=== PATIENT | female | born 1965 | race African-American/Black ===

== ENCOUNTER 2016-10-30 12:17 | Emergency (ER) | payer OTHER ==
[2016-10-30 12:34] VITALS: BP 126/81; PULSE 95; TEMP 98.5; BMI 36.6
--- NOTE | 2016-10-30 13:09 | PDOC ---
History of Present Illness - General Chief Complaint: Back Pain Stated Complaint: BACK PAIN Time Seen by Provider: 10/30/16 12:43 History Source: Patient Exam Limitations: No Limitations - History of Present Illness Initial Comments: CHIEF COMPLAINT: 51 y/o afebrile female with PMH DM, Bipolar, generalized pain , GERD BIB EMS from [facility] for back pain. HISTORY OF PRESENT ILLNESS: The patient states yesterday she was bent over a table and since that time has had lower back pain. She also admits to left eye redness and swelling, which she is being treated by the Ophthamologist at the [facility]. She denies f/c, KEARNEY, neck pain, n/v/d, CP, SOB, abd pain, fall, trauma to back, saddle anesthesia, numbness/tingling in LEs. Vital signs on arrival are notable for pulse of 95. REVIEW OF SYSTEMS: GENERAL/CONSTITUTIONAL: No fever/chills. No weakness. No weight change. HEAD, EYES, EARS, NOSE AND THROAT: No change in vision. No ear pain or discharge. No sore throat. CARDIOVASCULAR: No chest pain or shortness of breath. RESPIRATORY: No cough, wheezing, or hemoptysis. GASTROINTESTINAL: No abd pain, nausea, vomiting, diarrhea. GENITOURINARY: No dysuria, frequency, or change in urination. MUSCULOSKELETAL: No joint or muscle swelling or pain. No neck pain. +Back pain. SKIN: No rash or easy bruising. NEUROLOGIC: No headache, vertigo, loss of consciousness, or loss of sensation. PHYSICAL EXAM: GENERAL: The patient is awake, alert, and fully oriented, in no acute distress. She is well appearing and moves around in the bed with minimal pain. HEAD: Normal with no signs of trauma. ENT: Pupils equal, round and reactive to light, extraocular movements intact, sclera anicteric, conjunctiva clear. Neck supple. +left subconjunctival hemorrhage with moderate left supraorbital swelling. ABDOMEN: Soft, non-distended, non-tender even to deep palpation, no hepatomegaly or splenomegaly, no masses. BACK: No midline lumbar spine TTP or step offs. Reproducible pain to b/l lumbar paraspinal muscles. EXTREMITIES: Normal range of motion, no edema. NEUROLOGICAL: Normal speech, normal gait. CN II-XII grossly intact. No saddle anesthesia. Equal straight leg raise b/l. PSYCH: Normal mood, normal affect. SKIN: Warm, dry, normal turgor, no rashes or lesions noted. Past History - Past Medical History Allergies/Adverse Reactions: Allergies Allergy/AdvReac Type Severity Reaction Status Date / Time No Known Allergies Allergy Verified 10/30/16 12:30 Home Medications: Ambulatory Orders Divalproex [Depakote -] 500 mg PO DAILY 09/30/15 Divalproex [Depakote -] 750 mg PO HS 09/30/15 Haloperidol Liquid [Haldol Liquid -] 10 mg PO BID 09/30/15 Metformin HCl 500 mg PO BID 09/30/15 Albuterol Sulfate [Proair Respiclick] 90 mcg IH PRN PRN 10/30/16 Famotidine [Pepcid] 20 mg PO DAILY 10/30/16 Latanoprost 0.005% Eye Drops [Xalatan 0.005% Eye Drops -] 1 drop OU HS 10/30/16 Naproxen [Naprosyn -] 500 mg PO BID 10/30/16 Diabetes: Yes GI Disorders: Yes (REFLUX) Psychiatric Problems: Yes (BIPOLAR) - Psycho/Social/Smoking Cessation Hx Anxiety: Yes Suicidal Ideation: No Smoking History: Current every day smoker Have you smoked in the past 12 months: Yes Number of Cigarettes Smoked Daily: 20 Cigars Per Day: 5 Information on smoking cessation initiated: No 'Breaking Loose' booklet given: 07/22/16 Hx Alcohol Use: No Drug/Substance Use Hx: No Substance Use Type: None *Physical Exam - Vital Signs Last Vital Signs Temp Pulse Resp BP Pulse Ox 98.5 F 95 H 18 126/81 96 10/30/16 12:21 10/30/16 12:21 10/30/16 12:21 10/30/16 12:21 10/30/16 12:21 Medical Decision Making - Medical Decision Making A/P: 51 y/o afebrile with musculoskeletal low back pain. No imaging studies are necessary at this time. Plan is as follows: 1. IM toradol The patient was instructed to continue using eye drops prescribed to her by her maternal child nurse and take Motrin for back pain. Also suggested she apply heating pad to low back and stretch. Instructed her to return to the ER with any worsening or concerning symptoms. The patient verbalizes understanding of all instructions, has no further questions and is awaiting discharge. *DC/Admit/Observation/Transfer Diagnosis at time of Disposition: Low back pain Qualifiers: Chronicity: acute Back pain laterality: bilateral Sciatica presence: without sciatica Qualified Code(s): M54.5 - Low back pain - Discharge Dispostion Disposition: HALFWAY FACILITY Condition at time of disposition: Improved - Referrals Referrals: Wojciech Cummins [Staff Physician] - Call tomorrow - Patient Instructions Printed Discharge Instructions: DI for Low Back Pain Additional Instructions: Discharge Instructions: -Take Motrin with food every 6 hours for pain -Apply heating pad to low back to help with pain -Continue applying eye drops as prescribed by your eye doctor -Follow up with your eye doctor this week -Return to the ER with any worsening or concerning symptoms
[2016-10-30] MEDS ORDERED: KETOROLAC TROMETHAMINE 60 MG/2 ML VIAL IM ONE (13:10)
[2016-10-30] MEDS ORDERED: KETOROLAC TROMETHAMINE 60 MG/2 ML VIAL ONE (13:13)
--- NOTE | 2016-10-30 14:56 | PDOC ---
*Physical Exam - Vital Signs Last Vital Signs Temp Pulse Resp BP Pulse Ox 98.5 F 95 H 18 126/81 96 10/30/16 12:21 10/30/16 12:21 10/30/16 12:21 10/30/16 12:21 10/30/16 12:21 ED Treatment Course - Medications Given in the ED: ED Medications Discontinued Medications Generic Name Dose Route Start Last Admin Trade Name Chalo PRN Reason Stop Dose Admin Ketorolac Tromethamine 60 mg 10/30/16 13:10 10/30/16 13:15 Toradol Injection - IM 10/30/16 13:11 60 mg ONCE ONE Administration Medical Decision Making - Medical Decision Making 10/30/16 14:56 Patient seen and evaluated with the nurse practitioner. I agree with the overall evaluation, assessment, and management with the following summary of visit: 51-year-old female with atraumatic low back pain area no red flags on history or physical exam. Neurologically intact, improved after antacids, agrees with discharge. *DC/Admit/Observation/Transfer Diagnosis at time of Disposition: Low back pain Qualifiers: Chronicity: acute Back pain laterality: bilateral Sciatica presence: without sciatica Qualified Code(s): M54.5 - Low back pain - Discharge Dispostion Disposition: RETIREMENT FACILITY Condition at time of disposition: Improved - Referrals Referrals: Wojciech Cummins [Staff Physician] - Call tomorrow - Patient Instructions Printed Discharge Instructions: DI for Low Back Pain Additional Instructions: Discharge Instructions: -Take Motrin with food every 6 hours for pain -Apply heating pad to low back to help with pain -Continue applying eye drops as prescribed by your eye doctor -Follow up with your eye doctor this week -Return to the ER with any worsening or concerning symptoms - Post Discharge Activity
== END 2016-10-30 15:45 ==
LOC: JER 12:17
PROC: 3E0233Z Introduction of Anti-inflammatory into Muscle, Percutaneous Approach (ICD-10-PCS; principal; 2016-10-30)
DX: M54.5 Low back pain (principal); E11.9 Type 2 diabetes mellitus without complications; Z79.84 Long term (current) use of oral hypoglycemic drugs; K21.9 Gastro-esophageal reflux disease without esophagitis; F17.210 Nicotine dependence, cigarettes, uncomplicated; X50.9XXA Other and unspecified overexertion or strenuous movements or postures, initial encounter; X50.0XXA Overexertion from strenuous movement or load, initial encounter; Y93.89 Activity, other specified; Y92.128 Other place in nursing home as the place of occurrence of the external cause
CPT/HCPCS: 96372; 99282-25

== ENCOUNTER 2016-10-31 22:13 | Emergency (ER) | payer OTHER ==
[2016-10-31 22:27] VITALS: BP 109/62; PULSE 101; TEMP 98.1; BMI 40.2
--- NOTE | 2016-10-31 22:48 | PDOC ---
History of Present Illness - General Chief Complaint: Back Pain Stated Complaint: BACK PAIN Time Seen by Provider: 10/31/16 22:38 History Source: Patient Exam Limitations: No Limitations - History of Present Illness Initial Comments: 10/31/16 23:21 51yo Female patient with PmHx: Schizophrenia, Bipolar disorder, DM, GERD and chronic low back pain presents to ED via EMS from "[facility] " c/o atraumatic back pain. Patient states she was seen in ED earlier today and given Motrin which did not help her back pain. Patient denies trauma, injury, CP , Abd pain, n/v/d, rash, fever, dysuria, hematuria, rectal bleeding, or any other complaints at this time. Patient also has a subconjunctival hemorrhage noted to left eye that she reports is currently being treated by her facility staff. Past History - Travel Traveled outside of the country in the last 30 days: No Close contact w/someone who was outside of country & ill: No - Past Medical History Allergies/Adverse Reactions: Allergies Allergy/AdvReac Type Severity Reaction Status Date / Time No Known Allergies Allergy Verified 10/31/16 22:24 Home Medications: Ambulatory Orders Divalproex [Depakote -] 500 mg PO DAILY 09/30/15 Divalproex [Depakote -] 750 mg PO HS 09/30/15 Haloperidol Liquid [Haldol Liquid -] 10 mg PO BID 09/30/15 Metformin HCl 500 mg PO BID 09/30/15 Albuterol Sulfate [Proair Respiclick] 90 mcg IH PRN PRN 10/30/16 Famotidine [Pepcid] 20 mg PO DAILY 10/30/16 Latanoprost 0.005% Eye Drops [Xalatan 0.005% Eye Drops -] 1 drop OU HS 10/30/16 Naproxen [Naprosyn -] 500 mg PO BID 10/30/16 Cephalexin Monohydrate [Keflex -] 500 mg PO BID #14 capsule 11/01/16 Diabetes: Yes GI Disorders: Yes (gerd) Psychiatric Problems: Yes (bipolar, schizophrenia) - Psycho/Social/Smoking Cessation Hx Anxiety: Yes Suicidal Ideation: No Smoking History: Never smoked Have you smoked in the past 12 months: Yes Number of Cigarettes Smoked Daily: 1 Cigars Per Day: 5 'Breaking Loose' booklet given: 07/22/16 Hx Alcohol Use: No Drug/Substance Use Hx: No Substance Use Type: None Trauma Specific PMHX - Complaint Specific PMHX Arthritis: Yes Back Injury: No Neck Injury: No Hx Sacro Iliac Joint Dysfunction: No Review of Systems - Review of Systems Able to Perform ROS?: Yes Is the patient limited [place] Citizen proficient: No Constitutional: No: Chills, Fever ABD/GI: No: Constipated, Diarrhea, Nausea, Poor Appetite, Poor Fluid Intake, Rectal Bleeding, Vomiting : No: Dysuria, Flank Pain, Hematuria Musculoskeletal: Yes: Back Pain All Other Systems: Reviewed and Negative *Physical Exam - Vital Signs Last Vital Signs Temp Pulse Resp BP Pulse Ox 98.1 F 101 H 18 109/62 96 10/31/16 22:24 10/31/16 22:24 10/31/16 22:24 10/31/16 22:24 10/31/16 22:24 - Physical Exam General Appearance: Yes: Nourished, Appropriately Dressed, Mild Distress. No: Apparent Distress, Moderate Distress, Severe Distress HEENT: positive: EOMI, SHAHLA, Normal Voice, Symmetrical, TMs Normal, Pharynx Normal, Other (+ Left orbital swelling with subconjunctival hemorrhage.). negative: Pale Conjunctivae, Scleral Icterus (R), Scleral Icterus (L), Pharyngeal Erythema, Tonsillar Exudate, Tonsillar Erythema, Nasal Congestion, Rhinorrhea, TM Bulging, TM Dull, TM Erythema Neck: positive: Trachea midline, Supple. negative: Stridor, Lymphadenopathy (R) , Lymphadenopathy (L) Respiratory/Chest: positive: Lungs Clear, Normal Breath Sounds. negative: Respiratory Distress, Accessory Muscle Use, Labored Respiration, Rapid RR Cardiovascular: positive: Regular Rhythm, Regular Rate. negative: Edema, JVD, Murmur Gastrointestinal/Abdominal: positive: Normal Bowel Sounds, Soft, Distended. negative: Guarding, Rebound, Tenderness Musculoskeletal: positive: Normal Inspection, Other (General Lumbar region tenderness on examination). negative: CVA Tenderness Extremity: positive: Normal Capillary Refill, Normal Inspection, Normal Range of Motion Integumentary: positive: Normal Color, Dry, Warm Neurologic: positive: switch box installer II-XII NML intact, Fully Oriented, Alert, Normal Mood/ Affect, Normal Response, Motor Strength / ED Treatment Course - LABORATORY CBC & Chemistry Diagram: 10/31/16 23:25 10/31/16 23:25 Progress Note - Progress Note Progress Note: Patient Search Multi-Patient Search Reports Drug Listing Designation My MARGARITA Numbers Data Detail Level: Printer-Friendly View | Show Extended View Confidential Drug Utilization Report Search Terms: Lisa Musa, 1965 Search Date: 10/31/2016 10:47: 25 PM The Drug Utilization Report below displays all of the controlled substance prescriptions, if any, that your patient has filled in the last twelve months. The information displayed on this report is compiled from pharmacy submissions to the Department, and accurately reflects the information as submitted by the pharmacies. This report was requested by: Abhay Jorge | Reference #: [id number] There are no results for the search terms that you entered. 11-01-2016 1251am Patient awoke from sleep stating her back is hurting and she would like more pain medication. Labs: UA 2+ Leuko with many WBCs. Will treat for UTI and d/c back to care home facility. *DC/Admit/Observation/Transfer Diagnosis at time of Disposition: Urinary tract infection Qualifiers: Urinary tract infection type: site unspecified Hematuria presence: without hematuria Qualified Code(s): N39.0 - Urinary tract infection, site not specified - Discharge Dispostion Disposition: ASSISTED FACILITY Condition at time of disposition: Stable Admit: No - Prescriptions Prescriptions: Cephalexin Monohydrate [Keflex -] 500 mg PO BID #14 capsule - Patient Instructions Printed Discharge Instructions: Urinary Tract Infection Additional Instructions: FOLLOW UP WITH YOUR PRIMARY CARE PROVIDER. TAKE MEDICATIONS PRESCRIBED. DRINK PLENTY WATER. TRY CRANBERRY JUICE. Print Language: NIGERIEN
[2016-10-31] MEDS ORDERED: OXYCODONE/APAP 5/325MG COMBO TABLET PO ONE (22:51)
[2016-10-31] MEDS ORDERED: OXYCODONE/APAP 5/325MG COMBO TABLET ONE (22:54)
[2016-10-31 23:43] LABS: BASOPHIL 0.8 % (0-2.0); EOSINOPHIL 1.2 % (0-4.5); MCH 27.7 pg (25.7-33.7); MCHC 33.5 g/dl (32.0-36.0); MEAN CELL VOLUME 82.8 fl (80-96); MEAN PLT VOLUME 7.4 fl (7.5-11.1); NEUTROPHILS 73.2 % (42.8-82.8); PLATELET COUNT 535 K/MM3 (134-434); RDW 17.3 % (11.6-15.6); WHITE BLOOD COUNT 14.1 K/mm3 (4.0-10.0)
[2016-11-01 00:11] LABS: ALBUMIN 2.7 g/dl (3.4-5.0); ALK PHOS 94 U/L (45-117); ANION GAP 8 (8-16); BILIRUBIN,TOTAL 0.2 mg/dL (0.2-1.0); CALCIUM 9.3 mg/dL (8.5-10.1); CO2 29 mmol/L (21-32); CREATININE 0.5 mg/dL (0.55-1.02); GLUCOSE,RANDOM 91 mg/dL (74-106); SGPT/ALT 8 U/L (12-78); TOT PROT 8.3 g/dl (6.4-8.2)
[2016-11-01 00:13] LABS: SGOT/AST 4 U/L (15-37)
[2016-11-01 00:24] LABS: URINE APPEARANCE CLEAR; URINE BILIRUBIN NEGATIVE (NEGATIVE); URINE BLOOD NEGATIVE (NEGATIVE); URINE COLOR LTYELLOW; URINE GLUCOSE (UA) NEGATIVE (NEGATIVE); URINE KETONE NEGATIVE (NEGATIVE); URINE NITRITE NEGATIVE (NEGATIVE); URINE PROTEIN NEGATIVE (NEGATIVE); URINE UROBILINOGEN NEGATIVE E.U./dl (0.2-1.0)
[2016-11-01 00:31] LABS: URINE LEUK ESTERASE 2+ (NEGATIVE)
[2016-11-01 00:32] LABS: URINE BACTERIA RARE /hpf (NONE SEEN); URINE HYALINE CAST 1 /lpf; URINE MUCUS RARE; URINE WBC 182 /hpf (3-5)
[2016-11-01] MEDS ORDERED: CEPHALEXIN MONOHYDRATE 500 MG CAPSULE (UD) PO ONE (00:54)
[2016-11-01] MEDS ORDERED: CYCLOBENZAPRINE HCL 10 MG TABLET (FP) PO ONE (00:55)
[2016-11-01] MEDS ORDERED: IBUPROFEN 400 MG TABLET (FP) PO ONE ×2 (00:55→01:18)
--- NOTE | 2016-11-01 01:11 | PDOC ---
*Physical Exam - Vital Signs Last Vital Signs Temp Pulse Resp BP Pulse Ox 98.1 F 101 H 18 109/62 96 10/31/16 22:24 10/31/16 22:24 10/31/16 22:24 10/31/16 22:24 10/31/16 22:24 ED Treatment Course - LABORATORY CBC & Chemistry Diagram: 10/31/16 23:25 10/31/16 23:25 - ADDITIONAL ORDERS Additional order review: Laboratory Results 11/01/16 10/31/16 00:12 23:25 Sodium 133 L Potassium 4.2 Chloride 96 L Carbon Dioxide 29 Anion Gap 8 BUN 20 H D Creatinine 0.5 L Creat Clearance w eGFR > 60 Random Glucose 91 D Calcium 9.3 Total Bilirubin 0.2 AST 4 L D ALT 8 L Alkaline Phosphatase 94 Total Protein 8.3 H Albumin 2.7 L Urine Color Ltyellow Urine Appearance Clear Urine pH 5.0 Ur Specific [place] 1.017 Urine Protein Negative Urine Glucose (UA) Negative Urine Ketones Negative Urine Blood Negative Urine Nitrite Negative Urine Bilirubin Negative Urine Urobilinogen Negative Ur Leukocyte Esterase 2+ H D Urine RBC None Urine WBC 182 Ur Epithelial Cells Rare Urine Bacteria Rare Hyaline Casts 1 Urine Mucus Rare 10/31/16 23:25 RBC 3.58 L MCV 82.8 MCHC 33.5 RDW 17.3 H MPV 7.4 L Neutrophils % 73.2 D Lymphocytes % 18.6 D Monocytes % 6.2 Eosinophils % 1.2 Basophils % 0.8 - Medications Given in the ED: ED Medications Discontinued Medications Generic Name Dose Route Start Last Admin Trade Name Freq PRN Reason Stop Dose Admin Oxycodone/Acetaminophen 1 combo 10/31/16 22:51 10/31/16 22:57 Percocet 5/325 - PO 10/31/16 22:52 1 combo ONCE ONE Administration Medical Decision Making - Medical Decision Making 11/01/16 01:11 agree with care from AARON Jorge *DC/Admit/Observation/Transfer Diagnosis at time of Disposition: UTI (urinary tract infection) Qualifiers: Urinary tract infection type: site unspecified Hematuria presence: without hematuria Qualified Code(s): N39.0 - Urinary tract infection, site not specified - Discharge Dispostion Disposition: LONG-TERM FACILITY Condition at time of disposition: Stable - Prescriptions Prescriptions: Cephalexin Monohydrate [Keflex -] 500 mg PO BID #14 capsule - Referrals - Patient Instructions Printed Discharge Instructions: Urinary Tract Infection Additional Instructions: FOLLOW UP WITH YOUR PRIMARY CARE PROVIDER. TAKE MEDICATIONS PRESCRIBED. DRINK PLENTY WATER. TRY CRANBERRY JUICE. Print Language: PASHTO - Post Discharge Activity
[2016-11-01] MEDS ORDERED: CEPHALEXIN MONOHYDRATE 250 MG CAPSULE (FP) ONE (01:18)
[2016-11-01] MEDS ORDERED: CYCLOBENZAPRINE HCL 10 MG TABLET (FP) ONE (01:19)
== END 2016-11-01 02:18 ==
LOC: JER 22:13
DX: N39.0 Urinary tract infection, site not specified (principal); E11.9 Type 2 diabetes mellitus without complications; Z79.84 Long term (current) use of oral hypoglycemic drugs; F20.9 Schizophrenia, unspecified; F31.9 Bipolar disorder, unspecified; K21.9 Gastro-esophageal reflux disease without esophagitis
CPT/HCPCS: 36415; 80053; 81003; 81015; 85025; 99282-25

== ENCOUNTER 2016-11-19 09:42 | Inpatient (IN) | payer OTHER ==
--- NOTE | 2016-11-19 09:49 | PDOC ---
History of Present Illness <Jose Ramos - Last Filed: 11/19/16 18:12> - General History Source: Patient Exam Limitations: No Limitations - History of Present Illness Initial Comments: 11/19/16 10:18 The patient is a 51 year old female, from [facility], with a significant past medical history of Schizophrenia, Bipolar, DM, GERD, vaginitis and chronic low back pain who presents to the ED with complaints of back pain and eye pain for a week and vaginal burning for 2 weeks. The patient reports lower back pain that radiates to her flank and eye pain with associated photophobia. She reports taking motrin with no relief of symptoms.The patient reports vaginal burning and vaginal bleeding. She states she was recently seen in the ED on 11/01/16 and was diagnosed with a UTI. Patient state she does not have a normal menstrual cycle. Patient denies fevers or chills. Patient denies chest pain or shortness of breath. Patient denies abdominal pain, nausea, vomiting, or diarrhea. Patient denies dysuria or difficulty urinating. Patient denies any other symptoms. <Faheem Villar - Last Filed: 11/19/16 18:18> - General Stated Complaint: VAGINAL IRRIATION/BACK PAIN Time Seen by Provider: 11/19/16 09:48 Past History - Past Medical History Diabetes: Yes GI Disorders: Yes (gerd) Psychiatric Problems: Yes (bipolar, schizophrenia) - Psycho/Social/Smoking Cessation Hx Anxiety: Yes Suicidal Ideation: No Smoking History: Never smoked Have you smoked in the past 12 months: Yes Number of Cigarettes Smoked Daily: 1 Cigars Per Day: 5 'Breaking Loose' booklet given: 07/22/16 Hx Alcohol Use: No Drug/Substance Use Hx: No Substance Use Type: None <Jose Ramos - Last Filed: 11/19/16 18:12> <Faheem Villar - Last Filed: 11/19/16 18:18> - Past Medical History Allergies/Adverse Reactions: Allergies Allergy/AdvReac Type Severity Reaction Status Date / Time No Known Allergies Allergy Verified 11/19/16 09:45 Home Medications: Ambulatory Orders Divalproex [Depakote -] 500 mg PO DAILY 09/30/15 Divalproex [Depakote -] 750 mg PO HS 09/30/15 Haloperidol Liquid [Haldol Liquid -] 10 mg PO BID 09/30/15 Metformin HCl 500 mg PO BID 09/30/15 Albuterol Sulfate [Proair Respiclick] 90 mcg IH PRN PRN 10/30/16 Famotidine [Pepcid] 20 mg PO DAILY 10/30/16 Latanoprost 0.005% Eye Drops [Xalatan 0.005% Eye Drops -] 1 drop OU HS 10/30/16 Naproxen [Naprosyn -] 500 mg PO BID 10/30/16 Review of Systems - Review of Systems Able to Perform ROS?: Yes Comments:: 11/19/16 10:18 GENERAL/CONSTITUTIONAL: No fever or chills. No weakness. HEAD, EYES, EARS, NOSE AND THROAT: + eye pain, photophobia. No change in vision. No ear pain or discharge. No sore throat. CARDIOVASCULAR: No chest pain or shortness of breath. RESPIRATORY: No cough, wheezing, or hemoptysis. GASTROINTESTINAL: No nausea, vomiting, diarrhea or constipation. GENITOURINARY: + vaginal bleeding, vaginal burning. No dysuria, frequency, or change in urination. MUSCULOSKELETAL: + back pain. No joint or muscle swelling or pain. No neck pain SKIN: No rash NEUROLOGIC: No headache, vertigo, loss of consciousness, or change in strength/ sensation. ENDOCRINE: No increased thirst. No abnormal weight change. HEMATOLOGIC/LYMPHATIC: No anemia, easy bleeding, or history of blood clots. ALLERGIC/IMMUNOLOGIC: No hives or skin allergy. All Other Systems: Reviewed and Negative <Faheem Villar - Last Filed: 11/19/16 18:18> *Physical Exam - Vital Signs Last Vital Signs Temp Pulse Resp BP Pulse Ox 98 F 105 H 20 131/91 94 L 11/19/16 09:50 11/19/16 09:50 11/19/16 09:50 11/19/16 09:50 11/19/16 09:50 - Physical Exam Comments: 11/19/16 12:15 GENERAL: Awake, alert, and fully oriented, in no acute distress HEAD: No signs of trauma EYES: + Bilateral keratoconjunctivitis, Multiple areas of uptake of the left eye at the 9 o'clock, one small area of uptake at on the right eye 9 o'clock position. PERRLA, EOMI, sclera anicteric, conjunctiva clear ENT: Auricles normal inspection, hearing grossly normal, nares patent, oropharynx clear without exudates. Moist mucosa NECK: Normal ROM, supple, no lymphadenopathy, JVD, or masses LUNGS: Breath sounds equal, clear to auscultation bilaterally. No wheezes, and no crackles HEART: Regular rate and rhythm, normal S1 and S2, no murmurs, rubs or gallops ABDOMEN: Soft, nontender, normoactive bowel sounds. No guarding, no rebound. No masses VAGINAL: + Multiple abscess of the perineum in the vagina. Cultures were obtained, Specimen on exam was normal, no obvious lesions EXTREMITIES: Normal range of motion, no edema. No clubbing or cyanosis. No cords, erythema, or tenderness NEUROLOGICAL: Cranial nerves II through XII grossly intact. Normal speech, normal gait SKIN: Warm, Dry, normal turgor, no rashes or lesions noted. <Faheem Villar - Last Filed: 11/19/16 18:18> ED Treatment Course - LABORATORY CBC & Chemistry Diagram: 11/19/16 13:15 11/19/16 13:15 <Jose Ramos - Last Filed: 11/19/16 18:12> - LABORATORY CBC & Chemistry Diagram: 11/19/16 13:15 11/19/16 13:15 - RADIOLOGY Radiograph Interpretation: 11/19/16 17:59 EXAM: ULTRASOUND PELVIS, COMPLETE AND TRANSVAGINAL ULTRASOUND IMPRESSION: Ovaries not seen. No adnexal masses. No free fluid. Normal uterus. Endometrial stripe complex 5 mm thick. Unremarkable visualized portion of bladder. Exam limited by body habitus, bowel gas and patient's inability to fully empty bladder. Reported by: Imaging control systems engineer, Pastora Aranda M.D. 11/19/16 18:02 EXAM: CT ABDOMEN AND PELVIS WITH CONTRAST IMPRESSION: Marked stkin and subcutaneous tissue thickening prebuic soft tissues extending to vulvae and perineal soft tissues and left greater than right buttocks near gluteal cleft, possibly cellulitis and/or chronic scarring. Areas of heterogeneous enhancement in preubic and vulvar soft tissues suggest more active inflammation, with several small abscesses just deep to skin surface ranging in size from 13-18 mm. Hepatomegaly. Probable artifact lower aspect right hepatic lobe. Cholelithiasis, gallbladder sludge and dilated gallbladder. No bowel obstruction, colitis, free fluid or free air. Normal appendix. Unremarkable pancreas. Subcentimeter cortical hypodensity right kidney. Reported by: Imaging control systems engineer, Pastora Aranda M.D <Faheem Villar - Last Filed: 11/19/16 18:18> Medical Decision Making - Medical Decision Making 11/19/16 13:[address] Garay at 13:11. 11/19/16 13:44 Patient was reassessed with Dr. Macias in the room. Dr. Macias states there is nothing she can do for the patient. She thinks the patient has diabetes and cellulitis. CT will be ordered. If CT results are abnormal, call general surgery. 11/19/16 18:[address] Turner. She will admit the patient. <Faheem Villar - Last Filed: 11/19/16 18:18> *DC/Admit/Observation/Transfer - Discharge Dispostion Admit: Yes - Attestations Physician Attestion: 11/19/16 09:49 I, Dr. Jose Ramos, attest that this document has been prepared under my direction and personally reviewed by me in its entirety. I further attest, that it accurately reflects all work, treatment, procedures and medical decision -making performed by me. <Jose Ramos - Last Filed: 11/19/16 18:12> - Attestations Scribe Attestion: 11/19/16 10:18 Documentation prepared by Faheem Villar, acting as emergency medical service manager for Jose Ramos MD <Faheem Villar - Last Filed: 11/19/16 18:18> Diagnosis at time of Disposition: Abscess Cellulitis Qualifiers: Site of cellulitis: other site Qualified Code(s): L03.818 - Cellulitis of other sites - Referrals Referrals: Jeffery Tomlin [Primary Care Provider] -
[2016-11-19] MEDS ORDERED: FLUORESCEIN NA 1 EA STRIP ONE ×2 (10:16→10:45)
[2016-11-19] MEDS ORDERED: TETRACAINE 0.5% OPHTH SOLN 2 ML BOTTLE ONE (10:16)
[2016-11-19] MEDS ORDERED: FLUORESCEIN NA 1 EA STRIP OU ONE (10:17)
[2016-11-19 11:35] LABS: URINE APPEARANCE CLEAR; URINE BILIRUBIN NEGATIVE (NEGATIVE); URINE COLOR LTYELLOW; URINE GLUCOSE (UA) NEGATIVE (NEGATIVE); URINE KETONE TRACE (NEGATIVE); URINE NITRITE NEGATIVE (NEGATIVE); URINE PROTEIN NEGATIVE (NEGATIVE); URINE UROBILINOGEN NEGATIVE E.U./dl (0.2-1.0)
[2016-11-19 11:37] LABS: URINE BLOOD 1+ (NEGATIVE); URINE LEUK ESTERASE 3+ (NEGATIVE)
[2016-11-19] MEDS ORDERED: SODIUM CHLORIDE 2,000 ML IV STA (12:06)
[2016-11-19] MEDS ORDERED: VANCOMYCIN 1 GRAM (PRE-DOCKED) 1,000 MG/250 ML BAG IVPB ONE (12:09)
[2016-11-19] MEDS ORDERED: FLUCONAZOLE 100 MG TABLET (UD) PO ONE (12:09)
[2016-11-19] MEDS ORDERED: PIPERACILLIN/TAZOB 3.375 GM/50 ML PRE-DOCKED IV ONE (12:09)
[2016-11-19 12:38] LABS: URINE BACTERIA RARE /hpf (NONE SEEN); URINE MUCUS RARE; URINE RBC 2 /hpf (0-3); URINE WBC 7 /hpf (3-5)
[2016-11-19] MEDS ORDERED: VANCOMYCIN 1 GRAM (PRE-DOCKED) 250 ML IVPB ONE (13:10)
[2016-11-19] MEDS ORDERED: FLUCONAZOLE 100 MG TABLET (UD) ONE (13:10)
[2016-11-19] MEDS ORDERED: PIPERACILLIN/TAZOB 3.375 GM 50 ML IVPB ONE (13:10)
[2016-11-19 13:33] LABS: BASOPHIL 0.5 % (0-2.0); EOSINOPHIL 1.1 % (0-4.5); MCH 26.9 pg (25.7-33.7); MCHC 33.1 g/dl (32.0-36.0); MEAN CELL VOLUME 81.4 fl (80-96); NEUTROPHILS 68.4 % (42.8-82.8); PLATELET COUNT 425 K/MM3 (134-434); RDW 17.5 % (11.6-15.6); WHITE BLOOD COUNT 11.6 K/mm3 (4.0-10.0)
[2016-11-19 13:44] LABS: ALBUMIN 2.6 g/dl (3.4-5.0); ANION GAP 10 (8-16); BILIRUBIN,TOTAL 0.3 mg/dL (0.2-1.0); CALCIUM 9.3 mg/dL (8.5-10.1); CO2 27 mmol/L (21-32); CREATININE 0.5 mg/dL (0.55-1.02); GLUCOSE,RANDOM 71 mg/dL (74-106); SGOT/AST 9 U/L (15-37); SGPT/ALT < 6 U/L (12-78); TOT PROT 7.3 g/dl (6.4-8.2)
[2016-11-19 13:45] LABS: ALK PHOS 82 U/L (45-117)
[2016-11-19 13:47] LABS: INR 1.21 (0.82-1.09); PROTHROMBIN TIME (PATIENT) 13.4 SEC (9.98-11.88)
--- NOTE | 2016-11-19 19:06 | PN ---
<Yissel Trevizo - Last Filed: 11/19/16 19:05> Teaching Attending Note Name of Resident: Sravani Andrews ATTENDING PHYSICIAN STATEMENT I saw and evaluated the patient. I reviewed the resident's note and discussed the case with the resident. I agree with the resident's findings and plan as documented. SUBJECTIVE: OBJECTIVE: ASSESSMENT AND PLAN: <Rose Fernando - Last Filed: 11/19/16 20:18> Teaching Attending Note ATTENDING PHYSICIAN STATEMENT I saw and evaluated the patient. I reviewed the resident's note and discussed the case with the resident. I agree with the resident's findings and plan as documented. SUBJECTIVE: Patient is a 51 yo F presents from [place] with a PMHx of Schizophrenia, Bipolar disorder, non insulin dependent DM, GERD, vaginitis and chronic low back pain who presents with vaginal burning, vaginal bleeding and low back pain for two weeks. Patient has had vaginal spotting for two weeks and vaginal irritations. Patient has prior Hx of hydratipidus suppurativa but states it has gotten much worse since last visit. Patient reports visiting surgeon and OBGYN after her last visit at [place] and was told there was no procedure that could help her. Patient was recently diagnosed on 11/01/16 with a UTI and treated. Patient denies fevers, chills, N/V/D. OBJECTIVE: Last Vital Signs Temp Pulse Resp BP Pulse Ox 98.1 F 83 18 127/74 97 11/19/16 17:57 11/19/16 17:57 11/19/16 17:57 11/19/16 17:57 11/19/16 17:57 GENERAL: Awake, alert, and fully oriented, in no acute distress HEENT: Atraumatic. PERRLA, Injected sclera. No JVD LUNGS: No distress, speaks full sentences, clear to auscultation bilaterally HEART: Regular rate and rhythm, normal S1 and S2, no murmurs, rubs or gallops, peripheral pulses normal and equal bilaterally. ABDOMEN: Abdomen, vaginal and buttox exam have multiple areas of ulcers and abscess with surrounding erythema and edema. 10 cm abdominal lesion/mass with areas of ulceration, erythema, edema extending to her vulvar region with serosanguinous drainage also extending to bilateral bottock right greater than left. EXTREMITIES: Normal inspection, Normal range of motion, no edema. No clubbing or cyanosis. NEUROLOGICAL: Cranial nerves II through XII grossly intact. Normal speech, normal gait, no focal sensorimotor deficits SKIN: Warm, Dry, normal turgor. CBCD WBC 11.6 K/mm3 (4.0-10.0) H 11/19/16 13:15 RBC 3.40 M/mm3 (3.60-5.2) L 11/19/16 13:15 Hgb 9.1 GM/dL (10.7-15.3) L 11/19/16 13:15 Hct 27.6 % (32.4-45.2) L 11/19/16 13:15 MCV 81.4 fl (80-96) 11/19/16 13:15 MCHC 33.1 g/dl (32.0-36.0) 11/19/16 13:15 RDW 17.5 % (11.6-15.6) H 11/19/16 13:15 Plt Count 425 K/MM3 (134-434) D 11/19/16 13:15 MPV 7.0 fl (7.5-11.1) L 11/19/16 13:15 CMP Sodium 140 mmol/L (136-145) 11/19/16 13:15 Potassium 4.6 mmol/L (3.5-5.1) 11/19/16 13:15 Chloride 103 mmol/L (98-107) 11/19/16 13:15 Carbon Dioxide 27 mmol/L (21-32) 11/19/16 13:15 Anion Gap 10 (8-16) 11/19/16 13:15 BUN 12 mg/dL (7-18) D 11/19/16 13:15 Creatinine 0.5 mg/dL (0.55-1.02) L 11/19/16 13:15 Creat Clearance w eGFR > 60 (>60) 11/19/16 13:15 Calcium 9.3 mg/dL (8.5-10.1) 11/19/16 13:15 Total Bilirubin 0.3 mg/dL (0.2-1.0) D 11/19/16 13:15 AST 9 U/L (15-37) L D 11/19/16 13:15 ALT < 6 U/L (12-78) L D 11/19/16 13:15 Alkaline Phosphatase 82 U/L (45-117) 11/19/16 13:15 Total Protein 7.3 g/dl (6.4-8.2) 11/19/16 13:15 Albumin 2.6 g/dl (3.4-5.0) L 11/19/16 13:15 EXAM: ULTRASOUND PELVIS, COMPLETE AND TRANSVAGINAL ULTRASOUND IMPRESSION: Ovaries not seen. No adnexal masses. No free fluid. Normal uterus. Endometrial stripe complex 5 mm thick. Unremarkable visualized portion of bladder. Exam limited by body habitus, bowel gas and patient's inability to fully empty bladder. Reported by: Imaging audio visual production specialist, Pastora Aranda M.D. EXAM: CT ABDOMEN AND PELVIS WITH CONTRAST IMPRESSION: Marked stkin and subcutaneous tissue thickening prebuic soft tissues extending to vulvae and perineal soft tissues and left greater than right buttocks near gluteal cleft, possibly cellulitis and/or chronic scarring. Areas of heterogeneous enhancement in preubic and vulvar soft tissues suggest more active inflammation, with several small abscesses just deep to skin surface ranging in size from 13-18 mm. Hepatomegaly. Probable artifact lower aspect right hepatic lobe. Cholelithiasis, gallbladder sludge and dilated gallbladder. No bowel obstruction, colitis, free fluid or free air. Normal appendix. Unremarkable pancreas. Subcentimeter cortical hypodensity right kidney. Reported by: Imaging audio visual production specialist, Pastora Aranda M.D ASSESSMENT AND PLAN: Patient is a 51 yo F with a PMHx of Schizophrenia, Bipolar, Non insulin dependent DM, GERD, vaginitis and chronic low back pain who presents with vaginal burning, bleeding, back pain, eye pain whos found to have cellulitis secondary to hidradenitis suppurativa 1.) Cellulitis secondary to hidradenitis suppurativa -Ceftriaxone and flagyl -Continue with vanco -ID consult -Surgical consult after CT scan -Follow up cultures -Type and Screen -Wound care 2.) Non-insulin dependent DM -Fingersticks -Insulin sliding scale 3.) Schizophrenia -Continue with home meds 4.) Conjunctivitis -Azithromycin ointment DVT ppx -SCDs Documentation prepared by Rose Fernando, acting as medical support assistant for Yissel Trevizo D.O.
--- NOTE | 2016-11-19 19:40 | CON.OBG ---
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 irregular bleeding - History of Present Illness Chief Complaint: 51 yrs , Lmp not known , c/o vaginal spotting for 2 weeks .. c/o vaginal irritation . h/o mutiple abscess in Mons pubis area , for number of years History of Present Illness: pateint is known c/o Chr Hidraenitis Suppurativa for many years involving, axillas, breast folds& suprapubic area & inner thighs& vulva . she came to ER c/o vaginal irritation & spotting . she did not c/o vaginal itching to me. Although she has h/o chr vaginal candidiasis she is seen at [address] [place] [address] by different providers for it Menst h/o LMP not known . but has brownish discharge for 2 weeks Past one year she has irregular periods,she does not know when she had regular period Past mH until 2015 regular cyclex 3-4 days bleeding, mild cramps Pa Ob Hx 1 34 yrs ago 3 INd AB - History Source History Provided By: Patient, Medical Record Limitations to Obtaining History: Poor Historian - Past Medical History Cardio/Vascular: Yes: HTN (labile , sometimes, no meds ) Pulmonary: Yes: Asthma Gastrointestinal: Yes: GERD Renal/: Yes: UTI (diagnosed in ER on 11/01/16 ) Reproductive: Yes: Other (h/o vaginitis monilialal on & off . last pap 02/08/2016 NILM, HPV neg ) ...LMP: 01/13/16 ...: No ...: 4 ...Para: 1 Heme/Onc: Yes: Anemia Infectious Disease: No: HIV, STD's (gc , chlamydia cultures always neg ) Psych: Yes: Bipolar, Schizophrenia Musculoskeletal: Yes: Chronic low back pain Endocrine: Yes: Diabetes Mellitus (class 2, on Metformin ) - Past Surgical History Additional Surgical History: Breast fold skin excision due to hidradenitis suppurativa - Alcohol/Substance Use Hx Alcohol Use: No - Smoking History Smoking history: Current every day smoker Have you smoked in the past 12 months: Yes Aproximately how many cigarettes per day: 1 (pt states she smokes cigars ) - Social History Usual Living Arrangement: Assisted Living (pt from long term) Home Medications - Allergies Allergies/Adverse Reactions: Allergies Allergy/AdvReac Type Severity Reaction Status Date / Time No Known Allergies Allergy Verified 11/19/16 09:45 - Home Medications Home Medications: Ambulatory Orders Divalproex [Depakote -] 500 mg PO DAILY 09/30/15 Divalproex [Depakote -] 750 mg PO HS 09/30/15 Haloperidol Liquid [Haldol Liquid -] 10 mg PO BID 09/30/15 Metformin HCl 500 mg PO BID 09/30/15 Albuterol Sulfate [Proair Respiclick] 90 mcg IH PRN PRN 10/30/16 Famotidine [Pepcid] 20 mg PO DAILY 10/30/16 Latanoprost 0.005% Eye Drops [Xalatan 0.005% Eye Drops -] 1 drop OU HS 10/30/16 Naproxen [Naprosyn -] 500 mg PO BID 10/30/16 Review of Systems - Review of Systems Constitutional: denies: Fever Eyes: reports: Photophobia HENT: reports: No Symptoms Neck: reports: No Symptoms Cardiovascular: reports: No Symptoms Respiratory: reports: No Symptoms Gastrointestinal: reports: Other (hear burn after eating, GERD) Genitourinary: reports: Flank Pain Breasts: reports: Skin Changes (h/o hidradenitis) Integumentary: reports: Lump (in suprapubic area ,), Wound (mutiple abscess draining) 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 perineal & perianal area also is scarred .), Other (Mons pubis area appears like large LUMP,12x12 cm approx peau d' orange appearance ? cellulitis extrafafascial , possible subcutaneous tissuse involvement with multiple abscessess draining purulent discharge .skin is thick & scarred , & same lesions extend down wards on vulva, perineum & inner thighs. Unable to palpate inguinal nodes) Internal Exam Deferred: Yes Vaginal Exam: Yes: Discharge (brown discharge , suggestive of old bleeding) Cervix: Yes: Bleeding (old blood from cx) Uterus: Yes: Normal, Freely Moveable, Firm. No: Mass, Tender Adnexa: Normal: Bilateral, Not Palpable: Bilateral Breast(s): Yes: WNL (large . no h/o mamogram), Skin Changes (mutiple thick scarring in the breast folds skin & interbreast region no purulent discharge in breast area). No: Discharge from Nipple Extremities: Yes: Other (upper extrmities, both axilla , thickening & scarring of skin from past hidradenitis . no purulent discharge seen. inner thighs skin below perineum half way above knee joint also shows thickening & scarring of skin & some places purulent discharge) Integumentary: Yes: Other (skin lesions as described above) Psychiatric: Yes: WNL Labs: Laboratory Tests 11/19/16 11/19/16 11/19/16 11:23 13:15 13:15 WBC 11.6 H RBC 3.40 L Hgb 9.1 L Hct 27.6 L Plt Count 425 D Neutrophils % 68.4 Lymphocytes % 23.8 D Monocytes % 6.2 Eosinophils % 1.1 Basophils % 0.5 INR 1.21 H Sodium Potassium Chloride Carbon Dioxide BUN Creatinine Random Glucose Calcium AST ALT Alkaline Phosphatase Total Protein Albumin Urine Color Ltyellow Urine Appearance Clear Urine pH 6.0 Ur Specific [place] 1.014 Urine Protein Negative Urine Glucose (UA) Negative Urine Ketones Trace H Urine Nitrite Negative Urine Bilirubin Negative Urine Urobilinogen Negative Ur Leukocyte Esterase 3+ H Urine RBC 2 Urine WBC 7 Urine Bacteria Rare 11/19/16 13:15 WBC RBC Hgb Hct Plt Count Neutrophils % Lymphocytes % Monocytes % Eosinophils % Basophils % INR Sodium 140 Potassium 4.6 Chloride 103 Carbon Dioxide 27 BUN 12 D Creatinine 0.5 L Random Glucose 71 L D Calcium 9.3 AST 9 L D ALT < 6 L D Alkaline Phosphatase 82 Total Protein 7.3 Albumin 2.6 L Urine Color Urine Appearance Urine pH Ur Specific [place] Urine Protein Urine Glucose (UA) Urine Ketones Urine Nitrite Urine Bilirubin Urine Urobilinogen Ur Leukocyte Esterase Urine RBC Urine WBC Urine Bacteria Assessment/Plan 51 yrs , Perimenopausal, with irregular bleeding , h/o monlial vaginitis recurrent in the past , chr hydradenitis suppuritaiva, Cellulitis involving mons pubis, vulva, perineal perianal & inner thigh area pt known c/o class2 diabetes & bipolar disorder , scizophrenia on meds . plan : blood culture, uriine culture, culture from purulent discharge taken in ER report pending TVsono for em thickness ct scan report pending ct iv antibiotics, vacomycin & zosyn local hygeine, clean with diluted betadine . surgical consult to r/o Matthewicitis Refer to Wound [place] in AM Diabetes control
--- NOTE | 2016-11-19 19:57 | HP ---
CHIEF COMPLAINT: Vaginal burning/painful ulcers PCP: Dr. Tomlin dealer compliance representative (Dimple priest)-doesn't remember the name HISTORY OF PRESENT ILLNESS: Patient is a 51 year old female presented to the ED with the chief complaints of vaginal burning/ painful ulcers since 2 weeks. A/c to the patient, she has a history of hydraadenitis suppurtiva in the perivaginal and perianal area which has gotten worse since her last admission ( 07/22/16). Patient reports that she has vaginal spotting almost everyday, has serosanguinous fluid coming out from the small abscess. Had chills but no fever or rigors. Also complaints of burning sensation in both eyes, redness, tearing, crusting + since 2 weeks. Also has photophobia. Patient mentions that she went to visit plastic surgeon and general surgeon after she was discharged last July but she was told no further treatment can be done. Appetite has decreased since illness. Sleep disturbed. Patient states that its difficult to urinate and move her bowels because of the pain and ulcers. Also complaints of chronic low back pain. Denies chest pain, sob, cough, palpitation, abdominal pain, nausea or vomiting. She was last seen in the ED on 11/01/2016 and was sent home on Cephalexin for Urinary tract Infection. ER course was notable for: (1) Afebrile, tachycardic; Slight leukocytosis (11.6); H/H 9.1/27.6 (2) Transvaginal US; CT abdomen/pelvis (3) IV NS; Vancomycin, Zosyn, Fluconazole 200mg PO Recent Travel: None PAST MEDICAL HISTORY: Schizophrenia; Bipolar; NIDDM; Recurrent hydradenitis; Diabetes Melliluts; GERD; Vaginitis; chronic low back pain, Glaucoma PAST SURGICAL HISTORY: Social History: Smoking: Current smoker-cigars and Ldwxdun-6-8gamd/day since age 15 years Alcohol: Occasional Drugs: Denies Family History: Unknown Allergies No Known Allergies Allergy (Verified 11/19/16 09:45) HOME MEDICATIONS: Home Medications Medication Instructions Recorded Divalproex [Depakote -] 500 mg PO DAILY 09/30/15 Divalproex [Depakote -] 750 mg PO HS 09/30/15 Haloperidol Liquid [Haldol Liquid 10 mg PO BID 09/30/15 -] Metformin HCl 500 mg PO BID 09/30/15 Albuterol Sulfate [Proair 90 mcg IH PRN PRN 10/30/16 Respiclick] Famotidine [Pepcid] 20 mg PO DAILY 10/30/16 Latanoprost 0.005% Eye Drops 1 drop OU HS 10/30/16 [Xalatan 0.005% Eye Drops -] Naproxen [Naprosyn -] 500 mg PO BID 10/30/16 REVIEW OF SYSTEMS CONSTITUTIONAL: Present: Chills Absent: fever, diaphoresis, generalized weakness, malaise, loss of appetite, weight change HEENT: Absent: rhinorrhea, nasal congestion, throat pain, throat swelling, difficulty swallowing, mouth swelling, ear pain, eye pain, visual changes CARDIOVASCULAR: Absent: chest pain, syncope, palpitations, irregular heart rate, lightheadedness , peripheral edema RESPIRATORY: Absent: cough, shortness of breath, dyspnea with exertion, orthopnea, wheezing, stridor, hemoptysis GASTROINTESTINAL: Absent: abdominal pain, abdominal distension, nausea, vomiting, diarrhea, constipation, melena, hematochezia GENITOURINARY: Present: Vaginal spotting; burning; painful Absent: dysuria, frequency, urgency, hesitancy, hematuria, flank pain, genital pain MUSCULOSKELETAL: Absent: myalgia, arthralgia, joint swelling, back pain, neck pain SKIN: Absent: rash, itching, pallor HEMATOLOGIC/IMMUNOLOGIC: Absent: easy bleeding, easy bruising, lymphadenopathy, frequent infections ENDOCRINE: Absent: unexplained weight gain, unexplained weight loss, heat intolerance, cold intolerance NEUROLOGIC: Absent: headache, focal weakness or paresthesias, dizziness, unsteady gait, seizure, mental status changes, bladder or bowel incontinence PSYCHIATRIC: Absent: anxiety, depression, suicidal or homicidal ideation, hallucinations. Skin: Ulcers and small abscesses in the perivaginal and perianal area. PHYSICAL EXAMINATION GENERAL: Patient is lying uncomfortably in bed, Awake, alert, and fully oriented , in no acute distress. HEAD: Normal with no signs of trauma. EYES: Redness and tearing in bilateral eyes; photophobia EARS, NOSE, THROAT: Ears normal, nares patent, oropharynx clear without exudates. Moist mucous membranes. NECK: Normal range of motion, supple without lymphadenopathy, JVD, or masses. LUNGS: Breath sounds equal, clear to auscultation bilaterally. No wheezes, and no crackles. No accessory muscle use. HEART: Regular rate and rhythm, normal S1 and S2 without murmur, rub or gallop. ABDOMEN: Soft, nontender, not distended, normoactive bowel sounds, no guarding, no rebound, no masses. No hepatomegaly or splenomegaly. MUSCULOSKELETAL: Normal range of motion at all joints. No bony deformities or tenderness. No CVA tenderness. UPPER EXTREMITIES: 2+ pulses, warm, well-perfused. No cyanosis. No clubbing. No peripheral edema. LOWER EXTREMITIES: 2+ pulses, warm, well-perfused. No calf tenderness. No peripheral edema. Genitalia: Ulcers with small abscesses extending from labia majora to the perianal area, buttocks Right >Left; serosanguinous fluid +, tender to touch, soft tissue mass in the suprapubic area approximately measuring 10 x 8 cm; mobile NEUROLOGICAL: Cranial nerves II-XII intact. Normal speech. Gait not observed. PSYCHIATRIC: Cooperative. Good eye contact. Irritated due to discomfort. Appropriate mood and affect. SKIN: Warm, dry, normal turgor, no rashes or lesions noted, normal capillary refill. EXAM: ULTRASOUND PELVIS, COMPLETE AND TRANSVAGINAL ULTRASOUND IMPRESSION: Ovaries not seen. No adnexal masses. No free fluid. Normal uterus. Endometrial stripe complex 5 mm thick. Unremarkable visualized portion of bladder. Exam limited by body habitus, bowel gas and patient's inability to fully empty bladder. Reported by: Imaging software configuration specialist, Pastora Aranda M.D. EXAM: CT ABDOMEN AND PELVIS WITH CONTRAST IMPRESSION: Marked skin and subcutaneous tissue thickening pre pubic soft tissues extending to vulvae and perineal soft tissues and left greater than right buttocks near gluteal cleft, possibly cellulitis and/or chronic scarring. Areas of heterogeneous enhancement in preubic and vulvar soft tissues suggest more active inflammation, with several small abscesses just deep to skin surface ranging in size from 13-18 mm. Hepatomegaly. Probable artifact lower aspect right hepatic lobe. Cholelithiasis, gallbladder sludge and dilated gallbladder. No bowel obstruction, colitis, free fluid or free air. Normal appendix. Unremarkable pancreas. Subcentimeter cortical hypodensity right kidney. ASSESSMENT/PLAN: Patient is a 51 year old female with significant past medical history of Schizophrenia; Bipolar; NIDDM; Recurrent hydradenitis; Diabetes Melliluts; GERD ; Vaginitis; chronic low back pain presented to the ED with the chief complaints of vaginal burning/ painful ulcers since 2 weeks. # Hydradenitis Suppurtiva (HS)-Perianal and perivaginal area Worsening HS since last discharge on 07/28/2016. Plastic surgeon, General tran as outpatient said that no further treatment can be done for her condition. On arrival, Afebrile, tachycardic; Slight leukocytosis (11.6); H/H 9.1/27.6 In the ED, patient received IV NS; Vancomycin, Zosyn, Fluconazole 200mg PO As per ED report, she was seen by Supervisor Histology in the ED, suggested for local hygiene, clean with diluted betadine Admitted in Med-Surg IV Ceftriaxone 1gm Daily, Metronidazole Q8H Pain management-IV Morphine 2 mg Q6H Wound care-as per [facility] recommendations. ID consult placed Surgical Consult placed Would consider plastic surgery consult Would really consider transfering her to tertiary center for an extensive wound debridement. If not taken good care now, patient might develop Fourniers absces. # B/L conjunctivitis Erythromycin ointment OU # Diabetes Mellitus HbA1c ordered for tomorrow Finger stick glucose monitoring Insulin sliding scale Watch for hypoglycemic symptoms # Bipolar Continue Divalproex # Chronic low back pain Would consider imaging if patient doesn't get better # FEN Not on IV fluids Electrolytes to be repeated tomorrow Diabetic diet # Prophylaxis For DVT- On SCDs-not on anticoagulants just in case patient goes for surgery tomorrow. For Prophylaxis- Not indicated # Code Status: Full Code # Dispo: Admitted in Med-surg. Duration of stay unknown Illness, Investigation and Plan of care explained to the patient. She verbalized understanding. Case seen and discussed with Dr. Trevizo. Visit type - Emergency Visit Emergency Visit: Yes ED Registration Date: 11/19/16 Care time: The patient presented to the Emergency Department on the above date and was hospitalized for further evaluation of their emergent condition. - New Patient This patient is new to me today: Yes Date on this admission: 11/19/16 - Critical Care Critical Care patient: No
[2016-11-19] MEDS ORDERED: morphine CARPU-JECT 4 MG/1 ML DISP.SYRIN IVPUSH ONE (20:04)
[2016-11-19] MEDS: ERYTHROMYCIN 0.5% OPHTHALMIC OINTMENT 3.5 GM TUBE OU SCH (20:43)
[2016-11-19] MEDS: METRONIDAZOLE 500 MG PREMIXED 100 ML IVPB SCH (20:44)
[2016-11-19] MEDS ORDERED: POVIDONE-IODINE 10% SOLN 118 ML BOTTLE TP ONE (20:54)
[2016-11-19] MEDS ORDERED: RANITIDINE HCL 150 MG TABLET (FP) ONE (21:29)
[2016-11-19] MEDS ORDERED: DIVALPROEX SODIUM 500 MG TABLET E.C. ONE (21:29)
[2016-11-19] MEDS: DIVALPROEX SODIUM 500 MG TABLET E.C. PO SCH (21:37)
[2016-11-19] MEDS: RANITIDINE HCL 150 MG TABLET (FP) PO SCH (21:37)
[2016-11-19] MEDS ORDERED: HEPARIN NA (PORCINE) 5,000 UNITS/ML 1ML VIAL SQ SCH (22:00)
[2016-11-19] MEDS: INSULIN SLIDING SCALE (NOVOLOG) 1 VIAL SQ SCH (22:36)
[2016-11-19] MEDS: DIVALPROEX SODIUM 250 MG TABLET E.C. (FP) PO SCH (23:03)
[2016-11-20 01:23] VITALS: BMI 34.7
[2016-11-20] MEDS: HALOPERIDOL 5 MG TABLET (FP) PO SCH ×3 (02:03→21:56)
[2016-11-20] MEDS: morphine CARPU-JECT 2 MG/1 ML DISP.SYRIN IVPUSH PRN ×3 (02:04→17:08)
[2016-11-20] MEDS: METRONIDAZOLE 500 MG PREMIXED 100 ML IVPB SCH ×2 (02:04→13:39)
[2016-11-20] MEDS: LATANOPROST 0.005% OPHTH SOLN 2.5ML BOTTLE OU SCH ×2 (02:09→21:57)
[2016-11-20] MEDS: INSULIN SLIDING SCALE (NOVOLOG) 1 VIAL SQ SCH ×4 (06:42→22:19)
[2016-11-20 08:19] LABS: BASOPHIL 0.4 % (0-2.0); EOSINOPHIL 1.5 % (0-4.5); MCHC 32.8 g/dl (32.0-36.0); MEAN CELL VOLUME 82.2 fl (80-96); MEAN PLT VOLUME 7.1 fl (7.5-11.1); NEUTROPHILS 63.8 % (42.8-82.8); PLATELET COUNT 388 K/MM3 (134-434); RDW 17.6 % (11.6-15.6)
[2016-11-20 08:35] LABS: CALCIUM 8.6 mg/dL (8.5-10.1)
[2016-11-20 08:41] LABS: ALBUMIN 2.3 g/dl (3.4-5.0); ALK PHOS 79 U/L (45-117); ANION GAP 8 (8-16); BILIRUBIN,TOTAL 0.2 mg/dL (0.2-1.0); CO2 28 mmol/L (21-32); CREATININE 0.4 mg/dL (0.55-1.02); GLUCOSE,RANDOM 78 mg/dL (74-106); SGOT/AST 5 U/L (15-37); SGPT/ALT < 6 U/L (12-78); TOT PROT 6.8 g/dl (6.4-8.2)
[2016-11-20] MEDS ORDERED: CEFTRIAXONE 50 ML IVPB SCH (10:00)
--- NOTE | 2016-11-20 10:18 | PN ---
Progress Note, Physician Chief Complaint: ID Full note dictated - Current Medication List Current Medications: Active Medications Divalproex Sodium (Depakote -) 500 mg PO DAILY [facility] Last Admin: 11/19/16 21:37 Dose: 500 mg Divalproex Sodium (Depakote -) 750 mg PO HS [facility] Last Admin: 11/19/16 23:03 Dose: Not Given Erythromycin (Erythromycin 0.5% Eye Ointment) 1 applic OU DAILY [facility] Last Admin: 11/19/16 20:43 Dose: 1 applic Haloperidol (Haldol -) 10 mg PO BID [facility] Last Admin: 11/20/16 02:03 Dose: 10 mg Ceftriaxone Sodium (Rocephin 1gm Ivpb (Pre-Docked)) 50 mls @ 100 mls/hr IVPB DAILY [facility] Metronidazole (Flagyl 500mg Premixed Ivpb -) 100 mls @ 100 mls/hr IVPB Q8H-IV [facility] Last Admin: 11/20/16 02:04 Dose: 100 mls/hr Insulin Aspart (Novolog Vial Sliding Scale -) 1 vial SQ ACHS [facility] PRN Reason: Protocol Last Admin: 11/20/16 06:42 Dose: Not Given Latanoprost (Xalatan 0.005% Eye Drops -) 1 drop OU HS [facility] Last Admin: 11/20/16 02:09 Dose: Not Given Morphine Sulfate (Morphine Injection -) 2 mg IVPUSH Q6H PRN PRN Reason: PAIN Last Admin: 11/20/16 08:46 Dose: 2 mg Non-Formulary Medication (Albuterol Sulfate [Proair Respiclick]) 90 mcg IH PRN PRN PRN Reason: ASTHMA Ranitidine HCl (Zantac -) 300 mg PO DAILY [facility] Last Admin: 11/19/16 21:37 Dose: 300 mg - Objective Vital Signs: Vital Signs Temperature 98.4 F 11/20/16 05:48 Pulse Rate 104 H 11/20/16 05:48 Respiratory Rate 20 11/20/16 05:48 Blood Pressure 120/72 11/20/16 05:48 O2 Sat by Pulse Oximetry (%) 97 11/19/16 23:00 Labs: CBC, BMP 11/20/16 06:30 11/20/16 06:30 INR, PTT INR 1.21 (0.82-1.09) H 11/19/16 13:15 Assessment/Plan Laboratory Tests 11/20/16 11/20/16 06:30 06:30 WBC 10.0 Hgb 8.5 L Hct 25.9 L Plt Count 388 BUN 8 D Creatinine 0.4 L Assessment Chronic hydradenditis Difficult to determine how much worse this is from baseline NO abscess seen and not febrile. Incidentally has bilateral red eyes says sees a opthomologist Plan Short cource IV antibiotics Clindamycin 600mg q8H and Cefepime ESR CRP Optho evaluation consult Janet WARNER
[2016-11-20] MEDS ORDERED: PT OWN MED DRAWER 7, Y5N ONE (10:25)
[2016-11-20] MEDS: DIVALPROEX SODIUM 500 MG TABLET E.C. PO SCH (10:32)
[2016-11-20] MEDS: RANITIDINE HCL 150 MG TABLET (FP) PO SCH (10:33)
[2016-11-20] MEDS: CLINDAMYCIN 600MG PREMIX IVPB 50 ML IVPB SCH ×2 (13:06→17:44)
[2016-11-20] MEDS: CEFEPIME 2 GM in DEXTROSE 5%-WATER - 100 ML IVPB SCH ×2 (13:48→18:17)
--- NOTE | 2016-11-20 13:59 | CONS ---
DATE OF CONSULTATION: DATE OF DICTATION: 11/20/2016 This is one of several admissions for this 51-year-old female with known chronic hidradenitis suppurativa involving multiple areas including the suprapubic area, inner thighs, breasts, vulva and axilla. We had previously seen her for this reason in July 2016. She also has a history of chronic vaginal candidiasis. I am not sure who has been seeing her on an ongoing basis for treatment of her hidradenitis. She is admitted now, according to the emergency room notes, complaining of vaginal burning and pain in the area of the suprapubic hidradenitis as well as perianal and perivaginal areas. She has no fever, chills or rigors. PAST MEDICAL HISTORY: Includes schizophrenia, [id number] diabetes, chronic low back pain, glaucoma. MEDICATIONS: Depakote, metformin, albuterol inhaler, naproxen. ALLERGIES: None known. SOCIAL HISTORY: Current smoker. Occasional alcohol. Denies drug use. HIV status negative. FAMILY HISTORY/REVIEW OF SYSTEMS: Noncontributory. PHYSICAL EXAMINATION: General: Physical exam revealed an alert woman. Vital signs: Temp 98.4, pulse 104, blood pressure 120/72, respirations 20. Neck: Supple. Lungs: Clear. Heart: S1, S2, regular rhythm, no murmur. Abdomen: Soft and nontender. Gynecologic: Examination as per Dr. Garay's note revealed bilateral multiple vulvar scars and skin thickening along with the perineal and perianal areas. Mons pubis with large mass 12 x 12 with peau d'orange appearance. Multiple discrete abscesses with drainage noted extending downward toward vulva, perineum and inner thighs. Vaginal exam suggested old blood. Extremities: Revealed hidradenitis in both axilla with scarring and thickening. No purulent drainage seen. White count 11.6, hemoglobin 9.1, hematocrit 27.6. ASSESSMENT: A 51-year-old perimenopausal female, recurrent susan vaginitis with chronic hidradenitis suppurativa and complicating cellulitis and macro-abscesses of the mons pubis area. She does not appear toxic at this time. Also noted to have bilateral conjunctival erythema. Prior diagnosis of glaucoma noted. Says she is followed by Dr. Cardenas of Ophthalmology. Advised empiric therapy with clindamycin and Cefepime. Wound culture of the abscess pending. Two sets of blood cultures thus far no growth. Ophthalmology reevaluation suggested. LIZ COLLIER M.D. [id number]
--- NOTE | 2016-11-20 15:35 | PN ---
Teaching Attending Note Name of Resident: Marnie Pavon ATTENDING PHYSICIAN STATEMENT I saw and evaluated the patient. I reviewed the resident's note and discussed the case with the resident. I agree with the resident's findings and plan as documented. Denies any fever or chills. Vital Signs Temperature 98.7 F 11/20/16 14:25 Pulse Rate 101 H 11/20/16 14:25 Respiratory Rate 20 11/20/16 14:25 Blood Pressure 137/77 11/20/16 14:25 O2 Sat by Pulse Oximetry (%) 97 11/19/16 23:00 CBCD WBC 10.0 K/mm3 (4.0-10.0) 11/20/16 06:30 RBC 3.15 M/mm3 (3.60-5.2) L 11/20/16 06:30 Hgb 8.5 GM/dL (10.7-15.3) L 11/20/16 06:30 Hct 25.9 % (32.4-45.2) L 11/20/16 06:30 MCV 82.2 fl (80-96) 11/20/16 06:30 MCHC 32.8 g/dl (32.0-36.0) 11/20/16 06:30 RDW 17.6 % (11.6-15.6) H 11/20/16 06:30 Plt Count 388 K/MM3 (134-434) 11/20/16 06:30 MPV 7.1 fl (7.5-11.1) L 11/20/16 06:30 CMP Sodium 140 mmol/L (136-145) 11/20/16 06:30 Potassium 4.3 mmol/L (3.5-5.1) 11/20/16 06:30 Chloride 104 mmol/L (98-107) 11/20/16 06:30 Carbon Dioxide 28 mmol/L (21-32) 11/20/16 06:30 Anion Gap 8 (8-16) 11/20/16 06:30 BUN 8 mg/dL (7-18) D 11/20/16 06:30 Creatinine 0.4 mg/dL (0.55-1.02) L 11/20/16 06:30 Creat Clearance w eGFR > 60 (>60) 11/20/16 06:30 Random Glucose 78 mg/dL (74-106) 11/20/16 06:30 Calcium 8.6 mg/dL (8.5-10.1) 11/20/16 06:30 Total Bilirubin 0.2 mg/dL (0.2-1.0) D 11/20/16 06:30 AST 5 U/L (15-37) L D 11/20/16 06:30 ALT < 6 U/L (12-78) L 11/20/16 06:30 Alkaline Phosphatase 79 U/L (45-117) 11/20/16 06:30 Total Protein 6.8 g/dl (6.4-8.2) 11/20/16 06:30 Albumin 2.3 g/dl (3.4-5.0) L 11/20/16 06:30 Current Medications Generic Name Dose Route Start Last Admin Trade Name Freq PRN Reason Stop Dose Admin Ciprofloxacin 2 drop 11/20/16 18:00 Ciloxan 0.3% Eye Drops - OU Q4HWA ALLIE Divalproex Sodium 500 mg 11/19/16 21:15 11/20/16 10:32 Depakote - PO 500 mg DAILY ALLIE Administration Divalproex Sodium 750 mg 11/19/16 22:00 11/19/16 23:03 Depakote - PO Not Given HS ALLIE Haloperidol 10 mg 11/19/16 22:00 11/20/16 10:32 Haldol - PO 10 mg BID ALLIE Administration Clindamycin Phosphate 50 mls @ 100 mls/hr 11/20/16 10:30 11/20/16 13:06 Cleocin 600 Mg Premix Ivpb - IVPB 100 mls/hr Q8H-IV ALLIE Administration Cefepime HCl 2 gm/ Dextrose 100 mls @ 200 mls/hr 11/20/16 10:45 11/20/16 13:48 IVPB 200 mls/hr Q8H-IV ALLIE Administration Insulin Aspart 1 vial 11/19/16 22:00 11/20/16 13:06 Novolog Vial Sliding Scale - SQ Not Given ACHS ALLIE Protocol Latanoprost 1 drop 11/19/16 22:00 11/20/16 02:09 Xalatan 0.005% Eye Drops - OU Not Given HS ALLIE Morphine Sulfate 2 mg 11/19/16 20:33 11/20/16 08:46 Morphine Injection - IVPUSH 2 mg Q6H PRN Administration PAIN Non-Formulary Medication 90 mcg 11/19/16 21:13 Albuterol Sulfate [Proair Respiclick] IH PRN PRN ASTHMA Ranitidine HCl 300 mg 11/19/16 21:15 11/20/16 10:33 Zantac - PO 300 mg DAILY ALLIE Administration Home Medications Medication Instructions Recorded Divalproex [Depakote -] 500 mg PO DAILY 09/30/15 Divalproex [Depakote -] 750 mg PO HS 09/30/15 Haloperidol Liquid [Haldol Liquid 10 mg PO BID 09/30/15 -] Metformin HCl 500 mg PO BID 09/30/15 Albuterol Sulfate [Proair 90 mcg IH PRN PRN 10/30/16 Respiclick] Famotidine [Pepcid] 20 mg PO DAILY 10/30/16 Latanoprost 0.005% Eye Drops 1 drop OU HS 10/30/16 [Xalatan 0.005% Eye Drops -] Naproxen [Naprosyn -] 500 mg PO BID 10/30/16 transvaginal US: wnl ASSESSMENT AND PLAN: This is a 51 year old female with significant past medical history of Schizophrenia; Bipolar; NIDDM; Recurrent hydradenitis; Diabetes Melliluts; GERD ; Vaginitis; chronic low back pain presented to the ED with the chief complaints of vaginal burning/ painful ulcers since 2 weeks. # Chronic Hydradenitis Suppurtiva with involvement of Perianal and perivaginal area; CT consistent with possible cellulitis, no abscess Plastic surgeon, General sugeon offered no further treatment outpatient, OBGYN consult appreciated # Cellilitis of chronic hydradenitis suppurtiva ; ID Consult apprecited , patient was placed on IV Clindamycin 600mg q8H and Cefepime possible xfer to tertiary center for an extensive wound debridement. # B/L conjunctivitis on cipro eye drops b/l # Diabetes Mellitus; HbA1c 4.8; SS with coverage # Bipolar Continue Divalproex # Chronic low back pain consider CT thoracic, cervical spine DVT Px: SCDs
--- NOTE | 2016-11-20 16:02 | PN ---
Physical Exam: SUBJECTIVE: Patient seen and examined Patietn resting in bed. In moderate distress. complaining of upper back pain, vaginal pain and eye pain with photophoboa. denies sob, f/c, diarrhea, abd pain , chest pain, cough. OBJECTIVE: Vital Signs Period Temp Pulse Resp BP Sys/[place] Pulse Ox Last 24 Hr 98.4 F-98.9 F 91-104 19-20 120-139/72-95 97 GENERAL: The patient is awake, alert, and fully oriented HEAD: Normal with no signs of trauma. EYES: PERRL, extraocular movements intact, sclera anicteric, conjunctiva clear. No ptosis. EYES: b/l injected conjunctiva and tearing, photophobia EARS, NOSE, THROAT: Moist mucous membranes. NECK: supple without masses. LUNGS: diffusely restricted air movement HEART: Regular rate and rhythm, normal S1 and S2 ABDOMEN: Soft, nontender, not distended, normoactive bowel sounds MUSCULOSKELETAL: No CVA tenderness. UPPER EXTREMITIES: 2+ pulses, warm, well-perfused. No peripheral edema. LOWER EXTREMITIES: 2+ pulses, No peripheral edema. Genitalia: Ulcers with abscesses extending from labia majora to the perianal area, buttocks Right >Left; serosanguinous fluid +, tender to touch, soft tissue mass in the suprapubic area 10 x 8 cm; mobile, indurated NEUROLOGICAL: Cranial nerves II-XII grossly intact. Normal speech. Gait not observed. PSYCHIATRIC: Cooperative. Irritable SKIN: Warm, dry, lesions as above Laboratory Results - last 24 hr 11/19/16 11/20/16 11/20/16 22:34 06:30 06:30 WBC 10.0 RBC 3.15 L Hgb 8.5 L Hct 25.9 L MCV 82.2 MCHC 32.8 RDW 17.6 H Plt Count 388 MPV 7.1 L Neutrophils % 63.8 Lymphocytes % 27.7 Monocytes % 6.6 Eosinophils % 1.5 Basophils % 0.4 Sodium 140 Potassium 4.3 Chloride 104 Carbon Dioxide 28 Anion Gap 8 BUN 8 D Creatinine 0.4 L Creat Clearance w eGFR > 60 POC Glucometer 92.32420 Random Glucose 78 Hemoglobin A1c % Calcium 8.6 Total Bilirubin 0.2 D AST 5 L D ALT < 6 L Alkaline Phosphatase 79 Total Protein 6.8 Albumin 2.3 L 11/20/16 11/20/16 11/20/16 06:30 06:41 11:58 WBC RBC Hgb Hct MCV MCHC RDW Plt Count MPV Neutrophils % Lymphocytes % Monocytes % Eosinophils % Basophils % Sodium Potassium Chloride Carbon Dioxide Anion Gap BUN Creatinine Creat Clearance w eGFR POC Glucometer 98 91 Random Glucose Hemoglobin A1c % 4.8 Calcium Total Bilirubin AST ALT Alkaline Phosphatase Total Protein Albumin Active Medications Generic Name Dose Route Start Last Admin Trade Name Freq PRN Reason Stop Dose Admin Ciprofloxacin 2 drop 11/20/16 18:00 Ciloxan 0.3% Eye Drops - OU Q4HWA ALLIE Divalproex Sodium 500 mg 11/19/16 21:15 11/20/16 10:32 Depakote - PO 500 mg DAILY ALLIE Administration Divalproex Sodium 750 mg 11/19/16 22:00 11/19/16 23:03 Depakote - PO Not Given HS ALLIE Haloperidol 10 mg 11/19/16 22:00 11/20/16 10:32 Haldol - PO 10 mg BID ALLIE Administration Clindamycin Phosphate 50 mls @ 100 mls/hr 11/20/16 10:30 11/20/16 13:06 Cleocin 600 Mg Premix Ivpb - IVPB 100 mls/hr Q8H-IV ALLIE Administration Cefepime HCl 2 gm/ Dextrose 100 mls @ 200 mls/hr 11/20/16 10:45 11/20/16 13:48 IVPB 200 mls/hr Q8H-IV ALLIE Administration Insulin Aspart 1 vial 11/19/16 22:00 11/20/16 13:06 Novolog Vial Sliding Scale - SQ Not Given ACHS ALLIE Protocol Latanoprost 1 drop 11/19/16 22:00 11/20/16 02:09 Xalatan 0.005% Eye Drops - OU Not Given HS ALLIE Morphine Sulfate 2 mg 11/19/16 20:33 11/20/16 08:46 Morphine Injection - IVPUSH 2 mg Q6H PRN Administration PAIN Non-Formulary Medication 90 mcg 11/19/16 21:13 Albuterol Sulfate [Proair Respiclick] IH PRN PRN ASTHMA Ranitidine HCl 300 mg 11/19/16 21:15 11/20/16 10:33 Zantac - PO 300 mg DAILY ALLIE Administration ASSESSMENT/PLAN: This is a 51 year old female with significant past medical history of Schizophrenia; Bipolar; NIDDM; Recurrent hydradenitis; Diabetes Melliluts; GERD ; Vaginitis; chronic low back pain presented to the ED with the chief complaints of vaginal burning/ painful ulcers since 2 weeks. Chronic Hydradenitis Suppurtiva -unknown baseilne status -Perianal and perivaginal area -Worsened since 07/28/2016. Plastic surgeon, General sugeon offered no further treatment outpatient -afebrile, no leukocytosis -CT consistent with possible cellulitis, no abscess -transvaginal US wnl -ID Consult: IV Clindamycin 600mg q8H and Cefepime -ESR CRP pelvic structures -OBGYN consult appreciated -Motrim PRN pain -awaiting Surgical Consult -possible xfer to tertiary center for an extensive wound debridement. B/L conjunctivitis -cipro eye drops b/l -opthalmology consult Diabetes Mellitus -HbA1c 4.8 -BGM -Insulin sliding scale Bipolar -Continue Divalproex Chronic low back pain -consider CT thoracic, cervical spine FEN no IV fluids lytes stable Diabetic diet SCDs Dispo: Admitted in Med-surg. Visit type - Emergency Visit Emergency Visit: Yes ED Registration Date: 11/19/16 Care time: The patient presented to the Emergency Department on the above date and was hospitalized for further evaluation of their emergent condition. - New Patient This patient is new to me today: Yes Date on this admission: 11/20/16 - Critical Care Critical Care patient: No - Discharge Referral Referred to [facility] Med P.C.: No
[2016-11-20] MEDS: ERYTHROMYCIN 0.5% OPHTHALMIC OINTMENT 3.5 GM TUBE OU SCH (17:35)
[2016-11-20] MEDS ORDERED: CIPROFLOXACIN HCL 0.3% OPHTH 2.5ML BOTTLE OU SCH (18:00)
[2016-11-20] MEDS ORDERED: CIPROFLOXACIN HCL 0.3% OPHTH 2.5ML BOTTLE OS SCH (18:00)
[2016-11-20] MEDS ORDERED: CEFEPIME HCL 2 GM VIAL (RESTRICTED TO ID) IVPB SCH (18:00)
--- NOTE | 2016-11-20 18:42 | PN ---
Progress Note (short form) - Note Progress Note: surgery pt seen and examined with quality lab assoc present. full consult dictated. 51f with chronic hydradenitis supparative of vulva and labia. On exam large inflammatory mass involving vulva without fluctuance and some purulence on left labia that is spontaneously draining. wbc wnl and pt without fever. No significant abscess to drain, confirmed on CT. Pt needs to be managed by plastic surgery as she may benefit from excision and reconstruction. Any surgery incision/excision in this area will also likely result in a chronic difficult to heal wound. No general surgical intervention.
--- NOTE | 2016-11-20 19:26 | CONS ---
DATE OF CONSULTATION: 11/20/2016 REASON FOR CONSULTATION: Vulvar abscess, hydradenitis. This is a consultation at the request of Babrie Swanson M.D. This is an inpatient consultation. BRIEF HISTORY: This is a 51-year-old female with a history of chronic hydradenitis suppurativa reportedly been seen by surgeons and plastic surgeons as an outpatient, who presents to [facility] complaining of vaginal burning. She is noted to have an inflammatory mass along her valva and her labia. She went for a CAT scan of her abdomen and pelvis which confirms this, but does not show a significant drainable abscess. She was admitted, placed on intravenous antibiotics. She has had no fevers since admission. She has had some spontaneous drainage of the left labia, and her white blood cell count is within normal. PAST MEDICAL HISTORY: Significant for schizophrenia, bipolar disorder, diabetes, hydradenitis, gastroesophageal reflux disease, vaginitis, low back pain, and glaucoma. PAST SURGICAL HISTORY: She denies. SOCIAL HISTORY: Significant for cigarettes, cigars, as well as alcohol. She has been encouraged to quit. ALLERGIES: No known drug allergies. HOME MEDICATIONS: Have been reviewed. They include Depakote, Haldol, metformin, Naprosyn, Pepcid, albuterol, and Xalatan eyedrops. FAMILY HISTORY: Negative for malignancy in the immediate family. REVIEW OF SYSTEMS: General: She admits to fatigue. Cardiac: Denies chest pain. Respiratory: Denies shortness of breath. Gastrointestinal: No nausea or vomiting. Genitourinary: Denies dysuria. Gynecological: Admits to vaginal pain. Musculoskeletal: Admits to some arthritic pain. PHYSICAL EXAMINATION: General: This is an obese 51-year-old female in no distress. She is lethargic. Vital signs: She is afebrile. Her heart rate is 101. Her blood pressure is normal. HEENT: Head is normocephalic. Sclerae anicteric. Neck: Supple. Chest: Clear. Abdomen: Soft. Extremities: Her extremities have edema. Genitourinary: On external inspection of her vulva and her labia with a district manager in training present, she is known to have a large inflammatory mass in her vulva, at least 10 cm in diameter. It is not fluctuant. Along her left labia there is an area of fluctuance that is spontaneously draining through an opening. It is not tender, there are no cellulitic changes. ASSESSMENT: A 51-year-old female with a large inflammatory mass of her vulva and a chronic draining sinus tract abscess of her labia. At this point, patient is nontoxic. She should be managed by a plastic surgeon. Likely her definitive treatment would involve resection of this area and reconstruction with skin grafting. Furthermore, if any incisional drainage or excision of glands are done, likely she would develop a chronic wound which would be difficult to heal, which could also be best managed by plastic surgery. At this point, there is no indication for general surgical intervention. DO YA STANFORD/[id number]
--- NOTE | 2016-11-20 20:24 | CONSULT ---
Consult Consult Specialty:: Ophthalmology Reason for Consultation:: red irritated eyes. - History of Present Illness Chief Complaint: red and irritated eyes for past 2 weeks OS and past 3 days OD. History of Present Illness: She states that she was started on drops two weeks ago but her condition has not improved. Now both eyes are red and irritated but she denies discharge. She also has a history of glaucoma for which she is on Latanoprost - History Source History Provided By: Patient Limitations to Obtaining History: No Limitations - Past Medical History Cardio/Vascular: Yes: HTN (labile , sometimes, no meds ) Pulmonary: Yes: Asthma Gastrointestinal: Yes: GERD Renal/: Yes: UTI (diagnosed in ER on 11/01/16 ) ...LMP: 01/13/16 ...: No Infectious Disease: No: HIV, STD's (gc , chlamydia cultures always neg ) Psych: Yes: Bipolar, Schizophrenia Musculoskeletal: Yes: Chronic low back pain Endocrine: Yes: Diabetes Mellitus (class 2, on Metformin ) - Past Surgical History Additional Surgical History: Breast fold skin excision due to hidradenitis suppurativa - Alcohol/Substance Use Hx Alcohol Use: No - Smoking History Smoking history: Current every day smoker Have you smoked in the past 12 months: Yes Aproximately how many cigarettes per day: 1 - Social History Usual Living Arrangement: Assisted Living (pt from senior care) Home Medications - Allergies Allergies/Adverse Reactions: Allergies Allergy/AdvReac Type Severity Reaction Status Date / Time No Known Allergies Allergy Verified 11/19/16 09:45 - Home Medications Home Medications: Ambulatory Orders Divalproex [Depakote -] 500 mg PO DAILY 09/30/15 Divalproex [Depakote -] 750 mg PO HS 09/30/15 Haloperidol Liquid [Haldol Liquid -] 10 mg PO BID 09/30/15 Metformin HCl 500 mg PO BID 09/30/15 Albuterol Sulfate [Proair Respiclick] 90 mcg IH PRN PRN 10/30/16 Famotidine [Pepcid] 20 mg PO DAILY 10/30/16 Latanoprost 0.005% Eye Drops [Xalatan 0.005% Eye Drops -] 1 drop OU HS 10/30/16 Naproxen [Naprosyn -] 500 mg PO BID 10/30/16 Physical Exam Vital Signs: Vital Signs Temperature 98.9 F 11/20/16 19:08 Pulse Rate 118 H 11/20/16 19:08 Respiratory Rate 18 11/20/16 19:08 Blood Pressure 140/94 11/20/16 19:08 O2 Sat by Pulse Oximetry (%) 94 L 11/20/16 09:00 Eyes: Yes: WNL (Va 20/40 OD and 20/50 at near. IOP 19 OD and 20 OS), Conjunctiva Clear (injected sclera OU), EOM Intact, PERRL Labs: CBC, BMP 11/20/16 06:30 11/20/16 06:30 Assessment/Plan Shevion's symptons and clinical appearance are more consistent with scleritis. Ciprofloxacin was stopped and I started her on Tobradex one drop OU qid for 7 days. She should continue the Latanoprost for her glaucoma (IOP OK today). I instructed her to see her riprap man as soon as she is discharged. Please reconsult me if her symptoms or condition worsens.
[2016-11-20] MEDS: DIVALPROEX SODIUM 250 MG TABLET E.C. (FP) PO SCH (21:56)
[2016-11-20] MEDS: TOBRA 0.3%/DEXAMETH 0.1% OPHTHALMIC SUSP 2.5 ML BTL OU SCH (21:57)
[2016-11-20] MEDS ORDERED: ALBUTEROL SO4 6.7 GM HFA INHALER IH PRN (22:00)
[2016-11-20] MEDS: IBUPROFEN 600 MG TABLET (FP) PO PRN (22:09)
[2016-11-21] MEDS: CEFEPIME 2 GM in DEXTROSE 5%-WATER - 100 ML IVPB SCH ×3 (01:25→18:08)
[2016-11-21] MEDS: CLINDAMYCIN 600MG PREMIX IVPB 50 ML IVPB SCH ×3 (02:05→17:32)
[2016-11-21] MEDS: IBUPROFEN 600 MG TABLET (FP) PO PRN ×3 (06:43→22:34)
[2016-11-21] MEDS: INSULIN SLIDING SCALE (NOVOLOG) 1 VIAL SQ SCH ×4 (06:48→22:45)
[2016-11-21 09:09] LABS: MCH 26.5 pg (25.7-33.7); MCHC 32.2 g/dl (32.0-36.0); MEAN CELL VOLUME 82.4 fl (80-96); PLATELET COUNT 431 K/MM3 (134-434); RDW 17.7 % (11.6-15.6); WHITE BLOOD COUNT 9.6 K/mm3 (4.0-10.0)
[2016-11-21] MEDS ORDERED: PT OWN MED DRAWER 7, Y5N ONE ×3 (10:10→21:56)
[2016-11-21] MEDS: DIVALPROEX SODIUM 500 MG TABLET E.C. PO SCH (10:21)
[2016-11-21] MEDS: HALOPERIDOL 5 MG TABLET (FP) PO SCH ×2 (10:21→22:35)
[2016-11-21] MEDS: TOBRA 0.3%/DEXAMETH 0.1% OPHTHALMIC SUSP 2.5 ML BTL OU SCH ×4 (10:21→22:33)
[2016-11-21] MEDS: RANITIDINE HCL 150 MG TABLET (FP) PO SCH (10:22)
--- NOTE | 2016-11-21 14:15 | PN ---
Physical Exam: SUBJECTIVE: Patient seen and examined Patient resting in bed. In mild distress. complaining of upper back pain, in becca scapular area b/l, vaginal pain and eye pain with photophobia. denies sob, f /c, diarrhea, abd pain, chest pain, cough. States her overall pain is a bit better today. States she does not wish to be transferred to [facility] for plastics evaluation. OBJECTIVE: Vital Signs Period Temp Pulse Resp BP Sys/[place] Pulse Ox Last 24 Hr 97.8 F-99.5 F 93-118 18-20 100-140/70-94 98-99 GENERAL: The patient is awake, alert, and fully oriented HEAD: Normal with no signs of trauma. EYES: PERRL, extraocular movements intact, sclera anicteric, conjunctiva clear. No ptosis. EYES: b/l injected conjunctiva and tearing, photophobia EARS, NOSE, THROAT: Moist mucous membranes. NECK: supple without masses. LUNGS: diffusely restricted air movement HEART: Regular rate and rhythm, normal S1 and S2 ABDOMEN: Soft, nontender, not distended, normoactive bowel sounds MUSCULOSKELETAL: No CVA tenderness. UPPER EXTREMITIES: 2+ pulses, warm, well-perfused. No peripheral edema. L armpit: some induration and drainage. R armpit: no lesions. LOWER EXTREMITIES: 2+ pulses, No peripheral edema. Genitalia: Ulcers with abscesses extending from labia majora to the perianal area, buttocks Right >Left; serosanguinous fluid +, tender to touch, soft tissue mass in the suprapubic area 10 x 8 cm; mobile, indurated. Overall slightly improved NEUROLOGICAL: Cranial nerves II-XII grossly intact. Normal speech. Gait not observed. PSYCHIATRIC: Cooperative. calm SKIN: Warm, dry, lesions as above Laboratory Results - last 24 hr 11/20/16 11/20/16 11/20/16 17:11 22:07 22:18 WBC RBC Hgb Hct MCV MCHC RDW Plt Count MPV POC Glucometer 101 95 155 11/21/16 11/21/16 11/21/16 06:39 08:10 12:00 WBC 9.6 RBC 3.21 L Hgb 8.5 L Hct 26.4 L MCV 82.4 MCHC 32.2 RDW 17.7 H Plt Count 431 MPV 7.0 L POC Glucometer 88 98 Active Medications Generic Name Dose Route Start Last Admin Trade Name Freq PRN Reason Stop Dose Admin Albuterol Sulfate 2 puff 11/20/16 22:00 Ventolin Hfa Inhaler - IH Q6H PRN ASTHMA Divalproex Sodium 500 mg 11/19/16 21:15 11/21/16 10:21 Depakote - PO 500 mg DAILY ALLIE Administration Divalproex Sodium 750 mg 11/19/16 22:00 11/20/16 21:56 Depakote - PO 750 mg HS ALLIE Administration Haloperidol 10 mg 11/19/16 22:00 11/21/16 10:21 Haldol - PO 10 mg BID ALLIE Administration Clindamycin Phosphate 50 mls @ 100 mls/hr 11/20/16 10:30 11/21/16 10:20 Cleocin 600 Mg Premix Ivpb - IVPB 100 mls/hr Q8H-IV ALLIE Administration Cefepime HCl 2 gm/ Dextrose 100 mls @ 200 mls/hr 11/20/16 10:45 11/21/16 10:56 IVPB 200 mls/hr Q8H-IV ALLIE Administration Ibuprofen 600 mg 11/20/16 16:13 11/21/16 06:43 Motrin - PO 600 mg Q4H PRN Administration PAIN Insulin Aspart 1 vial 11/19/16 22:00 11/21/16 12:10 Novolog Vial Sliding Scale - SQ Not Given ACHS ALLIE Protocol Latanoprost 1 drop 11/19/16 22:00 11/20/16 21:57 Xalatan 0.005% Eye Drops - OU 1 drop HS ALLIE Administration Morphine Sulfate 2 mg 11/19/16 20:33 11/20/16 17:08 Morphine Injection - IVPUSH 2 mg Q6H PRN Administration PAIN Ranitidine HCl 300 mg 11/19/16 21:15 11/21/16 10:22 Zantac - PO 300 mg DAILY ALLIE Administration Tobramycin/Dexamethasone 1 drop 11/20/16 22:00 11/21/16 10:21 Tobradex Ophthalmic Suspension - OU 11/26/16 23:59 1 drop QID ALLIE Administration ASSESSMENT/PLAN: This is a 51 year old female with significant past medical history of Schizophrenia; Bipolar; NIDDM; Recurrent hydradenitis; Diabetes Melliluts; GERD ; Vaginitis; chronic low back pain presented to the ED with the chief complaints of vaginal burning/ painful ulcers since 2 weeks. Chronic Hydradenitis Suppurtiva -unknown baseilne status -Perianal and perivaginal area -Worsened since 07/28/2016. Plastic surgeon, General sugeon offered no further treatment outpatient -afebrile, no leukocytosis -CT consistent with possible cellulitis, no abscess -transvaginal US wnl pelvic structures -ID Consult: IV Clindamycin 600mg q8H and Cefepime -ESR CRP -OBGYN consult appreciated defer to reynold, ID -Reynold sonsult: no abscess to drain, no gen reynold intervention indicated. may benefit from plastics excision and reconstruction but at risk for poor healing, especially given patients poor personal hygene habits -Motrim PRN pain, morphine 2 mg IV PRN(6 per day) -Patient declines xfer to tertiary center for an extensive wound debridement. Will proceed with abx management and local wound care B/L scleritis -opthalmology consult appreciated -Tobradex eye drops 1 ou qid x 7 d -cpntinue lantoprost for glaucoma -f/u optho outpatient aric Diabetes Mellitus -HbA1c 4.8 -BGM -Insulin sliding scale (has not required coverage) Bipolar -Continue Divalproex, haldol Upper back pain -scapular region, no pain over spinal processes -likley musculoskeletal due to lying on her side for prolonged period -x ray cervical and thoracic spine r/o compression fracture -pain improved with morphine, motrin FEN no IV fluids lytes stable Diabetic diet SCDs Dispo: Admitted in Med-surg. Visit type - Emergency Visit Emergency Visit: Yes ED Registration Date: 11/19/16 Care time: The patient presented to the Emergency Department on the above date and was hospitalized for further evaluation of their emergent condition. - New Patient This patient is new to me today: No - Critical Care Critical Care patient: No - Discharge Referral Referred to [facility] Med P.C[facility] No
--- NOTE | 2016-11-21 15:26 | PN ---
Progress Note (short form) - Note Progress Note: no new complaints Vital Signs Period Temp Pulse Resp BP Sys/[place] Pulse Ox Last 24 Hr 97.8 F-99.5 F 90-118 18-20 100-140/70-94 98-99 cor-rrr lungs clear abd soft, nt still some purulent drainage from the indurated areas of her pelvic area CBC, BMP 11/21/16 08:10 11/20/16 06:30 Microbiology 11/19/16 12:13 Abscess Gram Stain - Final 11/19/16 12:13 Abscess Wound Culture - Preliminary Diphtheroid/Corynebacterium Pending Organism 11/19/16 12:04 Blood - Peripheral Venous Blood Culture - Preliminary NO GROWTH OBTAINED AFTER 48 HOURS, INCUBATION TO CONTINUE FOR 3 DAYS. 11/19/16 12:04 Blood - Peripheral Venous Blood Culture - Preliminary NO GROWTH OBTAINED AFTER 48 HOURS, INCUBATION TO CONTINUE FOR 3 DAYS. 11/19/16 11:23 Urine - Urine Clean Catch Urine Culture - Final Contaminated: Please Repeat a/p hidraadenitis - chronic- continue clindamycin and cefepime less drainage noted
--- NOTE | 2016-11-21 18:31 | PN ---
Teaching Attending Note Name of Resident: Marnie Pavon ATTENDING PHYSICIAN STATEMENT I saw and evaluated the patient. I reviewed the resident's note and discussed the case with the resident. I agree with the resident's findings and plan as documented. SUBJECTIVE: no fever or chills, has pain in back over the L shoulder plate . no SOB OBJECTIVE: NAD awake and alert. CV: RRR Lungs : CTAB Ext: no edema , no erythema .L axilla with enlarged tender tissue with no fluctuance but with purulent drainage : enlarged soft tissue mass along the groins, L labia major , and perianal area with purulent discharge. MS: TTP over L para-spinal muscles in upper thoracic area. no TTP over spine in T, C, or L areas ASSESSMENT AND PLAN: 51 y/o lady with h/o Bipolar and chronic hydradenitis supporativa , who presented with worsening discharge and pain in perianal and perivaginal area . 1- chronic hydradenitis suuporativa : - wound cx noted - cont clinda and cefepime . - d/w pt the need to transfer to tertiary center for sx but she declined. 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
[2016-11-21] MEDS: morphine CARPU-JECT 2 MG/1 ML DISP.SYRIN IVPUSH PRN (19:26)
[2016-11-21] MEDS: HEPARIN NA (PORCINE) 5,000 UNITS/ML 1ML VIAL SQ SCH (22:33)
[2016-11-21] MEDS: LATANOPROST 0.005% OPHTH SOLN 2.5ML BOTTLE OU SCH (22:34)
[2016-11-21] MEDS: DIVALPROEX SODIUM 250 MG TABLET E.C. (FP) PO SCH (22:36)
[2016-11-21] MEDS ORDERED: morphine CARPU-JECT 2 MG/1 ML DISP.SYRIN IVPUSH ONE (22:50)
[2016-11-22] MEDS: CEFEPIME 2 GM in DEXTROSE 5%-WATER - 100 ML IVPB SCH ×3 (01:17→17:21)
[2016-11-22] MEDS: CLINDAMYCIN 600MG PREMIX IVPB 50 ML IVPB SCH ×3 (01:17→17:20)
[2016-11-22] MEDS: morphine CARPU-JECT 2 MG/1 ML DISP.SYRIN IVPUSH PRN ×5 (02:37→21:36)
[2016-11-22] MEDS ORDERED: PT OWN MED DRAWER 7, Y5N ONE ×5 (05:50→17:17)
[2016-11-22] MEDS: HEPARIN NA (PORCINE) 5,000 UNITS/ML 1ML VIAL SQ SCH ×3 (06:13→21:31)
[2016-11-22] MEDS: IBUPROFEN 600 MG TABLET (FP) PO PRN ×2 (06:13→15:40)
[2016-11-22] MEDS: INSULIN SLIDING SCALE (NOVOLOG) 1 VIAL SQ SCH ×4 (06:23→22:15)
[2016-11-22 07:35] LABS: MCH 27.2 pg (25.7-33.7); MCHC 33.4 g/dl (32.0-36.0); MEAN CELL VOLUME 81.4 fl (80-96); MEAN PLT VOLUME 7.2 fl (7.5-11.1); PLATELET COUNT 467 K/MM3 (134-434); RDW 17.4 % (11.6-15.6); WHITE BLOOD COUNT 10.2 K/mm3 (4.0-10.0)
[2016-11-22] MEDS ORDERED: INSULIN (NOVOLOG) ASPART 100 UNITS/ML 10ML VIAL ONE (11:07)
[2016-11-22] MEDS: HALOPERIDOL 5 MG TABLET (FP) PO SCH ×2 (11:17→22:16)
[2016-11-22] MEDS: DIVALPROEX SODIUM 500 MG TABLET E.C. PO SCH (11:17)
[2016-11-22] MEDS: RANITIDINE HCL 150 MG TABLET (FP) PO SCH (11:17)
[2016-11-22] MEDS: TOBRA 0.3%/DEXAMETH 0.1% OPHTHALMIC SUSP 2.5 ML BTL OU SCH ×4 (11:18→21:32)
--- NOTE | 2016-11-22 15:02 | PN ---
Progress Note (short form) - Note Progress Note: no complaints Vital Signs Period Temp Pulse Resp BP Sys/[place] Pulse Ox Last 24 Hr 97.8 F-98.9 F 80-100 18-20 117-136/76-97 98-99 cor-rrr lungs clear abd soft,nt less drainage from the pelvic abscesses ext no edema CBC, BMP 11/22/16 06:00 11/20/16 06:30 Microbiology 11/19/16 12:04 Blood - Peripheral Venous Blood Culture - Preliminary NO GROWTH OBTAINED AFTER 72 HOURS, INCUBATION TO CONTINUE FOR 2 DAYS. 11/19/16 12:04 Blood - Peripheral Venous Blood Culture - Preliminary NO GROWTH OBTAINED AFTER 72 HOURS, INCUBATION TO CONTINUE FOR 2 DAYS. 11/19/16 12:13 Abscess Gram Stain - Final 11/19/16 12:13 Abscess Wound Culture - Preliminary Diphtheroid/Corynebacterium Pending Organism 11/19/16 11:23 Urine - Urine Clean Catch Urine Culture - Final Contaminated: Please Repeat a/p chronic hidraadenitis clinically improving less drainage if she is refusing transfer for definitive plastic surgery evaluation would consider switch to po antibiotics in the next 24 to 48 hours f/u cultures continue local care to the area
--- NOTE | 2016-11-22 15:33 | PN ---
Physical Exam: SUBJECTIVE: Patient seen and examined Patient resting in bed. NAD. complaining of less upper back pain, her eye pain, redness and photophobia are improved. denies sob, f/c, diarrhea, abd pain, chest pain, cough. States her overall pain has lessened. in better mood. States she still does not wish to be transferred to [facility] for plastics evaluation. OBJECTIVE: Vital Signs Period Temp Pulse Resp BP Sys/[place] Pulse Ox Last 24 Hr 97.8 F-98.9 F 80-100 18-20 117-136/76-97 98-99 GENERAL: The patient is awake, alert, and fully oriented HEAD: Normal with no signs of trauma. EYES: PERRL, extraocular movements intact, sclera anicteric, conjunctiva clear. No ptosis. EYES: b/l injected conjunctiva, no tearing, mild photophobia. improved EARS, NOSE, THROAT: Moist mucous membranes. NECK: supple without masses. LUNGS: diffusely restricted air movement HEART: Regular rate and rhythm, normal S1 and S2 ABDOMEN: Soft, nontender, not distended, normoactive bowel sounds MUSCULOSKELETAL: No CVA tenderness. UPPER EXTREMITIES: 2+ pulses, warm, well-perfused. No peripheral edema. L armpit: some induration and drainage. R armpit: no lesions. LOWER EXTREMITIES: 2+ pulses, No peripheral edema. Genitalia: Ulcers with abscesses extending from labia majora to the perianal area, buttocks Right >Left; serosanguinous fluid +, tender to touch, soft tissue mass in the suprapubic area 10 x 8 cm; mobile, indurated. improved NEUROLOGICAL: Cranial nerves II-XII grossly intact. Normal speech. Gait not observed. PSYCHIATRIC: Cooperative. calm SKIN: Warm, dry, lesions as above Laboratory Results - last 24 hr 11/21/16 11/21/16 11/22/16 16:46 22:41 06:00 WBC 10.2 H RBC 3.35 L Hgb 9.1 L Hct 27.3 L MCV 81.4 MCHC 33.4 RDW 17.4 H Plt Count 467 H MPV 7.2 L POC Glucometer 110 164 11/22/16 11/22/16 06:17 11:45 WBC RBC Hgb Hct MCV MCHC RDW Plt Count MPV POC Glucometer 132 136 Active Medications Generic Name Dose Route Start Last Admin Trade Name Freq PRN Reason Stop Dose Admin Albuterol Sulfate 2 puff 11/20/16 22:00 Ventolin Hfa Inhaler - IH Q6H PRN ASTHMA Divalproex Sodium 500 mg 11/19/16 21:15 11/22/16 11:17 Depakote - PO 500 mg DAILY ALLIE Administration Divalproex Sodium 750 mg 11/19/16 22:00 11/21/16 22:36 Depakote - PO 750 mg HS ALLIE Administration Haloperidol 10 mg 11/19/16 22:00 11/22/16 11:17 Haldol - PO 10 mg BID ALLIE Administration Heparin Sodium (Porcine) 5,000 unit 11/21/16 22:00 11/22/16 13:38 Heparin - SQ 5,000 unit TID ALLIE Administration Clindamycin Phosphate 50 mls @ 100 mls/hr 11/20/16 10:30 11/22/16 11:16 Cleocin 600 Mg Premix Ivpb - IVPB 100 mls/hr Q8H-IV ALLIE Administration Cefepime HCl 2 gm/ Dextrose 100 mls @ 200 mls/hr 11/20/16 10:45 11/22/16 11:16 IVPB 200 mls/hr Q8H-IV ALLIE Administration Ibuprofen 600 mg 11/20/16 16:13 11/22/16 06:13 Motrin - PO 600 mg Q4H PRN Administration PAIN Insulin Aspart 1 vial 11/19/16 22:00 11/22/16 11:46 Novolog Vial Sliding Scale - SQ Not Given ACHS [facility] Protocol Latanoprost 1 drop 11/19/16 22:00 11/21/16 22:34 Xalatan 0.005% Eye Drops - OU 1 drop HS ALLIE Administration Morphine Sulfate 2 mg 11/22/16 08:41 11/22/16 13:38 Morphine Injection - IVPUSH 2 mg Q4H PRN Administration PAIN Ranitidine HCl 300 mg 11/19/16 21:15 11/22/16 11:17 Zantac - PO 300 mg DAILY ALLIE Administration Tobramycin/Dexamethasone 1 drop 11/20/16 22:00 11/22/16 15:29 Tobradex Ophthalmic Suspension - OU 11/26/16 23:59 1 drop QID ALLIE Administration ASSESSMENT/PLAN: This is a 51 year old female with significant past medical history of Schizophrenia; Bipolar; NIDDM; Recurrent hydradenitis; Diabetes Melliluts; GERD ; Vaginitis; chronic low back pain presented to the ED with the chief complaints of vaginal burning/ painful ulcers since 2 weeks. Chronic Hydradenitis Suppurtiva -unknown baseline status -Perianal and perivaginal area -Worsened since 07/28/2016. Plastic surgeon, General sugeon offered no further treatment outpatient -afebrile, no leukocytosis -CT consistent with possible cellulitis, no abscess -transvaginal US wnl pelvic structures -ID Consult: IV Clindamycin 600mg q8H and Cefepime day 3. Consider switch to po antibiotics in the next 24 to 48 hours -OBGYN consult appreciated defer to reynold, [place] -Reynold sonsult: no abscess to drain, no gen reynold intervention indicated. may benefit from plastics excision and reconstruction but at risk for poor healing, especially given patients poor personal hygene habits -Motrim PRN pain, morphine 2 mg IV PRN(6 per day) -Patient still declines xfer to tertiary center for an extensive wound debridement despite talking to her daughter. Will proceed with abx management and local wound care B/L scleritis -opthalmology consult appreciated -Tobradex eye drops 1 ou qid x 7 d -cpntinue lantoprost for glaucoma -f/u optho outpatient aric -symptomatic improvement Diabetes Mellitus -HbA1c 4.8 -BGM -Insulin sliding scale (has not required coverage) Bipolar -Continue Divalproex, haldol Upper back pain -scapular region, no pain over spinal processes -likley musculoskeletal due to lying on her side for prolonged period -x ray cervical spine wnl -x ray T spine b/l spondylosis -pain improved with morphine, motrin -recommend outpatient f/u with neurologist FEN no IV fluids lytes stable Diabetic diet SCDs Dispo: Admitted in Med-surg. Visit type - Emergency Visit Emergency Visit: Yes ED Registration Date: 11/19/16 Care time: The patient presented to the Emergency Department on the above date and was hospitalized for further evaluation of their emergent condition. - New Patient This patient is new to me today: No - Critical Care Critical Care patient: No - Discharge Referral Referred to [facility] Med P.C.: No
--- NOTE | 2016-11-22 18:22 | PN ---
Teaching Attending Note Name of Resident: Marnie Pavon ATTENDING PHYSICIAN STATEMENT I saw and evaluated the patient. I reviewed the resident's note and discussed the case with the resident. I agree with the resident's findings and plan as documented. SUBJECTIVE: no fever or chills . feels better. back pain is better OBJECTIVE: NAD awake and alert. CV: RRR Lungs : CTAB Ext: no edema , no erythema .L axilla with enlarged tender tissue with no fluctuance but with purulent drainage : enlarged soft tissue mass along the groins, L labia major , and perianal area with purulent discharge. MS: TTP over L para-spinal muscles in upper thoracic area. no TTP over spine in T, C, or L areas ASSESSMENT AND PLAN: 51 y/o lady with h/o Bipolar and chronic hydradenitis supporativa , who presented with worsening discharge and pain in perianal and perivaginal area . 1- Chronic hydradenitis supporativa : - cont clinda and cefepime . - pt cont to refuse transfer 2- bilateral scleritis : cont eye drops f/u ophthalmology as out pt 3- back pain : likely MS . x ray reviewed HLOC
[2016-11-22] MEDS: DIVALPROEX SODIUM 250 MG TABLET E.C. (FP) PO SCH (21:31)
[2016-11-22] MEDS: LATANOPROST 0.005% OPHTH SOLN 2.5ML BOTTLE OU SCH (21:32)
[2016-11-23] MEDS ORDERED: PT OWN MED DRAWER 7, Y5N ONE ×2 (00:07→10:55)
[2016-11-23] MEDS: IBUPROFEN 600 MG TABLET (FP) PO PRN ×2 (00:20→10:28)
[2016-11-23] MEDS: CLINDAMYCIN 600MG PREMIX IVPB 50 ML IVPB SCH ×2 (01:14→10:25)
[2016-11-23] MEDS: CEFEPIME 2 GM in DEXTROSE 5%-WATER - 100 ML IVPB SCH ×2 (01:15→10:25)
[2016-11-23] MEDS: morphine CARPU-JECT 2 MG/1 ML DISP.SYRIN IVPUSH PRN ×2 (01:30→06:00)
--- NOTE | 2016-11-23 03:50 | HOSP ---
Subjective - Review of Symptoms Events since last encounter: Was paged by the nurse at 3:40 am and informed that patient is complaining of pain. Went to assess the patient. A/c to the patient, she is having severe back pain. As per the nurse, she has been getting Ibuprofen and Morphine Q4H and requests for pain medication even before the scheduled time. Patient says that tyelnol with codeine helps her back pain. Physical exam: Vitals: BP-120/67; P-90; Temp- 97.3; Spo2- 96 RA; RR 16 GENERAL: Patient is lying uncomfortably in bed, Awake, alert, and fully oriented , in no acute distress. HEAD: Normal with no signs of trauma. EYES: Redness and tearing in bilateral eyes EARS, NOSE, THROAT: Ears normal. Moist mucous membranes. NECK: Supple LUNGS: Breath sounds equal, clear to auscultation bilaterally. No wheezes, and no crackles. No accessory muscle use. HEART: Regular rate and rhythm, normal S1 and S2 without murmur, rub or gallop. ABDOMEN: Soft, nontender, not distended, normoactive bowel sounds, no guarding, no rebound, no masses. No hepatomegaly or splenomegaly. MUSCULOSKELETAL: Normal range of motion at all joints. No bony deformities or tenderness. No CVA tenderness. UPPER EXTREMITIES: 2+ pulses, warm, well-perfused. No cyanosis. No clubbing. No peripheral edema. LOWER EXTREMITIES: 2+ pulses, warm, well-perfused. No calf tenderness. No peripheral edema. NEUROLOGICAL: Cranial nerves II-XII intact. Normal speech. Gait not observed. PSYCHIATRIC: Cooperative. Good eye contact. Irritated due to discomfort. Appropriate mood and affect. SKIN: Warm, dry, normal turgor, no rashes or lesions noted, normal capillary refill. A/P Patient is a 51 year old female with significant past medical history of Schizophrenia; Bipolar; NIDDM; Recurrent hydradenitis; Diabetes Melliluts; GERD ; Vaginitis; chronic low back pain admitted for evaluation and treatment of Hydradenitis Suppurtiva now complaining of severe low back pain. Back pain most likely due to musculosketal origin Will order one time dose of Tylenol with codeine. Physical Examination Vital Signs: Vital Signs Temperature 98.7 F 11/22/16 20:44 Pulse Rate 90 11/22/16 20:44 Respiratory Rate 20 11/22/16 20:44 Blood Pressure 120/64 11/22/16 20:44 O2 Sat by Pulse Oximetry (%) 99 11/22/16 20:44 Labs: CBC, BMP 11/22/16 06:00 11/20/16 06:30 Visit type - Emergency Visit Emergency Visit: Yes ED Registration Date: 11/19/16 Care time: The patient presented to the Emergency Department on the above date and was hospitalized for further evaluation of their emergent condition. - New Patient This patient is new to me today: Yes Date on this admission: 11/23/16 - Critical Care Critical Care patient: No
[2016-11-23] MEDS ORDERED: ACETAMINOPHEN WITH CODEINE 300MG/30MG TABLET PO ONE (03:54)
[2016-11-23] MEDS: INSULIN SLIDING SCALE (NOVOLOG) 1 VIAL SQ SCH ×4 (05:59→21:52)
[2016-11-23] MEDS: HEPARIN NA (PORCINE) 5,000 UNITS/ML 1ML VIAL SQ SCH ×3 (06:02→21:51)
[2016-11-23 07:16] LABS: MCH 26.5 pg (25.7-33.7); MCHC 32.5 g/dl (32.0-36.0); MEAN CELL VOLUME 81.4 fl (80-96); MEAN PLT VOLUME 6.9 fl (7.5-11.1); PLATELET COUNT 454 K/MM3 (134-434); RDW 17.5 % (11.6-15.6); WHITE BLOOD COUNT 8.2 K/mm3 (4.0-10.0)
[2016-11-23 07:43] LABS: CALCIUM 8.3 mg/dL (8.5-10.1); CREATININE 0.6 mg/dL (0.55-1.02)
[2016-11-23] MEDS: RANITIDINE HCL 150 MG TABLET (FP) PO SCH (10:26)
[2016-11-23] MEDS: DIVALPROEX SODIUM 500 MG TABLET E.C. PO SCH (10:27)
[2016-11-23] MEDS: HALOPERIDOL 5 MG TABLET (FP) PO SCH ×2 (10:27→21:50)
--- NOTE | 2016-11-23 11:07 | PN ---
Physical Exam: SUBJECTIVE: Patient seen and examined Patient resting in bed. NAD. Severe upper back pain overnight, requiring extra analgesia. Her eye pain, redness and photophobia are improved. denies sob, f/c, diarrhea, abd pain, chest pain, cough. States her overall pain has lessened. Still declines transfer to [facility] for plastics evaluation. OBJECTIVE: Vital Signs Period Temp Pulse Resp BP Sys/[place] Pulse Ox Last 24 Hr 97.3 F-98.7 F 80-95 18-20 118-122/64-76 99 GENERAL: The patient is awake, alert, and fully oriented HEAD: Normal with no signs of trauma. EYES: PERRL, extraocular movements intact, sclera anicteric, conjunctiva clear. No ptosis. b/l injected conjunctiva, no tearing, mild photophobia. improved EARS, NOSE, THROAT: Moist mucous membranes. NECK: supple without masses. LUNGS: diffusely restricted air movement HEART: Regular rate and rhythm, normal S1 and S2 ABDOMEN: Soft, nontender, not distended, normoactive bowel sounds MUSCULOSKELETAL: No CVA tenderness. UPPER EXTREMITIES: 2+ pulses, warm, well-perfused. No peripheral edema. L armpit: some induration and drainage. R armpit: no lesions. LOWER EXTREMITIES: 2+ pulses, No peripheral edema. Genitalia: Ulcers with abscesses extending from labia majora to the perianal area, buttocks Right >Left; serosanguinous fluid +, tender to touch, soft tissue mass in the suprapubic area 10 x 8 cm; mobile, indurated. improved NEUROLOGICAL: Cranial nerves II-XII grossly intact. Normal speech. Gait not observed. PSYCHIATRIC: Cooperative. calm SKIN: Warm, dry, lesions as above Laboratory Results - last 24 hr 11/22/16 11/22/16 11/22/16 06:17 11:45 17:02 WBC RBC Hgb Hct MCV MCHC RDW Plt Count MPV Sodium Potassium Chloride Carbon Dioxide Anion Gap BUN Creatinine POC Glucometer 132 136 127 Random Glucose Calcium 11/22/16 11/23/16 11/23/16 22:14 06:00 06:00 WBC 8.2 RBC 3.39 L Hgb 9.0 L Hct 27.6 L MCV 81.4 MCHC 32.5 RDW 17.5 H Plt Count 454 H MPV 6.9 L Sodium 138 Potassium 4.4 Chloride 99 Carbon Dioxide 28 Anion Gap 11 BUN 11 D Creatinine 0.6 D POC Glucometer 118 Random Glucose 109 H D Calcium 8.3 L Active Medications Generic Name Dose Route Start Last Admin Trade Name Freq PRN Reason Stop Dose Admin Acetaminophen/Codeine Phosphate 1 tab 11/23/16 11:06 Tylenol # 3 - PO Q4H PRN FEVER OR PAIN Albuterol Sulfate 2 puff 11/20/16 22:00 Ventolin Hfa Inhaler - IH Q6H PRN ASTHMA Divalproex Sodium 500 mg 11/19/16 21:15 11/23/16 10:27 Depakote - PO 500 mg DAILY ALLIE Administration Divalproex Sodium 750 mg 11/19/16 22:00 11/22/16 21:31 Depakote - PO 750 mg HS ALLIE Administration Haloperidol 10 mg 11/19/16 22:00 11/23/16 10:27 Haldol - PO 10 mg BID ALLIE Administration Heparin Sodium (Porcine) 5,000 unit 11/21/16 22:00 11/23/16 06:02 Heparin - SQ 5,000 unit TID ALLIE Administration Clindamycin Phosphate 50 mls @ 100 mls/hr 11/20/16 10:30 11/23/16 10:25 Cleocin 600 Mg Premix Ivpb - IVPB 100 mls/hr Q8H-IV ALLIE Administration Cefepime HCl 2 gm/ Dextrose 100 mls @ 200 mls/hr 11/20/16 10:45 11/23/16 10:25 IVPB 200 mls/hr Q8H-IV ALLIE Administration Ibuprofen 600 mg 11/20/16 16:13 11/23/16 10:28 Motrin - PO 600 mg Q4H PRN Administration PAIN Insulin Aspart 1 vial 11/19/16 22:00 11/23/16 05:59 Novolog Vial Sliding Scale - SQ Not Given ACHS ALLIE Protocol Latanoprost 1 drop 11/19/16 22:00 11/22/16 21:32 Xalatan 0.005% Eye Drops - OU 1 drop HS ALLIE Administration Ranitidine HCl 300 mg 11/19/16 21:15 11/23/16 10:26 Zantac - PO 300 mg DAILY ALLIE Administration Tobramycin/Dexamethasone 1 drop 11/20/16 22:00 11/22/16 21:32 Tobradex Ophthalmic Suspension - OU 11/26/16 23:59 1 drop QID ALLIE Administration ASSESSMENT/PLAN: This is a 51 year old female with significant past medical history of Schizophrenia; Bipolar; NIDDM; Recurrent hydradenitis; Diabetes Melliluts; GERD ; Vaginitis; chronic low back pain presented to the ED with the chief complaints of vaginal burning/ painful ulcers since 2 weeks. Chronic Hydradenitis Suppurtiva -unknown baseline status -Perianal and perivaginal area -Worsened since 07/28/2016. Plastic surgeon, General sugeon offered no further treatment outpatient -afebrile, no leukocytosis -CT consistent with possible cellulitis, no abscess -transvaginal US wnl pelvic structures -ID Consult: IV Clindamycin 600mg q8H and Cefepime day 4. Consider switch to po antibiotics today or tomorrow -OBGYN consult appreciated defer to reynold, ID -Reynold sonsult: no abscess to drain, no gen reynold intervention indicated. may benefit from plastics excision and reconstruction but at risk for poor healing, especially given patients poor personal hygene habits -tylenol/codene for pain -Patient still declines xfer to tertiary center for an extensive wound debridement despite talking to her daughter. Will proceed with abx management and local wound care B/L scleritis -opthalmology consult appreciated -Tobradex eye drops 1 ou qid x 7 d -cpntinue lantoprost for glaucoma -f/u optho outpatient aric -symptomatic improvement Diabetes Mellitus -HbA1c 4.8 -BGM -Insulin sliding scale (has not required coverage) Bipolar -Continue Divalproex, haldol Upper back pain -scapular region, no pain over spinal processes -likley musculoskeletal due to lying on her side for prolonged period -x ray cervical spine wnl -x ray T spine b/l spondylosis -CT C, T spine -recommend outpatient f/u with neurologist FEN no IV fluids lytes stable Diabetic diet SCDs No further labs Dispo: Admitted in Med-surg. Visit type - Emergency Visit Emergency Visit: Yes ED Registration Date: 11/19/16 Care time: The patient presented to the Emergency Department on the above date and was hospitalized for further evaluation of their emergent condition. - New Patient This patient is new to me today: No - Critical Care Critical Care patient: No - Discharge Referral Referred to [facility] Med P.C.: No
[2016-11-23] MEDS: TOBRA 0.3%/DEXAMETH 0.1% OPHTHALMIC SUSP 2.5 ML BTL OU SCH ×4 (11:23→21:52)
--- NOTE | 2016-11-23 11:25 | PN ---
Progress Note (short form) - Note Progress Note: picture copyist f/u pt does not complain of any vaginal discharge or bleeding . pt keps lying in the bed lower abd , mons pubis mass is sc deep mutiple abscess still draining .. I spoke with wound centre , pt is known to wound centre. she was treated for gluteal lesions 4 months ago . in patient cases , generally are not accepted , but i was told , nurse will go & check the patient . pelvic sono , limited exam, ut normal, em thickness 4.5mm , adnexa not visualized . ct scan confirms soft tissuse sub cutaneous deep thickening , cellulitis .. o/e Selected Entries 11/23/16 06:00 Temperature 97.8 F Pulse Rate 86 Blood Pressure 118/74 Laboratory Tests 11/22/16 11/22/16 11/22/16 06:17 11:45 17:02 WBC Hgb Hct Plt Count POC Glucometer 132 136 127 Random Glucose 11/22/16 11/23/16 11/23/16 22:14 06:00 06:00 WBC 8.2 Hgb 9.0 L Hct 27.6 L Plt Count 454 H POC Glucometer 118 Random Glucose 109 H D imp ; improving, chr hytdradenitis suppuritva antibiotics cefepime, & clindamucin iv plan ct care refer to wound centre upon discharge . keep local wounds clean & dry
--- NOTE | 2016-11-23 14:58 | PN ---
Teaching Attending Note Name of Resident: Marnie Pavon ATTENDING PHYSICIAN STATEMENT I saw and evaluated the patient. I reviewed the resident's note and discussed the case with the resident. I agree with the resident's findings and plan as documented. SUBJECTIVE: no fever or chills , no abd pain , has upper L back pain behind her shoulder . complains of numbness in L hand fingers OBJECTIVE: NAD awake and alert. CV: RRR Lungs: CTAB Ext: no edema , no erythema .L axilla with enlarged tender tissue with no fluctuance but with purulent drainage : enlarged soft tissue mass along the groins, L labia major , and perianal area with purulent discharge. MS: TTP over L para-spinal muscles in upper thoracic area. no TTP over spine in T, C, or L areas ASSESSMENT AND PLAN: 51 y/o lady with h/o Bipolar and chronic hydradenitis suppurativa , who presented with worsening discharge and pain in perianal and perivaginal area . 1- Chronic hydradenitis suppurativa : - cont clinda and cefepime . - pt cont to refuse transfer 2- Bilateral scleritis : cont eye drops f/u ophthalmology as out pt 3- Back pain : likely MS . CT scans today with spondylosis , no fx . Neuro exam by resident with no deficits, even with nl Sensation over hands HLOC
--- NOTE | 2016-11-23 15:06 | PN ---
Progress Note (short form) - Note Progress Note: doing well c/o vaginal whitish drainage Vital Signs Period Temp Pulse Resp BP Sys/[place] Pulse Ox Last 24 Hr 97.3 F-98.7 F 86-95 18-20 112-122/64-76 99 cor-rrr lungs clear abd soft,nt no drainage no erythema from the lesions on mons pubis left buttock lesions are indurated but no erythema or drainage CBC, BMP 11/23/16 06:00 11/23/16 06:00 Microbiology 11/19/16 12:04 Blood - Peripheral Venous Blood Culture - Preliminary NO GROWTH OBTAINED AFTER 96 HOURS, INCUBATION TO CONTINUE FOR 1 DAYS. 11/19/16 12:04 Blood - Peripheral Venous Blood Culture - Preliminary NO GROWTH OBTAINED AFTER 96 HOURS, INCUBATION TO CONTINUE FOR 1 DAYS. 11/19/16 12:13 Abscess Gram Stain - Final 11/19/16 12:13 Abscess Wound Culture - Final Diphtheroid/Corynebacterium Prevotella Loescheii 11/19/16 11:23 Urine - Urine Clean Catch Urine Culture - Final Contaminated: Please Repeat a/p chronic hidraadenitis refusing tertiary care eval for definitive surgery can switch to po augmentin for one week wound care as outpt not much more to offer given extent of disease this will certainly recur and worsen please call back if needed
--- NOTE | 2016-11-23 15:55 | DS ---
Addendum entered and electronically signed by Marnie Pavon RES 11/24/16 14: 10: patient resting in chair, dressed, nad, feels well. afebrile and hemodynamically stable. improved condition., states she has minimal back pain, no groin pain, minimal photophobia. no other complaints. explained one more time the recommendation after discharge. Addendum entered and electronically signed by Marnie Pavon RES 11/23/16 16: 41: There was no diagnosis of acute UTI Original Note: Physical Exam: SUBJECTIVE: Patient seen and examined Patient resting in bed. NAD. Severe upper back pain overnight, requiring extra analgesia. Her eye pain, redness and photophobia are improved. denies sob, f/c, diarrhea, abd pain, chest pain, cough. States her overall pain has lessened. Still declines transfer to [facility] for plastics evaluation. OBJECTIVE: Vital Signs Period Temp Pulse Resp BP Sys/[place] Pulse Ox Last 24 Hr 97.3 F-98.7 F 86-95 18-20 108-122/64-76 99-99 PHYSICAL EXAM GENERAL: The patient is awake, alert, and fully oriented HEAD: Normal with no signs of trauma. EYES: PERRL, extraocular movements intact, sclera anicteric, conjunctiva clear. No ptosis. b/l injected conjunctiva, no tearing, mild photophobia. improved EARS, NOSE, THROAT: Moist mucous membranes. NECK: supple without masses. LUNGS: diffusely restricted air movement HEART: Regular rate and rhythm, normal S1 and S2 ABDOMEN: Soft, nontender, not distended, normoactive bowel sounds MUSCULOSKELETAL: No CVA tenderness. UPPER EXTREMITIES: 2+ pulses, warm, well-perfused. No peripheral edema. L armpit: some induration and drainage. R armpit: no lesions. LOWER EXTREMITIES: 2+ pulses, No peripheral edema. Genitalia: Ulcers with abscesses extending from labia majora to the perianal area, buttocks Right >Left; serosanguinous fluid +, tender to touch, soft tissue mass in the suprapubic area 10 x 8 cm; mobile, indurated. improved NEUROLOGICAL: Cranial nerves II-XII intact. Normal speech. 5/5 strength in arms and legs, 1+ reflexes in arms. R leg 2+ left leg 1+ reflex. intact equal sensation b/l. Gait not observed. PSYCHIATRIC: Cooperative. calm SKIN: Warm, dry, lesions as above LABS Laboratory Results - last 24 hr 11/22/16 11/22/16 11/23/16 17:02 22:14 06:00 WBC 8.2 RBC 3.39 L Hgb 9.0 L Hct 27.6 L MCV 81.4 MCHC 32.5 RDW 17.5 H Plt Count 454 H MPV 6.9 L Sodium Potassium Chloride Carbon Dioxide Anion Gap BUN Creatinine POC Glucometer 127 118 Random Glucose Calcium 11/23/16 06:00 WBC RBC Hgb Hct MCV MCHC RDW Plt Count MPV Sodium 138 Potassium 4.4 Chloride 99 Carbon Dioxide 28 Anion Gap 11 BUN 11 D Creatinine 0.6 D POC Glucometer Random Glucose 109 H D Calcium 8.3 L HOSPITAL COURSE: Date of Admission:11/19/16 This is a 51 year old female with significant past medical history of Schizophrenia; Bipolar; NIDDM; Recurrent hydradenitis; Diabetes Melliluts; GERD ; Vaginitis; chronic low back pain and upper back pain x2 mo, who presented to the ED with the chief complaints of vaginal burning/ painful ulcers since 2 weeks. She has a history of hydraadenitis suppurtiva in the perivaginal and perianal area which has gotten worse since her last admission ( 07/22/16). Patient also complained of burning sensation in both eyes, redness, tearing, crusting + since 2 weeks as well as has photophobia. She was diagnosed with recurrent Chronic Hydradenitis Suppurtiva. She had a CT which was consistent with possible cellulitis, no abscess and a transvaginal US which showed wnl pelvic structures. ID evaluated patient and treated with IV Clindamycin 600mg q8H and Cefepime. She was also evaluated by OBGYN and Surgery. Patient was offered xfer to tertiary care center where she could be evaluated by plastics for possible reconstruction but she declined. She improved and was discharged on 7 days of PO augmentin. 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 She is to use them for 3 more days 3 times per day in both eyes. she is to continue lantoprost for glaucoma and advised to f/u with optho outpatient aric. her eyes improved over admission. She also complained if upper back pain. She had a C, T spine x ray and CT scan done that only showed some spondylosis in T spine and wnl c spine. she was recommend outpatient f/u with neurologist for pain management. Date of Discharge: 11/23/16 Minutes to complete discharge: 30 (na) Discharge Summary Reason For Visit: CELLULITIS Current Active Problems Abscess (Acute) Cellulitis (Acute) Condition: Improved - Instructions Diet, Activity, Other Instructions: You were in the hospital due to Chronic Hydradenitis Suppurtiva (skin infection ) of your genital area and groin. You finished a course of IV antibiotic and will need to take oral antibiotic augmentin twice a day for a week. Your condition is chronic and likely to recur. We urge you to follow up with primary care and Dr Fournier who is an infection specialist to manage it. Please exercise good personal hygene and shower the area every day. You may still consider seeing a plastic surgeon about this issue. You also had scleritis (eye infection) in both eyes. please use Tobradex eye drops 4 times a day for 3 more days. Use your glaucoma medication lantoprost daily. Please see an eye doctor as soon as you get our of hospital. You have upper back pain. Out imaging (xray and CT of cervical and thoracic spine) didnt show anything too severe but we advise you to follow up with a neurologist to adress this issue. You can continue your other home medication Return to hospital if symptoms resume. Referrals: Jeffery Tomlin [Primary Care Provider] - Mylene Fournier MD [Staff Physician] - Disposition: INTERMEDIATE FACILITY - Home Medications Comprehensive Discharge Medication List: Ambulatory Orders Divalproex [Depakote -] 500 mg PO DAILY 09/30/15 Divalproex [Depakote -] 750 mg PO HS 09/30/15 Haloperidol Liquid [Haldol Liquid -] 10 mg PO BID 09/30/15 Metformin HCl 500 mg PO BID 09/30/15 Albuterol Sulfate [Proair Respiclick] 90 mcg IH PRN PRN 10/30/16 Famotidine [Pepcid] 20 mg PO DAILY 10/30/16 Latanoprost 0.005% Eye Drops [Xalatan 0.005% Eye Drops -] 1 drop OU HS 02/27/17 Naproxen [Naprosyn -] 500 mg PO BID 10/30/16 Amox-Tr/K Cl [Augmentin 875-125mg Tablet -] 1 tab PO BID@0800,1730 #14 tablet Tobramycin Sulf/Dexamethasone [Tobradex Ophthalmic Suspension -] 1 drop OU QID # 1 dropper 11/23/16 This patient is new to me today: No Emergency Visit: Yes ED Registration Date: 11/19/16 Care time: The patient presented to the Emergency Department on the above date and was hospitalized for further evaluation of their emergent condition. Critical Care patient: No - Discharge Referral Referred to [facility] Med P.C.: No
[2016-11-23] MEDS: ACETAMINOPHEN WITH CODEINE 300MG/30MG TABLET PO PRN ×2 (16:27→21:06)
[2016-11-23] MEDS: AMOX TR/POT CLAV 875MG/125MG TABLETS (FP) PO SCH (17:19)
[2016-11-23] MEDS ORDERED: INSULIN (NOVOLOG) ASPART 100 UNITS/ML 10ML VIAL ONE (21:48)
[2016-11-23] MEDS: DIVALPROEX SODIUM 250 MG TABLET E.C. (FP) PO SCH (21:51)
[2016-11-23] MEDS: LATANOPROST 0.005% OPHTH SOLN 2.5ML BOTTLE OU SCH (21:53)
[2016-11-24] MEDS: IBUPROFEN 600 MG TABLET (FP) PO PRN ×2 (01:01→06:49)
[2016-11-24] MEDS: ACETAMINOPHEN WITH CODEINE 300MG/30MG TABLET PO PRN ×3 (03:21→14:35)
[2016-11-24] MEDS: INSULIN SLIDING SCALE (NOVOLOG) 1 VIAL SQ SCH ×2 (06:48→13:00)
[2016-11-24] MEDS: HEPARIN NA (PORCINE) 5,000 UNITS/ML 1ML VIAL SQ SCH ×2 (06:49→14:10)
[2016-11-24 08:07] VITALS: TEMP 97.5
[2016-11-24] MEDS ORDERED: PT OWN MED DRAWER 7, Y5N ONE (08:34)
[2016-11-24] MEDS: AMOX TR/POT CLAV 875MG/125MG TABLETS (FP) PO SCH (08:39)
[2016-11-24] MEDS: RANITIDINE HCL 150 MG TABLET (FP) PO SCH (09:54)
[2016-11-24] MEDS: DIVALPROEX SODIUM 500 MG TABLET E.C. PO SCH (09:54)
[2016-11-24] MEDS: HALOPERIDOL 5 MG TABLET (FP) PO SCH (09:54)
[2016-11-24] MEDS: TOBRA 0.3%/DEXAMETH 0.1% OPHTHALMIC SUSP 2.5 ML BTL OU SCH ×2 (09:56→14:30)
[2016-11-24 14:41] VITALS: PULSE 70
[2016-11-24 15:59] VITALS: BP 117/80
--- NOTE | 2016-11-24 18:16 | PN ---
Teaching Attending Note Name of Resident: Venu Jauregui ATTENDING PHYSICIAN STATEMENT I saw and evaluated the patient. I reviewed the resident's note and discussed the case with the resident. I agree with the resident's findings and plan as documented. SUBJECTIVE: no fever or chills, no pain . no SOB or CP . back pain improved OBJECTIVE: NAD awake and alert. CV: RRR Lungs: CTAB Ext: no edema , no erythema . sitting in a chair dressed to go home , genital area not examined today ASSESSMENT AND PLAN: 51 y/o lady with h/o Bipolar and chronic hydradenitis suppurativa , who presented with worsening discharge and pain in perianal and perivaginal area . 1- Chronic hydradenitis suppurativa : - Augmentin x 7 days after dc - betadine as out pt 2- Bilateral scleritis: cont eye drops tobradex x 3 more days. f/u ophthalmology as out pt 3- Back pain : likely MS . no Fx on CT scan dispo : back to assisted living today
== END 2016-11-24 16:13 | DRG 385 ==
LOC: JER 09:42 → JERBED 18:14 → J7W 23:46
PROVIDERS: ADMIT Internal Medicine; ATTEND Internal Medicine
DX: L73.2 Hidradenitis suppurativa (principal); L03.317 Cellulitis of buttock; E11.9 Type 2 diabetes mellitus without complications; K21.9 Gastro-esophageal reflux disease without esophagitis; M54.5 Low back pain; F20.89 Other schizophrenia; F31.89 Other bipolar disorder; H10.89 Other conjunctivitis; D64.9 Anemia, unspecified; F17.210 Nicotine dependence, cigarettes, uncomplicated; N92.5 Other specified irregular menstruation; N76.2 Acute vulvitis; H53.143 Visual discomfort, bilateral; R00.0 Tachycardia, unspecified; J45.909 Unspecified asthma, uncomplicated; H15.093 Other scleritis, bilateral; K61.0 Anal abscess; Z78.0 Asymptomatic menopausal state
CPT/HCPCS: 36415; 72050-TC; 72070-TC; 72125-TC; 72128-TC; 74177-TC; 76830-TC; 80048; 80053; 81003; 81015; 83036; 85025; 85027; 85610; 87040; 87070; 87086; 87205; 99283-25; J1644; Q9967

== ENCOUNTER 2016-11-29 16:14 | Emergency (ER) | payer OTHER ==
[2016-11-29 16:48] VITALS: BMI 34.7
[2016-11-29] MEDS ORDERED: TOBRAMYCIN 0.3% OPHTH SOLN 5 ML BOTTLE OU ONE ×2 (18:12→18:15)
--- NOTE | 2016-11-29 18:17 | PDOC ---
History of Present Illness - General Chief Complaint: Eye Problem Stated Complaint: EYE PROBLEM(REDNESS) Time Seen by Provider: 11/29/16 17:11 History Source: Patient Exam Limitations: No Limitations - History of Present Illness Initial Comments: 11/29/16 18:14 CHIEF COMPLAINT: Eye redness HISTORY OF PRESENT ILLNESS: This is a 51 year old female resident of [facility] with a history of schizophrenia, bipolar disorder, NIDDM, chronic back pain, recurrent hydradenitis, GERD, and glaucoma who presents complaining of bilateral eye redness, burning pain, and crusting discharge for close to one month. She denies visual changes and fever. Vital signs on arrival are all within normal limits. REVIEW OF SYSTEMS: GENERAL/CONSTITUTIONAL: No fever or chills. No weakness. No weight change. HEAD, EYES, EARS, NOSE AND THROAT: See HPI CARDIOVASCULAR: No chest pain or palpitations. RESPIRATORY: No cough, wheezing, or shortness of breath. GASTROINTESTINAL: No nausea, vomiting, diarrhea or constipation. GENITOURINARY: No dysuria, frequency, or change in urination. MUSCULOSKELETAL: No joint or muscle swelling or pain. No neck or back pain. SKIN: No rash or easy bruising. NEUROLOGIC: No headache, vertigo, loss of consciousness, or loss of sensation. PSYCHIATRIC: No depression or anxiety. ENDOCRINE: No increased thirst. No abnormal weight change. HEMATOLOGIC/LYMPHATIC: No anemia, easy bleeding, or history of blood clots. ALLERGIC/IMMUNOLOGIC: No hives or skin allergy. No latex allergy. PHYSICAL EXAM: GENERAL: The patient is awake, alert, and fully oriented, in no acute distress. HEAD: Normal with no signs of trauma. ENT: Bilateral conjunctival erythema. LUNGS: Clear to auscultation bilaterally. Normal excursion. No respiratory distress or use of accessory muscles. CV: RRR, S1/S2, no MRG. Cap refill < 2 sec. ABDOMEN: Soft, non-distended, non-tender. EXTREMITIES: Normal range of motion, no edema. NEUROLOGICAL: Normal speech, normal gait. CN II-XII grossly intact. PSYCH: Normal mood, normal affect. SKIN: Warm, dry, normal turgor, no rashes or lesions noted. Past History - Past Medical History Allergies/Adverse Reactions: Allergies Allergy/AdvReac Type Severity Reaction Status Date / Time No Known Allergies Allergy Verified 11/19/16 09:45 Home Medications: Ambulatory Orders Haloperidol [Haldol -] 10 mg PO BID 11/29/16 Metformin HCl [Metformin HCl ER] 1,000 mg PO BID 11/29/16 Tobramycin 0.3% Ophth Soln [Tobrex Ophthalmic Solution -] 2 drop OU Q4H #1 drops 11/29/16 Diabetes: Yes GI Disorders: Yes (gerd) Psychiatric Problems: Yes (BI-POLAR) - Immunization History Immunization Up to Date: Yes - Psycho/Social/Smoking Cessation Hx Anxiety: Yes Suicidal Ideation: No Smoking History: Current every day smoker Have you smoked in the past 12 months: Yes Number of Cigarettes Smoked Daily: 10 Cigars Per Day: 5 Information on smoking cessation initiated: No 'Breaking Loose' booklet given: 11/20/16 Hx Alcohol Use: No Drug/Substance Use Hx: No Substance Use Type: None *Physical Exam - Vital Signs Last Vital Signs Temp Pulse Resp BP Pulse Ox 98.7 F 90 18 118/68 96 11/29/16 16:41 11/29/16 16:41 11/29/16 16:41 11/29/16 16:41 11/29/16 16:41 Medical Decision Making - Medical Decision Making 11/29/16 18:22 A/P: 51 year old female with likely conjunctivitis. -Tobramycin ophthalmic drops -Supportive care -Return precautions reviewed *DC/Admit/Observation/Transfer Diagnosis at time of Disposition: Conjunctivitis Qualifiers: Conjunctivitis type: acute Acute conjunctivitis type: bacterial Laterality: bilateral Qualified Code(s): H10.33 - Unspecified acute conjunctivitis, bilateral - Discharge Dispostion Admit: No - Prescriptions Prescriptions: Tobramycin 0.3% Ophth Soln [Tobrex Ophthalmic Solution -] 2 drop OU Q4H #1 drops - Referrals Referrals: Jeffery Tomlin [Primary Care Provider] - 3 days - Patient Instructions Printed Discharge Instructions: DI for Conjunctivitis Additional Instructions: You are being treated for conjunctivitis (eye infection). Use 2 drops of tobramycin ophthalmic every 4 hours. Wash all sheets and pillowcases in hot water and discard any eye makeup. Return here for change in your vision or any other concerning symptoms.
[2016-11-29 19:23] VITALS: BP 122/85; PULSE 75; TEMP 98
== END 2016-11-29 19:53 | disposition home or self-care (01) ==
LOC: JER 16:14
DX: H10.33 Unspecified acute conjunctivitis, bilateral (principal); E11.9 Type 2 diabetes mellitus without complications; Z79.84 Long term (current) use of oral hypoglycemic drugs; F20.9 Schizophrenia, unspecified; F31.9 Bipolar disorder, unspecified; K21.9 Gastro-esophageal reflux disease without esophagitis
CPT/HCPCS: 99282-25

== ENCOUNTER 2016-12-04 14:07 | Inpatient (IN) | payer OTHER ==
--- NOTE | 2016-12-04 14:27 | PDOC ---
History of Present Illness - General Chief Complaint: Vaginal Sxs Stated Complaint: Vaginal Bleeding Time Seen by Provider: 12/04/16 14:26 - History of Present Illness Initial Comments: 12/04/16 14:33 This is a 51 year old female with significant past medical history of Schizophrenia, Bipolar disorder, NIDDM, hidradenitis suppurativa, GERD, chronic low back pain who presented to the ED from [facility]. She is complaining of chronic back pain, eye itching, blurry vision, dysuria, and brown/yellowish discharge coming from her genital area, mass. The pt is lethargic, hx is taken partially from her and medical records. She was discharged from [facility] on 11/23/16, treated for hidradenitis suppurativa and scleritis. The pt came back to ED complaining of eye burning on 11/29/16 and discharged on antibiotics. She states that she finished antibiotics course. She didn't f/u with ID specialist. Past History - Past Medical History Allergies/Adverse Reactions: Allergies Allergy/AdvReac Type Severity Reaction Status Date / Time No Known Allergies Allergy Verified 11/19/16 09:45 Home Medications: Ambulatory Orders Albuterol Sulfate [Proair Respiclick] 2 puff IH Q4H PRN 11/29/16 Atropine 1% Ophth. Solution - 1 drop OD TID 11/29/16 Cyclobenzaprine HCl 5 mg PO TID 11/29/16 Divalproex [Depakote -] 250 mg PO HS 11/29/16 Famotidine 20 mg PO BID 11/29/16 Haloperidol [Haldol -] 10 mg PO BID 11/29/16 Ibuprofen 400 mg PO TID 11/29/16 Metformin HCl [Metformin HCl ER] 1,000 mg PO BID 11/29/16 Naproxen [Naprosyn -] 500 mg PO TID 11/29/16 Prednisolone 1% Ophthalmic [Pred Forte 1% -] 5 ml OD QID 11/29/16 Propylene Glycol/Peg 400/Pf [Systane 0.3-0.4% Eye Drops] 1 each OD TID 11/29/16 Tobramycin 0.3% Ophth Soln [Tobrex Ophthalmic Solution -] 2 drop OU Q4H #1 drops 11/29/16 Tobramycin/Dexamethasone [Tobradex Eye Drops] 5 ml OP QID 11/29/16 Divalproex *ER* [Depakote *ER* -] 500 mg PO BID 12/04/16 Diabetes: Yes GI Disorders: Yes (gerd) Psychiatric Problems: Yes (BI-POLAR) - Immunization History Immunization Up to Date: Yes - Psycho/Social/Smoking Cessation Hx Anxiety: Yes Suicidal Ideation: No Smoking History: Current every day smoker Have you smoked in the past 12 months: Yes Number of Cigarettes Smoked Daily: 10 Cigars Per Day: 5 'Breaking Loose' booklet given: 11/20/16 Hx Alcohol Use: No Drug/Substance Use Hx: No Substance Use Type: None Review of Systems - Review of Systems Able to Perform ROS?: Yes Comments:: 12/04/16 15:00 REVIEW OF SYSTEMS: limited, pt is sedated and lethargic, keeps falling asleep while asked questions CONSTITUTIONAL: Absent: fever, chills HEENT: eye burning, blurry vision CARDIOVASCULAR: Absent: chest pain, RESPIRATORY: Absent: cough, shortness of breath GASTROINTESTINAL: Absent: abdominal pain, GENITOURINARY: dysuria MUSCULOSKELETAL: back pain Is the patient limited Ghanaian proficient: No *Physical Exam - Physical Exam Comments: 12/04/16 14:47 GENERAL: The patient is awake, sedated, lethargic. HEAD: Normal with no signs of trauma. EYES: b/l injected conjunctiva, no tearing, difficulty opening eyes EARS, NOSE, THROAT: Moist mucous membranes. NECK: supple without masses. LUNGS:breath sounds diminished B/L HEART: Regular rate and rhythm, normal S1 and S2 ABDOMEN: Obese, soft, nontender, not distended, normoactive bowel sounds UPPER EXTREMITIES: 2+ pulses, warm, well-perfused. No peripheral edema. L armpit : induration and drainage, no tenderness to palpation R armpit: nl. LOWER EXTREMITIES: No peripheral edema. Genitalia: Ulcers with abscesses in the genital area extending to the perianal area, buttocks, serosanguinous yellowish fluid draining on left side, mild tenderness to touch, soft tissue mass in the suprapubic area around 10 cm; mobile, indurated. NEUROLOGICAL: Normal speech, no facial asymmetry, 5/5 strength in arms and legs , nl sensation b/l. Gait not observed. PSYCHIATRIC: Lethargic SKIN: Warm, dry, lesions as above ED Treatment Course - LABORATORY CBC & Chemistry Diagram: 12/04/16 15:21 12/04/16 15:21 Medical Decision Making - Medical Decision Making 12/04/16 16:01 The pt is a 51 year old female who presents complaining of back pain and groin discharge, eye burning. We ordered CBC, CMP, LA, blood cx, urine cx, Chlamydia/ gonnorhea, EKG, cardiac profile. 12/04/16 17:[address] abdomen/pelvis with contrast. U tox was also added and is negative. 12/04/16 17:[address] abdomen official report.I called Dr. Christensen who accepted the pt for inpatient med surg. admission. *DC/Admit/Observation/Transfer Diagnosis at time of Disposition: Hidradenitis suppurativa - Discharge Dispostion Condition at time of disposition: Good Admit: Yes - Referrals Referrals: Jeffery Tomlin [Primary Care Provider] -
[2016-12-04 14:37] VITALS: BMI 34.7
[2016-12-04] MEDS ORDERED: SODIUM CHLORIDE 1,000 ML IV ONE (15:31)
[2016-12-04 15:43] LABS: BASOPHIL 0.4 % (0-2.0); EOSINOPHIL 0.7 % (0-4.5); MCH 26.5 pg (25.7-33.7); MCHC 32.8 g/dl (32.0-36.0); MEAN CELL VOLUME 80.9 fl (80-96); MEAN PLT VOLUME 7.1 fl (7.5-11.1); NEUTROPHILS 70.5 % (42.8-82.8); PLATELET COUNT 416 K/MM3 (134-434); RDW 18.1 % (11.6-15.6); WHITE BLOOD COUNT 10.9 K/mm3 (4.0-10.0)
[2016-12-04 16:07] LABS: URINE APPEARANCE CLEAR; URINE BILIRUBIN NEGATIVE (NEGATIVE); URINE COLOR LTYELLOW; URINE GLUCOSE (UA) NEGATIVE (NEGATIVE); URINE KETONE TRACE (NEGATIVE); URINE NITRITE NEGATIVE (NEGATIVE); URINE UROBILINOGEN NEGATIVE E.U./dl (0.2-1.0)
[2016-12-04 16:08] LABS: ALBUMIN 2.7 g/dl (3.4-5.0); ALK PHOS 76 U/L (45-117); ANION GAP 10 (8-16); BILIRUBIN,TOTAL 0.1 mg/dL (0.2-1.0); CALCIUM 8.9 mg/dL (8.5-10.1); CO2 28 mmol/L (21-32); CREATININE 0.7 mg/dL (0.55-1.02); GLUCOSE,RANDOM 90 mg/dL (74-106); SGOT/AST 5 U/L (15-37); SGPT/ALT 10 U/L (12-78); TOT PROT 7.6 g/dl (6.4-8.2)
--- NOTE | 2016-12-04 16:34 | PDOC ---
Attending Attestation - Resident Resident Name: Jina Seo - ED Attending Attestation I have performed the following: I have examined & evaluated the patient, The case was reviewed & discussed with the resident, I agree w/resident's findings & plan - HPI HPI: 12/04/16 16:53 51y F hx of schizophrenia, bipolar, niddm, recurrent hydranitis suppurative, gerd, chronic lower back pain, presents with eye burning, incrased vaginal discharge -pt was seen for same earlier this month and was treated with abx, but pt had declined transfer and further mangaement. on exam pt with an large abdominal mass on the mid abdomen hannah tis generally soft, on the lateral aspect of vulva there is a open lsions draining yellowish fluid. pt also has b/l conjunctivitis. will otain labs, repeat ct and will reassess - Physicial Exam PE: 12/05/16 20:25 see aboev - Medical Decision Making 12/05/16 20:25 see above Heart Score/ECG Review - ECG Impressions Comment:: 12/04/16 17:20 Twelve-lead EKG was performed and reviewed by me. There is normal sinus rhythm with a normal rate. Rate of 100 The axis is normal. The intervals are normal. There is normal R wave progression There are no ST or T wave abnormalities suggetsive of acute ischemia
[2016-12-04 17:23] LABS: URINE MARIJUANA THC NEGATIVE ng/ml (CUTOFF=50)
[2016-12-04 17:24] LABS: URINE BLOOD 1+ (NEGATIVE); URINE LEUK ESTERASE 3+ (NEGATIVE); URINE PROTEIN 1+ (NEGATIVE)
[2016-12-04 17:27] LABS: URINE MUCUS RARE; URINE RBC 1 /hpf (0-3); URINE WBC 1 /hpf (3-5)
--- NOTE | 2016-12-04 19:36 | HP ---
Admitting History and Physical - Primary Care Physician PCP: Agnieszka Christensen - Admission History of Present Illness: 51 year old female with significant past medical history of Schizophrenia, Bipolar disorder, NIDDM, hidradenitis suppurativa, GERD, chronic low back pain who presented to the ED from [facility]. She is complaining of chronic back pain, eye itching, blurry vision, dysuria, and brown /yellowish discharge coming from her genital area, mass. The pt is lethargic, hx is taken partially from her and medical records. She was discharged from [facility] on 11/23/16, treated for hidradenitis suppurativa and scleritis. The pt came back to ED complaining of eye burning on 11/29/16 and discharged on antibiotics. She states that she finished antibiotics course. She didn't f/u with ID specialist. - Past Medical History Cardiovascular: Yes: HTN (labile , sometimes, no meds ) Pulmonary: Yes: Asthma Gastrointestinal: Yes: GERD Renal/: Yes: UTI (diagnosed in ER on 11/01/16 ) ...LMP: 01/13/16 ...: No Heme/Onc: Yes: Anemia Psych: Yes: Bipolar, Schizophrenia Musculoskeletal: Yes: Chronic low back pain Endocrine: Yes: Diabetes Mellitus (class 2, on Metformin ) - Smoking History Smoking history: Current every day smoker Have you smoked in the past 12 months: Yes Aproximately how many cigarettes per day: 10 - Alcohol/Substance Use Hx Alcohol Use: No Home Medications - Allergies Allergies/Adverse Reactions: Allergies Allergy/AdvReac Type Severity Reaction Status Date / Time No Known Allergies Allergy Verified 11/19/16 09:45 - Home Medications Home Medications: Ambulatory Orders Albuterol Sulfate [Proair Respiclick] 2 puff IH Q4H PRN 11/29/16 Atropine 1% Ophth. Solution - 1 drop OD TID 11/29/16 Cyclobenzaprine HCl 5 mg PO TID 11/29/16 Divalproex [Depakote -] 250 mg PO HS 11/29/16 Famotidine 20 mg PO BID 11/29/16 Haloperidol [Haldol -] 10 mg PO BID 11/29/16 Ibuprofen 400 mg PO TID 11/29/16 Metformin HCl [Metformin HCl ER] 1,000 mg PO BID 11/29/16 Naproxen [Naprosyn -] 500 mg PO TID 11/29/16 Prednisolone 1% Ophthalmic [Pred Forte 1% -] 5 ml OD QID 11/29/16 Propylene Glycol/Peg 400/Pf [Systane 0.3-0.4% Eye Drops] 1 each OD TID 11/29/16 Tobramycin 0.3% Ophth Soln [Tobrex Ophthalmic Solution -] 2 drop OU Q4H #1 drops 11/29/16 Tobramycin/Dexamethasone [Tobradex Eye Drops] 5 ml OP QID 11/29/16 Divalproex *ER* [Depakote *ER* -] 500 mg PO BID 12/04/16 Physical Examination Vital Signs: Vital Signs Temperature 98.8 F 12/04/16 14:35 Pulse Rate 107 H 12/04/16 14:35 Respiratory Rate 18 12/04/16 14:35 Blood Pressure 111/71 12/04/16 14:35 O2 Sat by Pulse Oximetry (%) 95 12/04/16 14:35 Constitutional: Yes: Anxious HENT: Yes: Atraumatic Neck: Yes: Supple Cardiovascular: Yes: Regular Rate and Rhythm Respiratory: Yes: CTA Bilaterally Gastrointestinal: Yes: Normal Bowel Sounds Renal/: Yes: Vaginal Discharge, Other (abcesses on both labia swollen) Neurological: Yes: Alert, Oriented Imaging - Results Cat Scan: Report Reviewed Problem List - Problems (1) Hidradenitis suppurativa Assessment/Plan: iv abx id consult will get surgery involved will also call sizing sponger...vaginal discharge??? Code(s): L73.2 - HIDRADENITIS SUPPURATIVA (2) Abscess Code(s): L02.91 - CUTANEOUS ABSCESS, UNSPECIFIED (3) Cellulitis Code(s): L03.90 - CELLULITIS, UNSPECIFIED Qualifiers: Site of cellulitis: other site Qualified Code(s): L03.818 - Cellulitis of other sites (4) Conjunctivitis Code(s): H10.9 - UNSPECIFIED CONJUNCTIVITIS Qualifiers: Conjunctivitis type: acute Acute conjunctivitis type: bacterial Laterality: bilateral Qualified Code(s): H10.33 - Unspecified acute conjunctivitis, bilateral (5) Low back pain Code(s): M54.5 - LOW BACK PAIN Qualifiers: Chronicity: acute Back pain laterality: bilateral Sciatica presence : without sciatica Qualified Code(s): M54.5 - Low back pain (6) Perineal abscess Code(s): L02.215 - CUTANEOUS ABSCESS OF PERINEUM (7) UTI (urinary tract infection) Assessment/Plan: on abx uc Code(s): N39.0 - URINARY TRACT INFECTION, SITE NOT SPECIFIED Qualifiers: Urinary tract infection type: site unspecified Hematuria presence: without hematuria Qualified Code(s): N39.0 - Urinary tract infection, site not specified (8) Schizophrenia Assessment/Plan: on meds stable Code(s): F20.9 - SCHIZOPHRENIA, UNSPECIFIED Assessment/Plan Laboratory Tests 12/04/16 12/04/16 12/04/16 15:21 15:21 15:21 WBC 10.9 H D RBC 3.31 L Hgb 8.8 L Hct 26.8 L MCV 80.9 MCHC 32.8 RDW 18.1 H Plt Count 416 MPV 7.1 L Neutrophils % 70.5 Lymphocytes % 23.3 Monocytes % 5.1 Eosinophils % 0.7 Basophils % 0.4 Sodium 139 Potassium 4.4 Chloride 101 Carbon Dioxide 28 Anion Gap 10 BUN 27 H D Creatinine 0.7 Creat Clearance w eGFR > 60 Random Glucose 90 Lactic Acid Calcium 8.9 Total Bilirubin 0.1 L D AST 5 L ALT 10 L D Alkaline Phosphatase 76 Total Protein 7.6 Albumin 2.7 L Urine Color Ltyellow Urine Appearance Clear Urine pH 6.0 Ur Specific [place] 1.020 Urine Protein 1+ H Urine Glucose (UA) Negative Urine Ketones Trace H Urine Blood 1+ H Urine Nitrite Negative Urine Bilirubin Negative Urine Urobilinogen Negative Ur Leukocyte Esterase 3+ H Urine RBC 1 Urine WBC 1 Ur Epithelial Cells Few Urine Mucus Rare Opiates Screen Methadone Screen Barbiturate Screen Phencyclidine Screen Ur Amphetamines Screen MDMA (Ecstasy) Screen Benzodiazepines Screen Cocaine Screen U Marijuana (THC) Screen 12/04/16 12/04/16 16:30 16:40 WBC RBC Hgb Hct MCV MCHC RDW Plt Count MPV Neutrophils % Lymphocytes % Monocytes % Eosinophils % Basophils % Sodium Potassium Chloride Carbon Dioxide Anion Gap BUN Creatinine Creat Clearance w eGFR Random Glucose Lactic Acid 0.703 Calcium Total Bilirubin AST ALT Alkaline Phosphatase Total Protein Albumin Urine Color Urine Appearance Urine pH Ur Specific [place] Urine Protein Urine Glucose (UA) Urine Ketones Urine Blood Urine Nitrite Urine Bilirubin Urine Urobilinogen Ur Leukocyte Esterase Urine RBC Urine WBC Ur Epithelial Cells Urine Mucus Opiates Screen Negative Methadone Screen Negative Barbiturate Screen Negative Phencyclidine Screen Negative Ur Amphetamines Screen Negative MDMA (Ecstasy) Screen Negative Benzodiazepines Screen Negative Cocaine Screen Negative U Marijuana (THC) Screen Negative
[2016-12-04] MEDS ORDERED: CLINDAMYCIN IVPB 300 MG in DEXTROSE 5%-WATER - 48 ML IVPB SCH (21:45)
[2016-12-04] MEDS ORDERED: PATIENT'S OWN MEDICATION (NON-FORMULARY) (Albuterol Sulfate [Proair Respiclick] 2 PUFF) IH PRN (22:56)
[2016-12-04] MEDS: CLINDAMYCIN 300 MG PREMIX IVPB 50 ML IVPB SCH (23:29)
[2016-12-05] MEDS: IBUPROFEN 400 MG TABLET (FP) PO SCH ×3 (01:53→14:22)
[2016-12-05] MEDS: CLINDAMYCIN 300 MG PREMIX IVPB 50 ML IVPB SCH ×3 (04:00→18:16)
[2016-12-05] MEDS: ATROPINE SO4 1% OPHTH SOLN 5 ML BOTTLE OD SCH ×3 (06:41→22:14)
[2016-12-05 07:33] LABS: BASOPHIL 0.3 % (0-2.0); EOSINOPHIL 1.2 % (0-4.5); MCH 26.4 pg (25.7-33.7); MCHC 32.3 g/dl (32.0-36.0); MEAN CELL VOLUME 81.5 fl (80-96); MEAN PLT VOLUME 7.4 fl (7.5-11.1); PLATELET COUNT 379 K/MM3 (134-434); RDW 18.1 % (11.6-15.6); WHITE BLOOD COUNT 9.5 K/mm3 (4.0-10.0)
[2016-12-05 07:57] LABS: CALCIUM 8.9 mg/dL (8.5-10.1)
[2016-12-05 08:07] LABS: ALBUMIN 2.5 g/dl (3.4-5.0); ALK PHOS 70 U/L (45-117); ANION GAP 9 (8-16); BILIRUBIN,TOTAL 0.1 mg/dL (0.2-1.0); CO2 28 mmol/L (21-32); CREATININE 0.5 mg/dL (0.55-1.02); GLUCOSE,RANDOM 108 mg/dL (74-106); SGOT/AST 7 U/L (15-37); SGPT/ALT 9 U/L (12-78); TOT PROT 6.9 g/dl (6.4-8.2)
[2016-12-05] MEDS ORDERED: CEFTRIAXONE 1 GM in DEXTROSE 5%-WATER - 50 ML IVPB SCH (10:00)
[2016-12-05] MEDS ORDERED: PT OWN MED DRAWER 7, Y5N ONE ×2 (10:54→18:11)
[2016-12-05] MEDS: cefTRIAXone 1 GM/50 ML BAG (PRE-DOCKED) IVPB SCH (10:57)
[2016-12-05] MEDS: DIVALPROEX NA *ER* EXTEND REL 500 MG TABLET.SA (FP) PO SCH ×2 (10:59→22:11)
[2016-12-05] MEDS: HALOPERIDOL 5 MG TABLET (FP) PO SCH ×2 (10:59→22:10)
--- NOTE | 2016-12-05 14:28 | CONSULT ---
Consult Consult Specialty:: infectious diseases Referred by:: dr telles Reason for Consultation:: vaginal discharge - History of Present Illness Chief Complaint: vaginal discharge with foul smell History of Present Illness: 51 year old female with significant past medical history of Schizophrenia, Bipolar disorder, NIDDM, hidradenitis suppurativa, GERD, chronic low back pain who presented to the ED from [facility] living facility. complaining of chronic back pain, eye itching, blurry vision, dysuria, and brown/yellowish discharge coming from her genital area, mass. Tr and medical records. She was discharged from [facility] on 11/23/16, treated for hidradenitis suppurativa and scleritis. The pt came back to ED complaining of eye burning on 11/29/16 and discharged on antibiotics. She states that she finished antibiotics course. patient also mentions that she started having swelling of the left side of the vulvular area and it is tender patient denies any fever nausea or vomiting - History Source History Provided By: Patient, Medical Record Limitations to Obtaining History: Poor Historian - Past Medical History Cardio/Vascular: Yes: HTN (labile , sometimes, no meds ) Pulmonary: Yes: Asthma Gastrointestinal: Yes: GERD Renal/: Yes: UTI (diagnosed in ER on 11/01/16 ) ...LMP: 01/13/16 ...: No Psych: Yes: Bipolar, Schizophrenia Musculoskeletal: Yes: Chronic low back pain Endocrine: Yes: Diabetes Mellitus (class 2, on Metformin ) - Alcohol/Substance Use Hx Alcohol Use: No - Smoking History Smoking history: Current every day smoker Have you smoked in the past 12 months: Yes Aproximately how many cigarettes per day: 10 - Social History Usual Living Arrangement: Assisted Living (pt from [facility]) Home Medications - Allergies Allergies/Adverse Reactions: Allergies Allergy/AdvReac Type Severity Reaction Status Date / Time No Known Allergies Allergy Verified 11/19/16 09:45 - Home Medications Home Medications: Ambulatory Orders Albuterol Sulfate [Proair Respiclick] 2 puff IH Q4H PRN 11/29/16 Atropine 1% Ophth. Solution - 1 drop OD TID 11/29/16 Cyclobenzaprine HCl 5 mg PO TID 11/29/16 Divalproex [Depakote -] 250 mg PO HS 11/29/16 Famotidine 20 mg PO BID 11/29/16 Haloperidol [Haldol -] 10 mg PO BID 11/29/16 Ibuprofen 400 mg PO TID 11/29/16 Metformin HCl [Metformin HCl ER] 1,000 mg PO BID 11/29/16 Naproxen [Naprosyn -] 500 mg PO TID 11/29/16 Prednisolone 1% Ophthalmic [Pred Forte 1% -] 5 ml OD QID 11/29/16 Propylene Glycol/Peg 400/Pf [Systane 0.3-0.4% Eye Drops] 1 each OD TID 11/29/16 Tobramycin 0.3% Ophth Soln [Tobrex Ophthalmic Solution -] 2 drop OU Q4H #1 drops 11/29/16 Tobramycin/Dexamethasone [Tobradex Eye Drops] 5 ml OP QID 11/29/16 Divalproex *ER* [Depakote *ER* -] 500 mg PO BID 12/04/16 Review of Systems - Review of Systems Constitutional: reports: No Symptoms Eyes: reports: No Symptoms HENT: reports: No Symptoms Neck: reports: No Symptoms Cardiovascular: reports: No Symptoms Respiratory: reports: No Symptoms Gastrointestinal: reports: No Symptoms Genitourinary: reports: Discharge (from vagina), Pain (left lip of the vulva) Musculoskeletal: reports: No Symptoms Integumentary: reports: No Symptoms Neurological: reports: No Symptoms Endocrine: reports: No Symptoms Hematology/Lymphatic: reports: No Symptoms Psychiatric: reports: No Symptoms Physical Exam Vital Signs: Vital Signs Temperature 98.2 F 12/05/16 09:00 Pulse Rate 92 H 12/05/16 09:00 Respiratory Rate 20 12/05/16 09:00 Blood Pressure 125/88 12/05/16 09:00 O2 Sat by Pulse Oximetry (%) 97 12/04/16 23:11 Constitutional: Yes: Well Nourished, Calm, Mild Distress HENT: Yes: Atraumatic Neck: Yes: Supple, Trachea Midline Cardiovascular: Yes: Regular Rate and Rhythm Respiratory: Yes: Regular, CTA Bilaterally Gastrointestinal: Yes: Normal Bowel Sounds, Soft Renal/: Yes: Other (patient has swelling and nduration of the left lip of the vulva and there is pus coming out of it) Musculoskeletal: Yes: WNL Extremities: Yes: WNL Integumentary: Yes: Erythema (of the vulva) Neurological: Yes: Alert, Oriented Psychiatric: Yes: Alert, Oriented Labs: CBC, BMP 12/05/16 06:35 12/05/16 06:35 Assessment/Plan Problem List - Problems (1) Hidradenitis suppurativa Code(s): L73.2 - HIDRADENITIS SUPPURATIVA (2) Abscess Code(s): L02.91 - CUTANEOUS ABSCESS, UNSPECIFIED (3) Cellulitis Code(s): L03.90 - CELLULITIS, UNSPECIFIED Qualifiers: Site of cellulitis: other site Qualified Code(s): L03.818 - Cellulitis of other sites (4) Conjunctivitis Code(s): H10.9 - UNSPECIFIED CONJUNCTIVITIS Qualifiers: Conjunctivitis type: acute Acute conjunctivitis type: bacterial Laterality: bilateral Qualified Code(s): H10.33 - Unspecified acute conjunctivitis, bilateral (5) Low back pain Code(s): M54.5 - LOW BACK PAIN Qualifiers: Chronicity: acute Back pain laterality: bilateral Sciatica presence : without sciatica Qualified Code(s): M54.5 - Low back pain (6) Perineal abscess Code(s): L02.215 - CUTANEOUS ABSCESS OF PERINEUM (7) UTI (urinary tract infection) Code(s): N39.0 - URINARY TRACT INFECTION, SITE NOT SPECIFIED Qualifiers: Urinary tract infection type: site unspecified Hematuria presence: without hematuria Qualified Code(s): N39.0 - Urinary tract infection, site not specified (8) Schizophrenia Code(s): F20.9 - SCHIZOPHRENIA, UNSPECIFIED plan will start patient on abx also i think patient need to be evaluated by surgeon might need draining of that lip await for blood cx await for chlamydia cx
[2016-12-05] MEDS ORDERED: HYDROmorphone HCL 2 MG TABLET PO PRN (15:17)
--- NOTE | 2016-12-05 17:36 | EKG ---
Test Reason : Blood Pressure : / mmHG Vent. Rate : 100 BPM Atrial Rate : 100 BPM P-R Int : 134 ms QRS Dur : 076 ms QT Int : 328 ms P-R-T Axes : 043 040 024 degrees QTc Int : 423 ms NORMAL SINUS RHYTHM NONSPECIFIC ST AND T WAVE ABNORMALITY WHEN COMPARED WITH ECG OF 22-JUL-2016 01:17, T WAVE VARIATION Confirmed by MERARY MORENO MD ([id number]) on 12/05/2016 5:36:18 PM Referred By: Confirmed By:MERARY MORENO MD
[2016-12-05] MEDS: DOXYCYCLINE HYCLATE 100 MG CAPSULE PO SCH (18:16)
--- NOTE | 2016-12-05 19:42 | PN ---
Progress Note, Physician History of Present Illness: pt is drowsy comfortable but saying pain med i gave her not working WANTS PERCOCET - Current Medication List Current Medications: Active Medications Atropine Sulfate (Atropine 1% Ophth. Solution -) 1 drop OD TID [facility] Last Admin: 12/05/16 14:41 Dose: 1 drop Ceftriaxone Sodium (Rocephin 1gm Ivpb (Pre-Docked)) 1 gm IVPB DAILY [facility] Last Admin: 12/05/16 10:57 Dose: 1 gm Divalproex Sodium (Depakote -) 250 mg PO HS [facility] Divalproex Sodium (Depakote *Er* -) 500 mg PO BID [facility] Last Admin: 12/05/16 10:59 Dose: 500 mg Doxycycline Hyclate (Vibramycin -) 100 mg PO BID@1000,1800 [facility] Last Admin: 12/05/16 18:16 Dose: 100 mg Haloperidol (Haldol -) 10 mg PO BID [facility] Last Admin: 12/05/16 10:59 Dose: 10 mg Hydromorphone HCl (Dilaudid -) 2 mg PO Q8H PRN PRN Reason: PAIN Last Admin: 12/05/16 15:28 Dose: 2 mg Clindamycin Phosphate (Cleocin 300 Mg Premix Ivpb) 50 mls @ 100 mls/hr IVPB Q8H -IV [facility] Last Admin: 12/05/16 18:16 Dose: 100 mls/hr Ibuprofen (Motrin -) 400 mg PO TID [facility] Last Admin: 12/05/16 14:22 Dose: 400 mg Metformin HCl (Glucophage Xr -) 1,000 mg PO BIDAC [facility] Last Admin: 12/05/16 18:05 Dose: Not Given Non-Formulary Medication (Albuterol Sulfate [Proair Respiclick]) 2 puff IH Q4H PRN PRN Reason: SHORTNESS OF BREATH Prednisolone Acetate (Pred Forte 1% -) 74.9625 drop OD QID [facility] - Objective Vital Signs: Vital Signs Temperature 98.6 F 12/05/16 14:54 Pulse Rate 101 H 12/05/16 14:54 Respiratory Rate 20 12/05/16 09:00 Blood Pressure 130/80 12/05/16 14:54 O2 Sat by Pulse Oximetry (%) 97 12/04/16 23:11 Constitutional: Yes: No Distress HENT: Yes: Atraumatic Neck: Yes: Supple Cardiovascular: Yes: Regular Rate and Rhythm Respiratory: Yes: CTA Bilaterally Gastrointestinal: Yes: Normal Bowel Sounds Genitourinary: Yes: Vaginal Discharge, Other (ABCESSES) Extremities: Yes: WNL Neurological: Yes: Alert, Oriented Labs: CBC, BMP 12/05/16 06:35 12/05/16 06:35 Problem List - Problems (1) Hidradenitis suppurativa Assessment/Plan: iv abx id consult will get surgery involved Code(s): L73.2 - HIDRADENITIS SUPPURATIVA (2) Abscess Code(s): L02.91 - CUTANEOUS ABSCESS, UNSPECIFIED (3) Cellulitis Code(s): L03.90 - CELLULITIS, UNSPECIFIED Qualifiers: Site of cellulitis: other site Qualified Code(s): L03.818 - Cellulitis of other sites (4) Conjunctivitis Code(s): H10.9 - UNSPECIFIED CONJUNCTIVITIS Qualifiers: Conjunctivitis type: acute Acute conjunctivitis type: bacterial Laterality: bilateral Qualified Code(s): H10.33 - Unspecified acute conjunctivitis, bilateral (5) Low back pain Assessment/Plan: on motrin at home will continue Code(s): M54.5 - LOW BACK PAIN Qualifiers: Chronicity: acute Back pain laterality: bilateral Sciatica presence : without sciatica Qualified Code(s): M54.5 - Low back pain (6) Perineal abscess Code(s): L02.215 - CUTANEOUS ABSCESS OF PERINEUM (7) UTI (urinary tract infection) Code(s): N39.0 - URINARY TRACT INFECTION, SITE NOT SPECIFIED Qualifiers: Urinary tract infection type: site unspecified Hematuria presence: without hematuria Qualified Code(s): N39.0 - Urinary tract infection, site not specified (8) Schizophrenia Code(s): F20.9 - SCHIZOPHRENIA, UNSPECIFIED Assessment/Plan PT HAS CHRONIC BACK PAIN FOR WHICH SHE IS ON MOTRIN AT HOME ADMITTED FOR VAGINAL DISCHARGE/ABCESS ON LABIA/PERINEUM...ON ASKING SHE SAID SHE HAS NO PAIN DOWN THERE.. IT IS HER MID BACK AND UPPER BACK PAIN WHICH IS CHRONIC AND ONLY PERCOCET HELPS HER I HERMINIO DC MOTRIN, PO DILAUDID AND START PERCOCET PRN
[2016-12-05] MEDS ORDERED: OXYCODONE/APAP 5/325MG COMBO TABLET PO PRN (21:39)
[2016-12-05] MEDS ORDERED: ALBUTEROL SO4 6.7 GM HFA INHALER IH PRN (21:55)
[2016-12-05] MEDS: DIVALPROEX SODIUM 500 MG TABLET E.C. PO SCH (22:01)
[2016-12-05] MEDS: oxyCODONE HCL 5 MG TABLET PO PRN (22:09)
[2016-12-05] MEDS: ACETAMINOPHEN 325 MG TABLET (FP) PO PRN (22:11)
[2016-12-06] MEDS: ACETAMINOPHEN 325 MG TABLET (FP) PO PRN ×5 (02:04→21:41)
[2016-12-06] MEDS: oxyCODONE HCL 5 MG TABLET PO PRN ×5 (02:05→21:41)
[2016-12-06] MEDS: CLINDAMYCIN 300 MG PREMIX IVPB 50 ML IVPB SCH ×2 (02:09→09:15)
[2016-12-06] MEDS: ATROPINE SO4 1% OPHTH SOLN 5 ML BOTTLE OD SCH ×3 (06:11→21:42)
[2016-12-06] MEDS ORDERED: PT OWN MED DRAWER 7, Y5N ONE ×4 (09:07→17:44)
[2016-12-06] MEDS: HALOPERIDOL 5 MG TABLET (FP) PO SCH ×2 (09:14→21:44)
[2016-12-06] MEDS: DIVALPROEX NA *ER* EXTEND REL 500 MG TABLET.SA (FP) PO SCH ×2 (09:14→21:43)
[2016-12-06] MEDS: DOXYCYCLINE HYCLATE 100 MG CAPSULE PO SCH ×2 (09:15→17:49)
[2016-12-06] MEDS: cefTRIAXone 1 GM/50 ML BAG (PRE-DOCKED) IVPB SCH (09:16)
--- NOTE | 2016-12-06 13:00 | CONSULT ---
- Consultation REQUESTING PROVIDER: Dr. Womack CONSULT REQUEST: We have been asked to surgically evaluate this patient for perineal abscess. The patient states that she has had this condition for the past year and has similar areas of skin irritation to other areas of her body. No current drainage noted from her wounds. She has had the skin under her breasts excised in the past. PCP:Agnieszka Christensen HISTORY OF PRESENT ILLNESS: The patient is a 51 yo female with a h/o diabetes PMHx: PSHx: Home Medications Medication Instructions Recorded Albuterol Sulfate [Proair 2 puff IH Q4H PRN 11/29/16 Respiclick] Atropine 1% Ophth. Solution - 1 drop OD TID 11/29/16 Cyclobenzaprine HCl 5 mg PO TID 11/29/16 Divalproex [Depakote -] 250 mg PO HS 11/29/16 Famotidine 20 mg PO BID 11/29/16 Haloperidol [Haldol -] 10 mg PO BID 11/29/16 Ibuprofen 400 mg PO TID 11/29/16 Metformin HCl [Metformin HCl ER] 1,000 mg PO BID 11/29/16 Naproxen [Naprosyn -] 500 mg PO TID 11/29/16 Prednisolone 1% Ophthalmic [Pred 5 ml OD QID 11/29/16 Forte 1% -] Propylene Glycol/Peg 400/Pf 1 each OD TID 11/29/16 [Systane 0.3-0.4% Eye Drops] Tobramycin 0.3% Ophth Soln [Tobrex 2 drop OU Q4H #1 drops 11/29/16 Ophthalmic Solution -] Tobramycin/Dexamethasone [Tobradex 5 ml OP QID 11/29/16 Eye Drops] Divalproex *ER* [Depakote *ER* -] 500 mg PO BID 12/04/16 Allergies Allergy/AdvReac Type Severity Reaction Status Date / Time No Known Allergies Allergy Verified 11/19/16 09:45 REVIEW OF SYSTEMS: CONSTITUTIONAL: Absent: fever, chills, diaphoresis, generalized weakness, malaise, loss of appetite, weight change CARDIOVASCULAR: Absent: chest pain, syncope, palpitations, irregular heart rate, lightheadedness , peripheral edema RESPIRATORY: Absent: cough, shortness of breath, dyspnea with exertion, wheezing, stridor, hemoptysis GASTROINTESTINAL: Absent: abdominal pain, abdominal distension, nausea, vomiting, diarrhea, constipation, melena, hematochezia GENITOURINARY: Absent: dysuria, frequency, urgency, hesitancy, hematuria, flank pain, genital pain MUSCULOSKELETAL: Absent: myalgia, arthralgia, joint swelling, back pain, neck pain SKIN: Absent: rash, itching, pallor HEMATOLOGIC/IMMUNOLOGIC: Absent: easy bleeding, easy bruising, lymphadenopathy NEUROLOGIC: Absent: headache, focal weakness, paresthesias, dizziness, unsteady gait, seizure, mental status changes, bladder or bowel incontinence PSYCHIATRIC: Absent: anxiety, depression, suicidal or homicidal ideation, hallucinations. PHYSICAL EXAM: GENERAL: Awake, alert, and fully oriented, in no acute distress. HEAD: Normal with no signs of trauma. EYES: PERRL, sclera anicteric, conjunctiva clear. NECK: Normal ROM, supple without lymphadenopathy, JVD, or masses. LUNGS: Clear to auscultation bilat anteriorly. No wheezes, and no crackles. No accessory muscle use. HEART: Regular rate and rhythm. No murmurs ABDOMEN: Soft, nontender, not distended, normoactive bowel sounds, no guarding, no rebound, no masses. No organomegaly. MUSCULOSKELETAL: Normal ROM at all joints. No bony deformities or tenderness. No CVA tenderness. UPPER EXTREMITIES: 2+ pulses, warm, well-perfused. No cyanosis. Cap refill <2 seconds. No peripheral edema. LOWER EXTREMITIES: 2+ pulses, warm, well-perfused. No calf tenderness. No peripheral edema. NEUROLOGICAL: Normal speech, gait not observed. PSYCH: Cooperative. Good eye contact. Appropriate mood and affect. SKIN: Warm, dry, normal turgor, no rashes or lesions noted. Vital Signs Temperature 98 F 12/06/16 08:00 Pulse Rate 98 H 12/06/16 08:00 Respiratory Rate 20 12/06/16 08:00 Blood Pressure 126/86 12/06/16 08:00 O2 Sat by Pulse Oximetry (%) 98 12/05/16 21:00 Lab Results WBC 9.5 K/mm3 (4.0-10.0) 12/05/16 06:35 RBC 3.15 M/mm3 (3.60-5.2) L 12/05/16 06:35 Hgb 8.3 GM/dL (10.7-15.3) L 12/05/16 06:35 Hct 25.7 % (32.4-45.2) L 12/05/16 06:35 MCV 81.5 fl (80-96) 12/05/16 06:35 MCHC 32.3 g/dl (32.0-36.0) 12/05/16 06:35 RDW 18.1 % (11.6-15.6) H 12/05/16 06:35 Plt Count 379 K/MM3 (134-434) 12/05/16 06:35 Sodium 138 mmol/L (136-145) 12/05/16 06:35 Potassium 4.5 mmol/L (3.5-5.1) 12/05/16 06:35 Chloride 101 mmol/L (98-107) 12/05/16 06:35 Carbon Dioxide 28 mmol/L (21-32) 12/05/16 06:35 Anion Gap 9 (8-16) 12/05/16 06:35 BUN 17 mg/dL (7-18) D 12/05/16 06:35 Creatinine 0.5 mg/dL (0.55-1.02) L D 12/05/16 06:35 Random Glucose 108 mg/dL (74-106) H 12/05/16 06:35 Calcium 8.9 mg/dL (8.5-10.1) 12/05/16 06:35
--- NOTE | 2016-12-06 13:01 | CONSULT ---
Consult Consult Specialty:: Surgery Reason for Consultation:: Left buttock wound - History of Present Illness History of Present Illness: 51 female with multiple medical problems admitted for eye pain and discomfort Noted to have left buttock wound on exam History of hydraadenitis No pain at that site - History Source History Provided By: Patient, Medical Record - Past Medical History Cardio/Vascular: Yes: HTN (labile , sometimes, no meds ) Pulmonary: Yes: Asthma Gastrointestinal: Yes: GERD Renal/: Yes: UTI (diagnosed in ER on 11/01/16 ) ...LMP: 01/13/16 ...: No Psych: Yes: Bipolar, Schizophrenia Musculoskeletal: Yes: Chronic low back pain Endocrine: Yes: Diabetes Mellitus (class 2, on Metformin ) - Alcohol/Substance Use Hx Alcohol Use: No - Smoking History Smoking history: Current every day smoker Have you smoked in the past 12 months: Yes Aproximately how many cigarettes per day: 10 - Social History Usual Living Arrangement: Assisted Living (pt from [facility]) Home Medications - Allergies Allergies/Adverse Reactions: Allergies Allergy/AdvReac Type Severity Reaction Status Date / Time No Known Allergies Allergy Verified 11/19/16 09:45 - Home Medications Home Medications: Ambulatory Orders Albuterol Sulfate [Proair Respiclick] 2 puff IH Q4H PRN 11/29/16 Atropine 1% Ophth. Solution - 1 drop OD TID 11/29/16 Cyclobenzaprine HCl 5 mg PO TID 11/29/16 Divalproex [Depakote -] 250 mg PO HS 11/29/16 Famotidine 20 mg PO BID 11/29/16 Haloperidol [Haldol -] 10 mg PO BID 11/29/16 Ibuprofen 400 mg PO TID 11/29/16 Metformin HCl [Metformin HCl ER] 1,000 mg PO BID 11/29/16 Naproxen [Naprosyn -] 500 mg PO TID 11/29/16 Prednisolone 1% Ophthalmic [Pred Forte 1% -] 5 ml OD QID 11/29/16 Propylene Glycol/Peg 400/Pf [Systane 0.3-0.4% Eye Drops] 1 each OD TID 11/29/16 Tobramycin 0.3% Ophth Soln [Tobrex Ophthalmic Solution -] 2 drop OU Q4H #1 drops 11/29/16 Tobramycin/Dexamethasone [Tobradex Eye Drops] 5 ml OP QID 11/29/16 Divalproex *ER* [Depakote *ER* -] 500 mg PO BID 12/04/16 Family Disease History - Family Disease History Family History: Unremarkable Review of Systems - Review of Systems Constitutional: denies: Chills, Fever Gastrointestinal: reports: No Symptoms Integumentary: reports: No Symptoms Pain Intensity: 1 Physical Exam Vital Signs: Vital Signs Temperature 98 F 12/06/16 08:00 Pulse Rate 98 H 12/06/16 08:00 Respiratory Rate 20 12/06/16 08:00 Blood Pressure 126/86 12/06/16 08:00 O2 Sat by Pulse Oximetry (%) 98 12/05/16 21:00 Constitutional: Yes: Calm Gastrointestinal: Yes: Soft. No: Distention, Tenderness, Tenderness, Epigastrium, Tenderness, Rebound Integumentary: Yes: Other (Left buttock: Chronic skin thickening edema, no erythema, no discharge, no fluctuance) Labs: CBC, BMP 12/05/16 06:35 12/05/16 06:35 Problem List - Problems (1) Hidradenitis suppurativa Code(s): L73.2 - HIDRADENITIS SUPPURATIVA (2) Wound of left buttock Code(s): S31.829A - UNSPECIFIED OPEN WOUND OF LEFT BUTTOCK, INITIAL ENCOUNTER Qualifiers: Encounter type: initial encounter Qualified Code(s): S31.829A - Unspecified open wound of left buttock, initial encounter Assessment/Plan 51 female with history of hydraadenitis Left buttock region with no signs of infection No erythema, no discharge Chronic skin changes No intervention needed at this time Of note, on Ultrasound she is found to have cholelithiasis with a large gallstone She has no abdominal pain or discomfort at this time Abd soft, NT Tolerating regular diet WBC and LFTs WNL Recommended to follow up as outpatient for evaluation for elective cholecystectomy
--- NOTE | 2016-12-06 15:23 | PN ---
Progress Note, Physician History of Present Illness: patient stable doing better - Current Medication List Current Medications: Active Medications Acetaminophen (Tylenol -) 325 mg PO Q4H PRN PRN Reason: PAIN 6-10 Stop: 12/08/16 21:53 Last Admin: 12/06/16 10:20 Dose: 325 mg Albuterol Sulfate (Ventolin Hfa Inhaler -) 2 puff IH Q4H PRN PRN Reason: SHORTNESS OF BREATH Atropine Sulfate (Atropine 1% Ophth. Solution -) 1 drop OD TID [facility] [place] Last Admin: 12/06/16 13:33 Dose: 1 drop Ceftriaxone Sodium (Rocephin 1gm Ivpb (Pre-Docked)) 1 gm IVPB DAILY [facility] [place] Last Admin: 12/06/16 09:16 Dose: 1 gm Divalproex Sodium (Depakote -) 250 mg PO HS [facility] [place] Last Admin: 12/05/16 22:01 Dose: 250 mg Divalproex Sodium (Depakote *Er* -) 500 mg PO BID [facility] [place] Last Admin: 12/06/16 09:14 Dose: 500 mg Doxycycline Hyclate (Vibramycin -) 100 mg PO BID@1000,1800 [facility] [place] Last Admin: 12/06/16 09:15 Dose: 100 mg Haloperidol (Haldol -) 10 mg PO BID [facility] [place] Last Admin: 12/06/16 09:14 Dose: 10 mg Metformin HCl (Glucophage Xr -) 1,000 mg PO BIDAC [facility] [place] Last Admin: 12/06/16 06:12 Dose: Not Given Oxycodone HCl (Roxicodone -) 5 mg PO Q4H PRN PRN Reason: PAIN 6-10 Last Admin: 12/06/16 10:19 Dose: 5 mg Prednisolone Acetate (Pred Forte 1% -) 74.9625 drop OD QID [facility] [place] - Objective Vital Signs: Vital Signs Temperature 97.6 F 12/06/16 13:56 Pulse Rate 98 H 12/06/16 13:56 Respiratory Rate 20 12/06/16 08:00 Blood Pressure 135/75 12/06/16 13:56 O2 Sat by Pulse Oximetry (%) 97 12/06/16 09:00 Constitutional: Yes: No Distress, Calm Respiratory: Yes: Regular, CTA Bilaterally Gastrointestinal: Yes: Normal Bowel Sounds, Soft Genitourinary: Yes: Other (vaginal discahrge) Musculoskeletal: Yes: WNL Extremities: Yes: WNL Neurological: Yes: Alert, Oriented Psychiatric: Yes: Alert Labs: CBC, BMP 12/05/16 06:35 12/05/16 06:35 Assessment/Plan Problem List - Problems (1) Hidradenitis suppurativa Code(s): L73.2 - HIDRADENITIS SUPPURATIVA (2) Abscess Code(s): L02.91 - CUTANEOUS ABSCESS, UNSPECIFIED (3) Cellulitis Code(s): L03.90 - CELLULITIS, UNSPECIFIED Qualifiers: Site of cellulitis: other site Qualified Code(s): L03.818 - Cellulitis of other sites (4) Conjunctivitis Code(s): H10.9 - UNSPECIFIED CONJUNCTIVITIS Qualifiers: Conjunctivitis type: acute Acute conjunctivitis type: bacterial Laterality: bilateral Qualified Code(s): H10.33 - Unspecified acute conjunctivitis, bilateral (5) Low back pain Code(s): M54.5 - LOW BACK PAIN Qualifiers: Chronicity: acute Back pain laterality: bilateral Sciatica presence : without sciatica Qualified Code(s): M54.5 - Low back pain (6) Perineal abscess Code(s): L02.215 - CUTANEOUS ABSCESS OF PERINEUM (7) UTI (urinary tract infection) Code(s): N39.0 - URINARY TRACT INFECTION, SITE NOT SPECIFIED Qualifiers: Urinary tract infection type: site unspecified Hematuria presence: without hematuria Qualified Code(s): N39.0 - Urinary tract infection, site not specified (8) Schizophrenia Code(s): F20.9 - SCHIZOPHRENIA, UNSPECIFIED plan continue abx cx result noted await for chlamydia cx rest as per primary
--- NOTE | 2016-12-06 17:26 | PN ---
Progress Note, Physician History of Present Illness: stable - Current Medication List Current Medications: Active Medications Acetaminophen (Tylenol -) 325 mg PO Q4H PRN PRN Reason: PAIN 6-10 Stop: 12/08/16 21:53 Last Admin: 12/06/16 16:54 Dose: 325 mg Albuterol Sulfate (Ventolin Hfa Inhaler -) 2 puff IH Q4H PRN PRN Reason: SHORTNESS OF BREATH Atropine Sulfate (Atropine 1% Ophth. Solution -) 1 drop OD TID [facility] Last Admin: 12/06/16 13:33 Dose: 1 drop Ceftriaxone Sodium (Rocephin 1gm Ivpb (Pre-Docked)) 1 gm IVPB DAILY [facility] Last Admin: 12/06/16 09:16 Dose: 1 gm Divalproex Sodium (Depakote -) 250 mg PO HS [facility] Last Admin: 12/05/16 22:01 Dose: 250 mg Divalproex Sodium (Depakote *Er* -) 500 mg PO BID [facility] Last Admin: 12/06/16 09:14 Dose: 500 mg Doxycycline Hyclate (Vibramycin -) 100 mg PO BID@1000,1800 [facility] Last Admin: 12/06/16 09:15 Dose: 100 mg Haloperidol (Haldol -) 10 mg PO BID [facility] Last Admin: 12/06/16 09:14 Dose: 10 mg Metformin HCl (Glucophage Xr -) 1,000 mg PO BIDAC [facility] Last Admin: 12/06/16 16:48 Dose: 1,000 mg Oxycodone HCl (Roxicodone -) 5 mg PO Q4H PRN PRN Reason: PAIN 6-10 Last Admin: 12/06/16 16:55 Dose: 5 mg Prednisolone Acetate (Pred Forte 1% -) 74.9625 drop OD QID [facility] - Objective Vital Signs: Vital Signs Temperature 97.6 F 12/06/16 13:56 Pulse Rate 98 H 12/06/16 13:56 Respiratory Rate 20 12/06/16 08:00 Blood Pressure 135/75 12/06/16 13:56 O2 Sat by Pulse Oximetry (%) 97 12/06/16 09:00 Constitutional: Yes: No Distress HENT: Yes: Atraumatic Neck: Yes: Supple Cardiovascular: Yes: Regular Rate and Rhythm Respiratory: Yes: CTA Bilaterally Gastrointestinal: Yes: Normal Bowel Sounds Genitourinary: Yes: Vaginal Discharge, Other (abcesses on labia) Extremities: Yes: WNL Neurological: Yes: Alert, Oriented Labs: CBC, BMP 12/05/16 06:35 12/05/16 06:35 Problem List - Problems (1) Hidradenitis suppurativa Assessment/Plan: iv abx id consult will get surgery involved Code(s): L73.2 - HIDRADENITIS SUPPURATIVA (2) Abscess Code(s): L02.91 - CUTANEOUS ABSCESS, UNSPECIFIED (3) Cellulitis Code(s): L03.90 - CELLULITIS, UNSPECIFIED Qualifiers: Site of cellulitis: other site Qualified Code(s): L03.818 - Cellulitis of other sites (4) Conjunctivitis Code(s): H10.9 - UNSPECIFIED CONJUNCTIVITIS Qualifiers: Conjunctivitis type: acute Acute conjunctivitis type: bacterial Laterality: bilateral Qualified Code(s): H10.33 - Unspecified acute conjunctivitis, bilateral (5) Low back pain Assessment/Plan: on motrin at home will continue Code(s): M54.5 - LOW BACK PAIN Qualifiers: Chronicity: acute Back pain laterality: bilateral Sciatica presence : without sciatica Qualified Code(s): M54.5 - Low back pain (6) Perineal abscess Code(s): L02.215 - CUTANEOUS ABSCESS OF PERINEUM (7) UTI (urinary tract infection) Code(s): N39.0 - URINARY TRACT INFECTION, SITE NOT SPECIFIED Qualifiers: Urinary tract infection type: site unspecified Hematuria presence: without hematuria Qualified Code(s): N39.0 - Urinary tract infection, site not specified (8) Schizophrenia Code(s): F20.9 - SCHIZOPHRENIA, UNSPECIFIED Assessment/Plan surgery consult reviewed
[2016-12-06] MEDS: DIVALPROEX SODIUM 500 MG TABLET E.C. PO SCH (21:43)
[2016-12-07] MEDS: oxyCODONE HCL 5 MG TABLET PO PRN ×4 (02:17→20:19)
[2016-12-07] MEDS: ACETAMINOPHEN 325 MG TABLET (FP) PO PRN ×4 (02:18→20:18)
[2016-12-07] MEDS: ATROPINE SO4 1% OPHTH SOLN 5 ML BOTTLE OD SCH ×3 (06:28→21:13)
[2016-12-07] MEDS ORDERED: PT OWN MED DRAWER 7, Y5N ONE ×5 (10:11→20:56)
[2016-12-07] MEDS: cefTRIAXone 1 GM/50 ML BAG (PRE-DOCKED) IVPB SCH (10:14)
[2016-12-07] MEDS: HALOPERIDOL 5 MG TABLET (FP) PO SCH ×2 (10:20→21:14)
[2016-12-07] MEDS: DOXYCYCLINE HYCLATE 100 MG CAPSULE PO SCH ×2 (10:21→18:01)
[2016-12-07] MEDS: DIVALPROEX NA *ER* EXTEND REL 500 MG TABLET.SA (FP) PO SCH ×2 (10:21→21:13)
--- NOTE | 2016-12-07 15:41 | PN ---
Progress Note, Physician History of Present Illness: patient stable no new issues still with pain in the left side - Current Medication List Current Medications: Active Medications Acetaminophen (Tylenol -) 325 mg PO Q4H PRN PRN Reason: PAIN 6-10 Stop: 12/08/16 21:53 Last Admin: 12/07/16 12:42 Dose: 325 mg Albuterol Sulfate (Ventolin Hfa Inhaler -) 2 puff IH Q4H PRN PRN Reason: SHORTNESS OF BREATH Atropine Sulfate (Atropine 1% Ophth. Solution -) 1 drop OD TID [facility] Last Admin: 12/07/16 13:48 Dose: 1 drop Divalproex Sodium (Depakote -) 250 mg PO HS [facility] Last Admin: 12/06/16 21:43 Dose: 250 mg Divalproex Sodium (Depakote *Er* -) 500 mg PO BID [facility] Last Admin: 12/07/16 10:21 Dose: 500 mg Doxycycline Hyclate (Vibramycin -) 100 mg PO BID@1000,1800 [facility] Last Admin: 12/07/16 10:21 Dose: 100 mg Haloperidol (Haldol -) 10 mg PO BID [facility] Last Admin: 12/07/16 10:20 Dose: 10 mg Piperacillin Sod/Tazobactam (Sod 3.375 gm/ Dextrose) 50 mls @ 100 mls/hr IVPB Q8H-IV [facility] PRN Reason: Protocol Metformin HCl (Glucophage Xr -) 1,000 mg PO BIDAC [facility] Last Admin: 12/07/16 06:27 Dose: 1,000 mg Oxycodone HCl (Roxicodone -) 5 mg PO Q4H PRN PRN Reason: PAIN 6-10 Last Admin: 12/07/16 12:41 Dose: 5 mg Prednisolone Acetate (Pred Forte 1% -) 74.9625 drop OD QID [facility] - Objective Vital Signs: Vital Signs Temperature 98.1 F 12/07/16 14:48 Pulse Rate 98 H 12/07/16 14:48 Respiratory Rate 20 12/07/16 14:48 Blood Pressure 111/70 12/07/16 14:48 O2 Sat by Pulse Oximetry (%) 97 12/06/16 22:00 Constitutional: Yes: Calm, Mild Distress Cardiovascular: Yes: Regular Rate and Rhythm Respiratory: Yes: Regular, CTA Bilaterally Gastrointestinal: Yes: Normal Bowel Sounds, Soft Musculoskeletal: Yes: WNL Extremities: Yes: WNL Wound/Incision: Yes: Draining Neurological: Yes: Alert, Oriented Psychiatric: Yes: Alert, Oriented Labs: CBC, BMP 12/05/16 06:35 12/05/16 06:35 Assessment/Plan Problem List - Problems (1) Hidradenitis suppurativa Code(s): L73.2 - HIDRADENITIS SUPPURATIVA (2) Abscess Code(s): L02.91 - CUTANEOUS ABSCESS, UNSPECIFIED (3) Cellulitis Code(s): L03.90 - CELLULITIS, UNSPECIFIED Qualifiers: Site of cellulitis: other site Qualified Code(s): L03.818 - Cellulitis of other sites (4) Conjunctivitis Code(s): H10.9 - UNSPECIFIED CONJUNCTIVITIS Qualifiers: Conjunctivitis type: acute Acute conjunctivitis type: bacterial Laterality: bilateral Qualified Code(s): H10.33 - Unspecified acute conjunctivitis, bilateral (5) Low back pain Code(s): M54.5 - LOW BACK PAIN Qualifiers: Chronicity: acute Back pain laterality: bilateral Sciatica presence : without sciatica Qualified Code(s): M54.5 - Low back pain (6) Perineal abscess Code(s): L02.215 - CUTANEOUS ABSCESS OF PERINEUM (7) UTI (urinary tract infection) Code(s): N39.0 - URINARY TRACT INFECTION, SITE NOT SPECIFIED Qualifiers: Urinary tract infection type: site unspecified Hematuria presence: without hematuria Qualified Code(s): N39.0 - Urinary tract infection, site not specified (8) Schizophrenia Code(s): F20.9 - SCHIZOPHRENIA, UNSPECIFIED plan continue abx organisms identified patient has vre and psueudomonas will d/w primary surgery need to reevalaute
--- NOTE | 2016-12-07 17:20 | PN ---
Progress Note, Physician History of Present Illness: stable - Current Medication List Current Medications: Active Medications Acetaminophen (Tylenol -) 325 mg PO Q4H PRN PRN Reason: PAIN 6-10 Stop: 12/08/16 21:53 Last Admin: 12/07/16 12:42 Dose: 325 mg Albuterol Sulfate (Ventolin Hfa Inhaler -) 2 puff IH Q4H PRN PRN Reason: SHORTNESS OF BREATH Atropine Sulfate (Atropine 1% Ophth. Solution -) 1 drop OD TID [facility] Last Admin: 12/07/16 13:48 Dose: 1 drop Divalproex Sodium (Depakote -) 250 mg PO HS [facility] Last Admin: 12/06/16 21:43 Dose: 250 mg Divalproex Sodium (Depakote *Er* -) 500 mg PO BID [facility] Last Admin: 12/07/16 10:21 Dose: 500 mg Doxycycline Hyclate (Vibramycin -) 100 mg PO BID@1000,1800 [facility] Last Admin: 12/07/16 10:21 Dose: 100 mg Haloperidol (Haldol -) 10 mg PO BID [facility] Last Admin: 12/07/16 10:20 Dose: 10 mg Piperacillin Sod/Tazobactam Sod (Zosyn 3.375gm Ivpb (Pre-Docked)) 50 mls @ 100 mls/hr IVPB Q8H-IV [facility] PRN Reason: Protocol Linezolid (Zyvox (Restricted To Id) -) 600 mg PO BID [facility] Metformin HCl (Glucophage Xr -) 1,000 mg PO BIDAC [facility] Last Admin: 12/07/16 06:27 Dose: 1,000 mg Oxycodone HCl (Roxicodone -) 5 mg PO Q4H PRN PRN Reason: PAIN 6-10 Last Admin: 12/07/16 12:41 Dose: 5 mg Prednisolone Acetate (Pred Forte 1% -) 74.9625 drop OD QID [facility] - Objective Vital Signs: Vital Signs Temperature 98.1 F 12/07/16 14:48 Pulse Rate 98 H 12/07/16 14:48 Respiratory Rate 20 12/07/16 14:48 Blood Pressure 111/70 12/07/16 14:48 O2 Sat by Pulse Oximetry (%) 97 12/06/16 22:00 Constitutional: Yes: No Distress HENT: Yes: Atraumatic Neck: Yes: Supple Cardiovascular: Yes: Regular Rate and Rhythm Respiratory: Yes: CTA Bilaterally Gastrointestinal: Yes: Normal Bowel Sounds Extremities: Yes: WNL Labs: CBC, BMP 12/05/16 06:35 12/05/16 06:35 Problem List - Problems (1) Hidradenitis suppurativa Assessment/Plan: culture noted abx per id surgery follow up Code(s): L73.2 - HIDRADENITIS SUPPURATIVA (2) Abscess Code(s): L02.91 - CUTANEOUS ABSCESS, UNSPECIFIED (3) Cellulitis Code(s): L03.90 - CELLULITIS, UNSPECIFIED Qualifiers: Site of cellulitis: other site Qualified Code(s): L03.818 - Cellulitis of other sites (4) Conjunctivitis Code(s): H10.9 - UNSPECIFIED CONJUNCTIVITIS Qualifiers: Conjunctivitis type: acute Acute conjunctivitis type: bacterial Laterality: bilateral Qualified Code(s): H10.33 - Unspecified acute conjunctivitis, bilateral (5) Low back pain Code(s): M54.5 - LOW BACK PAIN Qualifiers: Chronicity: acute Back pain laterality: bilateral Sciatica presence : without sciatica Qualified Code(s): M54.5 - Low back pain (6) Perineal abscess Code(s): L02.215 - CUTANEOUS ABSCESS OF PERINEUM (7) UTI (urinary tract infection) Code(s): N39.0 - URINARY TRACT INFECTION, SITE NOT SPECIFIED Qualifiers: Urinary tract infection type: site unspecified Hematuria presence: without hematuria Qualified Code(s): N39.0 - Urinary tract infection, site not specified (8) Schizophrenia Code(s): F20.9 - SCHIZOPHRENIA, UNSPECIFIED
[2016-12-07] MEDS: PIPERACILLIN/TAZOB 3.375 GM 50 ML IVPB SCH (17:49)
[2016-12-07] MEDS: LINEZOLID 600 MG TABLET (RESTRICTED TO ID) PO SCH ×2 (17:49→21:14)
[2016-12-07] MEDS: DIVALPROEX SODIUM 500 MG TABLET E.C. PO SCH (21:14)
[2016-12-08] MEDS: ACETAMINOPHEN 325 MG TABLET (FP) PO PRN ×3 (00:50→15:23)
[2016-12-08] MEDS: oxyCODONE HCL 5 MG TABLET PO PRN ×3 (00:51→15:22)
[2016-12-08] MEDS: PIPERACILLIN/TAZOB 3.375 GM 50 ML IVPB SCH ×3 (01:03→17:31)
[2016-12-08] MEDS ORDERED: PT OWN MED DRAWER 7, Y5N ONE ×4 (06:25→22:23)
[2016-12-08] MEDS: ATROPINE SO4 1% OPHTH SOLN 5 ML BOTTLE OD SCH ×3 (06:33→22:33)
--- NOTE | 2016-12-08 07:02 | CON.OBG ---
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 - History of Present Illness Chief Complaint: vaginal discharge History of Present Illness: 51 yo f wihx of DM, bipolar disorder, admitted for suprative, hidradentis on iv antibiotic has dark vaginal discharge, no odor , no itch - History Source History Provided By: Patient Limitations to Obtaining History: Physical Impairment - Past Medical History Cardio/Vascular: Yes: HTN (labile , sometimes, no meds ) Pulmonary: Yes: Asthma Gastrointestinal: Yes: GERD Renal/: Yes: UTI (diagnosed in ER on 11/01/16 ) ...LMP: 01/13/16 ...: No Psych: Yes: Bipolar, Schizophrenia Musculoskeletal: Yes: Chronic low back pain Endocrine: Yes: Diabetes Mellitus (class 2, on Metformin ) - Alcohol/Substance Use Hx Alcohol Use: No - Smoking History Smoking history: Current every day smoker Have you smoked in the past 12 months: Yes Aproximately how many cigarettes per day: 10 - Social History Usual Living Arrangement: Assisted Living (pt from residential) Home Medications - Allergies Allergies/Adverse Reactions: Allergies Allergy/AdvReac Type Severity Reaction Status Date / Time No Known Allergies Allergy Verified 11/19/16 09:45 - Home Medications Home Medications: Ambulatory Orders Albuterol Sulfate [Proair Respiclick] 2 puff IH Q4H PRN 11/29/16 Atropine 1% Ophth. Solution - 1 drop OD TID 11/29/16 Cyclobenzaprine HCl 5 mg PO TID 11/29/16 Divalproex [Depakote -] 250 mg PO HS 11/29/16 Famotidine 20 mg PO BID 11/29/16 Haloperidol [Haldol -] 10 mg PO BID 11/29/16 Ibuprofen 400 mg PO TID 11/29/16 Metformin HCl [Metformin HCl ER] 1,000 mg PO BID 11/29/16 Naproxen [Naprosyn -] 500 mg PO TID 11/29/16 Prednisolone 1% Ophthalmic [Pred Forte 1% -] 5 ml OD QID 11/29/16 Propylene Glycol/Peg 400/Pf [Systane 0.3-0.4% Eye Drops] 1 each OD TID 11/29/16 Tobramycin 0.3% Ophth Soln [Tobrex Ophthalmic Solution -] 2 drop OU Q4H #1 drops 11/29/16 Tobramycin/Dexamethasone [Tobradex Eye Drops] 5 ml OP QID 11/29/16 Divalproex *ER* [Depakote *ER* -] 500 mg PO BID 12/04/16 Review of Systems - Review of Systems Genitourinary: reports: Burning, Discharge, Frequency Physical Exam-[employer]IAN Vital Signs: Vital Signs Temperature 98.1 F 12/08/16 06:55 Pulse Rate 96 H 12/08/16 06:55 Respiratory Rate 20 12/08/16 06:55 Blood Pressure 105/68 12/08/16 06:55 O2 Sat by Pulse Oximetry (%) 97 12/06/16 22:00 External Genitalia: Yes: Edema, Lesion (multiple superative hidradenitis, with discharge) Vaginal Exam: Yes: Normal (no blood seen) Cervix: Yes: Normal Uterus: Yes: Normal Labs: CBC, BMP 12/05/16 06:35 12/05/16 06:35 Problem List - Problems (1) Vaginal discharge Code(s): N89.8 - OTHER SPECIFIED NONINFLAMMATORY DISORDERS OF VAGINA Assessment/Plan no blood in vagina, ddark discharge most likely from vulva area , will get tv sono , check for EM and revaluate cont iv antibiotics
[2016-12-08 07:38] LABS: BASOPHIL 0.5 % (0-2.0); MCH 26.7 pg (25.7-33.7); MCHC 33.1 g/dl (32.0-36.0); MEAN CELL VOLUME 80.7 fl (80-96); MEAN PLT VOLUME 7.1 fl (7.5-11.1); NEUTROPHILS 60.6 % (42.8-82.8); PLATELET COUNT 427 K/MM3 (134-434); RDW 17.6 % (11.6-15.6); WHITE BLOOD COUNT 10.4 K/mm3 (4.0-10.0)
[2016-12-08 08:01] LABS: ALBUMIN 2.5 g/dl (3.4-5.0); ANION GAP 7 (8-16); BILIRUBIN,TOTAL 0.2 mg/dL (0.2-1.0); CALCIUM 9.1 mg/dL (8.5-10.1); CO2 31 mmol/L (21-32); COCKROFT - GAULT 183.1325; CREATININE 0.5 mg/dL (0.55-1.02); GLUCOSE,RANDOM 74 mg/dL (74-106); SGOT/AST 8 U/L (15-37); TOT PROT 7.4 g/dl (6.4-8.2)
[2016-12-08 08:03] LABS: ALK PHOS 71 U/L (45-117); SGPT/ALT 11 U/L (12-78)
[2016-12-08] MEDS: DIVALPROEX NA *ER* EXTEND REL 500 MG TABLET.SA (FP) PO SCH ×2 (10:01→22:32)
[2016-12-08] MEDS: HALOPERIDOL 5 MG TABLET (FP) PO SCH ×2 (10:01→22:32)
[2016-12-08] MEDS: DOXYCYCLINE HYCLATE 100 MG CAPSULE PO SCH ×2 (10:01→17:39)
[2016-12-08] MEDS: LINEZOLID 600 MG TABLET (RESTRICTED TO ID) PO SCH ×2 (10:02→22:32)
--- NOTE | 2016-12-08 15:00 | PN ---
Progress Note, Physician History of Present Illness: doing well no new issues - Current Medication List Current Medications: Active Medications Acetaminophen (Tylenol -) 325 mg PO Q4H PRN PRN Reason: PAIN 6-10 Stop: 12/08/16 21:53 Last Admin: 12/08/16 05:15 Dose: 325 mg Albuterol Sulfate (Ventolin Hfa Inhaler -) 2 puff IH Q4H PRN PRN Reason: SHORTNESS OF BREATH Atropine Sulfate (Atropine 1% Ophth. Solution -) 1 drop OD TID [facility] [place] Last Admin: 12/08/16 06:33 Dose: 1 drop Divalproex Sodium (Depakote -) 250 mg PO HS [facility] Last Admin: 12/07/16 21:14 Dose: 250 mg Divalproex Sodium (Depakote *Er* -) 500 mg PO BID [facility] [place] Last Admin: 12/08/16 10:01 Dose: 500 mg Doxycycline Hyclate (Vibramycin -) 100 mg PO BID@1000,1800 [facility] [place] Last Admin: 12/08/16 10:01 Dose: 100 mg Haloperidol (Haldol -) 10 mg PO BID [facility] [place] Last Admin: 12/08/16 10:01 Dose: 10 mg Piperacillin Sod/Tazobactam Sod (Zosyn 3.375gm Ivpb (Pre-Docked)) 50 mls @ 100 mls/hr IVPB Q8H-IV [facility] [place] PRN Reason: Protocol Last Admin: 12/08/16 09:56 Dose: 100 mls/hr Linezolid (Zyvox (Restricted To Id) -) 600 mg PO BID [facility] Last Admin: 12/08/16 10:02 Dose: 600 mg Metformin HCl (Glucophage Xr -) 1,000 mg PO BIDAC [facility] [place] Last Admin: 12/08/16 06:32 Dose: 1,000 mg Oxycodone HCl (Roxicodone -) 5 mg PO Q4H PRN PRN Reason: PAIN 6-10 Last Admin: 12/08/16 05:15 Dose: 5 mg Prednisolone Acetate (Pred Forte 1% -) 74.9625 drop OD QID [facility] [place] - Objective Vital Signs: Vital Signs Temperature 98.1 F 12/08/16 06:55 Pulse Rate 96 H 12/08/16 06:55 Respiratory Rate 20 12/08/16 06:55 Blood Pressure 105/68 12/08/16 06:55 O2 Sat by Pulse Oximetry (%) 97 12/06/16 22:00 Constitutional: Yes: No Distress, Calm Cardiovascular: Yes: Regular Rate and Rhythm Respiratory: Yes: Regular, CTA Bilaterally Gastrointestinal: Yes: Normal Bowel Sounds, Soft Genitourinary: Yes: Vaginal Discharge, Other Musculoskeletal: Yes: WNL Neurological: Yes: Alert, Oriented Psychiatric: Yes: Alert Labs: CBC, BMP 12/08/16 06:50 12/08/16 06:50 - ....Imaging Ultrasound: Report Reviewed, Image Reviewed Assessment/Plan Problem List - Problems (1) Hidradenitis suppurativa Code(s): L73.2 - HIDRADENITIS SUPPURATIVA (2) Abscess Code(s): L02.91 - CUTANEOUS ABSCESS, UNSPECIFIED (3) Cellulitis Code(s): L03.90 - CELLULITIS, UNSPECIFIED Qualifiers: Site of cellulitis: other site Qualified Code(s): L03.818 - Cellulitis of other sites (4) Conjunctivitis Code(s): H10.9 - UNSPECIFIED CONJUNCTIVITIS Qualifiers: Conjunctivitis type: acute Acute conjunctivitis type: bacterial Laterality: bilateral Qualified Code(s): H10.33 - Unspecified acute conjunctivitis, bilateral (5) Low back pain Code(s): M54.5 - LOW BACK PAIN Qualifiers: Chronicity: acute Back pain laterality: bilateral Sciatica presence : without sciatica Qualified Code(s): M54.5 - Low back pain (6) Perineal abscess Code(s): L02.215 - CUTANEOUS ABSCESS OF PERINEUM (7) UTI (urinary tract infection) Code(s): N39.0 - URINARY TRACT INFECTION, SITE NOT SPECIFIED Qualifiers: Urinary tract infection type: site unspecified Hematuria presence: without hematuria Qualified Code(s): N39.0 - Urinary tract infection, site not specified (8) Schizophrenia Code(s): F20.9 - SCHIZOPHRENIA, UNSPECIFIED plan continue abx trans vaginal u/s result noted patient could not tolerate it
--- NOTE | 2016-12-08 17:47 | PN ---
Progress Note, Physician History of Present Illness: stable - Current Medication List Current Medications: Active Medications Acetaminophen (Tylenol -) 325 mg PO Q4H PRN PRN Reason: PAIN 6-10 Stop: 12/08/16 21:53 Last Admin: 12/08/16 15:23 Dose: 325 mg Albuterol Sulfate (Ventolin Hfa Inhaler -) 2 puff IH Q4H PRN PRN Reason: SHORTNESS OF BREATH Atropine Sulfate (Atropine 1% Ophth. Solution -) 1 drop OD TID [facility] Last Admin: 12/08/16 15:29 Dose: 1 drop Divalproex Sodium (Depakote -) 250 mg PO HS [facility] Last Admin: 12/07/16 21:14 Dose: 250 mg Divalproex Sodium (Depakote *Er* -) 500 mg PO BID [facility] Last Admin: 12/08/16 10:01 Dose: 500 mg Doxycycline Hyclate (Vibramycin -) 100 mg PO BID@1000,1800 [facility] Last Admin: 12/08/16 17:39 Dose: 100 mg Haloperidol (Haldol -) 10 mg PO BID [facility] Last Admin: 12/08/16 10:01 Dose: 10 mg Piperacillin Sod/Tazobactam Sod (Zosyn 3.375gm Ivpb (Pre-Docked)) 50 mls @ 100 mls/hr IVPB Q8H-IV [facility] PRN Reason: Protocol Last Admin: 12/08/16 17:31 Dose: 100 mls/hr Linezolid (Zyvox (Restricted To Id) -) 600 mg PO BID [facility] Last Admin: 12/08/16 10:02 Dose: 600 mg Metformin HCl (Glucophage Xr -) 1,000 mg PO BIDAC [facility] Last Admin: 12/08/16 17:39 Dose: 1,000 mg Oxycodone HCl (Roxicodone -) 5 mg PO Q4H PRN PRN Reason: PAIN 6-10 Last Admin: 12/08/16 15:22 Dose: 5 mg Prednisolone Acetate (Pred Forte 1% -) 74.9625 drop OD QID [facility] - Objective Vital Signs: Vital Signs Temperature 98.2 F 12/08/16 16:05 Pulse Rate 95 H 12/08/16 16:05 Respiratory Rate 20 12/08/16 16:05 Blood Pressure 117/73 12/08/16 10:00 O2 Sat by Pulse Oximetry (%) 97 12/06/16 22:00 Constitutional: Yes: No Distress HENT: Yes: Atraumatic Neck: Yes: Supple Cardiovascular: Yes: Regular Rate and Rhythm Respiratory: Yes: CTA Bilaterally Gastrointestinal: Yes: Normal Bowel Sounds Extremities: Yes: WNL Neurological: Yes: Alert, Oriented Labs: CBC, BMP 12/08/16 06:50 12/08/16 06:50 Problem List - Problems (1) Hidradenitis suppurativa Assessment/Plan: iv abx CONTINUE CX P VAGINAL US DONE Code(s): L73.2 - HIDRADENITIS SUPPURATIVA (2) Abscess Code(s): L02.91 - CUTANEOUS ABSCESS, UNSPECIFIED (3) Cellulitis Assessment/Plan: ON ABX Code(s): L03.90 - CELLULITIS, UNSPECIFIED Qualifiers: Site of cellulitis: other site Qualified Code(s): L03.818 - Cellulitis of other sites (4) Conjunctivitis Code(s): H10.9 - UNSPECIFIED CONJUNCTIVITIS Qualifiers: Conjunctivitis type: acute Acute conjunctivitis type: bacterial Laterality: bilateral Qualified Code(s): H10.33 - Unspecified acute conjunctivitis, bilateral (5) Low back pain Code(s): M54.5 - LOW BACK PAIN Qualifiers: Chronicity: acute Back pain laterality: bilateral Sciatica presence : without sciatica Qualified Code(s): M54.5 - Low back pain (6) Perineal abscess Code(s): L02.215 - CUTANEOUS ABSCESS OF PERINEUM (7) UTI (urinary tract infection) Code(s): N39.0 - URINARY TRACT INFECTION, SITE NOT SPECIFIED Qualifiers: Urinary tract infection type: site unspecified Hematuria presence: without hematuria Qualified Code(s): N39.0 - Urinary tract infection, site not specified (8) Schizophrenia Code(s): F20.9 - SCHIZOPHRENIA, UNSPECIFIED
[2016-12-08] MEDS: DIVALPROEX SODIUM 500 MG TABLET E.C. PO SCH (22:31)
[2016-12-08] MEDS ORDERED: oxyCODONE HCL 5 MG TABLET PO ONE (23:00)
[2016-12-08] MEDS ORDERED: ACETAMINOPHEN 325 MG TABLET (FP) PO ONE (23:00)
[2016-12-09] MEDS: PIPERACILLIN/TAZOB 3.375 GM 50 ML IVPB SCH ×3 (01:54→17:11)
[2016-12-09] MEDS: oxyCODONE HCL 5 MG TABLET PO PRN ×4 (06:01→21:53)
[2016-12-09] MEDS: ACETAMINOPHEN 325 MG TABLET (FP) PO PRN ×4 (06:02→21:54)
[2016-12-09] MEDS: ATROPINE SO4 1% OPHTH SOLN 5 ML BOTTLE OD SCH ×3 (06:30→22:02)
[2016-12-09] MEDS: DOXYCYCLINE HYCLATE 100 MG CAPSULE PO SCH ×2 (11:22→17:11)
[2016-12-09] MEDS: LINEZOLID 600 MG TABLET (RESTRICTED TO ID) PO SCH ×2 (11:23→21:59)
[2016-12-09] MEDS: HALOPERIDOL 5 MG TABLET (FP) PO SCH ×2 (11:23→21:54)
[2016-12-09] MEDS: DIVALPROEX NA *ER* EXTEND REL 500 MG TABLET.SA (FP) PO SCH ×2 (13:10→22:19)
--- NOTE | 2016-12-09 13:11 | PN ---
Progress Note, Physician History of Present Illness: patient stable no events - Current Medication List Current Medications: Active Medications Acetaminophen (Tylenol -) 325 mg PO Q4H PRN PRN Reason: PAIN Stop: 12/11/16 22:58 Last Admin: 12/09/16 11:34 Dose: 325 mg Albuterol Sulfate (Ventolin Hfa Inhaler -) 2 puff IH Q4H PRN PRN Reason: SHORTNESS OF BREATH Atropine Sulfate (Atropine 1% Ophth. Solution -) 1 drop OD TID [facility] Last Admin: 12/09/16 06:30 Dose: 1 drop Divalproex Sodium (Depakote -) 250 mg PO HS [facility] Last Admin: 12/08/16 22:31 Dose: 250 mg Divalproex Sodium (Depakote *Er* -) 500 mg PO BID [facility] Last Admin: 12/08/16 22:32 Dose: 500 mg Doxycycline Hyclate (Vibramycin -) 100 mg PO BID@1000,1800 [facility] Last Admin: 12/09/16 11:22 Dose: 100 mg Haloperidol (Haldol -) 10 mg PO BID [facility] Last Admin: 12/09/16 11:23 Dose: 10 mg Piperacillin Sod/Tazobactam Sod (Zosyn 3.375gm Ivpb (Pre-Docked)) 50 mls @ 100 mls/hr IVPB Q8H-IV [facility] PRN Reason: Protocol Last Admin: 12/09/16 11:23 Dose: 100 mls/hr Linezolid (Zyvox (Restricted To Id) -) 600 mg PO BID [facility] Last Admin: 12/09/16 11:23 Dose: 600 mg Metformin HCl (Glucophage Xr -) 1,000 mg PO BIDAC [facility] Last Admin: 12/09/16 06:29 Dose: 1,000 mg Oxycodone HCl (Roxicodone -) 5 mg PO Q4H PRN PRN Reason: PAIN Last Admin: 12/09/16 11:35 Dose: 5 mg Prednisolone Acetate (Pred Forte 1% -) 74.9625 drop OD QID [facility] - Objective Vital Signs: Vital Signs Temperature 98.4 F 12/09/16 08:00 Pulse Rate 84 12/09/16 08:00 Respiratory Rate 20 12/09/16 08:00 Blood Pressure 106/64 12/09/16 08:00 O2 Sat by Pulse Oximetry (%) 97 12/09/16 08:00 Constitutional: Yes: No Distress, Calm Cardiovascular: Yes: Regular Rate and Rhythm Respiratory: Yes: Regular, CTA Bilaterally Gastrointestinal: Yes: Normal Bowel Sounds, Soft Genitourinary: Yes: Other (draiange minimal) Musculoskeletal: Yes: WNL Extremities: Yes: WNL Integumentary: Yes: Other Wound/Incision: Yes: Other Neurological: Yes: Alert, Oriented Psychiatric: Yes: Alert Labs: CBC, BMP 12/08/16 06:50 12/08/16 06:50 Assessment/Plan Problem List - Problems (1) Hidradenitis suppurativa Code(s): L73.2 - HIDRADENITIS SUPPURATIVA (2) Abscess Code(s): L02.91 - CUTANEOUS ABSCESS, UNSPECIFIED (3) Cellulitis Code(s): L03.90 - CELLULITIS, UNSPECIFIED Qualifiers: Site of cellulitis: other site Qualified Code(s): L03.818 - Cellulitis of other sites (4) Conjunctivitis Code(s): H10.9 - UNSPECIFIED CONJUNCTIVITIS Qualifiers: Conjunctivitis type: acute Acute conjunctivitis type: bacterial Laterality: bilateral Qualified Code(s): H10.33 - Unspecified acute conjunctivitis, bilateral (5) Low back pain Code(s): M54.5 - LOW BACK PAIN Qualifiers: Chronicity: acute Back pain laterality: bilateral Sciatica presence : without sciatica Qualified Code(s): M54.5 - Low back pain (6) Perineal abscess Code(s): L02.215 - CUTANEOUS ABSCESS OF PERINEUM (7) UTI (urinary tract infection) Code(s): N39.0 - URINARY TRACT INFECTION, SITE NOT SPECIFIED Qualifiers: Urinary tract infection type: site unspecified Hematuria presence: without hematuria Qualified Code(s): N39.0 - Urinary tract infection, site not specified (8) Schizophrenia Code(s): F20.9 - SCHIZOPHRENIA, UNSPECIFIED plan continue abx await for final plan
--- NOTE | 2016-12-09 20:04 | PN ---
Progress Note, Physician History of Present Illness: stable - Current Medication List Current Medications: Active Medications Acetaminophen (Tylenol -) 325 mg PO Q4H PRN PRN Reason: PAIN Stop: 12/11/16 22:58 Last Admin: 12/09/16 16:08 Dose: 325 mg Albuterol Sulfate (Ventolin Hfa Inhaler -) 2 puff IH Q4H PRN PRN Reason: SHORTNESS OF BREATH Atropine Sulfate (Atropine 1% Ophth. Solution -) 1 drop OD TID [facility] Last Admin: 12/09/16 13:18 Dose: 1 drop Divalproex Sodium (Depakote -) 250 mg PO HS [facility] Last Admin: 12/08/16 22:31 Dose: 250 mg Divalproex Sodium (Depakote *Er* -) 500 mg PO BID [facility] Last Admin: 12/09/16 13:10 Dose: 500 mg Doxycycline Hyclate (Vibramycin -) 100 mg PO BID@1000,1800 [facility] Last Admin: 12/09/16 17:11 Dose: 100 mg Haloperidol (Haldol -) 10 mg PO BID [facility] Last Admin: 12/09/16 11:23 Dose: 10 mg Piperacillin Sod/Tazobactam Sod (Zosyn 3.375gm Ivpb (Pre-Docked)) 50 mls @ 100 mls/hr IVPB Q8H-IV [facility] PRN Reason: Protocol Last Admin: 12/09/16 17:11 Dose: 100 mls/hr Linezolid (Zyvox (Restricted To Id) -) 600 mg PO BID [facility] Last Admin: 12/09/16 11:23 Dose: 600 mg Metformin HCl (Glucophage Xr -) 1,000 mg PO BIDAC [facility] Last Admin: 12/09/16 16:14 Dose: 1,000 mg Oxycodone HCl (Roxicodone -) 5 mg PO Q4H PRN PRN Reason: PAIN Last Admin: 12/09/16 16:08 Dose: 5 mg Prednisolone Acetate (Pred Forte 1% -) 1 drop OD QID [facility] - Objective Vital Signs: Vital Signs Temperature 98.5 F 12/09/16 13:55 Pulse Rate 86 12/09/16 13:55 Respiratory Rate 18 12/09/16 13:55 Blood Pressure 106/64 12/09/16 08:00 O2 Sat by Pulse Oximetry (%) 97 12/09/16 08:00 Constitutional: Yes: No Distress HENT: Yes: Atraumatic Neck: Yes: Supple Cardiovascular: Yes: Regular Rate and Rhythm Respiratory: Yes: CTA Bilaterally Gastrointestinal: Yes: Normal Bowel Sounds Genitourinary: Yes: Other (abcesses on labia healing) Neurological: Yes: Alert, Oriented Labs: CBC, BMP 12/08/16 06:50 12/08/16 06:50 Problem List - Problems (1) Hidradenitis suppurativa Code(s): L73.2 - HIDRADENITIS SUPPURATIVA (2) Abscess Code(s): L02.91 - CUTANEOUS ABSCESS, UNSPECIFIED (3) Cellulitis Code(s): L03.90 - CELLULITIS, UNSPECIFIED Qualifiers: Site of cellulitis: other site Qualified Code(s): L03.818 - Cellulitis of other sites (4) Conjunctivitis Code(s): H10.9 - UNSPECIFIED CONJUNCTIVITIS Qualifiers: Conjunctivitis type: acute Acute conjunctivitis type: bacterial Laterality: bilateral Qualified Code(s): H10.33 - Unspecified acute conjunctivitis, bilateral (5) Low back pain Code(s): M54.5 - LOW BACK PAIN Qualifiers: Chronicity: acute Back pain laterality: bilateral Sciatica presence : without sciatica Qualified Code(s): M54.5 - Low back pain (6) Perineal abscess Code(s): L02.215 - CUTANEOUS ABSCESS OF PERINEUM (7) UTI (urinary tract infection) Code(s): N39.0 - URINARY TRACT INFECTION, SITE NOT SPECIFIED Qualifiers: Urinary tract infection type: site unspecified Hematuria presence: without hematuria Qualified Code(s): N39.0 - Urinary tract infection, site not specified (8) Schizophrenia Code(s): F20.9 - SCHIZOPHRENIA, UNSPECIFIED
[2016-12-09] MEDS ORDERED: PT OWN MED DRAWER 7, Y5N ONE (21:06)
[2016-12-09] MEDS: prednisoLONE ACETATE 1% OPHTH SUSP 5 ML BOTTLE OD SCH (21:58)
[2016-12-09] MEDS: DIVALPROEX SODIUM 250 MG TABLET E.C. (FP) PO SCH (22:20)
[2016-12-09] MEDS: DIVALPROEX SODIUM 500 MG TABLET E.C. PO SCH (22:21)
[2016-12-10] MEDS: PIPERACILLIN/TAZOB 3.375 GM 50 ML IVPB SCH ×3 (02:13→17:07)
[2016-12-10] MEDS: oxyCODONE HCL 5 MG TABLET PO PRN ×4 (02:13→16:19)
[2016-12-10] MEDS: ACETAMINOPHEN 325 MG TABLET (FP) PO PRN ×4 (02:15→16:19)
[2016-12-10] MEDS: ATROPINE SO4 1% OPHTH SOLN 5 ML BOTTLE OD SCH ×3 (05:45→21:19)
[2016-12-10] MEDS ORDERED: PT OWN MED DRAWER 7, Y5N ONE ×2 (10:53→21:00)
[2016-12-10] MEDS: LINEZOLID 600 MG TABLET (RESTRICTED TO ID) PO SCH ×2 (11:03→21:18)
[2016-12-10] MEDS: NICOTINE 21 MG/24 HOURS TOPICAL PATCH TD SCH (11:03)
[2016-12-10] MEDS: DIVALPROEX NA *ER* EXTEND REL 500 MG TABLET.SA (FP) PO SCH ×2 (11:04→21:18)
[2016-12-10] MEDS: DOXYCYCLINE HYCLATE 100 MG CAPSULE PO SCH ×2 (11:04→17:07)
[2016-12-10] MEDS: HALOPERIDOL 5 MG TABLET (FP) PO SCH ×2 (11:04→21:18)
[2016-12-10] MEDS: prednisoLONE ACETATE 1% OPHTH SUSP 5 ML BOTTLE OD SCH ×4 (11:05→21:19)
--- NOTE | 2016-12-10 16:08 | PN ---
Progress Note, Physician History of Present Illness: doing well no new issues still c/o of discharge from the wound but improving - Current Medication List Current Medications: Active Medications Acetaminophen (Tylenol -) 325 mg PO Q4H PRN PRN Reason: PAIN Stop: 12/11/16 22:58 Last Admin: 12/10/16 11:03 Dose: 325 mg Albuterol Sulfate (Ventolin Hfa Inhaler -) 2 puff IH Q4H PRN PRN Reason: SHORTNESS OF BREATH Atropine Sulfate (Atropine 1% Ophth. Solution -) 1 drop OD TID [facility] Last Admin: 12/10/16 14:53 Dose: 1 drop Divalproex Sodium (Depakote *Er* -) 500 mg PO BID [facility] Last Admin: 12/10/16 11:04 Dose: 500 mg Divalproex Sodium (Depakote -) 250 mg PO HS [facility] Last Admin: 12/09/16 22:20 Dose: 250 mg Doxycycline Hyclate (Vibramycin -) 100 mg PO BID@1000,1800 [facility] Last Admin: 12/10/16 11:04 Dose: 100 mg Haloperidol (Haldol -) 10 mg PO BID [facility] Last Admin: 12/10/16 11:04 Dose: 10 mg Piperacillin Sod/Tazobactam Sod (Zosyn 3.375gm Ivpb (Pre-Docked)) 50 mls @ 100 mls/hr IVPB Q8H-IV [facility] PRN Reason: Protocol Last Admin: 12/10/16 11:02 Dose: 100 mls/hr Linezolid (Zyvox (Restricted To Id) -) 600 mg PO BID [facility] Last Admin: 12/10/16 11:03 Dose: 600 mg Metformin HCl (Glucophage Xr -) 1,000 mg PO BIDAC [facility] Last Admin: 12/10/16 06:40 Dose: 1,000 mg Nicotine (Nicoderm Patch -) 21 mg TD DAILY [facility] Last Admin: 12/10/16 11:03 Dose: 21 mg Oxycodone HCl (Roxicodone -) 5 mg PO Q4H PRN PRN Reason: PAIN Last Admin: 12/10/16 11:03 Dose: 5 mg Prednisolone Acetate (Pred Forte 1% -) 1 drop OD QID [facility] Last Admin: 12/10/16 14:53 Dose: 1 drp - Objective Vital Signs: Vital Signs Temperature 98.1 F 12/10/16 14:19 Pulse Rate 90 12/10/16 14:19 Respiratory Rate 20 12/10/16 14:19 Blood Pressure 125/71 12/10/16 08:00 O2 Sat by Pulse Oximetry (%) 97 12/10/16 08:00 Constitutional: Yes: No Distress, Calm Cardiovascular: Yes: Regular Rate and Rhythm Respiratory: Yes: Regular, CTA Bilaterally Gastrointestinal: Yes: Normal Bowel Sounds, Soft Genitourinary: Yes: Vaginal Discharge, Other Musculoskeletal: Yes: WNL Extremities: Yes: WNL Neurological: Yes: Alert, Oriented Psychiatric: Yes: Alert, Oriented Labs: CBC, BMP 12/08/16 06:50 12/08/16 06:50 Assessment/Plan Problem List - Problems (1) Hidradenitis suppurativa Code(s): L73.2 - HIDRADENITIS SUPPURATIVA (2) Abscess Code(s): L02.91 - CUTANEOUS ABSCESS, UNSPECIFIED (3) Cellulitis Code(s): L03.90 - CELLULITIS, UNSPECIFIED Qualifiers: Site of cellulitis: other site Qualified Code(s): L03.818 - Cellulitis of other sites (4) Conjunctivitis Code(s): H10.9 - UNSPECIFIED CONJUNCTIVITIS Qualifiers: Conjunctivitis type: acute Acute conjunctivitis type: bacterial Laterality: bilateral Qualified Code(s): H10.33 - Unspecified acute conjunctivitis, bilateral (5) Low back pain Code(s): M54.5 - LOW BACK PAIN Qualifiers: Chronicity: acute Back pain laterality: bilateral Sciatica presence : without sciatica Qualified Code(s): M54.5 - Low back pain (6) Perineal abscess Code(s): L02.215 - CUTANEOUS ABSCESS OF PERINEUM (7) UTI (urinary tract infection) Code(s): N39.0 - URINARY TRACT INFECTION, SITE NOT SPECIFIED Qualifiers: Urinary tract infection type: site unspecified Hematuria presence: without hematuria Qualified Code(s): N39.0 - Urinary tract infection, site not specified (8) Schizophrenia Code(s): F20.9 - SCHIZOPHRENIA, UNSPECIFIED plan continue abx trans vaginal u/s result noted patient could not tolerate it awaiting obgyn final recommendation rest as per primary
[2016-12-10] MEDS ORDERED: FLUCONAZOLE 100 MG TABLET (UD) PO ONE (20:49)
--- NOTE | 2016-12-10 20:56 | PN ---
Progress Note, Physician History of Present Illness: stable - Current Medication List Current Medications: Active Medications Acetaminophen (Tylenol -) 325 mg PO Q4H PRN PRN Reason: PAIN Stop: 12/11/16 22:58 Last Admin: 12/10/16 16:19 Dose: 325 mg Albuterol Sulfate (Ventolin Hfa Inhaler -) 2 puff IH Q4H PRN PRN Reason: SHORTNESS OF BREATH Atropine Sulfate (Atropine 1% Ophth. Solution -) 1 drop OD TID [facility] Last Admin: 12/10/16 14:53 Dose: 1 drop Divalproex Sodium (Depakote *Er* -) 500 mg PO BID [facility] Last Admin: 12/10/16 11:04 Dose: 500 mg Divalproex Sodium (Depakote -) 250 mg PO HS [facility] Last Admin: 12/09/16 22:20 Dose: 250 mg Doxycycline Hyclate (Vibramycin -) 100 mg PO BID@1000,1800 [facility] Last Admin: 12/10/16 17:07 Dose: 100 mg Haloperidol (Haldol -) 10 mg PO BID [facility] Last Admin: 12/10/16 11:04 Dose: 10 mg Piperacillin Sod/Tazobactam Sod (Zosyn 3.375gm Ivpb (Pre-Docked)) 50 mls @ 100 mls/hr IVPB Q8H-IV [facility] PRN Reason: Protocol Last Admin: 12/10/16 17:07 Dose: 100 mls/hr Linezolid (Zyvox (Restricted To Id) -) 600 mg PO BID [facility] Last Admin: 12/10/16 11:03 Dose: 600 mg Metformin HCl (Glucophage Xr -) 1,000 mg PO BIDAC [facility] Last Admin: 12/10/16 16:30 Dose: Not Given Nicotine (Nicoderm Patch -) 21 mg TD DAILY [facility] Last Admin: 12/10/16 11:03 Dose: 21 mg Oxycodone HCl (Roxicodone -) 5 mg PO Q4H PRN PRN Reason: PAIN Last Admin: 12/10/16 16:19 Dose: 5 mg Prednisolone Acetate (Pred Forte 1% -) 1 drop OD QID [facility] Last Admin: 12/10/16 17:08 Dose: 1 drp - Objective Vital Signs: Vital Signs Temperature 98.1 F 12/10/16 14:19 Pulse Rate 90 12/10/16 14:19 Respiratory Rate 20 12/10/16 20:22 Blood Pressure 125/71 12/10/16 08:00 O2 Sat by Pulse Oximetry (%) 97 12/10/16 20:22 HENT: Yes: Atraumatic Neck: Yes: Supple Cardiovascular: Yes: Regular Rate and Rhythm Respiratory: Yes: CTA Bilaterally Gastrointestinal: Yes: Normal Bowel Sounds Extremities: Yes: WNL Neurological: Yes: Alert, Oriented Labs: CBC, BMP 12/08/16 06:50 12/08/16 06:50 Problem List - Problems (1) Hidradenitis suppurativa Assessment/Plan: iv abx CONTINUE CX P VAGINAL US DONE Code(s): L73.2 - HIDRADENITIS SUPPURATIVA (2) Abscess Code(s): L02.91 - CUTANEOUS ABSCESS, UNSPECIFIED (3) Cellulitis Assessment/Plan: ON ABX Code(s): L03.90 - CELLULITIS, UNSPECIFIED Qualifiers: Site of cellulitis: other site Qualified Code(s): L03.818 - Cellulitis of other sites (4) Conjunctivitis Code(s): H10.9 - UNSPECIFIED CONJUNCTIVITIS Qualifiers: Conjunctivitis type: acute Acute conjunctivitis type: bacterial Laterality: bilateral Qualified Code(s): H10.33 - Unspecified acute conjunctivitis, bilateral (5) Low back pain Code(s): M54.5 - LOW BACK PAIN Qualifiers: Chronicity: acute Back pain laterality: bilateral Sciatica presence : without sciatica Qualified Code(s): M54.5 - Low back pain (6) Perineal abscess Code(s): L02.215 - CUTANEOUS ABSCESS OF PERINEUM (7) UTI (urinary tract infection) Code(s): N39.0 - URINARY TRACT INFECTION, SITE NOT SPECIFIED Qualifiers: Urinary tract infection type: site unspecified Hematuria presence: without hematuria Qualified Code(s): N39.0 - Urinary tract infection, site not specified (8) Schizophrenia Code(s): F20.9 - SCHIZOPHRENIA, UNSPECIFIED Assessment/Plan C/O VAGINAL ITCHING ON ABX, STATES THAT SHE GETSYEAST INFECTION WILL GIVE HER A DOSE OF DIFLUCAN
[2016-12-10] MEDS: DIVALPROEX SODIUM 250 MG TABLET E.C. (FP) PO SCH (21:20)
[2016-12-11] MEDS: oxyCODONE HCL 5 MG TABLET PO PRN ×2 (01:18→21:46)
[2016-12-11] MEDS: ACETAMINOPHEN 325 MG TABLET (FP) PO PRN ×2 (01:19→21:48)
[2016-12-11] MEDS: PIPERACILLIN/TAZOB 3.375 GM 50 ML IVPB SCH ×2 (01:19→09:27)
[2016-12-11] MEDS: ATROPINE SO4 1% OPHTH SOLN 5 ML BOTTLE OD SCH ×3 (06:35→22:48)
[2016-12-11] MEDS ORDERED: PT OWN MED DRAWER 7, Y5N ONE ×3 (09:16→21:11)
[2016-12-11] MEDS: LINEZOLID 600 MG TABLET (RESTRICTED TO ID) PO SCH ×2 (09:26→21:39)
[2016-12-11] MEDS: HALOPERIDOL 5 MG TABLET (FP) PO SCH ×2 (09:26→21:39)
[2016-12-11] MEDS: NICOTINE 21 MG/24 HOURS TOPICAL PATCH TD SCH (09:26)
[2016-12-11] MEDS: DOXYCYCLINE HYCLATE 100 MG CAPSULE PO SCH ×2 (09:27→17:00)
[2016-12-11] MEDS: DIVALPROEX NA *ER* EXTEND REL 500 MG TABLET.SA (FP) PO SCH ×2 (09:27→21:38)
[2016-12-11] MEDS: prednisoLONE ACETATE 1% OPHTH SUSP 5 ML BOTTLE OD SCH ×4 (09:32→22:46)
--- NOTE | 2016-12-11 18:37 | PN ---
Progress Note, Physician History of Present Illness: stable - Current Medication List Current Medications: Active Medications Acetaminophen (Tylenol -) 325 mg PO Q4H PRN PRN Reason: PAIN Stop: 12/11/16 22:58 Last Admin: 12/11/16 01:19 Dose: 325 mg Albuterol Sulfate (Ventolin Hfa Inhaler -) 2 puff IH Q4H PRN PRN Reason: SHORTNESS OF BREATH Atropine Sulfate (Atropine 1% Ophth. Solution -) 1 drop OD TID [facility] Last Admin: 12/11/16 14:21 Dose: 1 drop Divalproex Sodium (Depakote *Er* -) 500 mg PO BID [facility] Last Admin: 12/11/16 09:27 Dose: 500 mg Divalproex Sodium (Depakote -) 250 mg PO HS [facility] Last Admin: 12/10/16 21:20 Dose: 250 mg Doxycycline Hyclate (Vibramycin -) 100 mg PO BID@1000,1800 [facility] Last Admin: 12/11/16 17:00 Dose: 100 mg Haloperidol (Haldol -) 10 mg PO BID [facility] Last Admin: 12/11/16 09:26 Dose: 10 mg Linezolid (Zyvox (Restricted To Id) -) 600 mg PO BID [facility] Last Admin: 12/11/16 09:26 Dose: 600 mg Metformin HCl (Glucophage Xr -) 1,000 mg PO BIDAC [facility] Last Admin: 12/11/16 17:01 Dose: 1,000 mg Nicotine (Nicoderm Patch -) 21 mg TD DAILY [facility] Last Admin: 12/11/16 09:26 Dose: 21 mg Oxycodone HCl (Roxicodone -) 5 mg PO Q4H PRN PRN Reason: PAIN Last Admin: 12/11/16 01:18 Dose: 5 mg Prednisolone Acetate (Pred Forte 1% -) 1 drop OD QID [facility] Last Admin: 12/11/16 17:02 Dose: 1 drp - Objective Vital Signs: Vital Signs Temperature 97.3 F L 12/11/16 14:12 Pulse Rate 90 12/11/16 14:12 Respiratory Rate 20 12/11/16 09:00 Blood Pressure 115/70 12/11/16 14:12 O2 Sat by Pulse Oximetry (%) 97 12/10/16 20:22 HENT: Yes: Atraumatic Neck: Yes: Supple Cardiovascular: Yes: Regular Rate and Rhythm Respiratory: Yes: CTA Bilaterally Gastrointestinal: Yes: Normal Bowel Sounds Genitourinary: Yes: Other (abcesses on labia improving) Extremities: Yes: WNL Neurological: Yes: Alert, Oriented Labs: CBC, BMP 12/08/16 06:50 12/08/16 06:50 Problem List - Problems (1) Hidradenitis suppurativa Assessment/Plan: iv abx CONTINUE CX P VAGINAL US DONE Code(s): L73.2 - HIDRADENITIS SUPPURATIVA (2) Abscess Code(s): L02.91 - CUTANEOUS ABSCESS, UNSPECIFIED (3) Cellulitis Assessment/Plan: ON ABX Code(s): L03.90 - CELLULITIS, UNSPECIFIED Qualifiers: Site of cellulitis: other site Qualified Code(s): L03.818 - Cellulitis of other sites (4) Conjunctivitis Code(s): H10.9 - UNSPECIFIED CONJUNCTIVITIS Qualifiers: Conjunctivitis type: acute Acute conjunctivitis type: bacterial Laterality: bilateral Qualified Code(s): H10.33 - Unspecified acute conjunctivitis, bilateral (5) Low back pain Assessment/Plan: on motrin at home will continue Code(s): M54.5 - LOW BACK PAIN Qualifiers: Chronicity: acute Back pain laterality: bilateral Sciatica presence : without sciatica Qualified Code(s): M54.5 - Low back pain (6) Perineal abscess Code(s): L02.215 - CUTANEOUS ABSCESS OF PERINEUM (7) UTI (urinary tract infection) Code(s): N39.0 - URINARY TRACT INFECTION, SITE NOT SPECIFIED Qualifiers: Urinary tract infection type: site unspecified Hematuria presence: without hematuria Qualified Code(s): N39.0 - Urinary tract infection, site not specified (8) Schizophrenia Assessment/Plan: on meds stable Code(s): F20.9 - SCHIZOPHRENIA, UNSPECIFIED Assessment/Plan need to know from id if we can switch to po and how many days
--- NOTE | 2016-12-11 20:33 | PN ---
Progress Note, Physician History of Present Illness: stable no new issues pain still present with some drainage overall patient improving - Current Medication List Current Medications: Active Medications Acetaminophen (Tylenol -) 325 mg PO Q4H PRN PRN Reason: PAIN Stop: 12/11/16 22:58 Last Admin: 12/11/16 01:19 Dose: 325 mg Albuterol Sulfate (Ventolin Hfa Inhaler -) 2 puff IH Q4H PRN PRN Reason: SHORTNESS OF BREATH Atropine Sulfate (Atropine 1% Ophth. Solution -) 1 drop OD TID [facility] Last Admin: 12/11/16 14:21 Dose: 1 drop Divalproex Sodium (Depakote *Er* -) 500 mg PO BID [facility] Last Admin: 12/11/16 09:27 Dose: 500 mg Divalproex Sodium (Depakote -) 250 mg PO HS [facility] Last Admin: 12/10/16 21:20 Dose: 250 mg Doxycycline Hyclate (Vibramycin -) 100 mg PO BID@1000,1800 [facility] Last Admin: 12/11/16 17:00 Dose: 100 mg Haloperidol (Haldol -) 10 mg PO BID [facility] Last Admin: 12/11/16 09:26 Dose: 10 mg Levofloxacin (Levaquin) 750 mg PO DAILY [facility] Linezolid (Zyvox (Restricted To Id) -) 600 mg PO BID [facility] Last Admin: 12/11/16 09:26 Dose: 600 mg Metformin HCl (Glucophage Xr -) 1,000 mg PO BIDAC [facility] Last Admin: 12/11/16 17:01 Dose: 1,000 mg Nicotine (Nicoderm Patch -) 21 mg TD DAILY [facility] Last Admin: 12/11/16 09:26 Dose: 21 mg Oxycodone HCl (Roxicodone -) 5 mg PO Q4H PRN PRN Reason: PAIN Last Admin: 12/11/16 01:18 Dose: 5 mg Prednisolone Acetate (Pred Forte 1% -) 1 drop OD QID [facility] Last Admin: 12/11/16 17:02 Dose: 1 drp - Objective Vital Signs: Vital Signs Temperature 97.3 F L 12/11/16 14:12 Pulse Rate 90 12/11/16 14:12 Respiratory Rate 20 12/11/16 09:00 Blood Pressure 115/70 12/11/16 14:12 O2 Sat by Pulse Oximetry (%) 97 04/09/17 20:22 Constitutional: Yes: No Distress, Calm Cardiovascular: Yes: Regular Rate and Rhythm Respiratory: Yes: Regular, CTA Bilaterally Gastrointestinal: Yes: Normal Bowel Sounds, Soft Genitourinary: Yes: Vaginal Discharge, Other (vulvar swelling has decreased) Musculoskeletal: Yes: WNL Extremities: Yes: WNL Neurological: Yes: Alert, Oriented Psychiatric: Yes: Alert Labs: CBC, BMP 12/08/16 06:50 12/08/16 06:50 Assessment/Plan Problem List - Problems (1) Hidradenitis suppurativa Code(s): L73.2 - HIDRADENITIS SUPPURATIVA (2) Abscess Code(s): L02.91 - CUTANEOUS ABSCESS, UNSPECIFIED (3) Cellulitis Code(s): L03.90 - CELLULITIS, UNSPECIFIED Qualifiers: Site of cellulitis: other site Qualified Code(s): L03.818 - Cellulitis of other sites (4) Conjunctivitis Code(s): H10.9 - UNSPECIFIED CONJUNCTIVITIS Qualifiers: Conjunctivitis type: acute Acute conjunctivitis type: bacterial Laterality: bilateral Qualified Code(s): H10.33 - Unspecified acute conjunctivitis, bilateral (5) Low back pain Code(s): M54.5 - LOW BACK PAIN Qualifiers: Chronicity: acute Back pain laterality: bilateral Sciatica presence : without sciatica Qualified Code(s): M54.5 - Low back pain (6) Perineal abscess Code(s): L02.215 - CUTANEOUS ABSCESS OF PERINEUM (7) UTI (urinary tract infection) Code(s): N39.0 - URINARY TRACT INFECTION, SITE NOT SPECIFIED Qualifiers: Urinary tract infection type: site unspecified Hematuria presence: without hematuria Qualified Code(s): N39.0 - Urinary tract infection, site not specified (8) Schizophrenia Code(s): F20.9 - SCHIZOPHRENIA, UNSPECIFIED plan continue abx awaiting [employer] final recommendation continue zyox for another 5 days continue levaquin for another 7 days rest as per primary team
[2016-12-11] MEDS: LEVOFLOXACIN 750 MG TABLET PO SCH (21:37)
[2016-12-11] MEDS: DIVALPROEX SODIUM 250 MG TABLET E.C. (FP) PO SCH (21:38)
[2016-12-12] MEDS: ATROPINE SO4 1% OPHTH SOLN 5 ML BOTTLE OD SCH ×3 (06:17→21:49)
[2016-12-12] MEDS: LEVOFLOXACIN 750 MG TABLET PO SCH (06:20)
[2016-12-12] MEDS ORDERED: PT OWN MED DRAWER 7, Y5N ONE ×3 (09:06→21:46)
[2016-12-12] MEDS: DIVALPROEX NA *ER* EXTEND REL 500 MG TABLET.SA (FP) PO SCH ×2 (09:09→21:52)
[2016-12-12] MEDS: NICOTINE 21 MG/24 HOURS TOPICAL PATCH TD SCH (09:09)
[2016-12-12] MEDS: DOXYCYCLINE HYCLATE 100 MG CAPSULE PO SCH ×2 (09:09→17:29)
[2016-12-12] MEDS: LINEZOLID 600 MG TABLET (RESTRICTED TO ID) PO SCH ×2 (09:10→21:50)
[2016-12-12] MEDS: HALOPERIDOL 5 MG TABLET (FP) PO SCH ×2 (09:10→21:50)
[2016-12-12] MEDS: prednisoLONE ACETATE 1% OPHTH SUSP 5 ML BOTTLE OD SCH ×4 (09:11→21:48)
[2016-12-12] MEDS ORDERED: oxyCODONE HCL 5 MG TABLET PO ONE (10:15)
[2016-12-12] MEDS ORDERED: ACETAMINOPHEN 325 MG TABLET (FP) PO ONE (10:15)
--- NOTE | 2016-12-12 12:41 | PN ---
Progress Note (short form) - Note Progress Note: pelvic sono report reviewed , EM normal , can follow up as out patient. Problem List - Problems (1) Vaginal discharge Code(s): N89.8 - OTHER SPECIFIED NONINFLAMMATORY DISORDERS OF VAGINA
--- NOTE | 2016-12-12 13:06 | PN ---
Progress Note, Physician History of Present Illness: stable no new issues feeling better - Current Medication List Current Medications: Active Medications Albuterol Sulfate (Ventolin Hfa Inhaler -) 2 puff IH Q4H PRN PRN Reason: SHORTNESS OF BREATH Atropine Sulfate (Atropine 1% Ophth. Solution -) 1 drop OD TID [facility] Last Admin: 12/12/16 06:17 Dose: 1 drop Divalproex Sodium (Depakote *Er* -) 500 mg PO BID [facility] Last Admin: 12/12/16 09:09 Dose: 500 mg Divalproex Sodium (Depakote -) 250 mg PO HS [facility] Last Admin: 12/11/16 21:38 Dose: 250 mg Doxycycline Hyclate (Vibramycin -) 100 mg PO BID@1000,1800 [facility] Last Admin: 12/12/16 09:09 Dose: 100 mg Haloperidol (Haldol -) 10 mg PO BID [facility] Last Admin: 12/12/16 09:10 Dose: 10 mg Levofloxacin (Levaquin) 750 mg PO DAILY@0600 [facility] Last Admin: 12/12/16 06:20 Dose: 750 mg Linezolid (Zyvox (Restricted To Id) -) 600 mg PO BID [facility] Last Admin: 12/12/16 09:10 Dose: 600 mg Metformin HCl (Glucophage Xr -) 1,000 mg PO BIDAC [facility] Last Admin: 12/12/16 06:20 Dose: 1,000 mg Nicotine (Nicoderm Patch -) 21 mg TD DAILY [facility] Last Admin: 12/12/16 09:09 Dose: 21 mg Prednisolone Acetate (Pred Forte 1% -) 1 drop OD QID [facility] Last Admin: 12/12/16 09:11 Dose: 1 drp - Objective Vital Signs: Vital Signs Temperature 98.5 F 12/12/16 08:00 Pulse Rate 89 12/12/16 08:00 Respiratory Rate 20 12/12/16 08:00 Blood Pressure 121/95 12/12/16 08:00 O2 Sat by Pulse Oximetry (%) 97 12/12/16 08:00 Constitutional: Yes: No Distress, Calm Cardiovascular: Yes: Regular Rate and Rhythm Respiratory: Yes: Regular, CTA Bilaterally Gastrointestinal: Yes: Normal Bowel Sounds, Soft Musculoskeletal: Yes: WNL Extremities: Yes: WNL Wound/Incision: Yes: Other (improving minimal drainage) Neurological: Yes: Alert, Oriented Psychiatric: Yes: Alert, Oriented Labs: CBC, BMP 12/08/16 06:50 12/08/16 06:50 Assessment/Plan Problem List - Problems (1) Hidradenitis suppurativa Code(s): L73.2 - HIDRADENITIS SUPPURATIVA (2) Abscess Code(s): L02.91 - CUTANEOUS ABSCESS, UNSPECIFIED (3) Cellulitis Code(s): L03.90 - CELLULITIS, UNSPECIFIED Qualifiers: Site of cellulitis: other site Qualified Code(s): L03.818 - Cellulitis of other sites (4) Conjunctivitis Code(s): H10.9 - UNSPECIFIED CONJUNCTIVITIS Qualifiers: Conjunctivitis type: acute Acute conjunctivitis type: bacterial Laterality: bilateral Qualified Code(s): H10.33 - Unspecified acute conjunctivitis, bilateral (5) Low back pain Code(s): M54.5 - LOW BACK PAIN Qualifiers: Chronicity: acute Back pain laterality: bilateral Sciatica presence : without sciatica Qualified Code(s): M54.5 - Low back pain (6) Perineal abscess Code(s): L02.215 - CUTANEOUS ABSCESS OF PERINEUM (7) UTI (urinary tract infection) Code(s): N39.0 - URINARY TRACT INFECTION, SITE NOT SPECIFIED Qualifiers: Urinary tract infection type: site unspecified Hematuria presence: without hematuria Qualified Code(s): N39.0 - Urinary tract infection, site not specified (8) Schizophrenia Code(s): F20.9 - SCHIZOPHRENIA, UNSPECIFIED plan continue abx continue zyox for another 5 days continue levaquin for another 7 days rest as per primary team
--- NOTE | 2016-12-12 15:18 | DS ---
Physical Examination Vital Signs: Vital Signs Temperature 97.5 F L 12/12/16 14:10 Pulse Rate 90 12/12/16 14:10 Respiratory Rate 20 12/12/16 08:00 Blood Pressure 120/65 12/12/16 14:10 O2 Sat by Pulse Oximetry (%) 97 12/12/16 08:00 Constitutional: Yes: No Distress HENT: Yes: Atraumatic Neck: Yes: Supple Cardiovascular: Yes: Regular Rate and Rhythm Respiratory: Yes: CTA Bilaterally Gastrointestinal: Yes: Normal Bowel Sounds Extremities: Yes: WNL Labs: CBC, BMP 12/08/16 06:50 12/08/16 06:50 Discharge Summary Reason For Visit: HIDRADENITIS SUPPURATIVA Current Active Problems Hidradenitis suppurativa (Acute) Vaginal discharge (Acute) Wound of left buttock (Acute) Condition: Good - Instructions Referrals: Jeffery Tomlin [Primary Care Provider] - - Home Medications Comprehensive Discharge Medication List: Ambulatory Orders Albuterol Sulfate [Proair Respiclick] 2 puff IH Q4H PRN 11/29/16 Atropine 1% Ophth. Solution - 1 drop OD TID 11/29/16 Cyclobenzaprine HCl 5 mg PO TID 11/29/16 Divalproex [Depakote -] 250 mg PO HS 11/29/16 Famotidine 20 mg PO BID 11/29/16 Haloperidol [Haldol -] 10 mg PO BID 11/29/16 Ibuprofen 400 mg PO TID 11/29/16 Metformin HCl [Metformin HCl ER] 1,000 mg PO BID 11/29/16 Naproxen [Naprosyn -] 500 mg PO TID 11/29/16 Prednisolone 1% Ophthalmic [Pred Forte 1% -] 5 ml OD QID 11/29/16 Propylene Glycol/Peg 400/Pf [Systane 0.3-0.4% Eye Drops] 1 each OD TID 11/29/16 Tobramycin 0.3% Ophth Soln [Tobrex Ophthalmic Solution -] 2 drop OU Q4H #1 drops 11/29/16 Tobramycin/Dexamethasone [Tobradex Eye Drops] 5 ml OP QID 11/29/16 Divalproex *ER* [Depakote *ER* -] 500 mg PO BID 12/04/16 Levofloxacin [Levaquin] 750 mg PO DAILY #7 tab 12/11/16 Linezolid [Zyvox (Restricted To Id) -] 600 mg PO BID #10 tablet 12/11/16 DC HOME ON PO ABX
[2016-12-12] MEDS: DIVALPROEX SODIUM 250 MG TABLET E.C. (FP) PO SCH (22:24)
[2016-12-13] MEDS ORDERED: oxyCODONE HCL 5 MG TABLET PO ONE (03:10)
[2016-12-13] MEDS: LEVOFLOXACIN 750 MG TABLET PO SCH (06:38)
[2016-12-13] MEDS: ATROPINE SO4 1% OPHTH SOLN 5 ML BOTTLE OD SCH ×2 (06:38→14:41)
[2016-12-13] MEDS ORDERED: PT OWN MED DRAWER 7, Y5N ONE (09:27)
[2016-12-13] MEDS: DIVALPROEX NA *ER* EXTEND REL 500 MG TABLET.SA (FP) PO SCH (09:28)
[2016-12-13] MEDS: LINEZOLID 600 MG TABLET (RESTRICTED TO ID) PO SCH (09:28)
[2016-12-13] MEDS: DOXYCYCLINE HYCLATE 100 MG CAPSULE PO SCH (09:29)
[2016-12-13] MEDS: HALOPERIDOL 5 MG TABLET (FP) PO SCH (09:29)
[2016-12-13] MEDS: prednisoLONE ACETATE 1% OPHTH SUSP 5 ML BOTTLE OD SCH ×2 (09:29→14:41)
[2016-12-13] MEDS: NICOTINE 21 MG/24 HOURS TOPICAL PATCH TD SCH (09:29)
--- NOTE | 2016-12-13 12:59 | PN ---
Progress Note, Physician History of Present Illness: stable no complaints doing well - Current Medication List Current Medications: Active Medications Albuterol Sulfate (Ventolin Hfa Inhaler -) 2 puff IH Q4H PRN PRN Reason: SHORTNESS OF BREATH Atropine Sulfate (Atropine 1% Ophth. Solution -) 1 drop OD TID [facility] Last Admin: 12/13/16 06:38 Dose: 1 drop Divalproex Sodium (Depakote *Er* -) 500 mg PO BID [facility] Last Admin: 12/13/16 09:28 Dose: 500 mg Divalproex Sodium (Depakote -) 250 mg PO HS [facility] Last Admin: 12/12/16 22:24 Dose: 250 mg Doxycycline Hyclate (Vibramycin -) 100 mg PO BID@1000,1800 [facility] Last Admin: 12/13/16 09:29 Dose: 100 mg Haloperidol (Haldol -) 10 mg PO BID [facility] Last Admin: 12/13/16 09:29 Dose: 10 mg Levofloxacin (Levaquin) 750 mg PO DAILY@0600 [facility] Last Admin: 12/13/16 06:38 Dose: 750 mg Linezolid (Zyvox (Restricted To Id) -) 600 mg PO BID [facility] Last Admin: 12/13/16 09:28 Dose: 600 mg Metformin HCl (Glucophage Xr -) 1,000 mg PO BIDAC [facility] Last Admin: 12/13/16 06:38 Dose: 1,000 mg Nicotine (Nicoderm Patch -) 21 mg TD DAILY [facility] Last Admin: 12/13/16 09:29 Dose: 21 mg Prednisolone Acetate (Pred Forte 1% -) 1 drop OD QID [facility] Last Admin: 12/13/16 09:29 Dose: 1 drp - Objective Vital Signs: Vital Signs Temperature 98.7 F 12/13/16 10:00 Pulse Rate 91 H 12/13/16 10:00 Respiratory Rate 20 12/13/16 10:00 Blood Pressure 118/79 12/13/16 10:00 O2 Sat by Pulse Oximetry (%) 96 12/12/16 21:00 Constitutional: Yes: No Distress, Calm Cardiovascular: Yes: Regular Rate and Rhythm Respiratory: Yes: Regular, CTA Bilaterally Gastrointestinal: Yes: Normal Bowel Sounds, Soft Genitourinary: Yes: Vaginal Discharge (resolved) Musculoskeletal: Yes: WNL Extremities: Yes: WNL Neurological: Yes: Alert, Oriented Psychiatric: Yes: Alert, Oriented Labs: CBC, BMP 12/08/16 06:50 12/08/16 06:50 Assessment/Plan Problem List - Problems (1) Hidradenitis suppurativa Code(s): L73.2 - HIDRADENITIS SUPPURATIVA (2) Abscess Code(s): L02.91 - CUTANEOUS ABSCESS, UNSPECIFIED (3) Cellulitis Code(s): L03.90 - CELLULITIS, UNSPECIFIED Qualifiers: Site of cellulitis: other site Qualified Code(s): L03.818 - Cellulitis of other sites (4) Conjunctivitis Code(s): H10.9 - UNSPECIFIED CONJUNCTIVITIS Qualifiers: Conjunctivitis type: acute Acute conjunctivitis type: bacterial Laterality: bilateral Qualified Code(s): H10.33 - Unspecified acute conjunctivitis, bilateral (5) Low back pain Code(s): M54.5 - LOW BACK PAIN Qualifiers: Chronicity: acute Back pain laterality: bilateral Sciatica presence : without sciatica Qualified Code(s): M54.5 - Low back pain (6) Perineal abscess Code(s): L02.215 - CUTANEOUS ABSCESS OF PERINEUM (7) UTI (urinary tract infection) Code(s): N39.0 - URINARY TRACT INFECTION, SITE NOT SPECIFIED Qualifiers: Urinary tract infection type: site unspecified Hematuria presence: without hematuria Qualified Code(s): N39.0 - Urinary tract infection, site not specified (8) Schizophrenia Code(s): F20.9 - SCHIZOPHRENIA, UNSPECIFIED plan continue abx as planned complete the course follow with gynacology monitor for any infections
[2016-12-13 14:25] VITALS: BP 135/64; PULSE 90; TEMP 97.8
== END 2016-12-13 17:05 | disposition home or self-care (01) | DRG 385 ==
LOC: JER 14:07 → JERBED 18:24 → J6S 21:34
PROVIDERS: ADMIT Internal Medicine; ATTEND Internal Medicine
DX: L73.2 Hidradenitis suppurativa (principal); F20.89 Other schizophrenia; F31.89 Other bipolar disorder; E11.9 Type 2 diabetes mellitus without complications; K21.9 Gastro-esophageal reflux disease without esophagitis; M54.5 Low back pain; J45.909 Unspecified asthma, uncomplicated; F17.210 Nicotine dependence, cigarettes, uncomplicated; L03.818 Cellulitis of other sites; H10.9 Unspecified conjunctivitis; K80.70 Calculus of gallbladder and bile duct without cholecystitis without obstruction; N89.8 Other specified noninflammatory disorders of vagina; L02.215 Cutaneous abscess of perineum; N39.0 Urinary tract infection, site not specified; S31.829A Unspecified open wound of left buttock, initial encounter; X58.XXXA Exposure to other specified factors, initial encounter; Y93.89 Activity, other specified; Y92.89 Other specified places as the place of occurrence of the external cause
CPT/HCPCS: 36415; 74177-TC; 76830-TC; 80053; 80307; 81003; 81015; 83605; 85025; 87040; 87070; 87186; 87205; 87491; 87591; 93005; 93010; 99283-25

== ENCOUNTER 2017-05-14 22:47 | Emergency (ER) | payer OTHER ==
[2017-05-14 23:32] VITALS: BP 114/74; PULSE 96; TEMP 97.8; BMI 37.2
[2017-05-15] MEDS ORDERED: ACETAMINOPHEN 325 MG TABLET (FP) PO ONE (00:10)
--- NOTE | 2017-05-15 00:16 | PDOC ---
History of Present Illness - General History Source: Patient - History of Present Illness Initial Comments: 05/15/17 00:59 51 y/o F with a PMHx of schizophrenia, bipolar disorder, NIDDM, hidradenitis suppurativa, GERD, chronic low back pain presents to the ED from [facility] with low back pain that is chronic, atruamatic without associated numbness/tingling/weakness, fever/chills. Pt also endorses some pelvic pain/burning due to hidradenitis suppurativa, and pain on buttocks, she does not an increase amount of clearish discharge. Patient states she was referred to a associate professor of communication, plastic surgeon and ID doctor previous visits for similar complaints.She denies chest pain, SOB. Denies urinary complaints. <Flores Villela - Last Filed: 05/15/17 00:59> <Heber Hampton - Last Filed: 05/15/17 02:16> - General Chief Complaint: Pain Stated Complaint: LOWER BACK PAIN Time Seen by Provider: 05/14/17 23:37 Past History <Flores Villela - Last Filed: 05/15/17 00:59> - Past Medical History Diabetes: Yes GI Disorders: Yes (gerd) Psychiatric Problems: Yes (Schizophrenia) - Immunization History Immunization Up to Date: Yes - Psycho/Social/Smoking Cessation Hx Anxiety: Yes Suicidal Ideation: No Smoking History: Current every day smoker Have you smoked in the past 12 months: Yes Number of Cigarettes Smoked Daily: 20 Cigars Per Day: 5 Information on smoking cessation initiated: No 'Breaking Loose' booklet given: 12/04/16 Hx Alcohol Use: No Drug/Substance Use Hx: No Substance Use Type: None <Heber Hampton - Last Filed: 05/15/17 02:16> - Past Medical History Allergies/Adverse Reactions: Allergies Allergy/AdvReac Type Severity Reaction Status Date / Time No Known Drug Allergies Allergy Verified 05/14/17 23:26 Dairy AdvReac Uncoded 05/14/17 23:26 Spaguetti Sauce AdvReac Uncoded 05/14/17 23:26 Home Medications: Ambulatory Orders Albuterol Sulfate [Proair Respiclick] 2 puff IH Q4H PRN 11/29/16 Atropine 1% Ophth. Solution - 1 drop OD TID 11/29/16 Cyclobenzaprine HCl 5 mg PO TID 11/29/16 Divalproex [Depakote -] 250 mg PO HS 11/29/16 Famotidine 20 mg PO BID 11/29/16 Haloperidol [Haldol -] 10 mg PO BID 11/29/16 Ibuprofen 400 mg PO TID 11/29/16 Metformin HCl [Metformin HCl ER] 1,000 mg PO BID 11/29/16 Naproxen [Naprosyn -] 500 mg PO TID 11/29/16 Prednisolone 1% Ophthalmic [Pred Forte 1% -] 5 ml OD QID 11/29/16 Propylene Glycol/Peg 400/Pf [Systane 0.3-0.4% Eye Drops] 1 each OD TID 11/29/16 Tobramycin 0.3% Ophth Soln [Tobrex Ophthalmic Solution -] 2 drop OU Q4H #1 drops 11/29/16 Tobramycin/Dexamethasone [Tobradex Eye Drops] 5 ml OP QID 11/29/16 Divalproex *ER* [Depakote *ER* -] 500 mg PO BID 12/04/16 Levofloxacin [Levaquin] 750 mg PO DAILY #7 tab 12/11/16 Linezolid [Zyvox (Restricted To Id) -] 600 mg PO BID #10 tablet 12/11/16 Review of Systems - Review of Systems Able to Perform ROS?: Yes Comments:: 05/15/17 00:59 CONSTITUTIONAL: No reported: Fever, Chills, Diaphoresis, Generalized Weakness, Malaise, Loss of Appetite HEENT: No reported: Rhinorrhea, Nasal Congestion, Throat Pain, Throat Swelling, Difficulty Swallowing, Mouth Swelling, Ear Pain, Eye Pain, Visual Changes CARDIOVASCULAR: No reported: Chest Pain, Syncope, Palpitations, Irregular Heart Rate, Lightheadedness, Peripheral Edema RESPIRATORY: No reported: Cough, Shortness of Breath, SOB with Exertion, Orthopnea, Wheezing , Stridor, Hemoptysis GASTROINTESTINAL: (+) pain on buttocks, bloody stool No reported: Abdominal pain, Abdominal Distension, Nausea, Vomiting, Diarrhea, Constipation GENITOURINARY: (+) pelvic pain No reported: Dysuria, Frequency, Urgency, Hesitancy, Flank Pain, Genital Pain MUSCULOSKELETAL: (+) low back pain No reported: Myalgia, Arthralgia, Joint Swelling, Neck Pain SKIN: No reported: Rash, Itching, Pallor HEMEATOLOGIC/IMMUNOLOGIC: No reported: Easy Bleeding, Easy Bruising, Lymphadenopathy, Frequent infections ENDOCRINE: No reported: Unexplained Weight Gain, Unexplained Weight Loss, Heat Intolerance , Cold Intolerance NEUROLOGIC: No reported: Headache, Focal Weakness, Paresthesias, Vertigo, Lightheadedness, Unsteady Gait, Seizure, Mental Status Changes, Incontinence PSYCHIATRIC: No reported: Anxiety, Depression <Flores Villela - Last Filed: 05/15/17 00:59> *Physical Exam - Vital Signs Last Vital Signs Temp Pulse Resp BP Pulse Ox 97.8 F 96 H 18 114/74 97 05/14/17 23:22 05/14/17 23:22 05/14/17 23:22 05/14/17 23:22 05/14/17 23:22 - Physical Exam Comments: 05/15/17 01:00 GENERAL: The patient is awake, alert, and fully oriented, Nontoxic - in no acute distress. HEAD: Normocephalic, atraumatic. EYES: extraocular movements intact, sclera anicteric, conjunctiva clear. ENT: Normal voice, Moist mucous membranes. NECK: Normal range of motion, supple LUNGS: Breath sounds equal, clear to auscultation bilaterally. No wheezes, no rhonchi, no rales. HEART: Regular rate and rhythm, without murmur, rub or gallop. ABDOMEN: Soft, nontender, normoactive bowel sounds. No guarding, no rebound.No CVA tenderness, pelvic region large mass in suprapbuic region c/w HS, thickened skin/massess on pelvic region without erythema/warmth, no purulent discharge, fluctuance. EXTREMITIES: Normal range of motion, no edema. No clubbing or cyanosis. No cords, erythema, or tenderness. NEUROLOGICAL: No facial assymetry, Normal speech, PSYCH: flat affect SKIN: Warm, Dry, normal turgor <Flores Villela - Last Filed: 05/15/17 00:59> - Vital Signs Last Vital Signs Temp Pulse Resp BP Pulse Ox 97.8 F 96 H 18 114/74 97 05/14/17 23:22 05/14/17 23:22 05/14/17 23:22 05/14/17 23:22 05/14/17 23:22 <Heber Hampton - Last Filed: 05/15/17 02:16> ED Treatment Course - LABORATORY CBC & Chemistry Diagram: 05/15/17 00:37 05/15/17 00:37 <Flores Villela - Last Filed: 05/15/17 00:59> - LABORATORY CBC & Chemistry Diagram: 05/15/17 00:37 05/15/17 00:37 <Heber Hampton - Last Filed: 05/15/17 02:16> Medical Decision Making - Medical Decision Making 05/15/17 00:13 51y F hx of bipolar disorder, hydranditis supperitiva present with worsening of chronic lower back pain. atraumatic, worse in lower back, w/o ssociated fever/ chills, n/v, nu,bness/tingling. on exam pt has mild diffuse tenderness in LE. pt also has a large mass in the pelvic region and skin changes c/w her HS in her groin region, there is no erythema/induration/warmth. there is some clearish drainage. will ck basic labs, ua will give tylenol no signs of acute infectio for her HS if +fvever or leukocytosis, consider imaging. 05/15/17 02:13 back pain improved mild leukocytosis to 12 will give pt course of doxy and will refer to dermatology return precautions wer discussed I discussed the physical exam findings, ancillary test results and final diagnoses with the patient. I answered all of the patient's questions. The patient was satisfied with the care received and felt comfortable with the discharge plan and treatment plan. The patient will call their primary care physician within 24 hours to arrange follow-up and will return to the Emergency Department with any new, persistent or worsening symptoms. A portion of this note was documented by scribe services under my direction. I have reviewed the details of the note, within reason, and agree with the documentation with the following case summary and management plan written by me <Heber Hampton - Last Filed: 05/15/17 02:16> *DC/Admit/Observation/Transfer - Attestations Scribe Attestion: 05/15/17 00:23 Documentation prepared by Flores Villela, acting as medical historian for Heber Hampton MD. <Flores Villela - Last Filed: 05/15/17 00:59> - Discharge Dispostion Admit: No <Heber Hampton - Last Filed: 05/15/17 02:16> Diagnosis at time of Disposition: Hidradenitis suppurativa Back pain Qualifiers: Back pain location: low back pain Chronicity: chronic Back pain laterality: bilateral Sciatica presence: without sciatica Qualified Code(s): M54.5 - Low back pain - Discharge Dispostion Disposition: HOME Condition at time of disposition: Improved - Referrals Referrals: Isabel Agustin MD [Staff Physician] - - Patient Instructions Printed Discharge Instructions: DI for Low Back Pain Additional Instructions: Return to the emergency department immediately with ANY new, persistent or worsening symptoms including any fever/chills, increasing pain, purulent discharge. You MUST call and follow up with your doctor on wed and follow up with a construction superintendent for management of your hydranitis supperativa for further evaluation of your symptoms. Results were discussed with you. Please make sure your doctor reviews the results of your emergency evaluation. Print Language: YI
[2017-05-15] MEDS ORDERED: ACETAMINOPHEN 325 MG TABLET (FP) ONE (00:25)
[2017-05-15 00:51] LABS: BASOPHIL 0.5 % (0-2.0); EOSINOPHIL 1.4 % (0-4.5); MCHC 32.3 g/dl (32.0-36.0); MEAN CELL VOLUME 77.6 fl (80-96); NEUTROPHILS 58.1 % (42.8-82.8); PLATELET COUNT 428 K/MM3 (134-434); RDW 19.6 % (11.6-15.6); WHITE BLOOD COUNT 12.3 K/mm3 (4.0-10.0)
[2017-05-15 01:30] LABS: ALBUMIN 2.5 g/dl (3.4-5.0); ALK PHOS 95 U/L (45-117); ANION GAP 8 (8-16); BILIRUBIN,TOTAL 0.2 mg/dL (0.2-1.0); CALCIUM 8.7 mg/dL (8.5-10.1); CO2 28 mmol/L (21-32); CREATININE 0.5 mg/dL (0.55-1.02); GLUCOSE,RANDOM 76 mg/dL (74-106); SGOT/AST 4 U/L (15-37); SGPT/ALT 9 U/L (12-78); TOT PROT 7.3 g/dl (6.4-8.2)
[2017-05-15 01:36] LABS: URINE APPEARANCE CLEAR; URINE BILIRUBIN NEGATIVE (NEGATIVE); URINE BLOOD NEGATIVE (NEGATIVE); URINE COLOR LT. YELLOW; URINE GLUCOSE (UA) NEGATIVE (NEGATIVE); URINE KETONE NEGATIVE (NEGATIVE); URINE NITRITE NEGATIVE (NEGATIVE); URINE PROTEIN NEGATIVE (NEGATIVE); URINE UROBILINOGEN 0.2 mg/dL (0.2-1.0)
== END 2017-05-15 07:55 | disposition home or self-care (01) ==
LOC: JER 22:47
DX: L73.2 Hidradenitis suppurativa (principal); E11.9 Type 2 diabetes mellitus without complications; Z79.84 Long term (current) use of oral hypoglycemic drugs; K21.9 Gastro-esophageal reflux disease without esophagitis; F20.9 Schizophrenia, unspecified; F31.9 Bipolar disorder, unspecified; F17.210 Nicotine dependence, cigarettes, uncomplicated
CPT/HCPCS: 36415; 80053; 81003; 85025; 99282-25

== ENCOUNTER 2017-12-06 20:52 | Inpatient (IN) | payer OTHER ==
--- NOTE | 2017-12-06 21:20 | PDOC ---
Rapid Medical Evaluation Time Seen by Provider: 12/06/17 21:15 Medical Evaluation: Allergies Allergy/AdvReac Type Severity Reaction Status Date / Time No Known Drug Allergies Allergy Verified 05/14/17 23:26 Dairy AdvReac Uncoded 05/14/17 23:26 Spaguetti Sauce AdvReac Uncoded 05/14/17 23:26 12/06/17 21:15 I have performed a brief in-person evaluation of this patient. The patient presents with a chief complaint of: d/c from [facility] this morning , was using walkera nd tripped and fell, hit face on walker and the ground, denies LOC/vomiting, found on floor by EMS Pertinent physical exam findings: bleeding to lips, chipped tooth, temp 102.9, tachy 121 I have ordered the following: septic workup, facial bone ct The patient will proceed to the ED for further evaluation. Discharge Disposition - Diagnosis Fall - Referrals - Patient Instructions - Post Discharge Activity
[2017-12-06 22:09] LABS: VENOUS PC02 42.9 mmHg (38-52); VENOUS PH 7.38 (7.32-7.42); VENOUS PO2 24.3 mmHg (28-48)
[2017-12-06 22:10] LABS: BASO % 0.8 % (0-2.0); EOS % 0.5 % (0-4.5); HEMATOCRIT 29.8 % (32.4-45.2); HEMOGLOBIN 9.5 GM/dL (10.7-15.3); MCH 24.9 pg (25.7-33.7); MEAN CELL VOLUME 77.8 fl (80-96); MEAN PLT VOLUME 7.5 fl (7.5-11.1); MONO % 2.6 % (3.8-10.2); NEUT % 88.1 % (42.8-82.8); PLATELET COUNT 529 K/MM3 (134-434); RBC 3.82 M/mm3 (3.60-5.2); RDW 20.2 % (11.6-15.6); WHITE BLOOD COUNT 12.2 K/mm3 (4.0-10.0)
[2017-12-06 22:24] LABS: INR 1.13 (0.82-1.09); PROTHROMBIN TIME (PATIENT) 12.8 SEC (9.98-11.88)
[2017-12-06 22:27] LABS: ACTIVATED PTT 32.1 SECONDS (26.9-34.4)
--- NOTE | 2017-12-06 22:32 | PDOC ---
History of Present Illness - General Chief Complaint: Injury Stated Complaint: FALL Time Seen by Provider: 12/06/17 21:15 - History of Present Illness Initial Comments: 12/06/17 22:27 51 yo F with h/o schitzophrenia, bipolar disorder, NIDDM, hidranenitis suppurativa, homelessness who p/w facial/head injury s/p mechanical fall. Pt. reports falling while ambulating with walker outside of [facility] leaving the ED this AM after being in ED overnight. States that she was not seen by staff for complaint of vaginal bleeding/discharge. Whle walking out of the ED she reports falling onto concrete and landing on her face, without LOC, lightheadedness, or vision changes. Now reports diffuse KEARNEY, Arrives from [facility] tachycardic ~121, and temp 102.9. States that she has had dark, brown, vaginal bleeding and discharge x 1 week. Also endorses chronic intermittent rectal bleeding with BM, but no acute change. Also endorses acute SOB. Denies N/V, CP , wheezing, cough, orthopnea, palpitations, abdominal pain, diarrhea, constipation, urinary complaints, weakness, lightheadedness, sensory changes. Has h/o poor management of H. suppurativa. Does not routinely f/w dermatology and has poor hygiene. Pt. has been seen in this hospital multiple times in past with multiple admissions for Hidradenitis related complications. Last admission ( 12/04-12/12/16) for treatment of hidradenitis and scleritis. Has been followed by [facility] in the past. Has grown pseudomonas aeruginosa and Vr Enterococcus Faecium and Prevotella Leschii from [facility]. Seen by Dr. Garay in previous admissions for [facility]. States that she is supposed to f/ u with PMD this sunday,but does not recall name. 5-6 cigarettes per day for 20 + years. Past History - Past Medical History Allergies/Adverse Reactions: Allergies Allergy/AdvReac Type Severity Reaction Status Date / Time No Known Drug Allergies Allergy Verified 12/06/17 21:22 Dairy AdvReac Uncoded 12/06/17 21:22 Spaguetti Sauce AdvReac Uncoded 12/06/17 21:22 Home Medications: Ambulatory Orders Albuterol Sulfate [Proair Respiclick] 2 puff IH Q4H PRN 11/29/16 Atropine 1% Ophth. Solution - 1 drop OD TID 11/29/16 Cyclobenzaprine HCl 5 mg PO TID 11/29/16 Divalproex [Depakote -] 250 mg PO HS 11/29/16 Famotidine 20 mg PO BID 11/29/16 Haloperidol [Haldol -] 10 mg PO BID 11/29/16 Ibuprofen 400 mg PO TID 11/29/16 Metformin HCl [Metformin HCl ER] 1,000 mg PO BID 11/29/16 Naproxen [Naprosyn -] 500 mg PO TID 11/29/16 Prednisolone 1% Ophthalmic [Pred Forte 1% -] 5 ml OD QID 11/29/16 Tobramycin/Dexamethasone [Tobradex Eye Drops] 5 ml OP QID 11/29/16 Divalproex *ER* [Depakote *ER* -] 500 mg PO BID 12/04/16 Doxycycline Monohydrate [Mondoxyne Nl] 100 mg PO BID #14 capsule 05/15/17 COPD: No Diabetes: Yes GI Disorders: Yes (gerd) Psychiatric Problems: Yes (Schizophrenia) - Immunization History Immunization Up to Date: Yes - Suicide/Smoking/Psychosocial Hx Smoking History: Current every day smoker Have you smoked in the past 12 months: Yes Number of Cigarettes Smoked Daily: 20 Cigars Per Day: 5 Information on smoking cessation initiated: No 'Breaking Loose' booklet given: 12/04/16 Hx Alcohol Use: No Drug/Substance Use Hx: No Substance Use Type: None Review of Systems - Review of Systems Comments:: 12/06/17 22:30 GENERAL/CONSTITUTIONAL+ Fever. No chills. No weakness. HEAD, EYES, EARS, NOSE AND THROAT:+ Facial pain. No change in vision. No ear pain or discharge. No sore throat. CARDIOVASCULAR: No chest pain or shortness of breath RESPIRATORY: No cough, wheezing, or hemoptysis. GASTROINTESTINAL: No nausea, vomiting, diarrhea or constipation. GENITOURINARY: + Iguinal swelling/redness. No dysuria, frequency, or change in urination. MUSCULOSKELETAL: No joint or muscle swelling or pain. No neck or back pain. SKIN:+ rash NEUROLOGIC: No headache, vertigo, loss of consciousness, or change in strength/ sensation. ENDOCRINE: No increased thirst. No abnormal weight change HEMATOLOGIC/LYMPHATIC: No anemia, easy bleeding, or history of blood clots. ALLERGIC/IMMUNOLOGIC: No hives or skin allergy. *Physical Exam - Vital Signs Last Vital Signs Temp Pulse Resp BP Pulse Ox 102.9 F H 121 H 22 114/69 100 12/06/17 21:19 12/06/17 21:19 12/06/17 21:19 12/06/17 21:19 12/06/17 21:19 - Physical Exam Comments: 12/06/17 22:31 GENERAL: Pt. is malodorous. Awake, alert, and fully oriented. HEAD: No signs of trauma, normocephalic, atraumatic EYES: PERRLA, EOMI, sclera anicteric, conjunctiva clear ENT: R eye ecchymosis. Auricles normal inspection, hearing grossly normal, nares patent, oropharynx clear without exudates. Rt. front tooth is chipped. NECK: Normal ROM, supple, no lymphadenopathy, JVD, or masses LUNGS: No distress, speaks full sentences, clear to auscultation bilaterally HEART: Regular rate and rhythm, normal S1 and S2, no murmurs, rubs or gallops, peripheral pulses normal and equal bilaterally. ABDOMEN: Soft, nontender, normoactive bowel sounds. No guarding, no rebound. No masses : Diffuse inguinal induration, erythema, warmth, and nodules extending into perineum, inner thighs, and buttocks with fibrotic tissue and sinus tracts. Pus draining from L sided inguinal area. Areas of fibrosis noted in BL axilla. BL labia majora swelling. 10 x 10 cm soft, mobile, suprapubic, tissue mass. EXTREMITIES : Normal inspection, Normal range of motion, no edema. No clubbing or cyanosis. NEUROLOGICAL: Cranial nerves II through XII grossly intact. Normal speech, normal gait, no focal sensorimotor deficits SKIN: Warm, Dry, normal turgor, no rashes or lesions noted ED Treatment Course - LABORATORY CBC & Chemistry Diagram: 12/06/17 21:56 12/06/17 21:56 - ADDITIONAL ORDERS Additional order review: Laboratory Results 12/06/17 21:56 VBG pH 7.38 POC VBG pCO2 42.9 POC VBG pO2 24.3 L Mixed VBG HCO3 25.3 H 12/06/17 21:56 RBC 3.82 MCV 77.8 L MCHC 32.0 RDW 20.2 H MPV 7.5 Neutrophils % 88.1 H D Lymphocytes % 8.0 D Monocytes % 2.6 L Eosinophils % 0.5 Basophils % 0.8 - RADIOLOGY Radiology Studies Ordered: Category Date Time Status CERVICAL SPINE CT W/O CONTR [CT] Stat CT Scan 12/06/17 22:[address] WITHOUT CONTRAST [CT] Stat CT Scan 12/06/17 22:25 Ordered Medical Decision Making - Medical Decision Making 12/06/17 23:04 51 yo F with h/o schitzophrenia, bipolar disorder, NIDDM, hidranenitis suppurativa, homelessness who p/w facial/head injury s/p mechanical fall while ambulating with walker outside of [facility] leaving the ED this AM for complaint of vaginal bleeding/discharge. Now reports diffuse KEARNEY. Pt. tachycardic ~121, and temp 102.9 in [facility]. States that she has had dark, brown, vaginal bleeding and discharge x 1 week and SOB. Denies N/V, LOC, lightheadedness, or vision changes, CP, wheezing, cough, orthopnea, palpitations , abdominal pain, diarrhea, constipation, urinary complaints, weakness, lightheadedness, sensory changes. Has h/o poor management of H. suppurativa. Does not routinely f/w dermatology and has poor hygiene. Last admission ( 12/04- 12/12/16) for treatment of hidradenitis and scleritis. Has been followed by [facility] in the past. Has grown pseudomonas aeruginosa and Vr Enterococcus Faecium and Prevotella Leschii from [facility]. Will evaluate pt. for sepsis and source of infection ( 2/4 SIRS criteria). Likely vs GI source. Will also obtain imaging to r/o facial bone fracture, SAH, hematoma, or skull fracture. ED Course: Sepsis Protocol CBC, CMP, blood culture, urine culture, lactic acid, Pt/INR UA EKG, CXR CT HEAD, CT AP W/CON, CT FACIAL BONES 12/06/17 23:43 12/06/17 23:44 Lactic Acid: 2.8 12/06/17 23:51 WBC: 12.2 Pt. signed out to Dr. Cedeno. Pending labs and imaging. *DC/Admit/Observation/Transfer Diagnosis at time of Disposition: Fall - Referrals - Patient Instructions Additional Instructions: Please return to the emergency department with any new or worsening symptoms or concerns. Please follow up with your primary care physician within 72 hours. - Post Discharge Activity - Attestations Physician Attestion: 12/06/17 22:31 I attest to the information provided in this note.
[2017-12-06 22:36] LABS: ALBUMIN 2.5 g/dl (3.4-5.0); ALK PHOS 109 U/L (45-117); ANION GAP 10 (8-16); BLOOD UREA NITROGEN 11 mg/dL (7-18); CALCIUM 8.5 mg/dL (8.5-10.1); CHLORIDE 108 mmol/L (98-107); CO2 25 mmol/L (21-32); CREATININE 0.7 mg/dL (0.55-1.02); GLUCOSE,RANDOM 81 mg/dL (74-106); POTASSIUM 4.2 mmol/L (3.5-5.1); SGOT/AST 20 U/L (15-37); SGPT/ALT 11 U/L (12-78); SODIUM 143 mmol/L (136-145); TOT PROT 7.9 g/dl (6.4-8.2)
[2017-12-06 22:40] LABS: BILIRUBIN,TOTAL < 0.1 mg/dL (0.2-1.0)
[2017-12-06] MEDS ORDERED: SODIUM CHLORIDE 1,000 ML IV STA (22:56)
--- NOTE | 2017-12-06 22:56 | PDOC ---
Attending Attestation - HPI HPI: 12/06/17 23:38 The patient is a 52 year old female, with a significant past medical history of schizophrenia, bipolar disorder, NIDDM, GERD, chronic low back pain and hidradenitis suppurativa, who presents to the emergency department s/p unwitnessed mechanical fall earlier today. Patient reports she was recently discharged from [facility] earlier today. Patient states she was ambulating with a walker outside when she tripped and fell, hitting her face on the ground. Patient denies any LOC, changes in vision, headache, or dizziness. When EMS arrived on scene, patient was found on the ground. Patient currently reports an abdominal mass, and pelvic pain/burning secondary to hidradenitis lesions. Patient endorses pain to the vulva and buttocks, and states she has noted increasing amounts of white discharge. Patient has been seen at [facility] in the past with similar symptoms, for which she was referred to a weasand trimmer , surgeon, and ID but never followed up. She denies any hematuria, frequency, or urgency. She does not report a fever, chills, cough, headache, or dizziness. She denies any nausea, vomiting, diarrhea, constipation, melena, or hematochezia. She denies any chest pain, shortness of breath, diaphoresis, or palpitations. Tetanus shot is not up to date. Patient admits she is a current every day smoker. - Physicial Exam PE: 12/06/17 23:45 Constitutional: Awake and alert. Head: Normocephalic. Abrasion at right upper lip, but no through and through lesion, with dried blood and associated edema from fall. Chipped front right tooth. Remainder of teeth intact. Eyes: PERRL. EOMI. Conjunctivae are not pale. ENT: Mucous membranes are moist and intact. Posterior pharynx without exudates or erythema. Uvula midline. No septal hematoma. Neck: Supple. Full ROM. No lymphadenopathy. Cardiovascular: Tachycardic. Regular rhythm. S1, S2 regular. Distal pulses are 2+ and symmetric. Pulmonary/Chest: Diffuse wheezing. No evidence of respiratory distress. No rales or rhonchi. Abdominal: Soft and non-distended. There is no tenderness. No rebound, guarding or rigidity. Good bowel sounds. Back: No CVA tenderness. Musculoskeletal: No cyanosis. No clubbing. Full range of motion in all extremities. No calf tenderness. Radial/pedal pulses are intact and 2+ bilaterally Skin: +Hidradenitis under arms and posterior aspect of neck, as well as lower pelvic region/inner thigh/ buttocks, now with increased warmth, tenderness, induration and purulent drainage. Abrasion to the left tibia, with dried blood. Neurological: Alert and oriented to person, place, and time. Cranial nerves II -XII are grossly intact. Normal speech. Strength is grossly symmetric. No sensory deficits. Psychiatric: Good eye contact. Normal interaction, affect and behavior. - Medical Decision Making 12/06/17 23:38 Documentation prepared by Madison Gutierrez, acting as medical doctor for Rocío Guaman DO. <Madison Gutierrez - Last Filed: 12/07/17 01:21> - Resident Resident Name: Cristi Rogers - ED Attending Attestation I have performed the following: I have examined & evaluated the patient, The case was reviewed & discussed with the resident, I agree w/resident's findings & plan, Exceptions are as noted - Medical Decision Making 12/06/17 22:56 I, Dr. Rocío Guaman, , attest that this document has been prepared under my direction and personally reviewed by me in its entirety. I further attest, that it accurately reflects all work, treatment, procedures and medical decision -making performed by me. 12/07/17 01:30 a/p: 52yo female with fever and fall -seen at [facility] earlier tonight and pt states after leaving [facility] she fell walking across the street -states she hit her face - abrasion to face -broken front tooth, but teeth are intact -pt with wet diaper and malodorous smell -pt is disheveled -pt with abrasion to L anterior tibia - states tetanus is not utd -c/o cough - c/o pelvic ttp -cellutitis with purulent drainage to inguinal regions b/l -also with fungal infection to b/l inguinal region -wound cultures, blood cultures sent -will obtain labs, lactate, ekg, cxr, head ct/facial ct/ua/ucx -pt refusing straight cath - states she will give urine 12/07/17 01:[address] without acute findings no facial fracutres elevated lactate and wbc poss pna on cxr broad spectrum abx ordered 12/07/17 01:34 new t wave inversions on ekg - initial trop negative call placed to [facility] for admission 12/07/17 01:[address] Ewing - accepts pt to service under tele vitals: hr 106, 99RA, RR 20, <Rocío Guaman - Last Filed: 12/07/17 01:55> Discharge Disposition <Madison Gutierrez - Last Filed: 12/07/17 01:21> - Discharge Dispostion Last Admission D/C Date: 12/13/16 Admit: Yes <Rocío Guaman - Last Filed: 12/07/17 01:55> - Diagnosis Fall, Cellulitis, Hidradenitis suppurativa, Pneumonia, Closed head injury, Facial abrasion, Fungal infection - Discharge Dispostion Condition at time of disposition: Guarded - Patient Instructions Additional Instructions: Please return to the emergency department with any new or worsening symptoms or concerns. Please follow up with your primary care physician within 72 hours. Heart Score/ECG Review - ECG Intrepretation Comment:: 12/07/17 01:29 sinus tach at 106, nl axis, nl interval, t wave inversions v3-6, diffuse t wave flattening <Rocío Guaman - Last Filed: 12/07/17 01:55> ED Treatment Course - LABORATORY CBC & Chemistry Diagram: 12/06/17 21:56 12/06/17 21:56 - ADDITIONAL ORDERS Additional order review: Laboratory Results 12/06/17 12/06/17 12/06/17 21:56 21:56 21:56 PT with INR INR PTT (Actin FS) VBG pH POC VBG pCO2 POC VBG pO2 Mixed VBG HCO3 Sodium 143 Potassium 4.2 Chloride 108 H Carbon Dioxide 25 Anion Gap 10 BUN 11 Creatinine 0.7 Creat Clearance w eGFR > 60 Random Glucose 81 Lactic Acid 2.8 H* Calcium 8.5 Total Bilirubin < 0.1 L D AST 20 ALT 11 L Alkaline Phosphatase 109 Troponin I < 0.02 Total Protein 7.9 Albumin 2.5 L 12/06/17 12/06/17 21:56 21:56 PT with INR 12.80 H INR 1.13 PTT (Actin FS) 32.1 VBG pH 7.38 POC VBG pCO2 42.9 POC VBG pO2 24.3 L Mixed VBG HCO3 25.3 H Sodium Potassium Chloride Carbon Dioxide Anion Gap BUN Creatinine Creat Clearance w eGFR Random Glucose Lactic Acid Calcium Total Bilirubin AST ALT Alkaline Phosphatase Troponin I Total Protein Albumin 12/06/17 21:56 RBC 3.82 MCV 77.8 L MCHC 32.0 RDW 20.2 H MPV 7.5 Neutrophils % 88.1 H D Lymphocytes % 8.0 D Monocytes % 2.6 L Eosinophils % 0.5 Basophils % 0.8 - RADIOLOGY Radiograph Interpretation: 12/07/17 00:37 EXAM: Head CT INTERPRETED BY: Dr. Aranda REVIEWED BY: Dr. Guaman IMPRESSION: No acute brain parenchymal abnormality. No hemorrhage, mass or acute territorial infarct. No skull fracture. Clear visualized paranasal sinuses. Visualized mastoid air cells clear. EXAM: Maxillofacial CT INTERPRETED BY: Dr. Aranda REVIEWED BY: Dr. Guaman IMPRESSION: No acute fracture. Small area of dehiscence left lamina papyracea, possibly congenital or due to prior trauma. Contour deformity left coronoid process of mandible, possibly due to chronic fracture. Clear visualized paranasal sinuses. Dental disease. EXAM: CT Abdomen and Pelvis INTERPRETED BY: Dr. Aranda REVIEWED BY: Dr. Guaman IMPRESSION: Irregular skin thickening and extensive stranding in subcutaneous tissues of lower pannus, possibly scarring and/or cellulitis. No organized abscess or focal fluid collection. Thickened skin and subcutaneous tissues lower medial and posterior left buttock, inferior extent incompletely seen, possibly scarring and/or cellulitis. Enlarged gallbladder containing a 4.1 cm stone, consider futher evaluation with ultrasound if there is concern for acute cholecystitis. No acute fracture. No solid abdominal organ injury, hemoperitoneum or hemoretroperitoneum. No bowel obstruction, colitis, free fluid or free air. Normal appendix. Diverticulosis colon without acute diverticulitis. Unremarkable pancreas. Subcentimeter cortical hypodensity right kidney. Minimal emphysematous changes lung bases. EXAM: CT Cervical Spine INTERPRETED BY: Dr. Aranda REVIEWED BY: Dr. Guaman IMPRESSION: No acute fracture. Minimal spondylosis. Straightening of cervical lordosis, possibly due to positioning or muscle spasm. Minimal rotation C1-C2, probably positional. <Gutierrez,Giomilsy - Last Filed: 12/07/17 01:21> - LABORATORY CBC & Chemistry Diagram: 12/06/17 21:56 12/06/17 21:56 <Rocío Guaman - Last Filed: 12/07/17 01:55>
[2017-12-06] MEDS ORDERED: PIPERACILLIN/TAZOB 4.5 GM/100 ML PREMIX BAG IVPB ONE (23:15)
[2017-12-06] MEDS ORDERED: DIPHTH,PERTUSS(ACELL),TET 0.5 ML DISP.SYRIN IM ONE (23:19)
[2017-12-06] MEDS ORDERED: VANCOMYCIN 500 MG/100 ML PRE-DOCKED IVPB ONE (23:20)
[2017-12-06] MEDS ORDERED: ACETAMINOPHEN 1000 MG/100 ML VIAL (NON FORMULARY) IVPB ONE (23:35)
[2017-12-06] MEDS: ALBUTEROL SO4 2.5/IPRATROPIUM 0.5 INH SOL 3 ML VIAL.NEB. NEB SCH (23:45)
[2017-12-07] MEDS: ALBUTEROL SO4 2.5/IPRATROPIUM 0.5 INH SOL 3 ML VIAL.NEB. NEB SCH ×3 (00:15→00:30)
[2017-12-07] MEDS ORDERED: SODIUM CHLORIDE 1,000 ML IV STA (00:36)
[2017-12-07] MEDS ORDERED: ACETAMINOPHEN INJECTION 100 ML IVPB ONE (00:39)
[2017-12-07] MEDS ORDERED: VANCOMYCIN 500 MG VIAL (RESTRICTED TO ID ONLY) ONE (00:39)
[2017-12-07] MEDS ORDERED: ALBUTEROL SO4 2.5/IPRATROPIUM 0.5 INH SOL 3 ML VIAL.NEB. NEB ONE (00:39)
[2017-12-07] MEDS ORDERED: PIPERACILLIN/TAZOB 4.5 GM 4.5 GM/100 ML BAG IVPB ONE (00:40)
--- NOTE | 2017-12-07 00:43 | PDOC ---
*Physical Exam - Vital Signs Last Vital Signs Temp Pulse Resp BP Pulse Ox 102.9 F H 121 H 22 114/69 100 12/06/17 21:19 12/06/17 21:19 12/06/17 21:19 12/06/17 21:19 12/06/17 21:19 - Physical Exam Comments: 12/07/17 00:39 GENERAL: Awake, alert, and fully oriented, in no acute distress HEAD: Normocephalic, laceration on lips and philtrum EYES: PERRLA, EOMI, sclera anicteric, conjunctiva clear ENT: Auricles normal inspection, hearing grossly normal, nares patent, oropharynx clear without exudates. Moist mucosa EXTREMITIES: Normal inspection, Normal range of motion, no edema. No clubbing or cyanosis. NEUROLOGICAL: Cranial nerves II through XII grossly intact. Normal speech, no focal sensorimotor deficits ED Treatment Course - LABORATORY CBC & Chemistry Diagram: 12/06/17 21:56 12/06/17 21:56 - ADDITIONAL ORDERS Additional order review: Laboratory Results 12/06/17 12/06/17 12/06/17 21:56 21:56 21:56 PT with INR INR PTT (Actin FS) VBG pH POC VBG pCO2 POC VBG pO2 Mixed VBG HCO3 Sodium 143 Potassium 4.2 Chloride 108 H Carbon Dioxide 25 Anion Gap 10 BUN 11 Creatinine 0.7 Creat Clearance w eGFR > 60 Random Glucose 81 Lactic Acid 2.8 H* Calcium 8.5 Total Bilirubin < 0.1 L D AST 20 ALT 11 L Alkaline Phosphatase 109 Troponin I < 0.02 Total Protein 7.9 Albumin 2.5 L 12/06/17 12/06/17 21:56 21:56 PT with INR 12.80 H INR 1.13 PTT (Actin FS) 32.1 VBG pH 7.38 POC VBG pCO2 42.9 POC VBG pO2 24.3 L Mixed VBG HCO3 25.3 H Sodium Potassium Chloride Carbon Dioxide Anion Gap BUN Creatinine Creat Clearance w eGFR Random Glucose Lactic Acid Calcium Total Bilirubin AST ALT Alkaline Phosphatase Troponin I Total Protein Albumin 12/06/17 21:56 RBC 3.82 MCV 77.8 L MCHC 32.0 RDW 20.2 H MPV 7.5 Neutrophils % 88.1 H D Lymphocytes % 8.0 D Monocytes % 2.6 L Eosinophils % 0.5 Basophils % 0.8 Medical Decision Making - Medical Decision Making 12/07/17 00:[address] Rogers. Patient is 52F with history of schizophrenia, bipolar disorder, NIDDM, hidranenitis suppurativa, homelessness who p/w facial/ head injury s/p mechanical fall. Febrile and tachycardic on presentation. Septic workup initiated. CT scans done. Laboratory Tests 12/06/17 12/06/17 12/06/17 21:56 21:56 21:56 WBC 12.2 H Hgb 9.5 L Hct 29.8 L Plt Count 529 H D Lactic Acid 2.8 H* Troponin I < 0.02 CBC shows leukocytosis. Lactic acid elevated. Troponin undetectable. Vanc and zosyn given. 1L given. Patient reassessed. HR now 104. Second liter ordered, tylenol going in. CTs pending. 12/07/17 00:48 CT head/face negative. 12/07/17 01:14 CT abdomen shows possible cellulitis, enlarged gallbladder with stone but no signs of cholecystitis 12/07/17 02:06 Admitted to [facility] via [facility]. *DC/Admit/Observation/Transfer Diagnosis at time of Disposition: Fall, Cellulitis, Hidradenitis suppurativa, Pneumonia, Closed head injury, Facial abrasion, Fungal infection - Discharge Dispostion Condition at time of disposition: Guarded - Referrals - Patient Instructions Additional Instructions: Please return to the emergency department with any new or worsening symptoms or concerns. Please follow up with your primary care physician within 72 hours. - Post Discharge Activity
[2017-12-07] MEDS ORDERED: NYSTATIN POWDER 100,000 UNITS/GM - 15 GM TOPICAL POWDER TP ONE (01:35)
[2017-12-07] MEDS ORDERED: LACTATED RINGERS SOLUTION 1000 ML INFUS.BAG IV ONE (01:55)
[2017-12-07] MEDS ORDERED: HEPARIN NA (PORCINE) 5,000 UNITS/ML 1ML VIAL SQ SCH (02:00)
--- NOTE | 2017-12-07 02:35 | HP ---
CHIEF COMPLAINT: s/p fall PCP: none HISTORY OF PRESENT ILLNESS: 52 year old female with a history of hidradenitis suppurativa, diabetes, schizophrenia, homelessness, presents s/p mechanical fall earlier today. She states that she hit her head and denies syncopizing, feeling lightheaded, or having any chest pain. In the emergency room, patient was found to be febrile, tachycardic, tachypneic. The patient denies fevers, shortness of breath, cough or abdominal pain. She was previously treated in the ED both in 2017 and in 2016 for hydradenitis suppurativa of the pelvic region, which grew VRE and Pseudomonas. The patient states that she has had this problem for many years, and that is has gotten worse and progressed. She has not been on antibiotics at home recently. She has a doctor on "[facility]" but does not remember the name. ER course was notable for: (1) temp 102.9 (2) tachy 121 (3) tachypneic (22) (4) WBC 12.2 (5) LA 2.8 (6) CT abdomen = possible cellulitis PAST MEDICAL HISTORY: hidradenitis suppurativa, diabetes, schizophrenia, homelessness PAST SURGICAL HISTORY: unknown Social History: Smokin-3 cigarettes/day since patient was 14 Alcohol: occasionally, none recently Drugs: none Allergies No Known Drug Allergies Allergy (Verified 12/06/17 21:22) Dairy Adverse Reaction (Uncoded 12/06/17 21:22) Spaguetti Sauce Adverse Reaction (Uncoded 12/06/17 21:22) HOME MEDICATIONS: Home Medications Medication Instructions Recorded Albuterol Sulfate [Proair 2 puff IH Q4H PRN 11/29/16 Respiclick] Atropine 1% Ophth. Solution - 1 drop OD TID 11/29/16 Cyclobenzaprine HCl 5 mg PO TID 11/29/16 Divalproex [Depakote -] 250 mg PO HS 11/29/16 Famotidine 20 mg PO BID 11/29/16 Haloperidol [Haldol -] 10 mg PO BID 11/29/16 Ibuprofen 400 mg PO TID 11/29/16 Metformin HCl [Metformin HCl ER] 1,000 mg PO BID 11/29/16 Naproxen [Naprosyn -] 500 mg PO TID 11/29/16 Prednisolone 1% Ophthalmic [Pred 5 ml OD QID 11/29/16 Forte 1% -] Tobramycin/Dexamethasone [Tobradex 5 ml OP QID 11/29/16 Eye Drops] Divalproex *ER* [Depakote *ER* -] 500 mg PO BID 12/04/16 Doxycycline Monohydrate [Mondoxyne 100 mg PO BID #14 capsule 05/15/17 Nl] REVIEW OF SYSTEMS CONSTITUTIONAL: Absent: fever, chills, diaphoresis, generalized weakness, malaise, loss of appetite, weight change HEENT: Absent: rhinorrhea, nasal congestion, throat pain, throat swelling, difficulty swallowing, mouth swelling, ear pain, eye pain, visual changes CARDIOVASCULAR: Absent: chest pain, syncope, palpitations, irregular heart rate, lightheadedness , peripheral edema RESPIRATORY: Absent: cough, shortness of breath, dyspnea with exertion, orthopnea, wheezing, stridor, hemoptysis GASTROINTESTINAL: Absent: abdominal pain, abdominal distension, nausea, vomiting, diarrhea, constipation, melena, hematochezia GENITOURINARY: Absent: dysuria, frequency, urgency, hesitancy, hematuria, flank pain, genital pain MUSCULOSKELETAL: Absent: myalgia, arthralgia, joint swelling, back pain, neck pain SKIN: Absent: rash, itching, pallor HEMATOLOGIC/IMMUNOLOGIC: Absent: easy bleeding, easy bruising, lymphadenopathy, frequent infections ENDOCRINE: Absent: unexplained weight gain, unexplained weight loss, heat intolerance, cold intolerance NEUROLOGIC: Absent: headache, focal weakness or paresthesias, dizziness, unsteady gait, seizure, mental status changes, bladder or bowel incontinence PSYCHIATRIC: Absent: anxiety, depression, suicidal or homicidal ideation, hallucinations. PHYSICAL EXAMINATION Vital Signs - 24 hr 12/06/17 21:19 Temperature 102.9 F H Pulse Rate 121 H Respiratory 22 Rate Blood Pressure 114/69 O2 Sat by Pulse 100 Oximetry (%) GENERAL: A&Ox3, no acute distress EYES: PERRLA, EOMI ENT: Moist mucus membranes NECK: mild JVD noted on exam LUNGS: CTA, no wheezes HEART: tachycardic, no murmurs appreciated ABDOMEN: Obese, large pelvic pannus noted, firm to palpation. The entire pannus has crusted and draining yellow purulent fluid in various regions as well as occasional blood. The area is nontender to palpation and is not erythematous or warm to touch. The area of hard, scaly, purulent tissue extends from the pannus around the right side of her abdomen and inferiorly to encompass the entire L gluteal region. MUSCULOSKELETAL: No CVA Tenderness EXTREMITIES: 2+ pulses, no edema. NEUROLOGICAL: Cranial nerves II-XII intact. SKIN: Non-bleeding, clean abrasion noted midline on the philtrum above the mouth. Scaly, purulent dermatosis seen around pannus, all intertriginous areas, L gluteal region, and breasts. Laboratory Results - last 24 hr 12/06/17 12/06/17 12/06/17 21:56 21:56 21:56 WBC 12.2 H RBC 3.82 Hgb 9.5 L Hct 29.8 L MCV 77.8 L MCH 24.9 L MCHC 32.0 RDW 20.2 H Plt Count 529 H D MPV 7.5 Neutrophils % 88.1 H D Lymphocytes % 8.0 D Monocytes % 2.6 L Eosinophils % 0.5 Basophils % 0.8 PT with INR 12.80 H INR 1.13 PTT (Actin FS) 32.1 VBG pH 7.38 POC VBG pCO2 42.9 POC VBG pO2 24.3 L Mixed VBG HCO3 25.3 H Sodium Potassium Chloride Carbon Dioxide Anion Gap BUN Creatinine Creat Clearance w eGFR Random Glucose Lactic Acid Calcium Total Bilirubin AST ALT Alkaline Phosphatase Troponin I Total Protein Albumin 12/06/17 12/06/17 12/06/17 21:56 21:56 21:56 WBC RBC Hgb Hct MCV MCH MCHC RDW Plt Count MPV Neutrophils % Lymphocytes % Monocytes % Eosinophils % Basophils % PT with INR INR PTT (Actin FS) VBG pH POC VBG pCO2 POC VBG pO2 Mixed VBG HCO3 Sodium 143 Potassium 4.2 Chloride 108 H Carbon Dioxide 25 Anion Gap 10 BUN 11 Creatinine 0.7 Creat Clearance w eGFR > 60 Random Glucose 81 Lactic Acid 2.8 H* Calcium 8.5 Total Bilirubin < 0.1 L D AST 20 ALT 11 L Alkaline Phosphatase 109 Troponin I < 0.02 Total Protein 7.9 Albumin 2.5 L ASSESSMENT/PLAN: 52 year old female with a hx of hidradenitis suppurativa, diabetes, schizophrenia, homelessness presents to the hospital s/p fall and is admitted for sepsis likely 2/2 hidradenitis suppurativa #Sepsis 2/2 Hidradenitis Suppurativa: [place] stage III of hidradenitis suppurativa, appears that the illness is progressing, may need surgical management. Previous admission for hidradenitis found cultures of the groin to be growing VRE, pseudomonas -ID consult Dr. Power appreciated -Because of advanced stage of disease with multiple regions affected, surgical consult will be requested for possible debridement -Culture of pelvic pannus -f/u blood and urine cultures -IV resuscitation @ 100cc/hr -chest xray may show retrocardiac infiltrate, f/u with official read in AM -vanc/zosyn given in ED -antibiotic therapy with zosyn, follow ID reccs for further abx management -consider tetracycline coverage for hidradenitis -lactic acid 2.8, trend LA -WBC 12.2, repeat CBC in AM -clotrimazole topical for intertriginous areas -watch BP #S/P Mechanical fall: patient tripped and did not have any premeditating factors -f/u official reads of CT head/facial bones -no acute bleed on CT head -local wound care for abrasions #Diabetes Mellitus: sugars are controlled -BGMs ACHS -ISS #FEN -NS @ 100cc/hr -replete lytes as necessary in AM -diabetic diet #Prophylaxis -SCDs for now, consider anticoagulation once official CT results return #Disposition -admit to med surg -Unclear home medications, she does not see a physician regularly - need to confirm in the AM Visit type - Emergency Visit Emergency Visit: Yes ED Registration Date: 12/07/17 Care time: The patient presented to the Emergency Department on the above date and was hospitalized for further evaluation of their emergent condition. - New Patient This patient is new to me today: Yes Date on this admission: 12/07/17 - Critical Care Critical Care patient: No Hospitalist Screening - Colonoscopy Questionnaire Colonoscopy Questionnaire: Colonoscopy Questionnaire - Patient: 50 - 75 years old and never had a screening colonoscopy: Unknown History of colon or rectal polyps, or CA: Unknown History of IBD, Crohn's disease or UC: Unknown History of abdominal radiation therapy as a child: Unknown - Relative: 1 with colon or rectal CA, or polyps at age 60 or younger: Unknown Colon or rectal CA diagnosed at age 45 or younger: Unknown Multiple relatives with colon or rectal CA: Unknown - Outcome: Screening Result: Negative Screen
[2017-12-07] MEDS: SODIUM CHLORIDE 1,000 ML IV SCH ×2 (02:56→05:28)
[2017-12-07 03:01] LABS: COCAINE, UR NEGATIVE ng/ml (CUTOFF=300); METHADONE, UR NEGATIVE ng/ml (CUTOFF=300); OPIATES, URI NEGATIVE ng/ml (CUTOFF=300); PHENCYCLIDINE,URINE NEGATIVE ng/ml (CUTOFF=25); URINE AMPHETAMINES NEGATIVE ng/ml (CUTOFF=500); URINE BARBITURATES NEGATIVE ng/ml (CUTOFF=200); URINE BENZODIAZEPINES NEGATIVE ng/ml (CUTOFF=200)
[2017-12-07 03:38] LABS: URINE APPEARANCE CLEAR; URINE BILIRUBIN NEGATIVE (<2.0 mg/dL); URINE BLOOD NEGATIVE (NEGATIVE); URINE COLOR LT. YELLOW; URINE GLUCOSE (UA) NEGATIVE (NEGATIVE); URINE KETONE TRACE (NEGATIVE); URINE LEUK ESTERASE NEGATIVE (NEGATIVE); URINE NITRITE NEGATIVE (NEGATIVE); URINE PROTEIN NEGATIVE (NEGATIVE); URINE UROBILINOGEN 0.2 mg/dL (0.2-1.0)
[2017-12-07 04:07] VITALS: BMI 34.2
--- NOTE | 2017-12-07 04:31 | PN ---
Teaching Attending Note Name of Resident: Abdirizak Jones ATTENDING PHYSICIAN STATEMENT I saw and evaluated the patient. CHart, data, imaging reviewed. I reviewed the resident's note and discussed the case with the resident. I agree with the resident's findings and plan as documented. SUBJECTIVE: 52 year old female with a history of hidradenitis suppurativa, diabetes, schizophrenia, homelessness, came to ER after she experienced a fall on 12/06. Patient fell and hit her face imaging studies of face and c spine were negative. Patient found to have fever, lactic acidosis in ER. Was treated empirically with vancomycin and pip/tazo. She was treated in the past for hidradenitis suppurativa and she grew VRE, psuedomonas, and coag neg staph. She denied any fevers, chills, diarrhea, or nausea and vomiting. OBJECTIVE: Last Vital Signs Temp Pulse Resp BP Pulse Ox 98.2 F 83 16 100/62 95 12/07/17 01:55 12/07/17 03:06 12/07/17 03:06 12/07/17 03:06 12/07/17 04:22 general - appears chronically ill, disheveled, malodorous, obese heent - at, nc moist oral mucosa neck -supple, no masses cv -s1+s2+ rrr chest- cta b/l, some d/c under breasts abdomen/pelvis -scattered purulent discharge seen, pannus -extending to buttocks , BS+ ext -no pedal edema, warm Abnormal Lab Results 12/06/17 12/06/17 12/06/17 21:56 21:56 21:56 WBC 12.2 H Hgb 9.5 L Hct 29.8 L MCV 77.8 L MCH 24.9 L RDW 20.2 H Plt Count 529 H D Neutrophils % 88.1 H D Monocytes % 2.6 L PT with INR 12.80 H POC VBG pO2 24.3 L Mixed VBG HCO3 25.3 H Chloride Lactic Acid Total Bilirubin ALT Albumin Urine Ketones 12/06/17 12/06/17 12/07/17 21:56 21:56 02:40 WBC Hgb Hct MCV MCH RDW Plt Count Neutrophils % Monocytes % PT with INR POC VBG pO2 Mixed VBG HCO3 Chloride 108 H Lactic Acid 2.8 H* Total Bilirubin < 0.1 L D ALT 11 L Albumin 2.5 L Urine Ketones Trace H CT of abdomen was reviewed by me ASSESSMENT AND PLAN: #52yo woman with sepsis, high fevers, tachycardia likely to hidradenitis suppurativa involving the pelvis and lower abdominal zones. Pannus in place, likely a source of infection. S/p vancomycin and pip/tazo in ER. Hemodynamically stable for admission to med/surg. -admit to med/surg -c/w vancomycin and pip/tazo -ID consult -repeat lactate -blood cultures x2 -culture purulent discharge -local wound care -clotrimazole topically for intertrigo areas in inguinal area and under breasts -surgery evaluation for possible debridement of nonviable tissues #Fall- no syncope reported, likely mechanical. Imaging unremarkable. -orthostatics -bed rest -fall precuations -tele monitoring -echo -PT evaluation #DVT ppx - heparin sc
[2017-12-07] MEDS ORDERED: PIPERACILLIN/TAZOB 4.5 GM/100 ML PREMIX BAG IVPB ONE (05:31)
[2017-12-07] MEDS: INSULIN SLIDING SCALE (NOVOLOG) 1 VIAL SQ SCH ×4 (06:01→21:35)
[2017-12-07 07:31] LABS: HEMOGLOBIN 8.2 GM/dL (10.7-15.3); MCH 24.9 pg (25.7-33.7); MCHC 31.7 g/dl (32.0-36.0); MEAN CELL VOLUME 78.6 fl (80-96); MEAN PLT VOLUME 7.2 fl (7.5-11.1); PLATELET COUNT 448 K/MM3 (134-434); RDW 20.6 % (11.6-15.6); WHITE BLOOD COUNT 8.2 K/mm3 (4.0-10.0)
[2017-12-07] MEDS ORDERED: DEXTROSE 5%-WATER 100 ML IVPB ONE (07:43)
[2017-12-07] MEDS ORDERED: PIPERACILLIN/TAZOBACTAM 4.5 GM VIAL IVPB ONE (07:43)
[2017-12-07] MEDS ORDERED: PIPERACILLIN/TAZOB 4.5 GM 4.5 GM in DEXTROSE 5%-WATER 100 ML IVPB ONE (08:00)
[2017-12-07 08:04] LABS: CHLORIDE 112 mmol/L (98-107); POTASSIUM 4.2 mmol/L (3.5-5.1); SODIUM 144 mmol/L (136-145)
[2017-12-07 08:08] LABS: ANION GAP 7 (8-16); BLOOD UREA NITROGEN 12 mg/dL (7-18); CALCIUM 7.6 mg/dL (8.5-10.1); CO2 25 mmol/L (21-32); CREATININE 0.6 mg/dL (0.55-1.02); GLUCOSE,RANDOM 71 mg/dL (74-106); MAGNESIUM 1.6 mg/dL (1.8-2.4); PHOSPHOROUS 3.4 mg/dL (2.5-4.9)
[2017-12-07] MEDS: DOCUSATE SODIUM 100 MG CAPSULE (FP) PO SCH ×2 (09:15→21:35)
--- NOTE | 2017-12-07 10:11 | EKG ---
Test Reason : Blood Pressure : / mmHG Vent. Rate : 106 BPM Atrial Rate : 106 BPM P-R Int : 118 ms QRS Dur : 082 ms QT Int : 336 ms P-R-T Axes : 047 035 -58 degrees QTc Int : 446 ms SINUS TACHYCARDIA T WAVE ABNORMALITY, CONSIDER LATERAL ISCHEMIA ABNORMAL ECG WHEN COMPARED WITH ECG OF 04-DEC-2016 15:42, INVERTED T WAVES HAVE REPLACED NONSPECIFIC T WAVE ABNORMALITY IN LATERAL LEADS Confirmed by LOC WARNER, NI ([id number]) on 12/07/2017 10:10:43 AM Referred By: Confirmed By:NI MONTERROSO MD
[2017-12-07] MEDS: CLOTRIMAZOLE 1% CREAM 15 GM TUBE TP SCH ×2 (10:34→21:40)
--- NOTE | 2017-12-07 15:15 | CON.ID ---
Consult Consult Specialty:: infectious diseases Referred by:: hospitalist service Reason for Consultation:: fall - History of Present Illness Chief Complaint: fall History of Present Illness: 52 year old female with a history of hidradenitis suppurativa, diabetes, schizophrenia, homelessness, presents s/p mechanical fall earlier today. patient known to me with h/o of hiradenitits never healed well patient hit her head and denies syncopizing, feeling lightheaded, or having any chest pain. In the emergency room, patient was found to be febrile, tachycardic, tachypneic. patient had multiple infections of the groin and grew pseudo and vre - History Source History Provided By: Patient Limitations to Obtaining History: No Limitations - Past Medical History Cardio/Vascular: Yes: HTN (labile , sometimes, no meds ) Pulmonary: Yes: Asthma Gastrointestinal: Yes: GERD Renal/: Yes: UTI (diagnosed in ER on 11/01/16 ) ...LMP: 01/13/16 Psych: Yes: Bipolar, Schizophrenia Musculoskeletal: Yes: Chronic low back pain Endocrine: Yes: Diabetes Mellitus (class 2, on Metformin ) - Alcohol/Substance Use Hx Alcohol Use: No - Smoking History Smoking history: Current every day smoker Have you smoked in the past 12 months: Yes Aproximately how many cigarettes per day: 20 - Social History Usual Living Arrangement: Assisted Living (pt from shelter) Home Medications - Allergies Allergies/Adverse Reactions: Allergies Allergy/AdvReac Type Severity Reaction Status Date / Time No Known Drug Allergies Allergy Verified 12/06/17 21:22 Dairy AdvReac Uncoded 12/06/17 21:22 Spaguetti Sauce AdvReac Uncoded 12/06/17 21:22 - Home Medications Home Medications: Ambulatory Orders Albuterol Sulfate [Proair Respiclick] 2 puff IH Q4H PRN 11/29/16 Atropine 1% Ophth. Solution - 1 drop OD TID 11/29/16 Cyclobenzaprine HCl 5 mg PO TID 11/29/16 Divalproex [Depakote -] 250 mg PO HS 11/29/16 Famotidine 20 mg PO BID 11/29/16 Haloperidol [Haldol -] 10 mg PO BID 11/29/16 Ibuprofen 400 mg PO TID 11/29/16 Metformin HCl [Metformin HCl ER] 1,000 mg PO BID 11/29/16 Naproxen [Naprosyn -] 500 mg PO TID 11/29/16 Prednisolone 1% Ophthalmic [Pred Forte 1% -] 5 ml OD QID 11/29/16 Tobramycin/Dexamethasone [Tobradex Eye Drops] 5 ml OP QID 11/29/16 Divalproex *ER* [Depakote *ER* -] 500 mg PO BID 12/04/16 Doxycycline Monohydrate [Mondoxyne Nl] 100 mg PO BID #14 capsule 05/15/17 Review of Systems - Review of Systems Constitutional: reports: Fever Eyes: reports: No Symptoms HENT: reports: No Symptoms Neck: reports: No Symptoms Cardiovascular: reports: No Symptoms Respiratory: reports: No Symptoms Gastrointestinal: reports: No Symptoms Musculoskeletal: reports: Muscle Pain, Muscle Weakness Integumentary: reports: Erythema (bilateral groins and axilla) Neurological: reports: No Symptoms Endocrine: reports: No Symptoms Hematology/Lymphatic: reports: No Symptoms Psychiatric: reports: No Symptoms Physical Exam Vital Signs: Vital Signs Temperature 97.9 F 12/07/17 14:32 Pulse Rate 98 H 12/07/17 14:32 Respiratory Rate 18 12/07/17 14:32 Blood Pressure 113/60 12/07/17 14:32 O2 Sat by Pulse Oximetry (%) 96 12/07/17 09:00 Constitutional: Yes: Well Nourished, Calm, Mild Distress Eyes: Yes: Conjunctiva Clear Neck: Yes: Supple Cardiovascular: Yes: Regular Rate and Rhythm Respiratory: Yes: Regular, CTA Bilaterally Gastrointestinal: Yes: Normal Bowel Sounds, Soft Musculoskeletal: Yes: Other Extremities: Yes: Erythema, Other Integumentary: Yes: Erythema Neurological: Yes: Alert, Oriented Psychiatric: Yes: Alert, Oriented Labs: CBC, BMP 12/07/17 06:30 12/07/17 06:30 Imaging - Results Chest X-ray: Report Reviewed, Image Reviewed Assessment/Plan Hidradenitis Suppurativa: Diabetes Mellitus fall plan will angelica martin need surgery to look at the patient rest as per primary team
--- NOTE | 2017-12-07 15:44 | PN ---
Teaching Attending Note Name of Resident: Clinton Livingston ATTENDING PHYSICIAN STATEMENT I saw and evaluated the patient. I reviewed the resident's note and discussed the case with the resident. I agree with the resident's findings and plan as documented. SUBJECTIVE: Patient is sleepy. She says she didn't sleep last night. OBJECTIVE: Vital Signs Period Temp Pulse Resp BP Sys/[place] Pulse Ox Last 24 Hr 97.9 F-102.9 F 83-121 16-22 95-114/60-86 95-100 HEART: S1S2, RRR LUNGS: Clear ABDOMEN: Obese, soft, non-tender, non-distended, normal BS EXTREMITIES: No edema SKIN: Skin under abdominal pannus is erythematous, macerated with purulent drainage. Open lesions in left axilla, right groin. Laboratory Results - last 24 hr 12/06/17 12/06/17 12/06/17 21:56 21:56 21:56 WBC 12.2 H RBC 3.82 Hgb 9.5 L Hct 29.8 L MCV 77.8 L MCH 24.9 L MCHC 32.0 RDW 20.2 H Plt Count 529 H D MPV 7.5 Neutrophils % 88.1 H D Lymphocytes % 8.0 D Monocytes % 2.6 L Eosinophils % 0.5 Basophils % 0.8 PT with INR 12.80 H INR 1.13 PTT (Actin FS) 32.1 VBG pH 7.38 POC VBG pCO2 42.9 POC VBG pO2 24.3 L Mixed VBG HCO3 25.3 H Sodium Potassium Chloride Carbon Dioxide Anion Gap BUN Creatinine Creat Clearance w eGFR POC Glucometer Random Glucose Lactic Acid Calcium Phosphorus Magnesium Total Bilirubin AST ALT Alkaline Phosphatase Troponin I Total Protein Albumin Urine Color Urine Appearance Urine pH Ur Specific [place] Urine Protein Urine Glucose (UA) Urine Ketones Urine Blood Urine Nitrite Urine Bilirubin Urine Urobilinogen Ur Leukocyte Esterase Opiates Screen Methadone Screen Barbiturate Screen Phencyclidine Screen Ur Amphetamines Screen MDMA (Ecstasy) Screen Benzodiazepines Screen Cocaine Screen U Marijuana (THC) Screen 12/06/17 12/06/17 12/06/17 21:56 21:56 21:56 WBC RBC Hgb Hct MCV MCH MCHC RDW Plt Count MPV Neutrophils % Lymphocytes % Monocytes % Eosinophils % Basophils % PT with INR INR PTT (Actin FS) VBG pH POC VBG pCO2 POC VBG pO2 Mixed VBG HCO3 Sodium 143 Potassium 4.2 Chloride 108 H Carbon Dioxide 25 Anion Gap 10 BUN 11 Creatinine 0.7 Creat Clearance w eGFR > 60 POC Glucometer Random Glucose 81 Lactic Acid 2.8 H* Calcium 8.5 Phosphorus Magnesium Total Bilirubin < 0.1 L D AST 20 ALT 11 L Alkaline Phosphatase 109 Troponin I < 0.02 Total Protein 7.9 Albumin 2.5 L Urine Color Urine Appearance Urine pH Ur Specific [place] Urine Protein Urine Glucose (UA) Urine Ketones Urine Blood Urine Nitrite Urine Bilirubin Urine Urobilinogen Ur Leukocyte Esterase Opiates Screen Methadone Screen Barbiturate Screen Phencyclidine Screen Ur Amphetamines Screen MDMA (Ecstasy) Screen Benzodiazepines Screen Cocaine Screen U Marijuana (THC) Screen 12/07/17 12/07/17 12/07/17 02:40 02:40 05:23 WBC RBC Hgb Hct MCV MCH MCHC RDW Plt Count MPV Neutrophils % Lymphocytes % Monocytes % Eosinophils % Basophils % PT with INR INR PTT (Actin FS) VBG pH POC VBG pCO2 POC VBG pO2 Mixed VBG HCO3 Sodium Potassium Chloride Carbon Dioxide Anion Gap BUN Creatinine Creat Clearance w eGFR POC Glucometer 95 Random Glucose Lactic Acid Calcium Phosphorus Magnesium Total Bilirubin AST ALT Alkaline Phosphatase Troponin I Total Protein Albumin Urine Color Lt. yellow Urine Appearance Clear Urine pH 7.0 Ur Specific [place] <= 1.005 Urine Protein Negative Urine Glucose (UA) Negative Urine Ketones Trace H Urine Blood Negative Urine Nitrite Negative Urine Bilirubin Negative Urine Urobilinogen 0.2 Ur Leukocyte Esterase Negative Opiates Screen Negative Methadone Screen Negative Barbiturate Screen Negative Phencyclidine Screen Negative Ur Amphetamines Screen Negative MDMA (Ecstasy) Screen Negative Benzodiazepines Screen Negative Cocaine Screen Negative U Marijuana (THC) Screen Negative 12/07/17 12/07/17 12/07/17 06:30 06:30 06:30 WBC 8.2 D RBC 3.30 L Hgb 8.2 L D Hct 26.0 L MCV 78.6 L MCH 24.9 L MCHC 31.7 L RDW 20.6 H Plt Count 448 H MPV 7.2 L Neutrophils % Lymphocytes % Monocytes % Eosinophils % Basophils % PT with INR INR PTT (Actin FS) VBG pH POC VBG pCO2 POC VBG pO2 Mixed VBG HCO3 Sodium 144 Potassium 4.2 Chloride 112 H Carbon Dioxide 25 Anion Gap 7 L BUN 12 Creatinine 0.6 Creat Clearance w eGFR POC Glucometer Random Glucose 71 L Lactic Acid 1.2 Calcium 7.6 L Phosphorus 3.4 Magnesium 1.6 L Total Bilirubin AST ALT Alkaline Phosphatase Troponin I Total Protein Albumin Urine Color Urine Appearance Urine pH Ur Specific [place] Urine Protein Urine Glucose (UA) Urine Ketones Urine Blood Urine Nitrite Urine Bilirubin Urine Urobilinogen Ur Leukocyte Esterase Opiates Screen Methadone Screen Barbiturate Screen Phencyclidine Screen Ur Amphetamines Screen MDMA (Ecstasy) Screen Benzodiazepines Screen Cocaine Screen U Marijuana (THC) Screen 12/07/17 10:36 WBC RBC Hgb Hct MCV MCH MCHC RDW Plt Count MPV Neutrophils % Lymphocytes % Monocytes % Eosinophils % Basophils % PT with INR INR PTT (Actin FS) VBG pH POC VBG pCO2 POC VBG pO2 Mixed VBG HCO3 Sodium Potassium Chloride Carbon Dioxide Anion Gap BUN Creatinine Creat Clearance w eGFR POC Glucometer 99 Random Glucose Lactic Acid Calcium Phosphorus Magnesium Total Bilirubin AST ALT Alkaline Phosphatase Troponin I Total Protein Albumin Urine Color Urine Appearance Urine pH Ur Specific [place] Urine Protein Urine Glucose (UA) Urine Ketones Urine Blood Urine Nitrite Urine Bilirubin Urine Urobilinogen Ur Leukocyte Esterase Opiates Screen Methadone Screen Barbiturate Screen Phencyclidine Screen Ur Amphetamines Screen MDMA (Ecstasy) Screen Benzodiazepines Screen Cocaine Screen U Marijuana (THC) Screen Current Medications Generic Name Dose Route Start Last Admin Trade Name Freq PRN Reason Stop Dose Admin Clotrimazole 1 applic 12/07/17 10:00 12/07/17 10:34 Lotrimin 1% Cream - TP 1 applic BID ALLIE Administration Docusate Sodium 100 mg 12/07/17 10:00 12/07/17 09:15 Colace - PO 100 mg BID ALLIE Administration Sodium Chloride 1,000 mls @ 100 mls/hr 12/07/17 02:00 12/07/17 05:28 Normal Saline - IV 100 mls/hr ASDIR ALLIE Administration Insulin Aspart 0 vial 12/07/17 07:00 12/07/17 10:37 Novolog Vial Sliding Scale - SQ Not Given ACHS [facility] Protocol ASSESSMENT AND PLAN: This is a 52 year old woman with a history of hidradenitis suppurativa, type 2 DM, schizophrenia who presented to the ED after a fall and found to have fever, tachycardia, and leukocytosis. 1. Sepsis secondary to cellulitis of abdominal pannus and infected hidradenitis suppurativa - Previously had infection with Pseudomonas and VRE - Continue Zosyn, Vancomycin, topical Lotrimin - Follow up wound, blood cultures - Surgery evaluation 2. s/p fall 3. Type 2 DM - Metformin held - Continue Novolog sliding scale 4. Schizophrenia - Continue Depakote, Haldol
[2017-12-07] MEDS ORDERED: PIPERACILLIN/TAZOBACTAM 3.375 GM VIAL IVPB ONE (16:50)
[2017-12-07] MEDS ORDERED: DEXTROSE 5%-WATER - 50 ML IVPB ONE (16:51)
[2017-12-07] MEDS: PIPERACILLIN/TAZOB 3.375 GM 3.375 GM in DEXTROSE 5%-WATER - 50 ML IVPB SCH (17:33)
[2017-12-07] MEDS: VANCOMYCIN 1,250 MG in DEXTROSE 5%-WATER - 250 ML IVPB SCH (18:24)
[2017-12-07] MEDS ORDERED: PT OWN MED DRAWER 7, Y5N ONE (21:31)
[2017-12-08] MEDS ORDERED: PT OWN MED DRAWER 7, Y5N ONE ×3 (01:05→22:03)
[2017-12-08] MEDS ORDERED: PIPERACILLIN/TAZOBACTAM 3.375 GM VIAL IVPB ONE ×3 (01:06→22:06)
[2017-12-08] MEDS ORDERED: DEXTROSE 5%-WATER - 50 ML IVPB ONE ×3 (01:07→22:06)
[2017-12-08] MEDS: PIPERACILLIN/TAZOB 3.375 GM 3.375 GM in DEXTROSE 5%-WATER - 50 ML IVPB SCH ×4 (01:24→22:13)
[2017-12-08] MEDS: SODIUM CHLORIDE 1,000 ML IV SCH ×2 (06:23→22:13)
[2017-12-08] MEDS: INSULIN SLIDING SCALE (NOVOLOG) 1 VIAL SQ SCH ×4 (06:23→22:15)
[2017-12-08] MEDS: CLOTRIMAZOLE 1% CREAM 15 GM TUBE TP SCH ×2 (10:21→22:16)
[2017-12-08] MEDS: DOCUSATE SODIUM 100 MG CAPSULE (FP) PO SCH ×3 (10:21→22:12)
--- NOTE | 2017-12-08 10:35 | PN ---
Physical Exam: SUBJECTIVE: Patient seen and examined. She is more awake today. She has no complaints. She reports having diarrhea x 2 days. OBJECTIVE: Vital Signs Period Temp Pulse Resp BP Sys/[place] Pulse Ox Last 24 Hr 97.9 F-99.4 F 98-102 18-20 101-144/60-90 LUNGS: Breath sounds equal, clear to auscultation bilaterally, no wheezes, no crackles, no accessory muscle use. HEART: Regular rate and rhythm, S1, S2 without murmur, rub or gallop. ABDOMEN: Obese, soft, nontender, nondistended, normoactive bowel sounds. EXTREMITIES: 2+ pulses, warm, well-perfused, no edema. SKIN: Skin under abdominal pannus is less erythematous and no purulent drainage noted. Open lesions in left axilla, right groin. Laboratory Results - last 24 hr 12/07/17 12/07/17 12/07/17 10:36 16:23 21:35 POC Glucometer 99 111 105 12/08/17 06:11 POC Glucometer 90 Active Medications Generic Name Dose Route Start Last Admin Trade Name Freq PRN Reason Stop Dose Admin Acetaminophen 650 mg 12/07/17 22:11 Tylenol - PO Q6H PRN PAIN Clotrimazole 1 applic 12/07/17 10:00 12/07/17 21:40 Lotrimin 1% Cream - TP 1 applic BID ALLIE Administration Docusate Sodium 100 mg 12/07/17 10:00 12/07/17 21:35 Colace - PO Not Given BID ALLIE Sodium Chloride 1,000 mls @ 100 mls/hr 12/07/17 02:00 12/08/17 06:23 Normal Saline - IV Not Given ASDIR ALLIE Vancomycin HCl 1,250 mg/ 250 mls @ 250 mls/hr 12/07/17 18:00 12/07/17 18:24 Dextrose IVPB 250 mls/hr DAILY@1800 ALLIE Administration Protocol Piperacillin Sod/Tazobactam 50 mls @ 100 mls/hr 12/07/17 18:00 12/08/17 01:24 Sod 3.375 gm/ Dextrose IVPB 100 mls/hr Q8H-IV ALLIE Administration Protocol Insulin Aspart 0 vial 12/07/17 07:00 12/08/17 06:23 Novolog Vial Sliding Scale - SQ Not Given ACHS [facility] Protocol ASSESSMENT/PLAN: This is a 52 year old woman with a history of hidradenitis suppurativa, type 2 DM, schizophrenia who presented to the ED after a fall and found to have fever, tachycardia, and leukocytosis. 1. Sepsis secondary to cellulitis of abdominal pannus and infected hidradenitis suppurativa - Previously had infection with Pseudomonas and VRE - Continue Zosyn, Vancomycin, topical Lotrimin - Wound culture pending - Blood cultures negative after 24 hrs - Awaiting surgery evaluation 2. s/p fall 3. Type 2 DM - Metformin held - Continue Novolog sliding scale 4. Schizophrenia - Continue Depakote 5. Anemia, microcytic - Check iron studies, TSH, stool occult blood 6. Hypomagnesemia - Supplement magnesium 7. Diarrhea - Check stool C. difficile Visit type - Emergency Visit Emergency Visit: Yes ED Registration Date: 12/07/17 Care time: The patient presented to the Emergency Department on the above date and was hospitalized for further evaluation of their emergent condition. - New Patient This patient is new to me today: No - Critical Care Critical Care patient: No - Discharge Referral Referred to [facility] Med P.C.: No
[2017-12-08] MEDS: DIVALPROEX SODIUM 500 MG TABLET E.C. PO SCH ×2 (11:48→22:12)
--- NOTE | 2017-12-08 12:12 | PN ---
Progress Note, Physician History of Present Illness: stable no new issues patient c/o of dirrhoea - Current Medication List Current Medications: Active Medications Acetaminophen (Tylenol -) 650 mg PO Q6H PRN PRN Reason: PAIN Clotrimazole (Lotrimin 1% Cream -) 1 applic TP BID [facility] Last Admin: 12/08/17 10:21 Dose: 1 applic Divalproex Sodium (Depakote -) 500 mg PO BID [facility] Last Admin: 12/08/17 11:48 Dose: 500 mg Docusate Sodium (Colace -) 100 mg PO BID [facility] Last Admin: 12/08/17 10:23 Dose: Not Given Sodium Chloride (Normal Saline -) 1,000 mls @ 100 mls/hr IV ASDIR [facility] Last Admin: 12/08/17 06:23 Dose: Not Given Vancomycin HCl 1,250 mg/ (Dextrose) 250 mls @ 250 mls/hr IVPB DAILY@1800 ALLIE PRN Reason: Protocol Last Admin: 12/07/17 18:24 Dose: 250 mls/hr Piperacillin Sod/Tazobactam (Sod 3.375 gm/ Dextrose) 50 mls @ 100 mls/hr IVPB Q8H-IV ALLIE PRN Reason: Protocol Last Admin: 12/08/17 11:47 Dose: Not Given Insulin Aspart (Novolog Vial Sliding Scale -) 0 vial SQ ACHS [facility] PRN Reason: Protocol Last Admin: 12/08/17 11:50 Dose: Not Given - Objective Vital Signs: Vital Signs Temperature 99.4 F 12/08/17 06:00 Pulse Rate 102 H 12/08/17 06:00 Respiratory Rate 20 12/08/17 06:00 Blood Pressure 144/90 12/08/17 06:00 O2 Sat by Pulse Oximetry (%) 96 12/07/17 09:00 Constitutional: Yes: No Distress, Calm, Obese Eyes: Yes: Conjunctiva Clear HENT: Yes: Atraumatic Neck: Yes: Supple, Trachea Midline Cardiovascular: Yes: Regular Rate and Rhythm Respiratory: Yes: Regular, CTA Bilaterally Gastrointestinal: Yes: Normal Bowel Sounds, Soft Musculoskeletal: Yes: Other Extremities: Yes: Other Integumentary: Yes: Other (hiradenitits in the groin and the axilla) Neurological: Yes: Alert, Oriented Psychiatric: Yes: Alert, Oriented Labs: CBC, BMP 12/07/17 06:30 12/07/17 06:30 INR, PTT INR 1.13 (0.82-1.09) 12/06/17 21:56 Assessment/Plan hidradeniarya michel dirrhoea plan continue abx await for surgery to see the patient rest as per primary team
[2017-12-08] MEDS: ACETAMINOPHEN 325 MG TABLET (FP) PO PRN ×2 (13:33→22:12)
[2017-12-08] MEDS: VANCOMYCIN 1,250 MG in DEXTROSE 5%-WATER - 250 ML IVPB SCH ×2 (18:28→22:12)
[2017-12-09] MEDS ORDERED: PIPERACILLIN/TAZOBACTAM 3.375 GM VIAL IVPB ONE ×3 (01:49→17:37)
[2017-12-09] MEDS: PIPERACILLIN/TAZOB 3.375 GM 3.375 GM in DEXTROSE 5%-WATER - 50 ML IVPB SCH ×4 (01:55→17:41)
[2017-12-09] MEDS: INSULIN SLIDING SCALE (NOVOLOG) 1 VIAL SQ SCH ×4 (06:23→21:40)
[2017-12-09 07:56] LABS: ANION GAP 9 (8-16); BLOOD UREA NITROGEN 6 mg/dL (7-18); CALCIUM 8.2 mg/dL (8.5-10.1); CHLORIDE 110 mmol/L (98-107); CO2 23 mmol/L (21-32); CREATININE 0.6 mg/dL (0.55-1.02); GLUCOSE,RANDOM 74 mg/dL (74-106); MAGNESIUM 1.9 mg/dL (1.8-2.4); POTASSIUM 4.1 mmol/L (3.5-5.1); SODIUM 142 mmol/L (136-145)
[2017-12-09 08:49] LABS: BASO % 0.3 % (0-2.0); HEMATOCRIT 28.4 % (32.4-45.2); HEMOGLOBIN 8.9 GM/dL (10.7-15.3); LYMPH % 43.5 % (8-40); MCH 24.6 pg (25.7-33.7); MCHC 31.2 g/dl (32.0-36.0); MEAN CELL VOLUME 78.7 fl (80-96); MEAN PLT VOLUME 7.5 fl (7.5-11.1); MONO % 6.8 % (3.8-10.2); NEUT % 48.4 % (42.8-82.8); PLATELET COUNT 423 K/MM3 (134-434); RBC 3.61 M/mm3 (3.60-5.2); RDW 20.4 % (11.6-15.6); WHITE BLOOD COUNT 6.3 K/mm3 (4.0-10.0)
[2017-12-09] MEDS ORDERED: PT OWN MED DRAWER 7, Y5N ONE ×2 (09:18→21:34)
[2017-12-09] MEDS ORDERED: DEXTROSE 5%-WATER - 50 ML IVPB ONE ×2 (09:18→17:38)
[2017-12-09] MEDS: DOCUSATE SODIUM 100 MG CAPSULE (FP) PO SCH ×2 (09:25→21:39)
[2017-12-09] MEDS: CLOTRIMAZOLE 1% CREAM 15 GM TUBE TP SCH ×2 (09:25→21:39)
[2017-12-09] MEDS: DIVALPROEX SODIUM 500 MG TABLET E.C. PO SCH ×2 (09:25→21:39)
[2017-12-09] MEDS: SODIUM CHLORIDE 1,000 ML IV SCH (09:28)
--- NOTE | 2017-12-09 14:29 | PN ---
Progress Note, Physician History of Present Illness: patient doing well no complaints - Current Medication List Current Medications: Active Medications Acetaminophen (Tylenol -) 650 mg PO Q6H PRN PRN Reason: PAIN Last Admin: 12/08/17 22:12 Dose: 650 mg Clotrimazole (Lotrimin 1% Cream -) 1 applic TP BID [facility] Last Admin: 12/09/17 09:25 Dose: 1 applic Divalproex Sodium (Depakote -) 500 mg PO BID [facility] Last Admin: 12/09/17 09:25 Dose: 500 mg Docusate Sodium (Colace -) 100 mg PO BID [facility] Last Admin: 12/09/17 09:25 Dose: Not Given Sodium Chloride (Normal Saline -) 1,000 mls @ 100 mls/hr IV ASDIR [facility] Last Admin: 12/09/17 09:28 Dose: Not Given Vancomycin HCl 1,250 mg/ (Dextrose) 250 mls @ 250 mls/hr IVPB DAILY@1800 ALLIE PRN Reason: Protocol Last Admin: 12/08/17 22:12 Dose: 250 mls/hr Piperacillin Sod/Tazobactam (Sod 3.375 gm/ Dextrose) 50 mls @ 100 mls/hr IVPB Q8H-IV [facility] PRN Reason: Protocol Last Admin: 12/09/17 09:27 Dose: 100 mls/hr Insulin Aspart (Novolog Vial Sliding Scale -) 0 vial SQ ACHS [facility] PRN Reason: Protocol Last Admin: 12/09/17 11:28 Dose: Not Given - Objective Vital Signs: Vital Signs Temperature 98.4 F 12/09/17 07:00 Pulse Rate 82 12/09/17 07:00 Respiratory Rate 18 12/09/17 07:00 Blood Pressure 127/76 12/09/17 07:00 O2 Sat by Pulse Oximetry (%) 95 12/08/17 21:00 Constitutional: Yes: No Distress, Calm, Obese Neck: Yes: Supple Cardiovascular: Yes: Regular Rate and Rhythm Respiratory: Yes: Regular, CTA Bilaterally Gastrointestinal: Yes: Normal Bowel Sounds, Soft Musculoskeletal: Yes: Other Extremities: Yes: Other (groin and axillary swelling) Wound/Incision: Yes: Clean/Dry Neurological: Yes: Alert, Oriented Psychiatric: Yes: Alert, Oriented Labs: CBC, BMP 12/09/17 07:00 12/09/17 07:00 INR, PTT INR 1.13 (0.82-1.09) 12/06/17 21:56 Assessment/Plan hidradenitits dm dirrhoea plan continue abx await for surgery to see the patient rest as per primary team will deescalte the abx once surgical plan in place cx results noted
[2017-12-09] MEDS ORDERED: LOPERAMIDE HCL 2 MG CAPSULE PO PRN (15:58)
--- NOTE | 2017-12-09 15:59 | PN ---
Physical Exam: SUBJECTIVE: Patient seen and examined. No complaints. OBJECTIVE: Vital Signs Period Temp Pulse Resp BP Sys/[place] Pulse Ox Last 24 Hr 98.4 F-102.6 F 82-107 18-20 109-148/67-80 95 LUNGS: Breath sounds equal, clear to auscultation bilaterally, no wheezes, no crackles, no accessory muscle use. HEART: Regular rate and rhythm, S1, S2 without murmur, rub or gallop. ABDOMEN: Obese, soft, nontender, nondistended, normoactive bowel sounds. EXTREMITIES: 2+ pulses, warm, well-perfused, no edema. SKIN: Skin under abdominal pannus is less erythematous and no purulent drainage noted. Open lesions in left axilla, right groin. Laboratory Results - last 24 hr 12/08/17 12/08/17 12/09/17 17:19 22:15 00:00 WBC RBC Hgb Hct MCV MCH MCHC RDW Plt Count MPV Neutrophils % Lymphocytes % Monocytes % Eosinophils % Basophils % Sodium Potassium Chloride Carbon Dioxide Anion Gap BUN Creatinine POC Glucometer 166 99 Random Glucose Calcium Magnesium Ferritin TSH Stool Occult Blood Negative 12/09/17 12/09/17 12/09/17 05:36 07:00 07:00 WBC 6.3 RBC 3.61 Hgb 8.9 L Hct 28.4 L MCV 78.7 L MCH 24.6 L MCHC 31.2 L RDW 20.4 H Plt Count 423 MPV 7.5 Neutrophils % 48.4 D Lymphocytes % 43.5 H D Monocytes % 6.8 D Eosinophils % 1.0 D Basophils % 0.3 Sodium 142 Potassium 4.1 Chloride 110 H Carbon Dioxide 23 Anion Gap 9 BUN 6 L Creatinine 0.6 POC Glucometer 81 Random Glucose 74 Calcium 8.2 L Magnesium 1.9 Ferritin TSH Stool Occult Blood 12/09/17 12/09/17 07:00 11:26 WBC RBC Hgb Hct MCV MCH MCHC RDW Plt Count MPV Neutrophils % Lymphocytes % Monocytes % Eosinophils % Basophils % Sodium Potassium Chloride Carbon Dioxide Anion Gap BUN Creatinine POC Glucometer 86 Random Glucose Calcium Magnesium Ferritin 62.424 TSH 2.95 Stool Occult Blood Active Medications Generic Name Dose Route Start Last Admin Trade Name Freq PRN Reason Stop Dose Admin Acetaminophen 650 mg 12/07/17 22:11 12/08/17 22:12 Tylenol - PO 650 mg Q6H PRN Administration PAIN Clotrimazole 1 applic 12/07/17 10:00 12/09/17 09:25 Lotrimin 1% Cream - TP 1 applic BID ALLIE Administration Divalproex Sodium 500 mg 12/08/17 10:30 12/09/17 09:25 Depakote - PO 500 mg BID ALLIE Administration Docusate Sodium 100 mg 12/07/17 10:00 12/09/17 09:25 Colace - PO Not Given BID ALLIE Sodium Chloride 1,000 mls @ 100 mls/hr 12/07/17 02:00 12/09/17 09:28 Normal Saline - IV Not Given ASDIR ALLIE Vancomycin HCl 1,250 mg/ 250 mls @ 250 mls/hr 12/07/17 18:00 12/08/17 22:12 Dextrose IVPB 250 mls/hr DAILY@1800 [facility] Administration Protocol Piperacillin Sod/Tazobactam 50 mls @ 100 mls/hr 12/07/17 18:00 12/09/17 09:27 Sod 3.375 gm/ Dextrose IVPB 100 mls/hr Q8H-IV [facility] Administration Protocol Insulin Aspart 0 vial 12/07/17 07:00 12/09/17 11:28 Novolog Vial Sliding Scale - SQ Not Given ACHS [facility] Protocol ASSESSMENT/PLAN: This is a 52 year old woman with a history of hidradenitis suppurativa, type 2 DM, schizophrenia who presented to the ED after a fall and found to have fever, tachycardia, and leukocytosis. 1. Sepsis secondary to cellulitis of abdominal pannus and infected hidradenitis suppurativa - Previously had infection with Pseudomonas and VRE - Continue Zosyn, Vancomycin, topical Lotrimin - Wound culture pending - Blood cultures negative after 48 hrs - Awaiting surgery evaluation 2. s/p fall 3. Type 2 DM - Metformin held - Continue Novolog sliding scale 4. Schizophrenia - Continue Depakote 5. Anemia, microcytic - Iron studies pending - TSH normal - Stool negative for occult blood 6. Hypomagnesemia - Start MagOx 7. Diarrhea - Stool negative for C. difficile - Imodium as needed Visit type - Emergency Visit Emergency Visit: Yes ED Registration Date: 12/07/17 Care time: The patient presented to the Emergency Department on the above date and was hospitalized for further evaluation of their emergent condition. - New Patient This patient is new to me today: No - Critical Care Critical Care patient: No - Discharge Referral Referred to [facility] Med P.C.: No
[2017-12-09] MEDS: VANCOMYCIN 1,250 MG in DEXTROSE 5%-WATER - 250 ML IVPB SCH (18:41)
[2017-12-09] MEDS: MAGNESIUM OXIDE 400 MG TABLET (FP) PO SCH (21:39)
[2017-12-10] MEDS ORDERED: PIPERACILLIN/TAZOBACTAM 3.375 GM VIAL IVPB ONE ×3 (03:03→16:25)
[2017-12-10] MEDS ORDERED: DEXTROSE 5%-WATER - 50 ML IVPB ONE ×3 (03:03→16:25)
[2017-12-10] MEDS: PIPERACILLIN/TAZOB 3.375 GM 3.375 GM in DEXTROSE 5%-WATER - 50 ML IVPB SCH ×3 (03:06→17:20)
[2017-12-10] MEDS: SODIUM CHLORIDE 1,000 ML IV SCH ×2 (03:06→14:39)
[2017-12-10 06:06] LABS: SERUM IRON SATURATION 12 % (15-55); TOTAL IRON BINDING CAPACITY 185 ug/dL (250-450); UIBC 162 ug/dL (131-425)
[2017-12-10] MEDS: INSULIN SLIDING SCALE (NOVOLOG) 1 VIAL SQ SCH ×3 (06:18→16:41)
[2017-12-10 08:18] LABS: BASO % 0.4 % (0-2.0); EOS % 2.4 % (0-4.5); HEMATOCRIT 27.5 % (32.4-45.2); HEMOGLOBIN 8.7 GM/dL (10.7-15.3); LYMPH % 32.8 % (8-40); MCHC 31.8 g/dl (32.0-36.0); MEAN CELL VOLUME 78.5 fl (80-96); MEAN PLT VOLUME 7.3 fl (7.5-11.1); MONO % 6.2 % (3.8-10.2); NEUT % 58.2 % (42.8-82.8); PLATELET COUNT 448 K/MM3 (134-434); RDW 20.4 % (11.6-15.6)
[2017-12-10 08:22] LABS: ANION GAP 9 (8-16); BLOOD UREA NITROGEN 3 mg/dL (7-18); CALCIUM 8.5 mg/dL (8.5-10.1); CHLORIDE 111 mmol/L (98-107); CO2 25 mmol/L (21-32); CREATININE 0.5 mg/dL (0.55-1.02); GLUCOSE,RANDOM 69 mg/dL (74-106); MAGNESIUM 2.2 mg/dL (1.8-2.4); POTASSIUM 4.3 mmol/L (3.5-5.1); SODIUM 145 mmol/L (136-145)
[2017-12-10] MEDS: DOCUSATE SODIUM 100 MG CAPSULE (FP) PO SCH ×2 (09:29→21:15)
[2017-12-10] MEDS: DIVALPROEX SODIUM 500 MG TABLET E.C. PO SCH ×2 (09:29→21:15)
[2017-12-10] MEDS: MAGNESIUM OXIDE 400 MG TABLET (FP) PO SCH ×2 (09:29→21:15)
[2017-12-10] MEDS: CLOTRIMAZOLE 1% CREAM 15 GM TUBE TP SCH ×2 (09:30→21:16)
--- NOTE | 2017-12-10 16:13 | PN ---
Progress Note, Physician History of Present Illness: stable no complaints - Current Medication List Current Medications: Active Medications Acetaminophen (Tylenol -) 650 mg PO Q6H PRN PRN Reason: PAIN Last Admin: 12/08/17 22:12 Dose: 650 mg Clotrimazole (Lotrimin 1% Cream -) 1 applic TP BID [facility] Last Admin: 12/10/17 09:30 Dose: 1 applic Divalproex Sodium (Depakote -) 500 mg PO BID [facility] Last Admin: 12/10/17 09:29 Dose: 500 mg Docusate Sodium (Colace -) 100 mg PO BID [facility] Last Admin: 12/10/17 09:29 Dose: Not Given Sodium Chloride (Normal Saline -) 1,000 mls @ 100 mls/hr IV ASDIR [facility] Last Admin: 12/10/17 03:06 Dose: 100 mls/hr Vancomycin HCl 1,250 mg/ (Dextrose) 250 mls @ 250 mls/hr IVPB DAILY@1800 ALLIE PRN Reason: Protocol Last Admin: 12/09/17 18:41 Dose: 250 mls/hr Piperacillin Sod/Tazobactam (Sod 3.375 gm/ Dextrose) 50 mls @ 100 mls/hr IVPB Q8H-IV [facility] PRN Reason: Protocol Last Admin: 12/10/17 09:26 Dose: 100 mls/hr Insulin Aspart (Novolog Vial Sliding Scale -) 0 vial SQ ACHS [facility] PRN Reason: Protocol Last Admin: 12/10/17 11:17 Dose: Not Given Loperamide HCl (Imodium -) 2 mg PO Q8H PRN PRN Reason: DIARRHEA Last Admin: 12/10/17 06:52 Dose: 2 mg Magnesium Oxide (Mag-Ox -) 400 mg PO BID [facility] Last Admin: 12/10/17 09:29 Dose: 400 mg - Objective Vital Signs: Vital Signs Temperature 98.4 F 12/10/17 14:02 Pulse Rate 88 12/10/17 14:02 Respiratory Rate 18 12/10/17 14:02 Blood Pressure 119/70 12/10/17 14:02 O2 Sat by Pulse Oximetry (%) 100 12/10/17 08:17 Constitutional: Yes: No Distress, Calm, Obese Cardiovascular: Yes: Regular Rate and Rhythm Gastrointestinal: Yes: Normal Bowel Sounds, Soft Musculoskeletal: Yes: Other Extremities: Yes: Other Neurological: Yes: Alert, Oriented Psychiatric: Yes: Alert, Oriented Labs: CBC, BMP 12/10/17 07:25 12/10/17 07:25 INR, PTT INR 1.13 (0.82-1.09) 12/06/17 21:56 Assessment/Plan hidradenitits dm dirrhoea plan continue zosyn will stop vanco await for surgery rest continue current mgmt
[2017-12-10] MEDS ORDERED: PT OWN MED DRAWER 7, Y5N ONE (16:25)
--- NOTE | 2017-12-10 17:12 | PN ---
Teaching Attending Note Name of Resident: Clinton Livingston ATTENDING PHYSICIAN STATEMENT I saw and evaluated the patient. I reviewed the resident's note and discussed the case with the resident. I agree with the resident's findings and plan as documented. SUBJECTIVE: Patient has no complaints. OBJECTIVE: Vital Signs Period Temp Pulse Resp BP Sys/[place] Pulse Ox Last 24 Hr 97.5 F-98.4 F 86-89 17-18 103-128/65-75 100-100 HEART: S1S2, RRR LUNGS: Clear ABDOMEN: Obese, soft, nontender, nondistended, normal BS EXTREMITIES: No edema SKIN: Skin under abdominal pannus is less erythematous and no purulent drainage noted. Open lesions in left axilla, right groin. Laboratory Results - last 24 hr 12/09/17 12/09/17 12/09/17 07:00 17:04 17:22 WBC RBC Hgb Hct MCV MCH MCHC RDW Plt Count MPV Neutrophils % Lymphocytes % Monocytes % Eosinophils % Basophils % Sodium Potassium Chloride Carbon Dioxide Anion Gap BUN Creatinine POC Glucometer 83 Random Glucose Calcium Magnesium Iron 23 L TIBC 185 L Iron Saturation 12 L Vancomycin Pre-Dose 7.532 Valproic Acid 12/09/17 12/10/17 12/10/17 21:05 05:56 07:25 WBC RBC Hgb Hct MCV MCH MCHC RDW Plt Count MPV Neutrophils % Lymphocytes % Monocytes % Eosinophils % Basophils % Sodium Potassium Chloride Carbon Dioxide Anion Gap BUN Creatinine POC Glucometer 181 77 Random Glucose Calcium Magnesium Iron TIBC Iron Saturation Vancomycin Pre-Dose Valproic Acid 64.621 12/10/17 12/10/17 12/10/17 07:25 07:25 11:13 WBC 8.0 RBC 3.50 L Hgb 8.7 L Hct 27.5 L MCV 78.5 L MCH 25.0 L MCHC 31.8 L RDW 20.4 H Plt Count 448 H MPV 7.3 L Neutrophils % 58.2 D Lymphocytes % 32.8 D Monocytes % 6.2 Eosinophils % 2.4 D Basophils % 0.4 Sodium 145 Potassium 4.3 Chloride 111 H Carbon Dioxide 25 Anion Gap 9 BUN 3 L Creatinine 0.5 L POC Glucometer 102 Random Glucose 69 L Calcium 8.5 Magnesium 2.2 Iron TIBC Iron Saturation Vancomycin Pre-Dose Valproic Acid Current Medications Generic Name Dose Route Start Last Admin Trade Name Freq PRN Reason Stop Dose Admin Acetaminophen 650 mg 12/07/17 22:11 12/08/17 22:12 Tylenol - PO 650 mg Q6H PRN Administration PAIN Clotrimazole 1 applic 12/07/17 10:00 12/10/17 09:30 Lotrimin 1% Cream - TP 1 applic BID ALLIE Administration Divalproex Sodium 500 mg 12/08/17 10:30 12/10/17 09:29 Depakote - PO 500 mg BID ALLIE Administration Docusate Sodium 100 mg 12/07/17 10:00 12/10/17 09:29 Colace - PO Not Given BID ALLIE Sodium Chloride 1,000 mls @ 100 mls/hr 12/07/17 02:00 12/10/17 14:39 Normal Saline - IV 100 mls/hr ASDIR ALLIE Administration Vancomycin HCl 1,250 mg/ 250 mls @ 250 mls/hr 12/07/17 18:00 12/09/17 18:41 Dextrose IVPB 250 mls/hr DAILY@1800 [facility] Administration Protocol Piperacillin Sod/Tazobactam 50 mls @ 100 mls/hr 12/07/17 18:00 12/10/17 09:26 Sod 3.375 gm/ Dextrose IVPB 100 mls/hr Q8H-IV [facility]IE Administration Protocol Insulin Aspart 0 vial 12/07/17 07:00 12/10/17 16:41 Novolog Vial Sliding Scale - SQ Not Given ACHS [facility] Protocol Loperamide HCl 2 mg 12/09/17 15:58 12/10/17 06:52 Imodium - PO 2 mg Q8H PRN Administration DIARRHEA Magnesium Oxide 400 mg 12/09/17 22:00 12/10/17 09:29 Mag-Ox - PO 400 mg BID ALLIE Administration ASSESSMENT AND PLAN: This is a 52 year old woman with a history of hidradenitis suppurativa, type 2 DM, schizophrenia who presented to the ED after a fall and found to have fever, tachycardia, and leukocytosis. 1. Sepsis secondary to cellulitis of abdominal pannus and infected hidradenitis suppurativa - Previously had infection with Pseudomonas and VRE - Continue Zosyn, Vancomycin, topical Lotrimin - Wound culture Corynebacterium - Blood cultures negative after 72 hrs - Awaiting surgery evaluation 2. s/p fall 3. Type 2 DM - Metformin held - Continue Novolog sliding scale 4. Schizophrenia - Continue Depakote 5. Anemia, microcytic - Iron studies show low iron, low TIBC, low saturation, low normal ferritin - TSH normal - Stool negative for occult blood 6. Hypomagnesemia - Improved 7. Diarrhea - Stool negative for C. difficile - Imodium as needed
[2017-12-10] MEDS: VANCOMYCIN 1,250 MG in DEXTROSE 5%-WATER - 250 ML IVPB SCH (17:20)
--- NOTE | 2017-12-10 18:56 | CONSULT ---
Consult Consult Specialty:: general surgery Referred by:: Dr. Livingston Reason for Consultation:: hidradenitis - History of Present Illness Chief Complaint: hidradenitis History of Present Illness: 52 yo female PMH hidradenitis suppurativa, diabetes, schizophrenia, homelessness , presents s/p mechanical fall earlier today. She states that she hit her head and denies syncopizing, feeling lightheaded, or having any chest pain. In the emergency room, patient was found to be febrile, tachycardic, tachypneic. The patient denies fevers, shortness of breath, cough or abdominal pain. She was previously treated in the ED both in 2017 and in 2016 for hydradenitis suppurativa of the pelvic region, which grew VRE and Pseudomonas. The patient states that she has had this problem for many years, and that is has gotten worse and progressed. Ct scan showed mons pubus edema, no discrete collections. we were asked to assess. - History Source History Provided By: Patient, Medical Record Limitations to Obtaining History: No Limitations - Past Medical History Cardio/Vascular: Yes: HTN (labile , sometimes, no meds ) Pulmonary: Yes: Asthma Gastrointestinal: Yes: GERD Renal/: Yes: UTI (diagnosed in ER on 11/01/16 ) ...LMP: 01/13/16 Psych: Yes: Bipolar, Schizophrenia Musculoskeletal: Yes: Chronic low back pain Endocrine: Yes: Diabetes Mellitus (class 2, on Metformin ) - Alcohol/Substance Use Hx Alcohol Use: No - Smoking History Smoking history: Current every day smoker Have you smoked in the past 12 months: Yes Aproximately how many cigarettes per day: 20 - Social History Usual Living Arrangement: Assisted Living (pt from senior care) Home Medications - Allergies Allergies/Adverse Reactions: Allergies Allergy/AdvReac Type Severity Reaction Status Date / Time No Known Drug Allergies Allergy Verified 12/06/17 21:22 Dairy AdvReac Uncoded 12/06/17 21:22 Spaguetti Sauce AdvReac Uncoded 12/06/17 21:22 - Home Medications Home Medications: Ambulatory Orders Albuterol Sulfate [Proair Respiclick] 2 puff IH Q4H PRN 11/29/16 Atropine 1% Ophth. Solution - 1 drop OD TID 11/29/16 Cyclobenzaprine HCl 5 mg PO TID 11/29/16 Divalproex [Depakote -] 250 mg PO HS 11/29/16 Famotidine 20 mg PO BID 11/29/16 Haloperidol [Haldol -] 10 mg PO BID 11/29/16 Ibuprofen 400 mg PO TID 11/29/16 Metformin HCl [Metformin HCl ER] 1,000 mg PO BID 11/29/16 Naproxen [Naprosyn -] 500 mg PO TID 11/29/16 Prednisolone 1% Ophthalmic [Pred Forte 1% -] 5 ml OD QID 11/29/16 Tobramycin/Dexamethasone [Tobradex Eye Drops] 5 ml OP QID 11/29/16 Divalproex *ER* [Depakote *ER* -] 500 mg PO BID 12/04/16 Doxycycline Monohydrate [Mondoxyne Nl] 100 mg PO BID #14 capsule 05/15/17 Review of Systems - Review of Systems Constitutional: denies: Chills, Fever Eyes: denies: Blind Spots, Recent Change in Vision HENT: denies: Difficult Swallowing, Throat Pain Neck: denies: Pain on Movement, Swollen Glands, Tenderness Cardiovascular: denies: Chest Pain, Palpitations Respiratory: denies: Cough, SOB Gastrointestinal: denies: Abdominal Pain, Constipation, Diarrhea Genitourinary: reports: Other (groin swelling). denies: Discharge, Dysuria Breasts: denies: Lumps, Pain Musculoskeletal: denies: Muscle Pain, Muscle Weakness Integumentary: denies: Lesions, Rash Neurological: denies: Seizure, Syncope Endocrine: denies: Unexplained Weight Gain, Unexplained Weight Loss Hematology/Lymphatic: denies: Easily Bruised, Excessive Bleeding Psychiatric: denies: Anxiety, Depression Physical Exam Vital Signs: Vital Signs Temperature 98.4 F 12/10/17 14:02 Pulse Rate 88 12/10/17 14:02 Respiratory Rate 18 12/10/17 14:02 Blood Pressure 119/70 12/10/17 14:02 O2 Sat by Pulse Oximetry (%) 100 12/10/17 08:17 Vital Signs Period Temp Pulse Resp BP Sys/[place] Pulse Ox Last 24 Hr 97.9 F-99.0 F 84-98 18-20 109-145/66-82 97 Constitutional: Yes: No Distress, Calm, Obese, Poor Hygeine Eyes: Yes: Conjunctiva Clear, EOM Intact HENT: Yes: Normocephalic, Other (philtrum abrasion) Neck: Yes: Supple, Trachea Midline Cardiovascular: Yes: Regular Rate and Rhythm, S1, S2 Respiratory: Yes: Regular, CTA Bilaterally Gastrointestinal: Yes: Normal Bowel Sounds, Soft, Abdomen, Obese. No: Tenderness, Tenderness, Epigastrium, Tenderness, Rebound ...Rectal Exam: Yes: Deferred Renal/: Yes: Other (Edmatous mons pubis). No: CVA Tenderness - Left, CVA Tenderness - Right Extremities: Yes: Cold. No: Cool, Cyanosis Peripheral Pulses WNL: Yes Integumentary: Yes: Bruising. No: Jaundice, Rash Neurological: Yes: Alert, Oriented Psychiatric: Yes: Alert, Oriented Labs: CBC, BMP 12/10/17 07:25 12/10/17 07:25 Imaging - Results Cat Scan: Report Reviewed, Image Reviewed (mons pubis edema, no fluctuance) Problem List - Problems (1) Hidradenitis suppurativa Assessment/Plan: 52 yo male MMP presents with a notable flare of groin hidradenitits encompassing the mons pubis, very edematous and non- hair baring because of disease. No acute surgical intervention. Access Analyst evalution ID for atibiotics dermatology possible topical therapy? Plastic surgery evaluation Thank you for the opportunity to participate in the care of this patient. Code(s): L73.2 - HIDRADENITIS SUPPURATIVA (2) Cellulitis Code(s): L03.90 - CELLULITIS, UNSPECIFIED (3) Conjunctivitis Code(s): H10.9 - UNSPECIFIED CONJUNCTIVITIS Qualifiers: Conjunctivitis type: acute Acute conjunctivitis type: bacterial Laterality: bilateral Qualified Code(s): H10.33 - Unspecified acute conjunctivitis, bilateral (4) Perineal abscess Code(s): L02.215 - CUTANEOUS ABSCESS OF PERINEUM (5) UTI (urinary tract infection) Code(s): N39.0 - URINARY TRACT INFECTION, SITE NOT SPECIFIED Qualifiers: Urinary tract infection type: site unspecified Hematuria presence: without hematuria Qualified Code(s): N39.0 - Urinary tract infection, site not specified (6) Vaginal discharge Code(s): N89.8 - OTHER SPECIFIED NONINFLAMMATORY DISORDERS OF VAGINA (7) Schizophrenia Code(s): F20.9 - SCHIZOPHRENIA, UNSPECIFIED
--- NOTE | 2017-12-10 20:05 | PN ---
Physical Exam: SUBJECTIVE: Patient seen and examined at bedside. Continues to complain of diarrhea. No other complaints. OBJECTIVE: Vital Signs Period Temp Pulse Resp BP Sys/[place] Pulse Ox Last 24 Hr 97.5 F-98.4 F 86-89 17-18 103-128/65-75 100-100 GENERAL: The patient is awake, alert, and fully oriented, in no acute distress. HEAD: Normocephalic. laceration to lip healing well. NECK: Trachea midline, full range of motion, supple. LUNGS: Breath sounds equal, clear to auscultation bilaterally, no wheezes, no crackles, no accessory muscle use. HEART: Regular rate and rhythm, S1, S2 without murmur, rub or gallop. ABDOMEN: Soft, nontender, nondistended, normoactive bowel sounds, no guarding, no rebound. The area of cellulitis is much imprved compared to admission. The swelling of the patient's pannus is greatly improved. EXTREMITIES: 2+ pulses, warm, well-perfused, no edema. NEUROLOGICAL: Cranial nerves II through X grossly intact. Normal speech, gait not observed. PSYCH: Normal mood, normal affect. SKIN: Warm, dry, normal turgor, no rashes or lesions noted Laboratory Results - last 24 hr 12/09/17 12/09/17 12/10/17 07:00 21:05 05:56 WBC RBC Hgb Hct MCV MCH MCHC RDW Plt Count MPV Neutrophils % Lymphocytes % Monocytes % Eosinophils % Basophils % Sodium Potassium Chloride Carbon Dioxide Anion Gap BUN Creatinine POC Glucometer 181 77 Random Glucose Calcium Magnesium Iron 23 L TIBC 185 L Iron Saturation 12 L Valproic Acid 12/10/17 12/10/17 12/10/17 07:25 07:25 07:25 WBC 8.0 RBC 3.50 L Hgb 8.7 L Hct 27.5 L MCV 78.5 L MCH 25.0 L MCHC 31.8 L RDW 20.4 H Plt Count 448 H MPV 7.3 L Neutrophils % 58.2 D Lymphocytes % 32.8 D Monocytes % 6.2 Eosinophils % 2.4 D Basophils % 0.4 Sodium 145 Potassium 4.3 Chloride 111 H Carbon Dioxide 25 Anion Gap 9 BUN 3 L Creatinine 0.5 L POC Glucometer Random Glucose 69 L Calcium 8.5 Magnesium 2.2 Iron TIBC Iron Saturation Valproic Acid 64.621 04/09/18 04/09/18 11:13 16:41 WBC RBC Hgb Hct MCV MCH MCHC RDW Plt Count MPV Neutrophils % Lymphocytes % Monocytes % Eosinophils % Basophils % Sodium Potassium Chloride Carbon Dioxide Anion Gap BUN Creatinine POC Glucometer 102 90 Random Glucose Calcium Magnesium Iron TIBC Iron Saturation Valproic Acid Active Medications Generic Name Dose Route Start Last Admin Trade Name Freq PRN Reason Stop Dose Admin Acetaminophen 650 mg 12/07/17 22:11 12/08/17 22:12 Tylenol - PO 650 mg Q6H PRN Administration PAIN Clotrimazole 1 applic 12/07/17 10:00 12/10/17 09:30 Lotrimin 1% Cream - TP 1 applic BID ALLIE Administration Divalproex Sodium 500 mg 12/08/17 10:30 12/10/17 09:29 Depakote - PO 500 mg BID ALLIE Administration Docusate Sodium 100 mg 12/07/17 10:00 12/10/17 09:29 Colace - PO Not Given BID ALLIE Sodium Chloride 1,000 mls @ 100 mls/hr 12/07/17 02:00 12/10/17 14:39 Normal Saline - IV 100 mls/hr ASDIR ALLIE Administration Vancomycin HCl 1,250 mg/ 250 mls @ 250 mls/hr 12/07/17 18:00 12/10/17 17:20 Dextrose IVPB 250 mls/hr DAILY@1800 ALLIE Administration Protocol Piperacillin Sod/Tazobactam 50 mls @ 100 mls/hr 12/07/17 18:00 12/10/17 17:20 Sod 3.375 gm/ Dextrose IVPB 100 mls/hr Q8H-IV ALLIE Administration Protocol Insulin Aspart 0 vial 12/07/17 07:00 12/10/17 16:41 Novolog Vial Sliding Scale - SQ Not Given ACHS ALLIE Protocol Loperamide HCl 2 mg 12/09/17 15:58 12/10/17 06:52 Imodium - PO 2 mg Q8H PRN Administration DIARRHEA Magnesium Oxide 400 mg 12/09/17 22:00 12/10/17 09:29 Mag-Ox - PO 400 mg BID ALLIE Administration ASSESSMENT/PLAN: This is a 52 year old woman with a history of hidradenitis suppurativa, type 2 DM, schizophrenia admitted for sepsis 2/2 infectud pannus # Sepsis 2/2 cellulitis of abdominal pannus and infected hidradenitis suppurativa -Hx of Pseudomonas and VRE -Continue Zosyn, Vancomycin, topical Lotrimin -Wound culture growing Corynebacterium striatum and propinquum; possible contaminants -surgery consult for possible debridement # s/p fall -lip wound healing well -admission CT head negative #DM -holding oral hypoglycemics -BGM ACHS -ISS #Schizophrenia -c/w home depakote #microcytic anemia -FE studies: low iron, low TIBC, low saturation, normal ferritin -TSH WNL -FOBT negative #Hypomagnesemia -supplementing magnesium -will monitor #Diarrhea likely 2/2 abx use - Stool negative for C. diff - Imodium PRN #FEN -no fluids indicated -monitor lytes -regular diet #Prophylaxis -scdS #Dispo -admit to med surg Visit type - Emergency Visit Emergency Visit: Yes ED Registration Date: 12/07/17 Care time: The patient presented to the Emergency Department on the above date and was hospitalized for further evaluation of their emergent condition. - New Patient This patient is new to me today: No - Critical Care Critical Care patient: No
[2017-12-11] MEDS ORDERED: PIPERACILLIN/TAZOBACTAM 3.375 GM VIAL IVPB ONE ×3 (01:59→16:20)
[2017-12-11] MEDS ORDERED: DEXTROSE 5%-WATER - 50 ML IVPB ONE ×3 (02:00→16:20)
[2017-12-11] MEDS: PIPERACILLIN/TAZOB 3.375 GM 3.375 GM in DEXTROSE 5%-WATER - 50 ML IVPB SCH ×3 (02:16→17:22)
[2017-12-11 08:26] LABS: HEMATOCRIT 26.4 % (32.4-45.2); HEMOGLOBIN 8.4 GM/dL (10.7-15.3); MCH 25.2 pg (25.7-33.7); MEAN PLT VOLUME 7.2 fl (7.5-11.1); PLATELET COUNT 437 K/MM3 (134-434); RBC 3.34 M/mm3 (3.60-5.2); RDW 20.7 % (11.6-15.6); WHITE BLOOD COUNT 8.2 K/mm3 (4.0-10.0)
[2017-12-11 08:49] LABS: ANION GAP 9 (8-16); BLOOD UREA NITROGEN 4 mg/dL (7-18); CALCIUM 8.3 mg/dL (8.5-10.1); CHLORIDE 110 mmol/L (98-107); CO2 27 mmol/L (21-32); GLUCOSE,RANDOM 73 mg/dL (74-106); MAGNESIUM 2.2 mg/dL (1.8-2.4); POTASSIUM 4.4 mmol/L (3.5-5.1); SODIUM 146 mmol/L (136-145)
[2017-12-11 08:54] LABS: CREATININE 0.5 mg/dL (0.55-1.02); PHOSPHOROUS 3.8 mg/dL (2.5-4.9)
[2017-12-11] MEDS: DIVALPROEX SODIUM 500 MG TABLET E.C. PO SCH ×2 (10:08→22:34)
[2017-12-11] MEDS: CLOTRIMAZOLE 1% CREAM 15 GM TUBE TP SCH ×2 (10:08→22:35)
[2017-12-11] MEDS: MAGNESIUM OXIDE 400 MG TABLET (FP) PO SCH ×2 (10:08→22:34)
[2017-12-11] MEDS: DOCUSATE SODIUM 100 MG CAPSULE (FP) PO SCH ×2 (10:10→22:34)
--- NOTE | 2017-12-11 11:36 | PN ---
Physical Exam: SUBJECTIVE: Patient seen and examined at bedside. Patient complains of leg pain 2/2 immobility. OBJECTIVE: Vital Signs Period Temp Pulse Resp BP Sys/[place] Pulse Ox Last 24 Hr 97.9 F-99.0 F 86-98 18-20 109-145/66-82 97-97 GENERAL: The patient is awake, alert, and fully oriented, in no acute distress. NECK: Trachea midline, full range of motion, supple. LUNGS: Breath sounds equal, clear to auscultation bilaterally, no wheezes, no crackles, no accessory muscle use. HEART: Regular rate and rhythm, S1, S2 without murmur, rub or gallop. ABDOMEN: Soft, nontender, nondistended, normoactive bowel sounds, no guarding, no rebound. Pannus improved from yesterday. It is nontender and continued to leak purulent fluid. EXTREMITIES: 2+ pulses, warm, well-perfused, no edema. NEUROLOGICAL: Cranial nerves II through X grossly intact. Normal speech, gait not observed. PSYCH: Normal mood, normal affect. SKIN: Warm, dry, normal turgor, no rashes or lesions noted Laboratory Results - last 24 hr 12/10/17 12/10/17 12/11/17 11:13 16:41 07:00 WBC 8.2 RBC 3.34 L Hgb 8.4 L Hct 26.4 L MCV 79.0 L MCH 25.2 L MCHC 32.0 RDW 20.7 H Plt Count 437 H MPV 7.2 L Sodium Potassium Chloride Carbon Dioxide Anion Gap BUN Creatinine POC Glucometer 102 90 Random Glucose Calcium Phosphorus Magnesium 12/11/17 07:00 WBC RBC Hgb Hct MCV MCH MCHC RDW Plt Count MPV Sodium 146 H Potassium 4.4 Chloride 110 H Carbon Dioxide 27 Anion Gap 9 BUN 4 L Creatinine 0.5 L POC Glucometer Random Glucose 73 L Calcium 8.3 L Phosphorus 3.8 Magnesium 2.2 Active Medications Generic Name Dose Route Start Last Admin Trade Name Freq PRN Reason Stop Dose Admin Acetaminophen 650 mg 12/07/17 22:11 12/08/17 22:12 Tylenol - PO 650 mg Q6H PRN Administration PAIN Clotrimazole 1 applic 12/07/17 10:00 12/11/17 10:08 Lotrimin 1% Cream - TP 1 applic BID ALLIE Administration Divalproex Sodium 500 mg 12/08/17 10:30 12/11/17 10:08 Depakote - PO 500 mg BID ALLIE Administration Docusate Sodium 100 mg 12/07/17 10:00 12/11/17 10:10 Colace - PO Not Given BID ALLIE Sodium Chloride 1,000 mls @ 100 mls/hr 12/07/17 02:00 12/10/17 14:39 Normal Saline - IV 100 mls/hr ASDIR ALLIE Administration Piperacillin Sod/Tazobactam 50 mls @ 100 mls/hr 12/07/17 18:00 12/11/17 10:09 Sod 3.375 gm/ Dextrose IVPB 100 mls/hr Q8H-IV ALLIE Administration Protocol Loperamide HCl 2 mg 12/09/17 15:58 12/10/17 06:52 Imodium - PO 2 mg Q8H PRN Administration DIARRHEA Magnesium Oxide 400 mg 12/09/17 22:00 12/11/17 10:08 Mag-Ox - PO 400 mg BID ALLIE Administration ASSESSMENT/PLAN: This is a 52 year old woman with a history of hidradenitis suppurativa, type 2 DM, schizophrenia admitted for sepsis 2/2 infected pannus # Sepsis 2/2 cellulitis of abdominal pannus and infected hidradenitis suppurativa -Continue Zosyn (day 4), topical Lotrimin -vanco d/c as per ID -rectal culture growing presumptive VRE -Wound culture growing Corynebacterium striatum and propinquum; possible contaminants -surgery consult for possible debridement #Diarrhea likely 2/2 abx use - Stool negative for C. diff - Imodium PRN #Schizophrenia -c/w home depakote #microcytic anemia- stable -FE studies: low iron, low TIBC, low saturation, normal ferritin -TSH WNL -FOBT negative #Hypomagnesemia - resolved # s/p fall #FEN -no fluids indicated -monitor lytes -regular diet #Prophylaxis -hep SQ 5Ku TID #Dispo -admit to med surg Visit type - Emergency Visit Emergency Visit: Yes ED Registration Date: 12/07/17 Care time: The patient presented to the Emergency Department on the above date and was hospitalized for further evaluation of their emergent condition. - New Patient This patient is new to me today: No - Critical Care Critical Care patient: No
[2017-12-11] MEDS: HEPARIN NA (PORCINE) 5,000 UNITS/ML 1ML VIAL SQ SCH ×2 (13:51→22:34)
--- NOTE | 2017-12-11 14:17 | PN ---
Progress Note, Physician History of Present Illness: stable no new issues - Current Medication List Current Medications: Active Medications Acetaminophen (Tylenol -) 650 mg PO Q6H PRN PRN Reason: PAIN Last Admin: 12/08/17 22:12 Dose: 650 mg Clotrimazole (Lotrimin 1% Cream -) 1 applic TP BID [facility] Last Admin: 12/11/17 10:08 Dose: 1 applic Divalproex Sodium (Depakote -) 500 mg PO BID [facility] Last Admin: 12/11/17 10:08 Dose: 500 mg Docusate Sodium (Colace -) 100 mg PO BID [facility] Last Admin: 12/11/17 10:10 Dose: Not Given Heparin Sodium (Porcine) (Heparin -) 5,000 unit SQ TID [facility] Last Admin: 12/11/17 13:51 Dose: 5,000 unit Sodium Chloride (Normal Saline -) 1,000 mls @ 100 mls/hr IV ASDIR [facility] Last Admin: 12/10/17 14:39 Dose: 100 mls/hr Piperacillin Sod/Tazobactam (Sod 3.375 gm/ Dextrose) 50 mls @ 100 mls/hr IVPB Q8H-IV [facility] PRN Reason: Protocol Last Admin: 12/11/17 10:09 Dose: 100 mls/hr Loperamide HCl (Imodium -) 2 mg PO Q8H PRN PRN Reason: DIARRHEA Last Admin: 12/10/17 06:52 Dose: 2 mg Magnesium Oxide (Mag-Ox -) 400 mg PO BID [facility] Last Admin: 12/11/17 10:08 Dose: 400 mg - Objective Vital Signs: Vital Signs Temperature 98.2 F 12/11/17 10:00 Pulse Rate 98 H 12/11/17 10:00 Respiratory Rate 20 12/11/17 10:00 Blood Pressure 120/68 12/11/17 10:00 O2 Sat by Pulse Oximetry (%) 97 12/11/17 08:24 Constitutional: Yes: No Distress, Calm, Obese Cardiovascular: Yes: Regular Rate and Rhythm Respiratory: Yes: Regular, CTA Bilaterally Gastrointestinal: Yes: Normal Bowel Sounds, Soft Musculoskeletal: Yes: Other Extremities: Yes: Other Integumentary: Yes: Other (groin and axilla hidraadenitits) Neurological: Yes: Alert, Oriented Psychiatric: Yes: Alert, Oriented Labs: CBC, BMP 12/11/17 07:00 12/11/17 07:00 INR, PTT INR 1.13 (0.82-1.09) 12/06/17 21:56 Assessment/Plan hidradenitits dm dirrhoea cellulitits abd wall schizo plan continue zosyn await for surgical plan rest as per primary team patient stable
--- NOTE | 2017-12-11 17:12 | PN ---
Teaching Attending Note Name of Resident: Clinton Livingston ATTENDING PHYSICIAN STATEMENT I saw and evaluated the patient. I reviewed the resident's note and discussed the case with the resident. I agree with the resident's findings and plan as documented. SUBJECTIVE: No complaints. OBJECTIVE: Vital Signs Period Temp Pulse Resp BP Sys/[place] Pulse Ox Last 24 Hr 97.9 F-99.0 F 84-98 18-20 109-145/66-82 97-97 HEART: S1S2, RRR LUNGS: Clear ABDOMEN: Obese, soft, nontender, nondistended, normal BS EXTREMITIES: No edema SKIN: Skin under abdominal pannus is less erythematous and no purulent drainage noted. Open lesions in left axilla, right groin. Laboratory Results - last 24 hr 12/10/17 12/11/17 12/11/17 16:41 07:00 07:00 WBC 8.2 RBC 3.34 L Hgb 8.4 L Hct 26.4 L MCV 79.0 L MCH 25.2 L MCHC 32.0 RDW 20.7 H Plt Count 437 H MPV 7.2 L Sodium 146 H Potassium 4.4 Chloride 110 H Carbon Dioxide 27 Anion Gap 9 BUN 4 L Creatinine 0.5 L POC Glucometer 90 Random Glucose 73 L Calcium 8.3 L Phosphorus 3.8 Magnesium 2.2 Current Medications Generic Name Dose Route Start Last Admin Trade Name Freq PRN Reason Stop Dose Admin Acetaminophen 650 mg 12/07/17 22:11 12/08/17 22:12 Tylenol - PO 650 mg Q6H PRN Administration PAIN Clotrimazole 1 applic 12/07/17 10:00 12/11/17 10:08 Lotrimin 1% Cream - TP 1 applic BID ALLIE Administration Divalproex Sodium 500 mg 12/08/17 10:30 12/11/17 10:08 Depakote - PO 500 mg BID ALLIE Administration Docusate Sodium 100 mg 12/07/17 10:00 12/11/17 10:10 Colace - PO Not Given BID ALLIE Heparin Sodium (Porcine) 5,000 unit 12/11/17 14:00 12/11/17 13:51 Heparin - SQ 5,000 unit TID ALLIE Administration Sodium Chloride 1,000 mls @ 100 mls/hr 12/07/17 02:00 12/10/17 14:39 Normal Saline - IV 100 mls/hr ASDIR ALLIE Administration Piperacillin Sod/Tazobactam 50 mls @ 100 mls/hr 12/07/17 18:00 12/11/17 10:09 Sod 3.375 gm/ Dextrose IVPB 100 mls/hr Q8H-IV ALLIE Administration Protocol Loperamide HCl 2 mg 12/09/17 15:58 12/10/17 06:52 Imodium - PO 2 mg Q8H PRN Administration DIARRHEA Magnesium Oxide 400 mg 12/09/17 22:00 12/11/17 10:08 Mag-Ox - PO 400 mg BID ALLIE Administration ASSESSMENT AND PLAN: This is a 52 year old woman with a history of hidradenitis suppurativa, type 2 DM, schizophrenia who presented to the ED after a fall and found to have fever, tachycardia, and leukocytosis. 1. Sepsis secondary to cellulitis of abdominal pannus and infected hidradenitis suppurativa - Previously had infection with Pseudomonas and VRE - Continue Zosyn, topical Lotrimin - Wound culture Corynebacterium - Blood cultures negative after 72 hrs - Awaiting surgery evaluation 2. s/p fall 3. Type 2 DM - Metformin held - Continue Novolog sliding scale 4. Schizophrenia - Continue Depakote 5. Anemia, microcytic - Iron studies show low iron, low TIBC, low saturation, low normal ferritin - TSH normal - Stool negative for occult blood 6. Hypomagnesemia - Improved 7. Diarrhea - Stool negative for C. difficile - Continue Imodium as needed
[2017-12-11] MEDS: SODIUM CHLORIDE 1,000 ML IV SCH (17:22)
[2017-12-11] MEDS ORDERED: PT OWN MED DRAWER 7, Y5N ONE (22:33)
[2017-12-12] MEDS ORDERED: PIPERACILLIN/TAZOBACTAM 3.375 GM VIAL IVPB ONE ×3 (01:14→17:11)
[2017-12-12] MEDS ORDERED: DEXTROSE 5%-WATER - 50 ML IVPB ONE ×3 (01:14→17:11)
[2017-12-12] MEDS: PIPERACILLIN/TAZOB 3.375 GM 3.375 GM in DEXTROSE 5%-WATER - 50 ML IVPB SCH ×3 (01:18→17:47)
[2017-12-12] MEDS: HEPARIN NA (PORCINE) 5,000 UNITS/ML 1ML VIAL SQ SCH ×3 (05:32→21:50)
[2017-12-12 07:59] LABS: HEMATOCRIT 26.4 % (32.4-45.2); HEMOGLOBIN 8.4 GM/dL (10.7-15.3); MCH 25.2 pg (25.7-33.7); MCHC 31.7 g/dl (32.0-36.0); MEAN CELL VOLUME 79.4 fl (80-96); MEAN PLT VOLUME 7.3 fl (7.5-11.1); PLATELET COUNT 424 K/MM3 (134-434); RBC 3.32 M/mm3 (3.60-5.2); RDW 20.8 % (11.6-15.6); WHITE BLOOD COUNT 8.2 K/mm3 (4.0-10.0)
[2017-12-12 08:29] LABS: ANION GAP 7 (8-16); BLOOD UREA NITROGEN 3 mg/dL (7-18); CALCIUM 8.5 mg/dL (8.5-10.1); CHLORIDE 109 mmol/L (98-107); CO2 28 mmol/L (21-32); CREATININE 0.5 mg/dL (0.55-1.02); GLUCOSE,RANDOM 67 mg/dL (74-106); POTASSIUM 4.6 mmol/L (3.5-5.1); SODIUM 144 mmol/L (136-145)
[2017-12-12] MEDS ORDERED: PT OWN MED DRAWER 7, Y5N ONE ×2 (10:29→20:35)
[2017-12-12] MEDS: CLOTRIMAZOLE 1% CREAM 15 GM TUBE TP SCH ×2 (11:03→21:50)
[2017-12-12] MEDS: MAGNESIUM OXIDE 400 MG TABLET (FP) PO SCH ×2 (11:03→21:50)
[2017-12-12] MEDS: DIVALPROEX SODIUM 500 MG TABLET E.C. PO SCH ×2 (11:03→21:50)
[2017-12-12] MEDS: DOCUSATE SODIUM 100 MG CAPSULE (FP) PO SCH ×2 (11:04→21:49)
--- NOTE | 2017-12-12 15:21 | PN ---
Progress Note, Physician History of Present Illness: patient states that she is doing well no complaints rt leg pain surgery plan noted - Current Medication List Current Medications: Active Medications Acetaminophen (Tylenol -) 650 mg PO Q6H PRN PRN Reason: PAIN Last Admin: 12/08/17 22:12 Dose: 650 mg Clotrimazole (Lotrimin 1% Cream -) 1 applic TP BID [facility] Last Admin: 12/12/17 11:03 Dose: 1 applic Divalproex Sodium (Depakote -) 500 mg PO BID [facility] Last Admin: 12/12/17 11:03 Dose: 500 mg Docusate Sodium (Colace -) 100 mg PO BID [facility] Last Admin: 12/12/17 11:04 Dose: Not Given Heparin Sodium (Porcine) (Heparin -) 5,000 unit SQ TID [facility] Last Admin: 12/12/17 13:25 Dose: 5,000 unit Sodium Chloride (Normal Saline -) 1,000 mls @ 100 mls/hr IV ASDIR [facility] Last Admin: 12/11/17 17:22 Dose: 100 mls/hr Piperacillin Sod/Tazobactam (Sod 3.375 gm/ Dextrose) 50 mls @ 100 mls/hr IVPB Q8H-IV ALLIE PRN Reason: Protocol Last Admin: 12/12/17 11:03 Dose: 100 mls/hr Loperamide HCl (Imodium -) 2 mg PO Q8H PRN PRN Reason: DIARRHEA Last Admin: 12/10/17 06:52 Dose: 2 mg Magnesium Oxide (Mag-Ox -) 400 mg PO BID [facility] Last Admin: 12/12/17 11:03 Dose: 400 mg - Objective Vital Signs: Vital Signs Temperature 97.9 F 12/12/17 12:00 Pulse Rate 81 12/12/17 12:00 Respiratory Rate 18 12/12/17 12:00 Blood Pressure 103/65 12/12/17 12:00 O2 Sat by Pulse Oximetry (%) 94 L 12/12/17 09:00 Constitutional: Yes: No Distress, Calm Cardiovascular: Yes: Regular Rate and Rhythm Respiratory: Yes: Regular, CTA Bilaterally Gastrointestinal: Yes: Normal Bowel Sounds, Soft Musculoskeletal: Yes: Other Extremities: Yes: Other (groin hidradenitits) Neurological: Yes: Alert, Oriented Psychiatric: Yes: Alert Labs: CBC, BMP 12/12/17 06:45 04/11/18 06:45 INR, PTT INR 1.13 (0.82-1.09) 12/06/17 21:56 Assessment/Plan renetta List - Problems (1) Hidradenitis suppurativa Code(s): L73.2 - HIDRADENITIS SUPPURATIVA (2) Cellulitis Code(s): L03.90 - CELLULITIS, UNSPECIFIED (3) Conjunctivitis Code(s): H10.9 - UNSPECIFIED CONJUNCTIVITIS Qualifiers: Conjunctivitis type: acute Acute conjunctivitis type: bacterial Laterality: bilateral Qualified Code(s): H10.33 - Unspecified acute conjunctivitis, bilateral (4) Perineal abscess Code(s): L02.215 - CUTANEOUS ABSCESS OF PERINEUM (5) UTI (urinary tract infection) Code(s): N39.0 - URINARY TRACT INFECTION, SITE NOT SPECIFIED Qualifiers: Urinary tract infection type: site unspecified Hematuria presence: without hematuria Qualified Code(s): N39.0 - Urinary tract infection, site not specified (6) Vaginal discharge Code(s): N89.8 - OTHER SPECIFIED NONINFLAMMATORY DISORDERS OF VAGINA (7) Schizophrenia Code(s): F20.9 - SCHIZOPHRENIA, UNSPECIFIED surgery plan noted plan we should be able to switch her to a combination of oral abx need constant follow up for faler of the problem rest continue current mgmt rest as per the team
[2017-12-12] MEDS: SODIUM CHLORIDE 1,000 ML IV SCH ×2 (16:19→20:08)
--- NOTE | 2017-12-12 18:21 | PN ---
<Clinton Livingston - Last Filed: 12/12/17 18:23> Physical Exam: SUBJECTIVE: Patient seen and examined at bedside. No new complaints, no events overnight. OBJECTIVE: Vital Signs Period Temp Pulse Resp BP Sys/[place] Pulse Ox Last 24 Hr 97.7 F-98.8 F 78-92 18-22 103-138/65-91 94-100 GENERAL: The patient is awake, alert, and fully oriented, in no acute distress. NECK: Trachea midline, full range of motion, supple. LUNGS: Breath sounds equal, clear to auscultation bilaterally, no wheezes, no crackles, no accessory muscle use. HEART: Regular rate and rhythm, S1, S2 without murmur, rub or gallop. ABDOMEN: Soft, nontender, nondistended, normoactive bowel sounds, no guarding, no rebound, no hepatosplenomegaly, no masses. pannus unchanged today. EXTREMITIES: 2+ pulses, warm, well-perfused, no edema. NEUROLOGICAL: Cranial nerves II through X grossly intact. Normal speech, gait not observed. PSYCH: Normal mood, normal affect. SKIN: Warm, dry, normal turgor, no rashes or lesions noted Laboratory Results - last 24 hr 12/12/17 12/12/17 06:45 06:45 WBC 8.2 RBC 3.32 L Hgb 8.4 L Hct 26.4 L MCV 79.4 L MCH 25.2 L MCHC 31.7 L RDW 20.8 H Plt Count 424 MPV 7.3 L Sodium 144 Potassium 4.6 Chloride 109 H Carbon Dioxide 28 Anion Gap 7 L BUN 3 L Creatinine 0.5 L Random Glucose 67 L Calcium 8.5 Active Medications Generic Name Dose Route Start Last Admin Trade Name Freq PRN Reason Stop Dose Admin Acetaminophen 650 mg 12/07/17 22:11 12/08/17 22:12 Tylenol - PO 650 mg Q6H PRN Administration PAIN Clotrimazole 1 applic 12/07/17 10:00 12/12/17 11:03 Lotrimin 1% Cream - TP 1 applic BID ALLIE Administration Divalproex Sodium 500 mg 12/08/17 10:30 12/12/17 11:03 Depakote - PO 500 mg BID ALLIE Administration Docusate Sodium 100 mg 12/07/17 10:00 12/12/17 11:04 Colace - PO Not Given BID ALLIE Heparin Sodium (Porcine) 5,000 unit 12/11/17 14:00 12/12/17 13:25 Heparin - SQ 5,000 unit TID ALLIE Administration Sodium Chloride 1,000 mls @ 100 mls/hr 12/07/17 02:00 12/12/17 16:19 Normal Saline - IV 100 mls/hr ASDIR ALLIE Administration Piperacillin Sod/Tazobactam 50 mls @ 100 mls/hr 12/07/17 18:00 12/12/17 17:47 Sod 3.375 gm/ Dextrose IVPB 100 mls/hr Q8H-IV ALLIE Administration Protocol Loperamide HCl 2 mg 12/09/17 15:58 12/10/17 06:52 Imodium - PO 2 mg Q8H PRN Administration DIARRHEA Magnesium Oxide 400 mg 12/09/17 22:00 12/12/17 11:03 Mag-Ox - PO 400 mg BID ALLIE Administration ASSESSMENT/PLAN: This is a 52 year old woman with a history of hidradenitis suppurativa, type 2 DM, schizophrenia admitted for sepsis 2/2 infected pannus # Sepsis 2/2 cellulitis of abdominal pannus and infected hidradenitis suppurativa -Continue Zosyn (day 5), topical Lotrimin -will likely transition to PO abx tomorrow as per ID -rectal culture 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 #Diarrhea likely 2/2 abx use - Stool negative for C. diff - Imodium PRN #Schizophrenia- controlled -c/w home depakote #microcytic anemia- stable -FE studies: low iron, low TIBC, low saturation, normal ferritin -TSH WNL -FOBT negative #Hypomagnesemia - resolved # s/p fall #FEN -no fluids indicated -monitor lytes -regular diet #Prophylaxis -hep SQ 5Ku TID #Dispo -admit to med surg Visit type - Emergency Visit Emergency Visit: Yes ED Registration Date: 12/07/17 Care time: The patient presented to the Emergency Department on the above date and was hospitalized for further evaluation of their emergent condition. - New Patient This patient is new to me today: No - Critical Care Critical Care patient: No <Barbie Swanson - Last Filed: 12/12/17 19:52> Physical Exam: Per surgery no intervention at this time, will Check with ID for further management.
[2017-12-13] MEDS ORDERED: DEXTROSE 5%-WATER - 50 ML IVPB ONE ×2 (00:29→09:37)
[2017-12-13] MEDS ORDERED: PIPERACILLIN/TAZOBACTAM 3.375 GM VIAL IVPB ONE ×2 (00:29→09:37)
[2017-12-13] MEDS: PIPERACILLIN/TAZOB 3.375 GM 3.375 GM in DEXTROSE 5%-WATER - 50 ML IVPB SCH ×2 (01:11→10:08)
[2017-12-13] MEDS: SODIUM CHLORIDE 1,000 ML IV SCH (05:20)
[2017-12-13] MEDS: HEPARIN NA (PORCINE) 5,000 UNITS/ML 1ML VIAL SQ SCH ×2 (05:20→13:44)
[2017-12-13] MEDS ORDERED: PT OWN MED DRAWER 7, Y5N ONE (09:37)
[2017-12-13] MEDS: DIVALPROEX SODIUM 500 MG TABLET E.C. PO SCH (10:08)
[2017-12-13] MEDS: MAGNESIUM OXIDE 400 MG TABLET (FP) PO SCH (10:08)
[2017-12-13] MEDS: DOCUSATE SODIUM 100 MG CAPSULE (FP) PO SCH (10:09)
[2017-12-13] MEDS: CLOTRIMAZOLE 1% CREAM 15 GM TUBE TP SCH (10:11)
[2017-12-13] MEDS: ACETAMINOPHEN 325 MG TABLET (FP) PO PRN (13:44)
[2017-12-13 14:35] VITALS: BP 107/60; PULSE 84; TEMP 98.2
--- NOTE | 2017-12-13 14:35 | PN ---
Progress Note, Physician History of Present Illness: stable no new issues - Current Medication List Current Medications: Active Medications Acetaminophen (Tylenol -) 650 mg PO Q6H PRN PRN Reason: PAIN Last Admin: 12/13/17 13:44 Dose: 650 mg Clotrimazole (Lotrimin 1% Cream -) 1 applic TP BID [facility] Last Admin: 12/13/17 10:11 Dose: 1 applic Divalproex Sodium (Depakote -) 500 mg PO BID [facility] Last Admin: 12/13/17 10:08 Dose: 500 mg Docusate Sodium (Colace -) 100 mg PO BID [facility] Last Admin: 12/13/17 10:09 Dose: Not Given Heparin Sodium (Porcine) (Heparin -) 5,000 unit SQ TID [facility] Last Admin: 12/13/17 13:44 Dose: 5,000 unit - Objective Vital Signs: Vital Signs Temperature 98.1 F 12/13/17 10:00 Pulse Rate 90 12/13/17 10:00 Respiratory Rate 20 12/13/17 10:00 Blood Pressure 104/60 12/13/17 10:00 O2 Sat by Pulse Oximetry (%) 95 12/13/17 09:00 Constitutional: Yes: No Distress, Calm, Obese Cardiovascular: Yes: Regular Rate and Rhythm Respiratory: Yes: Regular, CTA Bilaterally Gastrointestinal: Yes: Normal Bowel Sounds, Soft Musculoskeletal: Yes: Other Extremities: Yes: Other Neurological: Yes: Alert, Oriented Psychiatric: Yes: Alert, Oriented Labs: CBC, BMP 12/12/17 06:45 12/12/17 06:45 INR, PTT INR 1.13 (0.82-1.09) 12/06/17 21:56 Assessment/Plan roblem List - Problems (1) Hidradenitis suppurativa Code(s): L73.2 - HIDRADENITIS SUPPURATIVA (2) Cellulitis Code(s): L03.90 - CELLULITIS, UNSPECIFIED (3) Conjunctivitis Code(s): H10.9 - UNSPECIFIED CONJUNCTIVITIS Qualifiers: Conjunctivitis type: acute Acute conjunctivitis type: bacterial Laterality: bilateral Qualified Code(s): H10.33 - Unspecified acute conjunctivitis, bilateral (4) Perineal abscess Code(s): L02.215 - CUTANEOUS ABSCESS OF PERINEUM (5) UTI (urinary tract infection) Code(s): N39.0 - URINARY TRACT INFECTION, SITE NOT SPECIFIED Qualifiers: Urinary tract infection type: site unspecified Hematuria presence: without hematuria Qualified Code(s): N39.0 - Urinary tract infection, site not specified (6) Vaginal discharge Code(s): N89.8 - OTHER SPECIFIED NONINFLAMMATORY DISORDERS OF VAGINA (7) Schizophrenia Code(s): F20.9 - SCHIZOPHRENIA, UNSPECIFIED surgery plan noted plan augmentin and clinda for 10 days will cover her urine also patient will need down the line some definitive treatment for her hidradenitits rest continue current mgmt
--- NOTE | 2017-12-13 15:22 | PN ---
Teaching Attending Note Name of Resident: Clinton Livingston ATTENDING PHYSICIAN STATEMENT I saw and evaluated the patient. I reviewed the resident's note and discussed the case with the resident. I agree with the resident's findings and plan as documented. SUBJECTIVE: OBJECTIVE: Vital Signs Temperature 98.2 F 12/13/17 14:33 Pulse Rate 84 12/13/17 14:33 Respiratory Rate 16 12/13/17 14:33 Blood Pressure 107/60 12/13/17 14:33 O2 Sat by Pulse Oximetry (%) 95 12/13/17 09:00 CBCD WBC 8.2 K/mm3 (4.0-10.0) 12/12/17 06:45 RBC 3.32 M/mm3 (3.60-5.2) L 12/12/17 06:45 Hgb 8.4 GM/dL (10.7-15.3) L 12/12/17 06:45 Hct 26.4 % (32.4-45.2) L 12/12/17 06:45 MCV 79.4 fl (80-96) L 12/12/17 06:45 MCHC 31.7 g/dl (32.0-36.0) L 12/12/17 06:45 RDW 20.8 % (11.6-15.6) H 12/12/17 06:45 Plt Count 424 K/MM3 (134-434) 12/12/17 06:45 MPV 7.3 fl (7.5-11.1) L 12/12/17 06:45 CMP Sodium 144 mmol/L (136-145) 12/12/17 06:45 Potassium 4.6 mmol/L (3.5-5.1) 12/12/17 06:45 Chloride 109 mmol/L (98-107) H 12/12/17 06:45 Carbon Dioxide 28 mmol/L (21-32) 12/12/17 06:45 Anion Gap 7 (8-16) L 12/12/17 06:45 BUN 3 mg/dL (7-18) L 12/12/17 06:45 Creatinine 0.5 mg/dL (0.55-1.02) L 12/12/17 06:45 Creat Clearance w eGFR > 60 (>60) 12/06/17 21:56 Random Glucose 67 mg/dL (74-106) L 12/12/17 06:45 Calcium 8.5 mg/dL (8.5-10.1) 12/12/17 06:45 Total Bilirubin < 0.1 mg/dL (0.2-1.0) L D 12/06/17 21:56 AST 20 U/L (15-37) 12/06/17 21:56 ALT 11 U/L (12-78) L 12/06/17 21:56 Alkaline Phosphatase 109 U/L (45-117) 12/06/17 21:56 Total Protein 7.9 g/dl (6.4-8.2) 12/06/17 21:56 Albumin 2.5 g/dl (3.4-5.0) L 12/06/17 21:56 CARDIAC ENZYMES Troponin I < 0.02 ng/ml (0.00-0.05) 12/06/17 21:56 Current Medications Generic Name Dose Route Start Last Admin Trade Name Freq PRN Reason Stop Dose Admin Acetaminophen 650 mg 12/07/17 22:11 12/13/17 13:44 Tylenol - PO 650 mg Q6H PRN Administration PAIN Clotrimazole 1 applic 12/07/17 10:00 12/13/17 10:11 Lotrimin 1% Cream - TP 1 applic BID ALLIE Administration Divalproex Sodium 500 mg 12/08/17 10:30 12/13/17 10:08 Depakote - PO 500 mg BID ALLIE Administration Docusate Sodium 100 mg 12/07/17 10:00 12/13/17 10:09 Colace - PO Not Given BID ALLIE Heparin Sodium (Porcine) 5,000 unit 12/11/17 14:00 12/13/17 13:44 Heparin - SQ 5,000 unit TID ALLIE Administration Home Medications Medication Instructions Recorded Albuterol Sulfate [Proair 2 puff IH Q4H PRN 11/29/16 Respiclick] Atropine 1% Ophth. Solution - 1 drop OD TID 11/29/16 Cyclobenzaprine HCl 5 mg PO TID 11/29/16 Divalproex [Depakote -] 250 mg PO HS 11/29/16 Divalproex *ER* [Depakote *ER* -] 500 mg PO BID 12/04/16 Amoxicillin/Potassium Clav 1 each PO BID #20 tablet 12/13/17 [Augmentin 875-125 Tablet] Clindamycin [Cleocin -] 300 mg PO TID #30 capsule 12/13/17 Lactobacillus Acidophilus [Bacid -] 1 each PO DAILY #30 capsule 12/13/17 ASSESSMENT AND PLAN:
--- NOTE | 2017-12-13 15:22 | DS ---
Physical Exam: Patient was discharged to rehab. with Augmentin 875mg po bid and Clidamycin x 10 days as per ID Vital Signs Temperature 98.2 F 12/13/17 14:33 Pulse Rate 84 12/13/17 14:33 Respiratory Rate 16 12/13/17 14:33 Blood Pressure 107/60 12/13/17 14:33 O2 Sat by Pulse Oximetry (%) 95 12/13/17 09:00 CBCD WBC 8.2 K/mm3 (4.0-10.0) 12/12/17 06:45 RBC 3.32 M/mm3 (3.60-5.2) L 12/12/17 06:45 Hgb 8.4 GM/dL (10.7-15.3) L 12/12/17 06:45 Hct 26.4 % (32.4-45.2) L 12/12/17 06:45 MCV 79.4 fl (80-96) L 12/12/17 06:45 MCHC 31.7 g/dl (32.0-36.0) L 12/12/17 06:45 RDW 20.8 % (11.6-15.6) H 12/12/17 06:45 Plt Count 424 K/MM3 (134-434) 12/12/17 06:45 MPV 7.3 fl (7.5-11.1) L 12/12/17 06:45 CMP Sodium 144 mmol/L (136-145) 12/12/17 06:45 Potassium 4.6 mmol/L (3.5-5.1) 12/12/17 06:45 Chloride 109 mmol/L (98-107) H 12/12/17 06:45 Carbon Dioxide 28 mmol/L (21-32) 12/12/17 06:45 Anion Gap 7 (8-16) L 12/12/17 06:45 BUN 3 mg/dL (7-18) L 12/12/17 06:45 Creatinine 0.5 mg/dL (0.55-1.02) L 12/12/17 06:45 Creat Clearance w eGFR > 60 (>60) 12/06/17 21:56 Random Glucose 67 mg/dL (74-106) L 12/12/17 06:45 Calcium 8.5 mg/dL (8.5-10.1) 12/12/17 06:45 Total Bilirubin < 0.1 mg/dL (0.2-1.0) L D 12/06/17 21:56 AST 20 U/L (15-37) 12/06/17 21:56 ALT 11 U/L (12-78) L 12/06/17 21:56 Alkaline Phosphatase 109 U/L (45-117) 12/06/17 21:56 Total Protein 7.9 g/dl (6.4-8.2) 12/06/17 21:56 Albumin 2.5 g/dl (3.4-5.0) L 12/06/17 21:56 CARDIAC ENZYMES Troponin I < 0.02 ng/ml (0.00-0.05) 12/06/17 21:56 Home Medications Medication Instructions Recorded Albuterol Sulfate [Proair 2 puff IH Q4H PRN 11/29/16 Respiclick] Atropine 1% Ophth. Solution - 1 drop OD TID 11/29/16 Cyclobenzaprine HCl 5 mg PO TID 11/29/16 Divalproex [Depakote -] 250 mg PO HS 11/29/16 Divalproex *ER* [Depakote *ER* -] 500 mg PO BID 12/04/16 Amoxicillin/Potassium Clav 1 each PO BID #20 tablet 12/13/17 [Augmentin 875-125 Tablet] Clindamycin [Cleocin -] 300 mg PO TID #30 capsule 12/13/17 Lactobacillus Acidophilus [Bacid -] 1 each PO DAILY #30 capsule 12/13/17 <Barbie Swanson - Last Filed: 12/13/17 20:45> Physical Exam: SUBJECTIVE: Patient seen and examined at bedside. No new complaints, no events overnight. OBJECTIVE: Vital Signs Period Temp Pulse Resp BP Sys/[place] Pulse Ox Last 24 Hr 97.8 F-99 F 74-92 16-22 104-124/60-70 95-98 PHYSICAL EXAM GENERAL: The patient is awake, alert, and fully oriented, in no acute distress. NECK: Trachea midline, full range of motion, supple. LUNGS: Breath sounds equal, clear to auscultation bilaterally, no wheezes, no crackles, no accessory muscle use. HEART: Regular rate and rhythm, S1, S2 without murmur, rub or gallop. ABDOMEN: Soft, nontender, nondistended, normoactive bowel sounds, no guarding, no rebound, no hepatosplenomegaly, no masses. pannus unchanged today. EXTREMITIES: 2+ pulses, warm, well-perfused, no edema. NEUROLOGICAL: Cranial nerves II through X grossly intact. Normal speech, gait not observed. PSYCH: Normal mood, normal affect. SKIN: Warm, dry, normal turgor, no rashes or lesions noted LABS Laboratory Results - last 24 hr 12/13/17 06:00 Stool Occult Blood Negative HOSPITAL COURSE: Date of Admission:12/07/17 The patient is a 52 year old female with a history of hidradenitis suppurativa, diabetes, schizophrenia, presents s/p mechanical fall earlier today. She states that she hit her head and denies syncopizing, feeling lightheaded, or having any chest pain. In the ED, she was found to have a temperature to 102 and a heart rate in the 120's. She was found to have a pannus which was erythematous and draining purulent material. She was admitted for sepsis 2/2 to cellulitis of this pannus. A CT of the head and facial bones both were negative for acute changes. Infectious disease was consulted. Surgery was consulted. The patient was treated with IV Zosyn and IV vancomycin. A culture of the affected area grew only contaminated bacteria. The patient improved on the above treatment [facility], clindamycin and bacid. She was advised to follow up with a PCP within one week of discharge home. Information for the resident clinic a [facility] was included in her discharge paperwork. Date of Discharge: 12/13/17 Minutes to complete discharge: 54 <Clinton Livingston - Last Filed: 12/13/17 21:13> Discharge Summary - Home Medications Comprehensive Discharge Medication List: Ambulatory Orders Albuterol Sulfate [Proair Respiclick] 2 puff IH Q4H PRN 11/29/16 Atropine 1% Ophth. Solution - 1 drop OD TID 11/29/16 Cyclobenzaprine HCl 5 mg PO TID 11/29/16 Divalproex [Depakote -] 250 mg PO HS 11/29/16 Divalproex *ER* [Depakote *ER* -] 500 mg PO BID 12/04/16 Amoxicillin/Potassium Clav [Augmentin 875-125 Tablet] 1 each PO BID #20 tablet 12/13/17 Clindamycin [Cleocin -] 300 mg PO TID #30 capsule 12/13/17 Lactobacillus Acidophilus [Bacid -] 1 each PO DAILY #30 capsule 12/13/17 <Barbie Swanson - Last Filed: 12/13/17 20:45> Reason For Visit: CELLULITIS,INFECTION DUE TO FUNGUS,PNEUMONIA Current Active Problems Abscess (Acute) Cellulitis (Acute) Hidradenitis suppurativa (Chronic) - Home Medications Comprehensive Discharge Medication List: Ambulatory Orders Albuterol Sulfate [Proair Respiclick] 2 puff IH Q4H PRN 11/29/16 Atropine 1% Ophth. Solution - 1 drop OD TID 11/29/16 Cyclobenzaprine HCl 5 mg PO TID 11/29/16 Divalproex [Depakote -] 250 mg PO HS 11/29/16 Divalproex *ER* [Depakote *ER* -] 500 mg PO BID 12/04/16 Amoxicillin/Potassium Clav [Augmentin 875-125 Tablet] 1 each PO BID #20 tablet 12/13/17 Clindamycin [Cleocin -] 300 mg PO TID #30 capsule 12/13/17 Lactobacillus Acidophilus [Bacid -] 1 each PO DAILY #30 capsule 12/13/17 <Clinton Livingston - Last Filed: 12/13/17 21:13> Condition: Improved - Instructions Diet, Activity, Other Instructions: You were admitted for the treatment of your infected pannus. We are sending you to [facility] so that you can get stronger. We are sending you home with two antibiotics to help finish fighting your infection. One antibiotic is called Augmentin. You should take 875mg of this medication twice per day for 10 days. The other antibiotic is called Clindamycin. You should take 300mg three times per day for the next 10 days. Please take all of your antibiotics for the order administrator they are prescribed, even if you feel better. You should follow up with a primary care physician within 1 week of discharge. Information for Dr. Alcantar at the [facility] resident clinic. Please call to make an appointment. Please return to the emergency department with any new or worsening symptoms or concerns. Please follow up with your primary care physician within 72 hours. Referrals: Michael Alcantar MD [Staff Physician] - 1 Week Shantell Power MD [Staff Physician] - 1 Week Disposition: PENITENTIARY FACILITY This patient is new to me today: No Emergency Visit: Yes ED Registration Date: 12/07/17 Care time: The patient presented to the Emergency Department on the above date and was hospitalized for further evaluation of their emergent condition. Critical Care patient: No - Discharge Referral Referred to [facility] No <Clinton Livingston - Last Filed: 12/13/17 21:13>
== END 2017-12-13 17:38 | DRG 720 ==
LOC: JER 20:52 → JERBED 12-07 01:55 → J4S 12-07 03:20
PROVIDERS: ADMIT Internal Medicine; ATTEND Internal Medicine
DX: A41.9 Sepsis, unspecified organism (principal); E11.9 Type 2 diabetes mellitus without complications; L73.2 Hidradenitis suppurativa; K21.9 Gastro-esophageal reflux disease without esophagitis; F17.210 Nicotine dependence, cigarettes, uncomplicated; R19.7 Diarrhea, unspecified; F20.9 Schizophrenia, unspecified; D50.9 Iron deficiency anemia, unspecified; E83.42 Hypomagnesemia; L03.311 Cellulitis of abdominal wall; E66.9 Obesity, unspecified; Z68.34 Body mass index [BMI] 34.0-34.9, adult; Z59.0 Homelessness; D72.829 Elevated white blood cell count, unspecified; R00.0 Tachycardia, unspecified; F31.9 Bipolar disorder, unspecified; J45.909 Unspecified asthma, uncomplicated; E65 Localized adiposity
CPT/HCPCS: 36415; 70450-TC; 70486-TC; 71045-TC-FY; 72125-TC; 74177-TC; 80048; 80053; 80164; 80307; 81003; 82272; 82728; 82803; 82962; 83540; 83550; 83605; 83735; 84100; 84443; 84484; 85025; 85027; 85610; 85730; 87040; 87070; 87077; 87081; 87086; 87205; 87324; 87449; 90715; 93005; 93010; 97116-GP; 97161-GP; 99284-25; G0480; J0131; J1644; J7030

== ENCOUNTER 2018-08-22 17:13 | Emergency (ER) | payer OTHER ==
[2018-08-22 17:22] VITALS: BMI 33.3
[2018-08-22 17:53] VITALS: TEMP 98.7
--- NOTE | 2018-08-22 19:37 | PDOC ---
Attending Attestation - HPI HPI: 08/22/18 20:05 The patient is a 52 year old female with a significant past medical history of schizophrenia, bipolar disorder, NIDDM, GERD chronic lower back pain and hidradenitis suppurativa who presents to the ED, sent by [facility], for vaginal lesions and eye redness. Upon arrival to the ED, patient has left eye redness, swelling, and discharge. She reports limited vision in the left eye. Patient also reports multiple foul smelling vaginal lesions. HIP is limited secondary to Patients schizophrenia. - Physicial Exam PE: 08/22/18 20:05 Constitutional: + Morbidly Obese. Awake, alert, oriented. No acute distress. Head: Normocephalic. Atraumatic Eyes:+ Left eye has injected sclera and cornea. Discharge from left eye, conjunctiva red and injected. ENT: Mucous membranes are moist and intact. Posterior pharynx without exudates or erythema. Uvula midline. Neck: Supple. Full ROM. No lymphadenopathy. Cardiovascular: + Tachycardia. Regular rhythm. S1, S2 regular. Distal pulses are 2+ and symmetric. Pulmonary/Chest: No evidence of respiratory distress. Clear to auscultation bilaterally No wheezing, rales or rhonchi. Abdominal: + Superpubic pannus. Soft. There is no tenderness. No rebound, guarding or rigidity. No organomegaly. No palpable masses. Good bowel sounds. Genital: + Suppurative hidradenitis with purulent foul smelling drainage, indurated and red. Back: No CVA tenderness. Musculoskeletal: No edema. No cyanosis. No clubbing. Full range of motion in all extremities. Nocalf tenderness. Radial/pedal pulses are intact and 2+ bilaterally Skin: Skin is warm and dry. No petechiae. No purpura. Neurological: Alert and oriented to person, place, and time. Cranial nerves II -XII are grossly intact. Normal speech. Strength is grossly symmetric. No sensory deficits. Psychiatric: Good eye contact. Normal interaction, affect and behavior. <Faheem Villar - Last Filed: 08/22/18 20:05> - Resident Resident Name: Dipesh Reeves - ED Attending Attestation I have performed the following: I have examined & evaluated the patient, The case was reviewed & discussed with the resident, I agree w/resident's findings & plan, Exceptions are as noted - Medical Decision Making 08/22/18 19:37 I, Dr. Rocío Guaman DO, attest that this document has been prepared under my direction and personally reviewed by me in its entirety. I further attest, that it accurately reflects all work, treatment, procedures and medical decision -making performed by me. 08/22/18 21:[address] Velazco at [facility] who accepts pt in transfer ER to ER for ophtho eval 08/22/18 21:33 resident had discussed the case with [facility] who did not accept the patient in transfer prior to calling [facility]. 08/22/18 21:34 52yo female with 2 issues -L eye redness and drainage - poss abscess to lower lid and decreased vision -unable to perform schmitz lamp exam, or stain eye for corneal abrasion -unable to perform tonopen exam -will need ophtho eval concern for conjuctivitis, poss corneal ulceration also with infected hydradenitis- will start broad spectrum abx will obtain ct abd/pelvis <Rocío Guaman - Last Filed: 08/22/18 21:38> Attestations - Attestations 08/22/18 20:06 Documentation prepared by Faheem Villar, acting as product manager medical device for Rocío Guaman DO, MD <Faheem Villar - Last Filed: 08/22/18 20:05>
[2018-08-22] MEDS ORDERED: VANCOMYCIN 1 GRAM (PRE-DOCKED) 1,000 MG/250 ML BAG IVPB ONE ×2 (19:49→19:59)
[2018-08-22] MEDS ORDERED: PIPERACILLIN/TAZOB 3.375 GM 3.375 GM in DEXTROSE 5%-WATER - 50 ML IVPB ONE (19:50)
[2018-08-22] MEDS ORDERED: BACITRACIN/POLYMYXIN OPH OINT 3.5 GM TUBE OS ONE (19:51)
[2018-08-22] MEDS ORDERED: SODIUM CHLORIDE 0.9% 1000 ML INFUS.BAG IV ONE (19:52)
[2018-08-22] MEDS ORDERED: PIPERACILLIN/TAZOB 3.375 GM 3.375 GM/50 ML BAG IVPB ONE (19:59)
--- NOTE | 2018-08-22 20:25 | PDOC ---
History of Present Illness <Rocío Guaman - Last Filed: 08/22/18 21:40> - General History Source: Patient Exam Limitations: No Limitations - History of Present Illness Initial Comments: 08/22/18 20:06 52 yo female pmh of hidradenitis suppurativa, DM, Schizophrenia presents from [facility] for left eye redness and drainage from vaginal/abdominal pannus. Pt is a poor historian and is unable to provide hx of present disease but does admit to rubbing her eye and having difficulty with visual acuity over the last few days. Denies N/V/F/C, abdominal pain, changes in bowel or bladder function, CP or SOB. Last admission to hospital sig for infection to pannus requiring IV vanc and Zosyn with improvement and DC back to [facility] with augmentin and clinda <Dipesh Reeves - Last Filed: 08/22/18 23:26> - General Chief Complaint: Vaginal Sxs Stated Complaint: WEAKNESS Time Seen by Provider: 08/22/18 19:13 Past History <Rocío Guaman - Last Filed: 08/22/18 21:40> - Past Medical History Anemia: No Asthma: No Cancer: No Cardiac Disorders: No CVA: No COPD: No CHF: No Dementia: No Diabetes: Yes GI Disorders: Yes (gerd) Disorders: No HTN: No Hypercholesterolemia: No Liver Disease: No Psychiatric Problems: Yes (Schizophrenia) Seizures: No Thyroid Disease: No - Surgical History Abdominal Surgery: No Appendectomy: No Cardiac Surgery: No Cholecystectomy: No Lung Surgery: No Neurologic Surgery: No Orthopedic Surgery: No - Reproductive History Is Patient Now?: No - Immunization History Immunization Up to Date: Yes - Suicide/Smoking/Psychosocial Hx Smoking History: Unknown if ever smoked Have you smoked in the past 12 months: Yes Number of Cigarettes Smoked Daily: 20 Cigars Per Day: 5 'Breaking Loose' booklet given: 12/04/16 Hx Alcohol Use: No Drug/Substance Use Hx: No Substance Use Type: None Hx Substance Use Treatment: No <Dipesh Reeves - Last Filed: 08/22/18 23:26> - Past Medical History Allergies/Adverse Reactions: Allergies Allergy/AdvReac Type Severity Reaction Status Date / Time No Known Drug Allergies Allergy Verified 08/22/18 18:09 Dairy AdvReac Uncoded 08/22/18 18:09 Spaguetti Sauce AdvReac Uncoded 08/22/18 18:09 Home Medications: Ambulatory Orders Cyclobenzaprine HCl 5 mg PO TID 11/29/16 Divalproex [Depakote -] 250 mg PO BID 11/29/16 Divalproex *ER* [Depakote *ER* -] 500 mg PO BID 12/04/16 Lactobacillus Acidophilus [Bacid -] 1 each PO DAILY #30 capsule 12/13/17 Albuterol Sulfate [Proair Hfa] 2 puff IH PRN 08/22/18 Ascorbic Acid [Vitamin C] 500 mg PO DAILY 08/22/18 Ferrous Sulfate [Iron] 325 mg PO BID 08/22/18 Risperidone [Risperdal Oral Soln] 1 mg PO BID 08/22/18 *Physical Exam - Vital Signs Last Vital Signs Temp Pulse Resp BP Pulse Ox 98.7 F 97 H 18 107/57 L 97 08/22/18 17:46 08/22/18 17:46 08/22/18 17:46 08/22/18 17:46 08/22/18 17:46 <Rocío Guaman - Last Filed: 08/22/18 21:40> - Vital Signs Last Vital Signs Temp Pulse Resp BP Pulse Ox 98.7 F 97 H 18 107/57 L 97 08/22/18 17:46 08/22/18 17:46 08/22/18 17:46 08/22/18 17:46 08/22/18 17:46 <Dipesh Reeves - Last Filed: 08/22/18 23:26> Moderate Sedation - Procedure Monitoring Vital Signs: Procedure Monitoring Vital Signs Temperature 98.7 F 08/22/18 17:46 Pulse Rate 97 H 08/22/18 17:46 Respiratory Rate 18 08/22/18 17:46 Blood Pressure 107/57 L 08/22/18 17:46 O2 Sat by Pulse Oximetry (%) 97 08/22/18 17:46 <Rocío Guaman - Last Filed: 08/22/18 21:40> - Procedure Monitoring Vital Signs: Procedure Monitoring Vital Signs Temperature 98.7 F 08/22/18 17:46 Pulse Rate 97 H 08/22/18 17:46 Respiratory Rate 18 08/22/18 17:46 Blood Pressure 107/57 L 08/22/18 17:46 O2 Sat by Pulse Oximetry (%) 97 08/22/18 17:46 <Dipesh Reeves - Last Filed: 08/22/18 23:26> ED Treatment Course - LABORATORY CBC & Chemistry Diagram: 08/22/18 20:38 08/22/18 20:38 - ADDITIONAL ORDERS Additional order review: Laboratory Results 08/22/18 08/22/18 08/22/18 20:38 20:38 20:33 Sodium 133 L Potassium 4.9 Chloride 98 Carbon Dioxide 29 Anion Gap 7 L BUN 17 Creatinine 0.6 Creat Clearance w eGFR > 60 Random Glucose 93 Calcium 8.4 L Total Bilirubin 0.2 AST 20 ALT 8 L Alkaline Phosphatase 88 Total Protein 8.7 H Albumin 2.5 L Serum , Qual Negative Anti-A Titer Cancelled Blood Type Cancelled Antibody Screen Cancelled 08/22/18 20:38 RBC 3.79 MCV 81.2 MCHC 33.6 RDW 18.1 H MPV 8.5 D Neutrophils % 65.9 Lymphocytes % 25.9 D Monocytes % 6.1 Eosinophils % 1.2 Basophils % 0.9 <Rocío Guaman - Last Filed: 08/22/18 21:40> - LABORATORY CBC & Chemistry Diagram: 08/22/18 20:38 08/22/18 20:38 - RADIOLOGY Radiology Studies Ordered: Category Date Time Status ORBIT CT W/O CONTRAST [CT] Stat CT Scan 08/22/18 20:00 Ordered <Dipesh Reeves - Last Filed: 08/22/18 23:26> Medical Decision Making - Medical Decision Making 08/22/18 23:09 Spoke with a resident at [facility] (Dr. Sparks) for transfer of the pt who was reluctant to provide a name. Pt <Dipesh Reeves - Last Filed: 08/22/18 23:26> *DC/Admit/Observation/Transfer - Transfer to Acute Care Facility Receiving Facility: [facility]. Accepting Physician:: Dr. Velazco <Rocío Guaman - Last Filed: 08/22/18 21:40> <Dipesh Reeves - Last Filed: 08/22/18 23:26> Diagnosis at time of Disposition: Blepharitis, Hidradenitis suppurativa - Discharge Dispostion Disposition: TRANSFER ACUTE CARE/OTHER HOSP Condition at time of disposition: Stable - Referrals Referrals: Blaise Rubin MD [Primary Care Provider] - - Patient Instructions - Post Discharge Activity
[2018-08-22 20:56] LABS: BASO % 0.9 % (0-2.0); EOS % 1.2 % (0-4.5); HEMATOCRIT 30.7 % (32.4-45.2); HEMOGLOBIN 10.3 GM/dL (10.7-15.3); LYMPH % 25.9 % (8-40); MCH 27.3 pg (25.7-33.7); MCHC 33.6 g/dl (32.0-36.0); MEAN CELL VOLUME 81.2 fl (80-96); MEAN PLT VOLUME 8.5 fl (7.5-11.1); MONO % 6.1 % (3.8-10.2); NEUT % 65.9 % (42.8-82.8); PLATELET COUNT 348 K/MM3 (134-434); RBC 3.79 M/mm3 (3.60-5.2); RDW 18.1 % (11.6-15.6); WHITE BLOOD COUNT 11.6 K/mm3 (4.0-10.0)
[2018-08-22] MEDS ORDERED: NEOMY SULF/BACITRA/POLYMYXIN B OPHTHALMIC OINTMENT 3.5 GM OS ONE (21:00)
[2018-08-22 21:28] LABS: ALBUMIN 2.5 g/dl (3.4-5.0); ALK PHOS 88 U/L (45-117); ANION GAP 7 MMOL/L (8-16); BILIRUBIN,TOTAL 0.2 mg/dL (0.2-1); BLOOD UREA NITROGEN 17 mg/dL (7-18); CALCIUM 8.4 mg/dL (8.5-10.1); CHLORIDE 98 mmol/L (98-107); CO2 29 mmol/L (21-32); CREATININE 0.6 mg/dL (0.55-1.3); GLUCOSE,RANDOM 93 mg/dL (74-106); POTASSIUM 4.9 mmol/L (3.5-5.1); SGOT/AST 20 U/L (15-37); SGPT/ALT 8 U/L (13-61); SODIUM 133 mmol/L (136-145); TOT PROT 8.7 g/dl (6.4-8.2)
[2018-08-22 22:29] VITALS: BP 106/67; PULSE 88
--- NOTE | 2018-08-23 11:26 | EKG ---
Test Reason : Blood Pressure : / mmHG Vent. Rate : 093 BPM Atrial Rate : 093 BPM P-R Int : 124 ms QRS Dur : 076 ms QT Int : 336 ms P-R-T Axes : 074 056 083 degrees QTc Int : 417 ms NORMAL SINUS RHYTHM NONSPECIFIC T WAVE ABNORMALITY ABNORMAL ECG WHEN COMPARED WITH ECG OF 07-DEC-2017 01:22, NONSPECIFIC T WAVE ABNORMALITY NO LONGER EVIDENT IN INFERIOR LEADS T WAVE INVERSION LESS EVIDENT IN ANTEROLATERAL LEADS Confirmed by NI MONTERROSO MD ([id number]) on 08/23/2018 11:26:05 AM Referred By: Confirmed By:NI MONTERRSOO MD
== END 2018-08-23 00:17 | disposition short-term general hospital (02) ==
LOC: JER 17:13
DX: H01.006 Unspecified blepharitis left eye, unspecified eyelid (principal); L73.2 Hidradenitis suppurativa; F20.9 Schizophrenia, unspecified; F31.9 Bipolar disorder, unspecified
CPT/HCPCS: 36415; 70480-TC; 74176-TC; 80053; 82962; 84703; 85025; 87040; 87070; 87186; 87205; 93005; 93010; 99284-25; J7030